=== PATIENT | female | born 1980 | race African-American/Black ===

== ENCOUNTER 2017-06-01 22:51 | Inpatient (IN) | payer SELFPAY ==
[~2017-06-01] VITALS: Ht 157.5 cm; Wt 47.5 kg
[2017-06-01] VITALS (10 sets, daily range): BP systolic 82–137; BP diastolic 40–63; PULSE 69–168; RESP 16; O2SAT 90–100
--- NOTE | 2017-06-01 23:55 | HHI.HP ---
[facility] Service Critical Care Medicine Primary Care Physician Admission Diagnosis Diagnosis: Chief Complaint: PEA arrest Travel History International Travel<30 Days: No Contact w/Intl Traveler <30 Da: No Traveled to Known Affected Are: No History of Present Illness This is a 37-year-old female with an unknown past medical history who presents after out of hospital cardiac arrest. Per EMS report, a friend found the patient altered with agonal respirations. Per report, the friend did not have any way of contacting 911, so the friend place the patient in a car and drove her to the nearest gas station to call 911. Upon EMS arrival, the patient was unresponsive, not breathing, and pulseless. Presenting rhythm was asystole. ACLS was initiated, 3 A of epinephrine, 1 amp of bicarbonate, 2 mg of Narcan and the patient had ROSC. Patient was transported to health emergency Department. In emergency department, she had a decreased level of consciousness but was moving all 4 extremities spontaneously. Her GCS was 6 (E1 ,V1,M4). Her urine drug screen is positive for cocaine. I discussion with Dr. Yañez the ER physician, and we agree that given her young age and that she was witnessed with a pulse, that the potential benefits of therapeutic hypothermia outweigh the risks in this scenario. No additional information is available from the patient and we do not know of any family at this time. Patient was transported the CVICU and therapeutic hypothermia was initiated. Review of Systems ROS Limitations: Clinical Condition, Intubated, Altered Mental Status, Unresponsive Past Family Social History Allergies: Coded Allergies: No Allergy Information Available (Unverified , 06/01/17) Past Medical History Unknown and unobtainable secondary to the clinical condition of the patient. Past Surgical History Unknown and unobtainable secondary to the clinical condition of the patient. Reported Medications Unknown and unobtainable secondary to the clinical condition of the patient. Active Ordered Medications See MAR Family History Unknown and unobtainable secondary to the clinical condition of the patient. Social History Unknown and unobtainable secondary to the clinical condition of the patient. The patient is positive for cocaine. Physical Exam Vital Signs Vital Signs Date Time Temp Pulse Resp B/P (MAP) Pulse Ox O2 Delivery O2 Flow Rate FiO2 06/01/17 23:49 69 16 113/56 (75) 100 Ventilator 100 06/01/17 23:41 86 16 111/53 (72) 100 100 06/01/17 23:30 101 16 90/47 (61) 100 Ventilator 06/01/17 23:26 92 84/45 (58) 100 15.00 06/01/17 23:24 97 82/40 (54) 100 15.00 06/01/17 23:19 121 110/56 (74) 100 15.00 06/01/17 23:17 126 137/62 (87) 100 15.00 06/01/17 23:11 117 103/63 (76) 90 15.00 06/01/17 23:03 168 116/55 (75) 98 15.00 Physical Exam GENERAL: Young female, lying in bed, intubated, unresponsive HEENT: Normocephalic. Atraumatic. Pupils 5 mm, equal, round, nonreactive, conjugate. Mucous membranes are moist NECK: Trachea is midline. There is no JVD. CHEST: Intubated, full vent support, FiO2 60% CARDIOVASCULAR: Tachycardic rate, regular rhythm. Frequent PVCs ABDOMEN: Soft, nontender, nondistended. No guarding. MUSCULOSKELETAL: Pulses 2+. No peripheral edema. NEUROLOGICAL: GCS of 6. RASS -4. Occasionally moves all extremities. Does not withdraw to pain. Does not follow commands. Pupils as above. Negative cough. Negative gag. Laboratory Laboratory Tests Test 06/01/17 22:55 06/01/17 22:59 06/01/17 23:30 06/02/17 00:00 Blood Gas Liter Flow 15 L/M White Blood Count 5.0 TH/MM3 Red Blood Count 3.85 MIL/MM3 Hemoglobin 9.3 GM/DL Hematocrit 31.3 % Mean Corpuscular Volume 81.4 FL Mean Corpuscular Hemoglobin 24.1 PG Mean Corpuscular Hemoglobin Concent 29.6 % Red Cell Distribution Width 18.2 % Platelet Count 174 TH/MM3 Mean Platelet Volume 8.4 FL Neutrophils (%) (Auto) 20.7 % Lymphocytes (%) (Auto) 65.0 % Monocytes (%) (Auto) 13.4 % Eosinophils (%) (Auto) 0.2 % Basophils (%) (Auto) 0.7 % Neutrophils # (Auto) 1.0 TH/MM3 Lymphocytes # (Auto) 3.3 TH/MM3 Monocytes # (Auto) 0.7 TH/MM3 Eosinophils # (Auto) 0.0 TH/MM3 Basophils # (Auto) 0.0 TH/MM3 CBC Comment AUTO DIFF Differential Comment AUTO DIFF CONFIRMED Platelet Estimate NORMAL Platelet Morphology Comment NORMAL Prothrombin Time 10.7 SEC Prothromb Time International Ratio 1.1 RATIO Activated Partial Thromboplast Time 25.5 SEC Blood Urea Nitrogen 12 MG/DL Creatinine 1.20 MG/DL Random Glucose 261 MG/DL Total Protein 7.1 GM/DL Albumin 3.2 GM/DL Calcium Level 8.0 MG/DL Alkaline Phosphatase 158 U/L Aspartate Amino Transf (AST/SGOT) 123 U/L Alanine Aminotransferase (ALT/SGPT) 65 U/L Total Bilirubin 0.2 MG/DL Sodium Level 142 MEQ/L Potassium Level 5.1 MEQ/L Chloride Level 107 MEQ/L Carbon Dioxide Level 17.4 MEQ/L Anion Gap 18 MEQ/L Estimat Glomerular Filtration Rate 47 ML/MIN Total Creatine Kinase 322 U/L Creatine Kinase MB 2.3 NG/ML Creatine Kinase MB % 0.7 % Troponin I LESS THAN 0.02 NG/ML Thyroid Stimulating Hormone 3rd Gen 1.740 uIU/ML Salicylates Level 4.3 MG/DL Acetaminophen Level LESS THAN 2.0 MCG/ML Ethyl Alcohol Level 232 MG/DL Urine Color COLORLESS Urine Turbidity CLEAR Urine pH 5.0 Urine Specific [place] 1.003 Urine Protein NEG mg/dL Urine Glucose (UA) NEG mg/dL Urine Ketones NEG mg/dL Urine Occult Blood NEG Urine Nitrite NEG Urine Bilirubin NEG Urine Urobilinogen LESS THAN 2.0 MG/DL Urine Leukocyte Esterase SMALL Urine WBC LESS THAN 1 /hpf Microscopic Urinalysis Comment CATH-CULT NOT IND Urine Opiates Screen NEG Urine Barbiturates Screen NEG Urine Amphetamines Screen NEG Urine Benzodiazepines Screen NEG Urine Cocaine Screen POS Urine Cannabinoids Screen NEG Blood Gas Puncture Site RT RADIAL Blood Gas Patient Temperature 98.6 Blood Gas HCO3 10 mmol/L Blood Gas Base Excess -17.2 mmol/L Blood Gas Oxygen Saturation 96 % Arterial Blood pH 7.17 Arterial Blood Partial Pressure CO2 28 mmHg Arterial Blood Partial Pressure O2 552 mmHG Arterial Blood Oxygen Content 13.5 Vol % Arterial Blood Carboxyhemoglobin 2.7 % Arterial Blood Methemoglobin 0.7 % Blood Gas Hemoglobin 8.9 G/DL Oxygen Delivery Device VENT Blood Gas Ventilator Setting AC16/500VT/+5 Blood Gas Inspired Oxygen 100 % Imaging Last Impressions CT Angiography 06/02/17 0000 Signed Impressions: Service Date/Time: Friday, June 02, 2017 00:38 - CONCLUSION: No evidence of pulmonary embolism. Left lung perihilar infiltrate. Darrius Blandon MD Abdomen/Pelvis CT 06/02/17 0000 Signed Impressions: Service Date/Time: Friday, June 02, 2017 00:43 - CONCLUSION: Nonspecific distention of bowel. Nonspecific abnormal appearance of the gallbladder. Darrius Blandon MD Head CT 06/01/17 2347 Signed Impressions: Service Date/Time: Friday, June 02, 2017 00:29 - CONCLUSION: No acute intracranial process Darrius Blandon MD Chest X-Ray 06/01/17 0000 Signed Impressions: Service Date/Time: Friday, June 02, 2017 00:04 - CONCLUSION: Satisfactory chest appearance Darrius Blandon MD Septic Shock Reassessment Septic shock perfusion: reassessment completed Caprini VTE Risk Assessment Caprini VTE Risk Assessment: Mod/High Risk (score >= 2) Caprini Risk Assessment Model Point Value = 1 Point Value = 2 Point Value = 3 Point Value = 5 Age 41-60 Minor surgery BMI > 25 kg/m2 Swollen legs Varicose veins or History of unexplained or recurrent spontaneous Oral contraceptives or hormone replacement Sepsis (< 1 month) Serious lung disease, including pneumonia (< 1 month) Abnormal pulmonary function Acute myocardial infarction Congestive heart failure (< 1 month) History of inflammatory bowel disease Medical patient at bed rest Age 61-74 Arthroscopic surgery Major open surgery (> 45 min) Laparoscopic surgery (> 45 min) Malignancy Confined to bed (> 72 hours) Immobilizing plaster cast Central venous access Age >= 75 History of VTE Family history of VTE Factor V Leiden Prothrombin [id number] Lupus anticoagulant Anticardiolipin antibodies Elevated serum homocysteine Heparin-induced thrombocytopenia Other congenital or acquired thrombophilia Stroke (< 1 month) Elective arthroplasty Hip, pelvis, or leg fracture Acute spinal cord injury (< 1 month) Prophylaxis Regimen Total Risk Factor Score Risk Level Prophylaxis Regimen 0-1 Low Early ambulation 2 Moderate Order ONE of the following: *Sequential Compression Device (SCD) *Heparin 5000 units SQ BID 3-4 Higher Order ONE of the following medications: *Heparin 5000 units SQ TID *Enoxaparin/Lovenox 40 mg SQ daily (WT < 150 kg, CrCl > 30 mL/min) *Enoxaparin/Lovenox 30 mg SQ daily (WT < 150 kg, CrCl > 10-29 mL/min) *Enoxaparin/Lovenox 30 mg SQ BID (WT < 150 kg, CrCl > 30 mL/min) AND/OR *Sequential Compression Device (SCD) 5 or more Highest Order ONE of the following medications: *Heparin 5000 units SQ TID (Preferred with Epidurals) *Enoxaparin/Lovenox 40 mg SQ daily (WT < 150 kg, CrCl > 30 mL/min) *Enoxaparin/Lovenox 30 mg SQ daily (WT < 150 kg, CrCl > 10-29 mL/min) *Enoxaparin/Lovenox 30 mg SQ BID (WT < 150 kg, CrCl > 30 mL/min) AND *Sequential Compression Device (SCD) Assessment and Plan Assessment and Plan Assessment: 37-year-old female status post out of hospital cardiac arrest with persistent encephalopathy. This is most likely secondary to drug overdose, likely cocaine. Given that she was very recently found altered but breathing, the potential benefits in this young person of therapeutic hypothermia outweigh the risks. We do not know the time period that it took to drive to the gas station or for EMS to arrive, but given that ROSC was obtained in a reasonable amount of time, asystolic arrest was likely relatively short duration. Patient remains critically ill this time, and certainly may have some severe element of anoxic brain injury. Plan by systems: Neurologic: Hypoxic ischemic encephalopathy Toxic encephalopathy Cocaine overdose Alcohol intoxication Frequent neuro checks Propofol for goal RASS -5 while paralyzed Nimbex drip Respiratory: Acute hypoxic and hypercarbic respiratory failure Vent bundle Head of bed 30 Nebs Wean FiO2 for goal SPO2 greater than 92% CT pulmonary angiogram 06/01: Negative for acute PE Cardiovascular: Status post out of hospital cardiac arrest Cardiogenic shock Likely secondary to cocaine overdose Wean dopamine and norepinephrine as tolerated for goal map greater than 65 Trend lactate Watch urine output closely Trend troponins: Unlikely to be primary acute coronary syndrome secondary to atherosclerosis. Much more likely to be secondary to cocaine Renal: Acute kidney injury Rhabdo myolysis -- Strict I/Os Place Cochran for accurate I's and O's Trend CKs FEN/GI: Maintenance IV fluids ICU electrolyte protocol Daily BMP Nothing by mouth while in shock Heme/ID: No infectious etiology suspected this time Does not be transfusion triggers at this time Daily CBC Endocrine: Hyperglycemia of critical illness -- SSI, medium scale, every 6 Prophylaxis: GI Prophylaxis Famotidine IV DVT Prophylaxis -- SCDs Subcutaneous heparin Lines: 06/01 right femoral triple-lumen catheter placed in the emergency department by the emergency room physician 06/02 right radial arterial line 06/02 left femoral code cool catheter Cochran Dispo: To ICU. Critically ill. This patient remains critically ill with one or more organ systems which are or may become a threat to life. I have spent in excess of 66 minutes discontinuously in the care and management of this patient. This time is exclusive of procedures, and includes, but is not limited to, evaluation of the patient, review of the medical record, discussions with family, consultants, nursing staff, or respiratory therapy, and documentation in the medical record. Americo Ruiz MD Jun 01, 2017 23:55
[2017-06-02] VITALS (43 sets, daily range): BP systolic 101–165; BP diastolic 54–104; PULSE 72–103; RESP 14–16; TEMP 91.2–97.3; O2SAT 98–100
[2017-06-02] MEDS ORDERED: THIAMINE INJ 100 MG in SODIUM CHLORIDE 0.9% INJ 100 ML IV ONE ×2
[2017-06-02] MEDS ORDERED: SODIUM CHLORIDE 0.9% FLUSH 10 ML FLUSH IV FLUSH PRN
--- NOTE | 2017-06-02 00:08 | PD ---
HPI Chief Complaint: Code Blue Time Seen by Provider: 23:46 Travel History International Travel<30 days: No Contact w/Intl Traveler<30days: No Traveled to known affect area: No History of Present Illness HPI Young adult female presents to the emergency department by EMS transport and cardiopulmonary arrest identified by paramedics just prior to their arrival to be in PEA. According to assistant professor of geography report patient was found with decreased level of consciousness and grunting respirations by a friend who drove her to a sitting to gas station to get access to a phone to call 911 upon their arrival the patient was unresponsive not breathing and pulseless. Patient was placed on monitor and found to be in asystole. CPR was initiated patient was intubated IV access obtained by EMS. Patient was then administered 3 amps of epinephrine, 50 mEq of sodium bicarbonate, 2 mg of Narcan, and IV fluids. In route patient's rhythm changed from asystole to PEA. No identification was available medical history unknown except bystander reported history of alcohol use. [facility] Past Medical History Narrative Medical Unknown/unobtainable Social History Alcohol Use: Yes Tobacco Use: Yes Substance Use: Yes Allergies-Medications (Allergen,Severity, Reaction): Coded Allergies: No Allergy Information Available (Unverified , 06/01/17) Narrative Medication Unknown/unobtainable Review of Systems ROS Limitations: Clinical Condition, Intubated, Unresponsive, Other: (unknown/ unobtainable) Physical Exam Exam Limitations: Clinical Condition Narrative GENERAL: Well-developed young adult appearing female unresponsive with no spontaneous respirations and no pulse except provided by CPR and Ambu assisted ventilations. GCS 3 SKIN: Warm and dry. HEAD: Normocephalic. No palpable soft tissue swelling or bony abnormality or obvious laceration. EYES: No scleral icterus. No injection or drainage. Pupils equal round and nonreactive. NECK: Supple, trachea midline. No JVD or lymphadenopathy. No bony step-off to palpation. CARDIOVASCULAR: No heart sounds to auscultation. Pulse only with compressions. RESPIRATORY: No spontaneous breath sounds or respirations; bilateral breath sounds to auscultation with Ambu assisted ventilations GASTROINTESTINAL: Abdomen soft, nondistended. MUSCULOSKELETAL: No cyanosis, or edema. BACK: Nontender without obvious deformity. No abrasion or ecchymosis no wounds. Data Data Last Documented VS Vital Signs Date Time Temp Pulse Resp B/P (MAP) Pulse Ox O2 Delivery O2 Flow Rate FiO2 06/01/17 23:49 69 16 113/56 (75) 100 Ventilator 100 06/01/17 23:26 15.00 Orders Orders Chest, Single Ap (06/01/17 ) Electrocardiogram (06/01/17 23:47) Complete Blood Count With Diff (06/01/17 23:47) Comprehensive Metabolic Panel (06/01/17 23:47) Creatine Kinase (Cpk) (06/01/17 23:47) Prothrombin Time / Inr (Pt) (06/01/17 23:47) Act Partial Throm Time (Ptt) (06/01/17 23:47) Troponin I (06/01/17:47) Thyroid Stimulating Hormone (06/01/17:47) Urinalysis - C+S If Indicated (06/01/17 23:47) Lactic Acid Sepsis Protocol (06/01/17 23:47) Arterial Blood Gas (Abg) (06/01/17 23:47) Blood Culture (06/01/17 23:47) Ct Brain W/O Iv Contrast(Rout) (06/01/17 23:47) Blood Glucose (06/01/17 23:47) Ecg Monitoring (06/01/17:47) Iv Access Insert/Monitor (06/01/17 23:47) Oximetry (06/01/17 23:47) Sodium Chloride 0.9% Flush (Ns Flush) (06/02/17 00:00) Thiamine Inj (Thiamine Inj) (06/02/17 00:00) Drug Screen, Random Urine (06/01/17 23:47) Alcohol (Ethanol) (06/01/17 23:47) Tylenol (Acetaminophen) (06/01/17 23:47) Salicylates (Aspirin) (06/01/17 23:47) Sodium Chlor 0.9% 1000 Ml Inj (Ns 1000 M (06/02/17 00:00) Sodium Chlor 0.9% 1000 Ml Inj (Ns 1000 M (06/02/17 00:00) Propofol 1000 Mg/100 Ml Inj (Diprivan 10 (06/02/17 00:00) Neurological Rass Scale Q30MX2,Q2HX4,Q4H (06/01/17 23:55) Admit Order (Ed Use Only) (06/01/17 ) Slps / Telemetry LEO.Q8H (06/01/17 23:56) Diet Npo (06/02/17 Breakfast) Activity Bed Rest (06/01/17 23:56) Notify Dr: Other (06/01/17 23:56) CKMB (06/01/17 22:59) CKMB% (06/01/17 22:59) Labs Laboratory Tests Test 06/01/17 22:55 06/01/17 22:59 06/01/17 23:30 06/02/17 00:00 Blood Gas Puncture Site LT FEMORAL RT RADIAL Blood Gas Patient Temperature 98.6 98.6 Blood Gas HCO3 12 mmol/L 10 mmol/L Blood Gas Base Excess -18.3 mmol/L -17.2 mmol/L Blood Gas Oxygen Saturation 84 % 96 % Arterial Blood pH 6.92 7.17 Arterial Blood Partial Pressure CO2 63 mmHg 28 mmHg Arterial Blood Partial Pressure O2 97 mmHG 552 mmHG Arterial Blood Oxygen Content 10.7 Vol % 13.5 Vol % Arterial Blood Carboxyhemoglobin 4.3 % 2.7 % Arterial Blood Methemoglobin 0.7 % 0.7 % Blood Gas Hemoglobin 8.9 G/DL 8.9 G/DL Oxygen Delivery Device AMBU BAG VENT Blood Gas Liter Flow 15 L/M Blood Gas Inspired Oxygen 100 % 100 % White Blood Count 5.0 TH/MM3 Red Blood Count 3.85 MIL/MM3 Hemoglobin 9.3 GM/DL Hematocrit 31.3 % Mean Corpuscular Volume 81.4 FL Mean Corpuscular Hemoglobin 24.1 PG Mean Corpuscular Hemoglobin Concent 29.6 % Red Cell Distribution Width 18.2 % Platelet Count 174 TH/MM3 Mean Platelet Volume 8.4 FL Neutrophils (%) (Auto) 20.7 % Lymphocytes (%) (Auto) 65.0 % Monocytes (%) (Auto) 13.4 % Eosinophils (%) (Auto) 0.2 % Basophils (%) (Auto) 0.7 % Neutrophils # (Auto) 1.0 TH/MM3 Lymphocytes # (Auto) 3.3 TH/MM3 Monocytes # (Auto) 0.7 TH/MM3 Eosinophils # (Auto) 0.0 TH/MM3 Basophils # (Auto) 0.0 TH/MM3 CBC Comment AUTO DIFF Differential Comment AUTO DIFF CONFIRMED Platelet Estimate NORMAL Platelet Morphology Comment NORMAL Prothrombin Time 10.7 SEC Prothromb Time International Ratio 1.1 RATIO Activated Partial Thromboplast Time 25.5 SEC Blood Urea Nitrogen 12 MG/DL Creatinine 1.20 MG/DL Random Glucose 261 MG/DL Total Protein 7.1 GM/DL Albumin 3.2 GM/DL Calcium Level 8.0 MG/DL Alkaline Phosphatase 158 U/L Aspartate Amino Transf (AST/SGOT) 123 U/L Alanine Aminotransferase (ALT/SGPT) 65 U/L Total Bilirubin 0.2 MG/DL Sodium Level 142 MEQ/L Potassium Level 5.1 MEQ/L Chloride Level 107 MEQ/L Carbon Dioxide Level 17.4 MEQ/L Anion Gap 18 MEQ/L Estimat Glomerular Filtration Rate 47 ML/MIN Total Creatine Kinase 322 U/L Creatine Kinase MB 2.3 NG/ML Creatine Kinase MB % 0.7 % Troponin I LESS THAN 0.02 NG/ML Thyroid Stimulating Hormone 3rd Gen 1.740 uIU/ML Salicylates Level 4.3 MG/DL Acetaminophen Level LESS THAN 2.0 MCG/ML Ethyl Alcohol Level 232 MG/DL Urine Color COLORLESS Urine Turbidity CLEAR Urine pH 5.0 Urine Specific [place] 1.003 Urine Protein NEG mg/dL Urine Glucose (UA) NEG mg/dL Urine Ketones NEG mg/dL Urine Occult Blood NEG Urine Nitrite NEG Urine Bilirubin NEG Urine Urobilinogen LESS THAN 2.0 MG/DL Urine Leukocyte Esterase SMALL Urine WBC LESS THAN 1 /hpf Microscopic Urinalysis Comment CATH-CULT NOT IND Urine Opiates Screen NEG Urine Barbiturates Screen NEG Urine Amphetamines Screen NEG Urine Benzodiazepines Screen NEG Urine Cocaine Screen POS Urine Cannabinoids Screen NEG Blood Gas Ventilator Setting AC16/500VT/+5 MDM Medical Decision Making Medical Screen Exam Complete: Yes Emergency Medical Condition: Yes Medical Record Reviewed: Yes Interpretation(s) Urine drug screen: positive for cocaine Serum alcohol: [address] 06/01/17 2347 Signed Impressions: Service Date/Time: Friday, June 02, 2017 00:29 - CONCLUSION: No acute intracranial process Darrius Blandon MD Chest X-Ray 06/01/17 0000 Signed Impressions: Service Date/Time: Friday, June 02, 2017 00:04 - CONCLUSION: Satisfactory chest appearance Darrius Blandon MD CBC & BMP Diagram 06/01/17 22:59 Total Protein 7.1, Albumin 3.2 L, Calcium Level 8.0 L, Alkaline Phosphatase 158 H, Aspartate Amino Transf (AST/SGOT) 123 H, Alanine Aminotransferase (ALT/SGPT) 65 H, Total Bilirubin 0.2 Vital Signs Date Time Temp Pulse Resp B/P (MAP) Pulse Ox O2 Delivery O2 Flow Rate FiO2 06/01/17 23:49 69 16 113/56 (75) 100 Ventilator 100 06/01/17 23:41 86 16 111/53 (72) 100 100 06/01/17 23:40 100 100 06/01/17 23:30 101 16 90/47 (61) 100 Ventilator 06/01/17 23:26 92 84/45 (58) 100 15.00 06/01/17 23:24 97 82/40 (54) 100 15.00 06/01/17 23:19 121 110/56 (74) 100 15.00 06/01/17 23:17 126 137/62 (87) 100 15.00 06/01/17 23:11 117 103/63 (76) 90 15.00 06/01/17 23:03 168 116/55 (75) 98 15.00 Differential Diagnosis Polysubstance ingestion/overdose, CVA, [place], metabolic derangement, septic shock Narrative Course Young adult female confirmed bilateral breath sounds on EMS stretcher transferred to ED stretcher breath sounds again auscultated with Ambu assisted ventilations equal and symmetric with no gastric sounds; patient found to be in PEA administered additional 1 mg epinephrine IV [id number] ongoing chest compressions patient remained in PEA additional 2 doses of epinephrine administered as well as 2 mg of Narcan blood sugar was 158 IV fluids administered wide open patient subsequently developed ventricular tach and was defibrillated 200 J compressions resumed no pulse again rhythm deterioration patient defibrillated 360 J with ongoing compressions and administered one time dose of magnesium; patient resumed spontaneous pulses amiodarone was administered is a 150 mg bolus with infusion patient was started on dopamine infusion ongoing IV fluid infusion one time dose of 1 g calcium. Patient blood pressure with moderate response to dopamine additional pressor Levophed administered. Central line inserted. Anchorman at bedside. Patient sent for CT brain. Police identifying patient. Critical Care Narrative Aggregate critical care time was 30 minutes. Time to perform other separately billable procedures was not included in the critical care time. My time did not include minutes spent treating any other patients simultaneously or on activities that did not directly contribute to the patient's treatment. The services I provided to this patient were to treat and/or prevent clinically significant deterioration that could result in: Metabolic derangement toxic encephalopathy sepsis I provided critical care services requiring my management, as noted below: Chart data review, documentation time, medication orders and management, vital sign assessments/reviewing monitor data, ordering and reviewing lab tests, ordering and interpreting/reviewing x-rays and diagnostic studies, care of the patient and discussion of the patient with the admitting physicians. Procedures Procedure Narrative CENTRAL VENOUS LINE: The site was prepped with Betadine and sterilely draped. It was infiltrated with 1% lidocaine plain. The deep vein was cannulated using normal Seldinger technique. A triple lumen central line was placed in the right femoral vein site and secured with simple interrupted suture. The site was sterilely dressed. The patient tolerated the procedure well. Physician Communication Physician Communication Case discussed with him accepted by miter sawyer Dr. Ruiz Diagnosis Primary Impression: Cocaine abuse Additional Impression: Cardiopulmonary arrest with successful resuscitation Admitting Information Admitting Physician Requests: Admit An Yañez MD Jun 02, 2017 00:08
[2017-06-02 00:14] LABS: BILIRUBIN, URINE NEG (NEG); BLOOD, URINE NEG (NEG); GLUCOSE,URINE NEG (NEG); KETONE, URINE NEG (NEG); NITRITE,URINE NEG (NEG); URINE COLOR COLORLESS (YELLW/STRAW); URINE LEUKOCYTE ESTERASE SMALL (NEG)
[2017-06-02 00:19] LABS: BASOPHIL % 0.7 % (0.0-2.0); EOSINOPHIL % 0.2 % (0.0-4.0); HEMATOCRIT 31.3 % (35.0-46.0); HEMOGLOBIN 9.3 GM/DL (11.6-15.3); LYMPHOCYTE # 3.3 TH/MM3 (1.0-4.8); MEAN CELL VOLUME 81.4 FL (80.0-100.0); MEAN CORPUSCULAR HEMOGLOBIN 24.1 PG (27.0-34.0); MEAN PLATELET VOLUME 8.4 FL (7.0-11.0); MONO % 13.4 % (0.0-8.0); MONOCYTE # 0.7 TH/MM3 (0-0.9); NEUT % 20.7 % (16.0-70.0); PLATELET COUNT 174 TH/MM3 (150-450); RED BLOOD COUNT 3.85 MIL/MM3 (4.00-5.30); RED CELL DISTRIBUTION WIDTH 18.2 % (11.6-17.2)
[2017-06-02 00:21] LABS: MEAN CORPUSCULAR HGB CONC 29.6 % (32.0-36.0)
[2017-06-02] MEDS: PROPOFOL 1000 MG/100 ML INJ 100 ML IV PRN ×2 (00:21→09:17)
[2017-06-02 00:30] LABS: INTERNATIONAL NORMALIZED RATIO 1.1 RATIO; PROTHROMBIN TIME - PATIENT 10.7 SEC (9.8-11.6)
--- NOTE | 2017-06-02 00:30 | RADRPT ---
EXAM DATE/TIME: 06/02/2017 00:04 [facility] COMPARISON: No previous studies available for comparison. INDICATIONS : Status post intubation. MEDICAL HISTORY : Unobtainable. SURGICAL HISTORY : Unobtainable. ENCOUNTER: Initial ACUITY: 1 day PAIN SCORE: Non-responsive. LOCATION: chest FINDINGS: Endotracheal tube and nasogastric tube are present in satisfactory position. Lungs are symmetrically aerated and grossly clear. Cardiac contours are satisfactory for technique and projection. CONCLUSION: Satisfactory chest appearance Darrius Blandon MD on June 02, 2017 at 0:26 Board Certified Radiologist. This report was verified electronically.
[2017-06-02 00:35] LABS: ALBUMIN 3.2 GM/DL (3.4-5.0); ALT (GPT) 65 U/L (10-53); AST (GOT) 123 U/L (15-37); BICARBONATE 17.4 MEQ/L (21.0-32.0); BLOOD UREA NITROGEN 12 MG/DL (7-18); CHLORIDE 107 MEQ/L (98-107); GLOMERULAR FILTRATION RATE 47 ML/MIN (>89); GLUCOSE,RANDOM 261 MG/DL (74-106); SODIUM (NA) 142 MEQ/L (136-145)
[2017-06-02 00:45] LABS: ALKALINE PHOSPHATASE 158 U/L (45-117); TOTAL BILIRUBIN ADULT 0.2 MG/DL (0.2-1.0); TOTAL PROTEIN 7.1 GM/DL (6.4-8.2); TROPONIN I LESS THAN 0.02 NG/ML (0.02-0.05)
[2017-06-02 00:48] LABS: ACETAMINOPHEN LESS THAN 2.0 MCG/ML (10.0-30.0)
--- NOTE | 2017-06-02 00:50 | RADRPT ---
EXAM DATE/TIME: 06/02/2017 00:29 [facility] COMPARISON: No previous studies available for comparison. INDICATIONS : Altered mental status. RADIATION DOSE: 56.35 CTDIvol (mGy) ; Patient motion MEDICAL HISTORY : Non-responsive. SURGICAL HISTORY : Non-responsive. ENCOUNTER: Initial ACUITY: 1 day PAIN SCALE: Non-responsive LOCATION: cranial TECHNIQUE: Multiple contiguous axial images were obtained of the head. Using automated exposure control and adj ustment of the mA and/or kV according to patient size, radiation dose was kept as low as reasonably a chievable to obtain optimal diagnostic quality images. DICOM format image data is available electro nically for review and comparison. FINDINGS: CEREBRUM: The ventricles are normal for age. No evidence of midline shift, mass lesion, hemorrhage or acute in farction. No extra-axial fluid collections are seen. POSTERIOR FOSSA: The cerebellum and brainstem are intact. The 4th ventricle is midline. The cerebellopontine angle i s unremarkable. EXTRACRANIAL: The visualized portion of the orbits is intact. Mild mucosal sinus disease. SKULL: The calvaria is intact. No evidence of skull fracture. CONCLUSION: No acute intracranial process Darrius Blandon MD on June 02, 2017 at 0:46 Board Certified Radiologist. This report was verified electronically.
[2017-06-02] MEDS ORDERED: IOHEXOL 350 MG/ML 10 ML VIAL (for RAD DIAG) IVCONTRAST ONE (00:54)
--- NOTE | 2017-06-02 01:03 | RADRPT ---
EXAM DATE/TIME: 06/02/2017 00:38 [facility] COMPARISON: CHEST SINGLE AP, June 02, 2017, 0:04. INDICATIONS : Shortness of breath, Evaluate for emboli. IV CONTRAST: 100 cc Omnipaque 350 (iohexol) IV ; Cumulative dose for multiple exams. RADIATION DOSE: 5.69 CTDIvol (mGy) MEDICAL HISTORY : Non-responsive. SURGICAL HISTORY : Non-responsive. ENCOUNTER: Initial ACUITY: 1 day PAIN SCALE: Non-responsive LOCATION: chest TECHNIQUE: Volumetric scanning of the chest was performed using a pulmonary embolism protocol MIP images were re constructed. Using automated exposure control and adjustment of the mA and/or kV according to patien t size, radiation dose was kept as low as reasonably achievable to obtain optimal diagnostic quality images. DICOM format image data is available electronically for review and comparison. Follow-up recommendations for detected pulmonary nodules are based at a minimum on nodule size and pa tient risk factors according to Fleischner Society Guidelines. FINDINGS: PULMONARY ARTERIES: No filling defects are seen in the pulmonary arteries through the segmental level. LUNGS: Perihilar infiltrate is present on the left. Right lung is clear. PLEURAE: There is no pleural thickening or pleural effusion. MEDIASTINUM: There is good visualization of the great vessels of the middle mediastinum. No evidence of mediastin al or hilar adenopathy/mass. MUSCULOSKELETAL: Within normal limits for patient age. CONCLUSION: No evidence of pulmonary embolism. Left lung perihilar infiltrate. Darrius Blandon MD on June 02, 2017 at 0:58 Board Certified Radiologist. This report was verified electronically.
--- NOTE | 2017-06-02 01:12 | RADRPT ---
EXAM DATE/TIME: 06/02/2017 00:43 [facility] COMPARISON: No previous studies available for comparison. INDICATIONS : Abdominal bloating. IV CONTRAST: 100 cc Omnipaque 350 (iohexol) IV ; Cumulative dose for multiple exams. ORAL CONTRAST: No oral contrast ingested. RADIATION DOSE: 7.65 CTDIvol (mGy) MEDICAL HISTORY : Non-responsive. SURGICAL HISTORY : Non-responsive. ENCOUNTER: Initial ACUITY: 1 day PAIN SCALE: Non-responsive LOCATION: Abdomen. TECHNIQUE: Volumetric scanning of the abdomen and pelvis was performed. Using automated exposure control and ad justment of the mA and/or kV according to patient size, radiation dose was kept as low as reasonably achievable to obtain optimal diagnostic quality images. DICOM format image data is available electro nically for review and comparison. FINDINGS: LOWER LUNGS: The visualized lower lungs are clear. LIVER: Homogeneous density without lesion. There is no dilation of the biliary tree. Gallbladder notable fo r mild distention with prominent wall thickening versus mild pericholecystic fluid.. SPLEEN: Normal size without lesion. PANCREAS: Within normal limits. KIDNEYS: Normal in size and shape. There is no mass, stone or hydronephrosis. ADRENAL GLANDS: Within normal limits. VASCULAR: There is no aortic aneurysm. BOWEL/MESENTERY: Moderate fairly diffuse fluid and gaseous distention of small bowel sparing what appears to be the pr oximal most loops. Proximal colon is mildly dilated. No definite mass or wall thickening. ABDOMINAL WALL: Within normal limits. RETROPERITONEUM: There is no lymphadenopathy. BLADDER: Decompressed with Cochran catheter REPRODUCTIVE: Within normal limits. INGUINAL: Right groin femoral venous catheter extending up to the common iliac vein MUSCULOSKELETAL: Within normal limits for patient age. CONCLUSION: Nonspecific distention of bowel. Nonspecific abnormal appearance of the gallbladder. Darrius Blandon MD on June 02, 2017 at 1:00 Board Certified Radiologist. This report was verified electronically.
[2017-06-02] MEDS ORDERED: NOREPINEPHRINE INJ 4 MG in SODIUM CHLOR 0.9% 250 ML INJ 246 ML IV PRN (02:00)
[2017-06-02] MEDS ORDERED: SODIUM CHLOR 0.9% 1000 ML INJ 1,000 ML IV ONE ×2 (02:00)
[2017-06-02] MEDS ORDERED: TERBUTALINE INJ 1 MG/ML AMP SQ PRN ×3 (02:00)
[2017-06-02] MEDS ORDERED: DOPamine INJ PREMIX 500 ML IV PRN (02:00)
[2017-06-02] MEDS ORDERED: MEPERIDINE HCL 25 MG/ML VIAL IV PUSH PRN (02:30)
[2017-06-02] MEDS ORDERED: ARTIFICIAL TEARS OPTH OINT 3.5 APPLIC/3.5 GM TUBO EACH EYE PRN (02:30)
[2017-06-02] MEDS ORDERED: Mix all IV Meds in NS IV SCH (02:30)
[2017-06-02] MEDS ORDERED: NOREPINEPHRINE 4 MG/250 ML NS IV PRN ×2 (02:30)
[2017-06-02] MEDS ORDERED: CISATRACURIUM BESYLATE 10 MG/5 ML VIAL IV PUSH ONE (02:30)
[2017-06-02] MEDS ORDERED: busPIRone HCL 5 MG TAB NG PRN (02:30)
[2017-06-02] MEDS ORDERED: AMIODARONE INJ 150 MG in DEXTROSE 5% IN WATER 100ML INJ 100 ML IV ONE ×2 (02:35)
[2017-06-02] MEDS ORDERED: ONDANSETRON HCL 4 MG/2 ML VIAL IV PUSH PRN (02:45)
[2017-06-02] MEDS ORDERED: MIDAZOLAM HCL 2 MG/2 ML VIAL IV PUSH PRN (02:45)
[2017-06-02] MEDS ORDERED: RESP: ALBUTEROL 2.5 MG/IPRATROPIUM 0.5 MG NEB (PRN) NEB (02:45)
[2017-06-02] MEDS ORDERED: AMIODARONE INJ 450 MG in DEXTROSE 5% IN WATE(EXCEL) INJ 241 ML IV PRN ×2 (02:45)
[2017-06-02] MEDS ORDERED: MAGNESIUM OXIDE 400 MG TAB PO PRN (03:00)
[2017-06-02] MEDS ORDERED: POTASSIUM CHLOR 40 MEQ PREMIX 100 ML IV PRN (03:00)
[2017-06-02] MEDS ORDERED: SODIUM PHOSPHATE INJ 30 MMOL in SODIUM CHLOR 0.9% 250 ML INJ 240 ML IV PRN (03:00)
[2017-06-02] MEDS ORDERED: SODIUM BICARBONATE 8.4% INJ 50 MEQ/50 ML SYR IV PUSH ONE (03:00)
[2017-06-02] MEDS ORDERED: MAGNESIUM SULFATE INJ 4 GM in SODIUM CHLORIDE 0.9% INJ 92 ML IV PRN (03:00)
[2017-06-02] MEDS ORDERED: POTASSIUM CHLOR 20 MEQ PREMIX 100 ML IV PRN (03:00)
[2017-06-02] MEDS ORDERED: POTASSIUM PHOSPHATE MONOBASIC 500 MG TAB PO/TUBE PRN (03:00)
[2017-06-02] MEDS ORDERED: POTASSIUM PHOSPHATE MONOBASIC 500 MG TAB PO PRN (03:00)
[2017-06-02] MEDS ORDERED: POTASSIUM CHLORIDE 25 MEQ EFFERVESCENT TAB PO PRN (03:00)
[2017-06-02] MEDS ORDERED: POTASSIUM PHOSPHATE INJ 30 MMOL in SODIUM CHLOR 0.9% 250 ML INJ 250 ML IV PRN (03:00)
[2017-06-02] MEDS ORDERED: FAMOTIDINE 20 MG/2 ML VIAL IV PUSH SCH (03:00)
[2017-06-02] MEDS ORDERED: MAGNESIUM SULFATE INJ 2 GM in SODIUM CHLORIDE 0.9% INJ 96 ML IV PRN (03:00)
[2017-06-02] MEDS ORDERED: DEXTROSE 50% IN WATER 50 ML VIAL(D50) IV PUSH PRN (03:00)
--- NOTE | 2017-06-02 03:10 | PD.PROCEDR ---
Procedure Note Procedure Procedure: Arterial Line Placement Right radial arterial line Diagnosis: Cardiogenic shock Indications: For beat to beat hemodynamic monitoring Consent: Emergent Description of the Procedure: The right wrist was prepped and draped sterilely. 1% lidocaine was used for local anesthesia. The pulse was located and a needle was advanced into the artery. A 20 gauge, 3.5 cm catheter was advanced into the artery using a modified Seldinger technique. The catheter was sutured to the skin and a sterile dressing was applied. The catheter was connected to a pressure transducer and an arterial waveform was noted. There were no immediate complications noted. There was minimal EBL. I personally performed the procedure. Americo Ruiz MD Jun 02, 2017 03:10
--- NOTE | 2017-06-02 03:12 | PD.PROCEDR ---
Procedure Note Procedure Central Line Procedure Note Left femoral cooling catheter Diagnosis: Status post out of hospital cardiac arrest Indications: Need for therapeutic hypothermia Consent: Emergent Anesthesia: none Description of the Procedure: The patient was placed in the supine, mild- Trendelenburg position. The area was prepped and draped sterilely. A 19g needle was inserted under negative pressure aspiration and dark venous blood was obtained. A guidewire was inserted easily without resistance. A small incision was made using a #11 blade. Using a modified Seldinger technique, the dilator and cooling catheter were advanced over the guidewire without resistance. All ports were aspirated and flushed, and had brisk blood return. The line was secured at the skin using 2-0 silk interrupted sutures. A Biopatch and Transparent sterile dressing were applied. There were no immediate complications noted. There was minimal EBL. The patient tolerated the procedure well. Ultrasound guidance was not used for this procedure I personally performed the procedure. Americo Ruiz MD Jun 02, 2017 03:12
[2017-06-02 03:50] LABS: HEMATOCRIT 34.1 % (35.0-46.0); HEMOGLOBIN 10.5 GM/DL (11.6-15.3); MEAN CELL VOLUME 77.6 FL (80.0-100.0); MEAN CORPUSCULAR HEMOGLOBIN 23.9 PG (27.0-34.0); MEAN CORPUSCULAR HGB CONC 30.8 % (32.0-36.0); MEAN PLATELET VOLUME 7.2 FL (7.0-11.0); PLATELET COUNT 234 TH/MM3 (150-450); RED CELL DISTRIBUTION WIDTH 18.1 % (11.6-17.2); WHITE BLOOD COUNT 28.4 TH/MM3 (4.0-11.0)
[2017-06-02 03:58] LABS: INTERNATIONAL NORMALIZED RATIO 1.1 RATIO; PROTHROMBIN TIME - PATIENT 11.3 SEC (9.8-11.6)
[2017-06-02] MEDS: RESP: ALBUTEROL 2.5 MG/IPRATROPIUM 0.5 MG NEB (SCH) NEB ×4 (04:00→20:52)
[2017-06-02 04:20] LABS: ALBUMIN 3.4 GM/DL (3.4-5.0); CREATININE 1.66 MG/DL (0.50-1.00); DIRECT BILIRUBIN ADULT 0.4 MG/DL (0.0-0.2); INDIRECT BILIRUBIN 0.2 MG/DL (0.0-0.8); MAGNESIUM 3.3 MG/DL (1.5-2.5); PHOSPHORUS 5.5 MG/DL (2.5-4.9); TOTAL BILIRUBIN ADULT 0.6 MG/DL (0.2-1.0); TOTAL PROTEIN 7.7 GM/DL (6.4-8.2)
[2017-06-02 04:23] LABS: TROPONIN I 5.5 NG/ML (0.02-0.05)
[2017-06-02] MEDS: POTASSIUM CHLOR 40 MEQ PREMIX 100 ML IV PRN (04:48)
[2017-06-02] MEDS ORDERED: CALCIUM GLUCONATE 10% 1 GM/10 ML VIAL IV ONE (05:00)
[2017-06-02] MEDS ORDERED: DOPamine INJ PREMIX 500 ML IV ONE (05:00)
[2017-06-02] MEDS ORDERED: MAGNESIUM SULFATE 40 MEQ/10 ML VIAL IV ONE (05:00)
[2017-06-02] MEDS ORDERED: AMIODARONE HCL 150 MG/3 ML VIAL IV ONE (05:00)
[2017-06-02] MEDS ORDERED: EPINEPHrine HCL (1:10,000) 1 MG/10 ML SYRINGE IV ONE (05:00)
[2017-06-02] MEDS ORDERED: NOREPINEPHRINE 4 MG/4 ML AMP IV ONE (05:00)
[2017-06-02] MEDS ORDERED: NALOXONE HCL 4 MG/10 ML MDV IV ONE (05:00)
[2017-06-02] MEDS: SODIUM CHLOR 0.9% 1000 ML INJ 1,000 ML IV SCH ×4 (05:02→20:30)
[2017-06-02] MEDS: HEPARIN SODIUM - SQ 10,000 UNITS/ML VIAL SQ SCH ×2 (05:55→18:06)
--- NOTE | 2017-06-02 05:59 | HHI.CCPN ---
Subjective Remarks/Hospital Course This is a 37-year-old female with an unknown past medical history who presents after out of hospital cardiac arrest. Per EMS report, a friend found the patient altered with agonal respirations. Per report, the friend did not have any way of contacting 911, so the friend place the patient in a car and drove her to the nearest gas station to call 911. Upon EMS arrival, the patient was unresponsive, not breathing, and pulseless. Presenting rhythm was asystole. ACLS was initiated, 3 A of epinephrine, 1 amp of bicarbonate, 2 mg of Narcan and the patient had ROSC. Patient was transported to [facility] emergency Department. In emergency department, she had a decreased level of consciousness but was moving all 4 extremities spontaneously. Her GCS was 6 (E1 ,V1,M4). Her urine drug screen is positive for cocaine. I discussion with Dr. Yañez the ER physician, and we agree that given her young age and that she was witnessed with a pulse, that the potential benefits of therapeutic hypothermia outweigh the risks in this scenario. No additional information is available from the patient and we do not know of any family at this time. Patient was transported the CVICU and therapeutic hypothermia was initiated. SUBJECTIVE: 06/02: Currently on hypothermia protocol. Temperature 33C. Dignishield will be placed. Remains on multiple vasopressors. Troponin climbing with repeat ordered. Echocardiogram and a.m. EKG pending. Objective Vital Signs Date Time Temp Pulse Resp B/P (MAP) Pulse Ox O2 Delivery O2 Flow Rate FiO2 06/02/17 05:30 77 112/58 06/02/17 04:11 100 50 06/02/17 01:06 16 Ventilator 06/01/17 23:26 15.00 Intake and Output 06/02/17 06/02/17 06/03/17 08:00 16:00 00:00 Intake Total 2000 ml Balance 2000 ml Result Diagram: 06/02/17 0330 06/02/17 0330 Other Results Microbiology Date/Time Source Procedure Growth Status 06/02/17 02:05 Blood Peripheral Aerobic Blood Culture Pending Received 06/02/17 02:05 Blood Peripheral Anaerobic Blood Culture Pending Received Imaging Last Impressions CT Angiography 06/02/17 0000 Signed Impressions: Service Date/Time: Friday, June 02, 2017 00:38 - CONCLUSION: No evidence of pulmonary embolism. Left lung perihilar infiltrate. Darrius Blandon MD Abdomen/Pelvis CT 06/02/17 0000 Signed Impressions: Service Date/Time: Friday, June 02, 2017 00:43 - CONCLUSION: Nonspecific distention of bowel. Nonspecific abnormal appearance of the gallbladder. Darrius Blandon MD Head CT 06/01/17 2347 Signed Impressions: Service Date/Time: Friday, June 02, 2017 00:29 - CONCLUSION: No acute intracranial process Darrius Blandon MD Chest X-Ray 06/01/17 0000 Signed Impressions: Service Date/Time: Friday, June 02, 2017 00:04 - CONCLUSION: Satisfactory chest appearance Darrius Blandon MD Objective Remarks GENERAL: Middle-aged female, resting in bed currently orotracheally intubated and paralyzed HEENT: Normocephalic. Atraumatic. Pupils early about 1-2 mm bilaterally and very sluggish. NECK: Trachea is midline. There is no JVD. CHEST: Symmetrical chest rise. Few crackles patient bases bilaterally. CARDIOVASCULAR: RRR. S1, S2 no S4. Without murmur ABDOMEN: Soft, nontender, nondistended. No guarding. MUSCULOSKELETAL: Pulses 2+ bilateral radial and posterior tibialis. No peripheral edema. NEUROLOGICAL: GCS of 3. [id number] 0 out of 4. Currently on cisatracurium drip. Urinary Catheter: Yes Assessment to: Continue Cochran insert reason: Measure Accurate Output Vascular Central Line Catheter: Yes Date of Insertion: Jun 01, 2017 Line: Central Venous Catheter Side: Right Location: Femoral A/P Assessment and Plan Neurologic: Hypoxic ischemic encephalopathy Toxic encephalopathy - multifactorial Cocaine overdose EtOH Patient is currently on propofol at 20 mics grams per kilo per minute for sedation while paralyzed and cisatracurium at at 3.5 mics grams per kilogram per minute to maintain [id number] 2 out of 4 Frequent neuro checks with [id number] No sedation vacation 24 hours post closed code cool CT brain admission 06/01 revealed no acute intracranial findings EEG ordered for a.m. post rewarming Continue thiamine, folate and multivitamin daily Monitor for DTs post code cool/removal of paralytics Respiratory: Acute hypoxic and hypercarbic respiratory failure ACV 16/500/5/50 Vent bundle Head of bed 30 Albuterol/ipratropium aerosols every 6 hours with albuterol aerosols every 2 hours as needed for dyspnea Wean FiO2 for goal SPO2 greater than 92% CT pulmonary angiogram 06/01: Negative for acute PE and possible left lower lobe infiltrate No spontaneous breathing trials today. Cardiovascular: Status post out of hospital cardiac arrest Cardiogenic shock Elevated troponin Lactic acidosis Likely secondary to cocaine overdosevasospasm Wean dopamine currently at 5 mcg/kg per minute and norepinephrine currently at 10 mics grams per minute as tolerated for goal mean arterial pressure greater than 65 Trend lactate Trend troponins: Unlikely to be primary acute coronary syndrome secondary to atherosclerosis. Much more likely to be secondary to vasospasm with use of cocaine Routine cardiology consult will be ordered but currently not a cardiac catheterization. Echocardiogram/a.m. EKG ordered Currently on amiodarone drip at 1 mg per minute. Within 6 hours will go to 0.5 mg per minute Renal: Acute kidney injury Rhabdo myolysis -- Strict I/Os Place Cochran for accurate I's and O's Trend CKs Currently normal saline in the 125 cc an hour FEN/GI: Hyperphosphatemia Hyper-magnesium Hypokalemia Transaminases likely secondary to shock Diarrhea Currently on normal saline in the 125 cc an hour ICU electrolyte protocol will be initiated Daily BMP Nothing by mouth while in shock. Consider tube feedings trickle in a.m. NGT LIWS FCD placed CT abdomen/pelvis revealed a specific dilated bowel loops and gallbladder appearance. Will check gallbladder ultrasound today Amylase/lipase/LFTs/ammonia level in a.m. Heme/ID: Leukocytosis Microcytic anemia No infectious etiology suspected this time Does not be transfusion triggers at this time Daily CBC Endocrine: Hyperglycemia of critical illness -- SSI Novulog , medium scale, every 6 Prophylaxis: GI Prophylaxis Famotidine IV DVT Prophylaxis -- SCDs Subcutaneous heparin Lines: 06/01 right femoral triple-lumen catheter placed in the emergency department by the emergency room physician 06/02 right radial arterial line 06/02 left femoral code cool catheter Cochran Critical Care: The total critical care time was 30 minutes. Time to perform other separately billable procedures was not included in the critical care time. Felipe Dorantes MD Jun 02, 2017 05:59
[2017-06-02] MEDS: INSULIN NovoLIN REGULAR SUPPLEMENTAL SCALE SQ SCH ×4 (06:00→23:57)
[2017-06-02] MEDS: CISATRACURIUM 100 MG/NS 250 ML IV PRN ×6 (07:25→21:35)
[2017-06-02] MEDS: CHLORHEXIDINE 0.12% (ORAL KIT) 15 ML CUP OROPHARYNG SCH ×2 (07:54→19:34)
--- NOTE | 2017-06-02 08:02 | RADRPT ---
EXAM DATE/TIME: 06/02/2017 07:17 [facility] COMPARISON: CT ABDOMEN & PELVIS W CONTRAST, June 02, 2017, 0:43. INDICATIONS : Elevated lab values. MEDICAL HISTORY : Substance use. Alcohol use. Unable to obtain further medical history. SURGICAL HISTORY : Unable to obtain surgical history. ENCOUNTER: Initial ACUITY: 1 day PAIN SCORE: Nonresponsive. LOCATION: Right upper quadrant MEASUREMENTS: LIVER: 16.8 cm length COMMON DUCT: 4 mm RIGHT KIDNEY: 10.4 x 5.7 x 5.0 cm FINDINGS: LIVER: Normal echotexture without focal lesion or ductal dilatation. Hepatopedal flow within the portal vein . COMMON DUCT: No intraluminal mass or stone visualized. GALLBLADDER: The gallbladder is well-distended. It is not dilated. No stones or sludge. The wall is at the upper r sridevi of normal in terms of thickness. A trace amount of pericholecystic fluid. PANCREAS: The visualized portions are within normal limits. RIGHT KIDNEY: No evidence of hydronephrosis, stone, or mass. A questionable small right effusion. No effusion seen on the recent CT. Trace amount of fluid adjacen t to the right kidney and adjacent to the liver. CONCLUSION: 1. Although the gallbladder is well-distended I see no stones or sludge. There is a trace amount of a scitic fluid including pericholecystic fluid. 2. Questionable small right effusion. No effusion is seen on the recent CT scan. Howard Ricardo Jr., MD on June 02, 2017 at 7:50 Board Certified Radiologist. This report was verified electronically.
[2017-06-02] MEDS: FOLIC ACID 1 MG TAB PO SCH (09:23)
[2017-06-02] MEDS: ARTIFICIAL TEARS OPTH SOLN 15 ML BTL EACH EYE SCH ×3 (09:23→18:05)
[2017-06-02] MEDS: FAMOTIDINE 20 MG/2 ML VIAL IV PUSH SCH (09:23)
[2017-06-02] MEDS: DOCUSATE SODIUM 100 MG CAP PO SCH ×2 (09:23→19:36)
[2017-06-02] MEDS: MULTIVITAMIN TAB PO SCH (09:27)
[2017-06-02] MEDS: THIAMINE INJ 100 MG in SODIUM CHLORIDE 0.9% INJ 100 ML IV SCH (09:27)
[2017-06-02 11:47] LABS: TROPONIN I 10.8 NG/ML (0.02-0.05)
[2017-06-02] MEDS ORDERED: NITROGLYCERIN 2% OINT 1 GM PACKET TOPICAL PRN (15:00)
[2017-06-02] MEDS ORDERED: LABETALOL HCL 100 MG/20 ML VIAL IV PUSH PRN (15:00)
[2017-06-02] MEDS: hydrALAZINE HCL 20 MG/ML VIAL IV PUSH PRN (15:07)
[2017-06-02] MEDS: fentaNYL DRIP 250 ML IV PRN (15:07)
--- NOTE | 2017-06-02 15:21 | ECHRPT ---
Indication: heart failure CONCLUSIONS The left ventricular systolic function is mildly reduced with an estimated ejection fraction of 45%. Normal left ventricular size. Wall thickness is normal. No regional wall motion abnormalities are present. Mild mitral valve regurgitation. Mild aortic sclerosis. Trace aortic valve regurgitation. BP: 112 / 58 HR: 77 Rhythm: Sinus MEASUREMENTS (Male / Female) Normal Values Technical Quality:Good 2D ECHO LV Diastolic Diameter PLAX 5.1 cm 4.2 - 5.9 / 3.9 - 5.3 cm LV Systolic Diameter PLAX 3.9 cm IVS Diastolic Thickness 1.0 cm 0.6 - 1.0 / 0.6 - 0.9 cm LVPW Diastolic Thickness 1.0 cm 0.6 - 1.0 / 0.6 - 0.9 cm LV Relative Wall Thickness 0.4 RV Internal Dim ED PLAX 1.8 cm LVOT Diameter 1.9 cm LA Systolic Diameter LX 2.5 cm 3.0 - 4.0 / 2.7 - 3.8 cm LV Ejection Fraction MOD 4C 56.8 % LV Cardiac Index MOD 4C 1986.0 cm/minm LV Ejection Fraction 4C AL 60.1 % LV Cardiac Index 4C AL 2206.5 cm/minm M-MODE LV Diastolic Diameter MM 5.2 cm 4.2 - 5.9 / 3.9 - 5.3 cm LV Systolic Diameter MM 3.8 cm LV Ejection Fraction MM Teich 52.0 % LV Cardiac Index MM Teich 3212.2 cm/minm IVS Diastolic Thickness MM 0.9 cm 0.6 - 1.0 / 0.6 - 0.9 cm LVPW Diastolic Thickness MM 1.0 cm 0.6 - 1.0 / 0.6 - 0.9 cm LV Relative Wall Thickness MM 0.4 0.24 - 0.42 / 0.22 - 0.42 LV Mass Index MM 114.8 g/m 49 - 115 / 43 - 95 g/m Aortic Root Diameter MM 2.5 cm AV Cusp Separation MM 1.7 cm DOPPLER AV Peak Velocity 127.0 cm/s AV Peak Gradient 6.5 mmHg AI Peak Velocity 262.0 cm/s AI Peak Gradient 27.5 mmHg AI Pressure Half Time 479.0 ms LVOT Peak Velocity 101.0 cm/s LVOT Peak Gradient 4.1 mmHg AV Area Cont Eq pk 2.3 cm MV Area PHT 4.0 cm Mitral E Point Velocity 81.9 cm/s Mitral A Point Velocity 121.0 cm/s Mitral E to A Ratio 0.7 PV Peak Velocity 99.1 cm/s PV Peak Gradient 3.9 mmHg FINDINGS LEFT VENTRICLE The left ventricular systolic function is mildly reduced with an estimated ejection fraction in the range of 45- 50%. Normal left ventricular size. Wall thickness is normal. No regional wall motion abnormalities are present. RIGHT VENTRICLE Normal right ventricular size and systolic function. LEFT ATRIUM The left atrial size is normal. RIGHT ATRIUM The right atrial size is normal. ATRIAL SEPTUM Normal atrial septal thickness without atrial level shunting by limited color doppler interrogation. AORTA The aortic root and proximal ascending aorta are normal in size on limited imaging. MITRAL VALVE Structurally normal mitral valve. Mild mitral valve regurgitation. AORTIC VALVE Trileaflet aortic valve. Aortic sclerosis. Trace aortic valve regurgitation. TRICUSPID VALVE Pulmonary arterial systolic pressure could not be estimated due to an insufficient tricuspid valve regurgitation doppler jet for measurement. PULMONARY VALVE Trivial pulmonary valve regurgitation. VESSELS The inferior vena cava is normal in size. PERICARDIUM No pericardial effusion. Ahmet Perez MD, FACC (Electronically Signed) Final Date:02 June 2017 15:20
--- NOTE | 2017-06-02 16:56 | MB ---
cc: AHMET PEREZ DATE OF CONSULTATION 06/02/2017 HISTORY OF PRESENT ILLNESS Ms. Perla Jeffries is a 37-year-old black female who was found by a friend in agonal respirations after she was using cocaine. Her friend put her in the car and brought her to the gas station where was called. The patient had 26 minutes of resuscitation. She was brought to the emergency room and therapeutic hyperthermia was initiated. PAST MEDICAL HISTORY Unknown. MEDICATIONS Unknown. ALLERGIES Unknown. SOCIAL HISTORY The patient is using cocaine. FAMILY HISTORY Unknown. PHYSICAL EXAMINATION VITAL SIGNS: Blood pressure 142/81, pulse 72 and regular. HEENT: The patient is intubated and unresponsive. NECK: 2+ carotid upstrokes. LUNGS: Clear. HEART: Regular with no murmur or gallop. ABDOMEN: Soft. No bruits. EXTREMITIES: Without edema. 1-2+ pulses. NEUROLOGIC: Exam is grossly nonfocal, although the patient is unresponsive. EKG was reviewed and showed atrial fibrillation with rapid ventricular response and nonspecific and diffuse ST-T changes. LABORATORY DATA Hemoglobin 10.5. Potassium 3.4, creatinine 1.66. CK 442, 418. CK-MB 8.8 and 20.1. Troponin 5.5 and 10.8. DIAGNOSIS 1. Respiratory failure. 2. Cardiogenic shock. 3. Elevated troponin. 4. Cocaine overdose. 5. Encephalopathy. 6. Acute kidney injury. DISPOSITION The patient will be monitored in the ICU. She will be continued on her current medical program including ventilatory support. Therapeutic hypothermia protocol was initiated. The extent of her brain injury is unknown at this time. I will follow her for cardiology during her hospitalization. Ahmet Perez MD OQ/SSB /12:37 PM /4:30 PM [id number]
[2017-06-02 18:17] LABS: TROPONIN I 8.15 NG/ML (0.02-0.05)
[2017-06-02 22:21] LABS: BICARBONATE 21.1 MEQ/L (21.0-32.0); CALCIUM 7.4 MG/DL (8.5-10.1); CREATININE 1.79 MG/DL (0.50-1.00)
[2017-06-02 22:32] LABS: CALCIUM-PROTEIN CORRECTED 7.9 MG/DL (8.5-10.1); TOTAL PROTEIN 6.2 GM/DL (6.4-8.2)
[2017-06-02] MEDS: PROPOFOL 1000 MG/100 ML IV PRN (22:36)
--- NOTE | 2017-06-02 22:53 | EKG ---
Date Performed: 06/01/2017 Time Performed: 23:08:28 PTAGE: 89 years EKG: ATRIAL FIBRILLATION WITH RAPID VENTRICULAR RESPONSE ST DEVIATION AND MODERATE T-WAVE ABNORM ALITY, CONSIDER LATERAL ISCHEMIA ABNORMAL ECG NO PREVIOUS TRACING DOCTOR: Glen Person Interpretating Date/Time 06/02/2017 22:53:01
[2017-06-02] MEDS ORDERED: CALCIUM CHLORIDE INJ 1 GM in SODIUM CHLORIDE 0.9% INJ 100 ML IV ONE (23:00)
[2017-06-03] VITALS (17 sets, daily range): BP systolic 117–147; BP diastolic 61–84; PULSE 72–115; RESP 16–22; TEMP 91.2–98.6; O2SAT 99–100
[2017-06-03] MEDS: hydrALAZINE HCL 20 MG/ML VIAL IV PUSH PRN (00:36)
[2017-06-03 01:35] LABS: TROPONIN I 5.21 NG/ML (0.02-0.05)
[2017-06-03] MEDS: RESP: ALBUTEROL 2.5 MG/IPRATROPIUM 0.5 MG NEB (SCH) NEB ×4 (03:38→20:40)
[2017-06-03 04:24] LABS: AUTOMATED NEUTROPHIL # 9.2 TH/MM3 (1.8-7.7); BASOPHIL % 0.2 % (0.0-2.0); HEMATOCRIT 31.2 % (35.0-46.0); HEMOGLOBIN 9.8 GM/DL (11.6-15.3); LYMPH % 1.1 % (9.0-44.0); LYMPHOCYTE # 0.1 TH/MM3 (1.0-4.8); MEAN CELL VOLUME 75.2 FL (80.0-100.0); MEAN CORPUSCULAR HEMOGLOBIN 23.6 PG (27.0-34.0); MEAN CORPUSCULAR HGB CONC 31.4 % (32.0-36.0); MEAN PLATELET VOLUME 7.4 FL (7.0-11.0); MONO % 13.6 % (0.0-8.0); MONOCYTE # 1.5 TH/MM3 (0-0.9); NEUT % 85.1 % (16.0-70.0); PLATELET COUNT 133 TH/MM3 (150-450); RED BLOOD COUNT 4.15 MIL/MM3 (4.00-5.30); RED CELL DISTRIBUTION WIDTH 18.3 % (11.6-17.2); WHITE BLOOD COUNT 10.8 TH/MM3 (4.0-11.0)
[2017-06-03 04:35] LABS: INTERNATIONAL NORMALIZED RATIO 1.1 RATIO; PROTHROMBIN TIME - PATIENT 11.4 SEC (9.8-11.6)
[2017-06-03 05:00] LABS: ALBUMIN 2.4 GM/DL (3.4-5.0); AST (GOT) 408 U/L (15-37); BICARBONATE 18.4 MEQ/L (21.0-32.0); BLOOD UREA NITROGEN 29 MG/DL (7-18); CALCIUM 7.9 MG/DL (8.5-10.1); CHLORIDE 116 MEQ/L (98-107); CHOLESTEROL 167 MG/DL (120-200); CREATININE 1.61 MG/DL (0.50-1.00); DIRECT BILIRUBIN ADULT 0.4 MG/DL (0.0-0.2); GLOMERULAR FILTRATION RATE 33 ML/MIN (>89); GLUCOSE,RANDOM 128 MG/DL (74-106); LIPASE 656 U/L (73-393); MAGNESIUM 2.1 MG/DL (1.5-2.5); SODIUM (NA) 146 MEQ/L (136-145); TRIGLYCERIDES 68 MG/DL (42-150)
[2017-06-03 05:12] LABS: ALKALINE PHOSPHATASE 211 U/L (45-117); ALT (GPT) 195 U/L (10-53); CHOLESTEROL/ HDL RATIO 1.51 RATIO; HDL CHOLESTEROL 110.1 MG/DL (40.0-60.0); LDL CHOLESTEROL 43 MG/DL (0-99); PHOSPHORUS 4.8 MG/DL (2.5-4.9); TOTAL BILIRUBIN ADULT 0.5 MG/DL (0.2-1.0); TOTAL PROTEIN 5.8 GM/DL (6.4-8.2)
[2017-06-03 05:14] LABS: TROPONIN I 2.72 NG/ML (0.02-0.05)
[2017-06-03] MEDS: INSULIN NovoLIN REGULAR SUPPLEMENTAL SCALE SQ SCH ×3 (05:51→18:00)
[2017-06-03] MEDS: HEPARIN SODIUM - SQ 10,000 UNITS/ML VIAL SQ SCH ×2 (05:57→17:24)
[2017-06-03] MEDS: PROPOFOL 1000 MG/100 ML IV PRN ×3 (06:13→18:52)
[2017-06-03] MEDS: fentaNYL DRIP 250 ML IV PRN ×2 (06:14→18:48)
--- NOTE | 2017-06-03 06:33 | RADRPT ---
EXAM DATE/TIME: 06/03/2017 04:10 [facility] COMPARISON: CHEST SINGLE AP, June 02, 2017, 0:04. INDICATIONS : Shortness of breath, possible pneumothorax. MEDICAL HISTORY : None. SURGICAL HISTORY : None. ENCOUNTER: Subsequent ACUITY: 2 days PAIN SCORE: Non-responsive. LOCATION: Bilateral chest FINDINGS: Endotracheal tube and nasogastric tube are in good stable position. There is mild developing parenchy mal opacity at the left lung base. No evidence of effusion or pneumothorax. Cardiac contour is grossl y unchanged. A catheter or a sense from the abdomen into the lower chest, presumably within the IVC. CONCLUSION: Mild developing left base infiltrate. Darrius Blandon MD on June 03, 2017 at 6:28 Board Certified Radiologist. This report was verified electronically.
[2017-06-03] MEDS: CHLORHEXIDINE 0.12% (ORAL KIT) 15 ML CUP OROPHARYNG SCH ×2 (07:44→20:00)
[2017-06-03] MEDS: CISATRACURIUM 100 MG/NS 250 ML IV PRN ×2 (07:49)
[2017-06-03] MEDS: SODIUM CHLOR 0.9% 1000 ML INJ 1,000 ML IV SCH ×3 (07:50→21:44)
[2017-06-03] MEDS: DOCUSATE SODIUM 100 MG CAP PO SCH ×2 (09:00→21:00)
[2017-06-03] MEDS ORDERED: Vancomycin Consult Pharmacy 1 EA OTHER SCH (09:15)
--- NOTE | 2017-06-03 09:24 | HHI.CCPN ---
Subjective Remarks/Hospital Course This is a 37-year-old female with an unknown past medical history who presents after out of hospital cardiac arrest. Per EMS report, a friend found the patient altered with agonal respirations. Per report, the friend did not have any way of contacting 911, so the friend place the patient in a car and drove her to the nearest gas station to call 911. Upon EMS arrival, the patient was unresponsive, not breathing, and pulseless. Presenting rhythm was asystole. ACLS was initiated, 3 A of epinephrine, 1 amp of bicarbonate, 2 mg of Narcan and the patient had ROSC. Patient was transported to [facility] emergency Department. In emergency department, she had a decreased level of consciousness but was moving all 4 extremities spontaneously. Her GCS was 6 (E1 ,V1,M4). Her urine drug screen is positive for cocaine. I discussion with Dr. Yañez the ER physician, and we agree that given her young age and that she was witnessed with a pulse, that the potential benefits of therapeutic hypothermia outweigh the risks in this scenario. No additional information is available from the patient and we do not know of any family at this time. Patient was transported the CVICU and therapeutic hypothermia was initiated. SUBJECTIVE: 06/02: Currently on hypothermia protocol. Temperature 33C. Dignishield will be placed. Remains on multiple vasopressors. Troponin climbing with repeat ordered. Echocardiogram and a.m. EKG pending. 06/03: Rewarming process initiated early this a.m.. Patient was weaned off of vasopressors greater than 24 hours. Hemodynamically stable. Early this a.m. the patient noted was noted to have decrease in dorsalis pedis and posterior tibial pulses, now nonpalpable but dopplerable biphasic signals. Arterial Doppler studies pending. Right femoral triple-lumen central line removed. Chest x-ray was noted to have an infiltrate, sputum cultures are pending empiric antibiotics initiated. Objective Vital Signs Date Time Temp Pulse Resp B/P (MAP) Pulse Ox O2 Delivery O2 Flow Rate FiO2 06/03/17 08:58 100 40 06/03/17 07:00 90 06/03/17 07:00 93.1 16 127/83 (98) 133/77 (95) 06/02/17 01:06 Ventilator 06/01/17 23:26 15.00 Intake and Output 06/03/17 06/03/17 06/04/17 08:00 16:00 00:00 Intake Total 100 ml Output Total 1150 ml Balance -1050 ml Result Diagram: 06/03/17 0400 06/03/17 0400 Other Results Laboratory Tests Test 06/03/17 04:16 Blood Gas Puncture Site ART LINE Blood Gas Patient Temperature 98.6 Blood Gas HCO3 18 mmol/L (22-26) Blood Gas Base Excess -5.3 mmol/L (-2-2) Blood Gas Oxygen Saturation 97 % (90-100) Arterial Blood pH 7.45 (7.380-7.420) Arterial Blood Partial Pressure CO2 27 mmHg (38-42) Arterial Blood Partial Pressure O2 187 mmHg (61-120) Arterial Blood Oxygen Content 12.8 Vol % (12.0-20.0) Arterial Blood Carboxyhemoglobin 0.6 % (0-4) Arterial Blood Methemoglobin 1.6 % (0-2) Blood Gas Hemoglobin 9.1 G/DL (12.0-16.0) Oxygen Delivery Device VENTILATOR Blood Gas Ventilator Setting VAC16/500/PEEP 5 Blood Gas Inspired Oxygen 40 % Imaging Last Impressions CT Angiography 06/02/17 0000 Signed Impressions: Service Date/Time: Friday, June 02, 2017 00:38 - CONCLUSION: No evidence of pulmonary embolism. Left lung perihilar infiltrate. Darrius Blandon MD Abdomen/Pelvis CT 06/02/17 0000 Signed Impressions: Service Date/Time: Friday, June 02, 2017 00:43 - CONCLUSION: Nonspecific distention of bowel. Nonspecific abnormal appearance of the gallbladder. Darrius Blandon MD Head CT 06/01/17 2347 Signed Impressions: Service Date/Time: Friday, June 02, 2017 00:29 - CONCLUSION: No acute intracranial process Darrius Blandon MD Chest X-Ray 06/01/17 0000 Signed Impressions: Service Date/Time: Friday, June 02, 2017 00:04 - CONCLUSION: Satisfactory chest appearance Darrius Blandon MD Objective Remarks GENERAL: Middle-aged female, resting in bed currently orotracheally intubated and paralyzed HEENT: Normocephalic. Atraumatic. Pupils early about 1-2 mm bilaterally and very sluggish. NECK: Trachea is midline. There is no JVD. CHEST: Symmetrical chest rise. Few crackles patient bases bilaterally. CARDIOVASCULAR: RRR. S1, S2 no S4. Without murmur ABDOMEN: Soft, nontender, nondistended. No guarding. MUSCULOSKELETAL: Pulses 2+ bilateral radial and posterior tibialis. No peripheral edema. NEUROLOGICAL: GCS of 3. [id number] 0 out of 4. Currently on cisatracurium infusion. Date of Insertion: Jun 01, 2017 Date of Removal: Jun 03, 2017 Line: Central Venous Catheter Side: Right Location: Femoral A/P Assessment and Plan Neurologic: Hypoxic ischemic encephalopathy Toxic encephalopathy - multifactorial Cocaine overdose EtOH Patient is currently on propofol at 20 mics grams per kilo per minute for sedation while paralyzed and cisatracurium at at 3.5 mics grams per kilogram per minute to maintain [id number] 2 out of 4 Frequent neuro checks with [id number] No sedation vacation 24 hours post closed code cool CT brain admission 06/01 revealed no acute intracranial findings EEG ordered for a.m. post rewarming Continue thiamine, folate and multivitamin daily Monitor for DTs post code cool/removal of paralytics Respiratory: Acute hypoxic and hypercarbic respiratory failure ACV 16/500/5/50 Vent bundle Head of bed 30 Albuterol/ipratropium aerosols every 6 hours with albuterol aerosols every 2 hours as needed for dyspnea Wean FiO2 for goal SPO2 greater than 92% CT pulmonary angiogram 06/01: Negative for acute PE and possible left lower lobe infiltrate No spontaneous breathing trials today, until clinically indicated 06/03 chest x-ray-Mild development of opacity left lung base Obtain sputum culture Cardiovascular: Status post out of hospital cardiac arrest Cardiogenic shock Elevated troponin Lactic acidosis Likely secondary to cocaine overdosevasospasm Wean dopamine currently at 5 mcg/kg per minute and norepinephrine currently at 10 mics grams per minute as tolerated for goal mean arterial pressure greater than 65 Trend lactate Trend troponins: Unlikely to be primary acute coronary syndrome secondary to atherosclerosis. Much more likely to be secondary to vasospasm with use of cocaine Routine cardiology consult will be ordered but currently not a cardiac catheterization. Echocardiogram/a.m. EKG ordered Amiodarone infusion discontinued 06/02 secondary to the patient having elevated LFTs. The patient remains in normal sinus rhythm, hemodynamically stable on no vasopressors 06/03-obtain arterial Doppler studies of right lower extremity rule out pseudoaneurysm Renal: Acute kidney injury Rhabdomyolysis -- Strict I/Os Place [facility] for accurate I's and O's Trend CKs Currently normal saline in the 125 cc an hour FEN/GI: Hyperphosphatemia Hyper-magnesium Hypokalemia Elevated Transaminases likely secondary to shock Diarrhea Currently on normal saline in the 125 cc an hour ICU electrolyte protocol will be initiated Daily BMP Nothing by mouth while in shock. Consider tube feedings trickle in a.m. NGT LIWS FCD placed CT abdomen/pelvis revealed a specific dilated bowel loops and gallbladder appearance. 06/02 gallbladder ultrasound today-no abnormality Amylase/lipase/ LFTs-remain elevated ammonia level 18 Heme/ID: Leukocytosis Microcytic anemia Blood culture pending Sputum culture pending Empiric antibiotics initiated secondary to left lung base developing opacity- possibly secondary to aspiration. Cefepime, azithromycin and vancomycin. We' ll de-escalate upon sensitivity results Does not be transfusion triggers at this time Daily CBC Endocrine: Hyperglycemia of critical illness -- SSI Novulog , medium scale, every 6 Prophylaxis: GI Prophylaxis Famotidine IV DVT Prophylaxis -- SCDs Subcutaneous heparin Lines: 06/01 right femoral triple-lumen catheter placed in the emergency department by the emergency room physician-discontinued 06/02 right radial arterial line 06/02 left femoral code cool catheter [facility] Critical Care: my billing statement This patient remains critically ill with one or more organ systems which are or may become a threat to life. I have spent in excess of 35 minutes discontinuously in the care and management of this patient. This time is exclusive of procedures, and includes, but is not limited to, evaluation of the patient, review of the medical record, discussions with family, consultants, nursing staff, or respiratory therapy, and documentation in the medical record. Physician Lindsey Mckinney MD Jun 03, 2017 09:24
[2017-06-03] MEDS: ARTIFICIAL TEARS OPTH SOLN 15 ML BTL EACH EYE SCH ×3 (09:59→17:24)
[2017-06-03] MEDS: FOLIC ACID 1 MG TAB PO SCH (09:59)
[2017-06-03] MEDS: MULTIVITAMIN TAB PO SCH (09:59)
[2017-06-03] MEDS: THIAMINE INJ 100 MG in SODIUM CHLORIDE 0.9% INJ 100 ML IV SCH (09:59)
[2017-06-03] MEDS: FAMOTIDINE 20 MG/2 ML VIAL IV PUSH SCH (10:00)
[2017-06-03] MEDS ORDERED: CEFEPIME INJ 2,000 MG in SODIUM CHLORIDE 0.9% INJ 100 ML IV SCH (11:00)
--- NOTE | 2017-06-03 11:41 | RADRPT ---
EXAM DATE/TIME: 06/03/2017 00:00 [facility] COMPARISON: No previous studies available for comparison. INDICATIONS : Cardiopulmonary arrest TECHNIQUE: Four-cuff ankle and brachial pressures were obtained. Pulse cuff waveform tracings of the ankles were recorded, and ankle-brachial indices were calculated. PRESSURES (mmHg): Brachial (arm): Right 140 Left N/A Ankle: Right 110 Left 114 MILES: Right 0.79 Left 0.81 TBI: Right 0.66 Left 0.84 PULSED CUFF WAVEFORMS: Minimal dampening of pulse wave tracings right foot with depressed TBI. MILES is 0.8 on the left and 0 .8 on the right. CONCLUSION: Mild depressed TBI on the right. Embolic disease below the ankle would be difficult to evaluate by C T angiography. Richy Anthony MD FACR on June 03, 2017 at 11:37 Board Certified Radiologist. This report was verified electronically.
[2017-06-03] MEDS: AZITHROMYCIN INJ 500 MG in SODIUM CHLOR 0.9% 250 ML INJ 250 ML IV SCH (12:00)
[2017-06-03] MEDS: VANCOMYCIN INJ 750 MG in SODIUM CHLOR 0.9% 250 ML INJ 250 ML IV SCH (13:04)
[2017-06-03 14:38] LABS: CREATININE, RANDOM URINE 83.1 MG/DL
--- NOTE | 2017-06-03 15:58 | PD.CARD.PN ---
Subjective Subjective Remarks Intubated, sedated Objective Medications Current Medications Medications (Trade) Dose Ordered Sig/Sidney Route Start Time Stop Time Status Last Admin Sodium Chloride 1,000 ml @ 125 mls/hr Q8H IV 06/02/17 00:00 06/03/17 07:50 Norepinephrine Bitartrate 4 mg/ Sodium Chloride 250 ml @ 7.5 mls/hr TITRATE PRN IV 06/02/17 02:00 06/02/17 02:22 (Brethine Inj) 1 mg UNSCH PRN SQ 06/02/17 02:00 (Ativan Inj) 1 mg Q1H PRN IV PUSH 06/02/17 02:30 Propofol 100 ml @ 1.8 mls/hr TITRATE PRN IV 06/02/17 02:30 06/03/17 13:16 Miscellaneous Information ml @ 0 mls/hr UNSCH IV 06/02/17 02:30 (NS Flush) 2 ml UNSCH PRN IV FLUSH 06/02/17 02:30 (NS Flush) 2 ml UNSCH PRN IV FLUSH 06/02/17 02:30 (Demerol Inj) 25 mg Q2H PRN IV PUSH 06/02/17 02:30 (Buspar) 15 mg BID PRN NG 06/02/17 02:30 Cisatracurium Besylate 100 mg/ Sodium Chloride 250 ml @ 29.7 mls/hr TITRATE PRN IV 06/02/17 02:30 06/03/17 07:49 Norepinephrine Bitartrate 4 mg/ Sodium Chloride 250 ml @ 7.5 mls/hr Q24H PRN IV 06/02/17 02:30 06/02/17 07:26 (Versed Inj) 2 mg Q1H PRN IV PUSH 06/02/17 02:45 06/02/17 14:53 (Colace) 100 mg BID PO 06/02/17 09:00 06/02/17 09:23 (Peridex 0.12% Liq) 15 ml BID@08,20 OROPHARYNG 06/02/17 08:00 06/03/17 07:44 (Tears Naturale Opth Soln) 1 drop TID EACH EYE 06/02/17 09:00 06/03/17 12:41 (Zofran Inj) 4 mg Q6H PRN IV PUSH 06/02/17 02:45 (Duoneb Neb) 1 ampule Q6HR NEB NEB 06/02/17 04:00 06/03/17 14:51 (Heparin Inj) 5,000 units Q12H SQ 06/02/17 06:00 06/03/17 05:57 Amiodarone HCl 450 mg/Dextrose 250 ml @ 33.33 mls/ hr Q7H31M PRN IV 06/02/17 02:45 06/02/17 05:30 Potassium Chloride 100 ml @ 50 mls/hr Q2H PRN IV 06/02/17 03:00 Potassium Chloride 100 ml @ 50 mls/hr Q2H PRN IV 06/02/17 03:00 (K-Lyte Cl Eff) 50 meq UNSCH PRN PO 06/02/17 03:00 Potassium Chloride 100 ml @ 25 mls/hr UNSCH PRN IV 06/02/17 03:00 06/02/17 04:48 Potassium Chloride 100 ml @ 50 mls/hr Q2H PRN IV 06/02/17 03:00 Magnesium Sulfate 4 gm/Sodium Chloride 100 ml @ 50 mls/hr UNSCH PRN IV 06/02/17 03:00 (Mag-Ox) 800 mg UNSCH PRN PO 06/02/17 03:00 Magnesium Sulfate 2 gm/Sodium Chloride 100 ml @ 50 mls/hr UNSCH PRN IV 06/02/17 03:00 (K-Phos) 2,000 mg Q4H PRN PO 06/02/17 03:00 Sodium Phosphate 30 mmol/Sodium Chloride 250 ml @ 42 mls/hr UNSCH PRN IV 06/02/17 03:00 (K-Phos) 2,000 mg UNSCH PRN PO/TUBE 06/02/17 03:00 Potassium Phosphate 30 mmol/ Sodium Chloride 260 ml @ 42 mls/hr UNSCH PRN IV 06/02/17 03:00 (D50w (Vial) Inj) 25 ml UNSCH PRN IV PUSH 06/02/17 03:00 (NovoLIN R SUPPLEMENTAL SCALE) 1 Q6HR SQ 06/02/17 06:00 06/02/17 12:10 (Albuterol Neb) 2.5 mg Q2HR NEB PRN NEB 06/02/17 06:15 (Pepcid Inj) 20 mg DAILY IV PUSH 06/02/17 09:00 06/03/17 10:00 Thiamine HCl 100 mg/Sodium Chloride 101 ml @ 101 mls/hr DAILY IV 06/02/17 09:00 06/03/17 09:59 (Folate) 1 mg DAILY PO 06/02/17 09:00 06/03/17 09:59 (Theragran) 1 tab DAILY PO 06/02/17 09:00 06/03/17 09:59 Fentanyl Citrate 250 ml @ 5 mls/hr TITRATE PRN IV 06/02/17 15:00 06/03/17 06:14 (Trandate Inj) 10 mg Q1HR PRN IV PUSH 06/02/17 15:00 (Apresoline Inj) 10 mg Q1HR PRN IV PUSH 06/02/17 15:00 06/03/17 00:36 (Nitroglycerin 2% Oint) 2 inch Q6HR PRN TOPICAL 06/02/17 15:00 Azithromycin 500 mg/Sodium Chloride 250 ml @ 250 mls/hr Q24H IV 06/03/17 12:00 06/03/17 12:00 Pharmacy Profile Note 0 ml @ 0 mls/hr UNSCH OTHER 06/03/17 09:15 Vancomycin HCl 750 mg/Sodium Chloride 257.5 ml @ 250 mls/hr Q24H IV 06/03/17 12:00 06/03/17 13:04 Cefepime HCl 2000 mg/Sodium Chloride 100 ml @ 200 mls/hr Q12H IV 06/03/17 23:00 Vital Signs / I&O Vital Signs Date Time Temp Pulse Resp B/P (MAP) Pulse Ox O2 Delivery O2 Flow Rate FiO2 06/03/17 14:51 100 40 06/03/17 12:00 40 06/03/17 11:37 100 40 06/03/17 11:25 94.9 92 16 127/80 (96) 100 139/76 (97) 06/03/17 11:25 106 06/03/17 08:58 100 40 06/03/17 08:00 40 06/03/17 07:00 90 06/03/17 07:00 93.1 92 16 127/83 (98) 100 133/77 (95) 06/03/17 06:00 89 06/03/17 05:00 86 06/03/17 04:00 83 06/03/17 04:00 100 40 06/03/17 04:00 40 06/03/17 03:00 83 06/03/17 03:00 91.2 83 16 120/72 (88) 100 123/67 (85) 06/03/17 02:00 85 06/03/17 01:00 89 06/03/17 00:00 40 06/03/17 00:00 72 06/02/17 23:45 100 40 06/02/17 23:00 91.2 72 16 138/97 (111) 100 152/92 (112) 06/02/17 23:00 72 06/02/17 22:00 74 06/02/17 21:00 75 06/02/17 20:33 99 40 06/02/17 20:00 80 06/02/17 20:00 40 06/02/17 19:00 91.2 82 16 144/104 (117) 99 156/96 (116) 06/02/17 19:00 82 06/02/17 18:03 95 06/02/17 17:09 40 06/02/17 17:07 95 06/02/17 16:20 99 40 I/O 06/02/17 06/02/17 06/02/17 06/03/17 06/03/17 06/03/17 07:00 15:00 23:00 07:00 15:00 23:00 Intake Total 2000 ml 1752 ml 100 ml 200 ml Output Total 1520 ml 4230 ml 1150 ml Balance 480 ml 1752 ml -4230 ml -1050 ml 200 ml Intake Oral 0 ml IV Total 2000 ml 1752 ml 100 ml 200 ml Output Urine Total 1500 ml 2330 ml 775 ml Stool Total 1500 ml 150 ml Gastric Drainage Total 20 ml 400 ml 225 ml Physical Exam GENERAL: Intubated SKIN: Warm and dry. HEAD: Normocephalic. EYES: No scleral icterus. No injection or drainage. NECK: Supple, trachea midline. No JVD or lymphadenopathy. CARDIOVASCULAR: Regular rate and rhythm without murmurs, gallops, or rubs. RESPIRATORY: Breath sounds equal bilaterally. No accessory muscle use. GASTROINTESTINAL: Abdomen soft, non-tender, nondistended. MUSCULOSKELETAL: No cyanosis, or edema. Laboratory Laboratory Tests Test 06/02/17 17:05 06/02/17 19:52 06/02/17 21:37 06/02/17 23:32 Lactic Acid Level 1.4 mmol/L 1.1 mmol/L 1.4 mmol/L Total Creatine Kinase 485 U/L 455 U/L Creatine Kinase MB 28.7 NG/ML 29.6 NG/ML Creatine Kinase MB % 5.9 % 6.5 % Troponin I 8.15 NG/ML 5.21 NG/ML Blood Urea Nitrogen 29 MG/DL Creatinine 1.79 MG/DL Random Glucose 126 MG/DL Total Protein 6.2 GM/DL Calcium Level 7.4 MG/DL Sodium Level 146 MEQ/L Potassium Level 3.6 MEQ/L Chloride Level 114 MEQ/L Carbon Dioxide Level 21.1 MEQ/L Anion Gap 11 MEQ/L Estimat Glomerular Filtration Rate 30 ML/MIN Protein Corrected Calcium 7.9 MG/DL Test 06/03/17 04:00 06/03/17 04:16 06/03/17 09:50 06/03/17 12:30 White Blood Count 10.8 TH/MM3 Red Blood Count 4.15 MIL/MM3 Hemoglobin 9.8 GM/DL Hematocrit 31.2 % Mean Corpuscular Volume 75.2 FL Mean Corpuscular Hemoglobin 23.6 PG Mean Corpuscular Hemoglobin Concent 31.4 % Red Cell Distribution Width 18.3 % Platelet Count 133 TH/MM3 Mean Platelet Volume 7.4 FL Neutrophils (%) (Auto) 85.1 % Lymphocytes (%) (Auto) 1.1 % Monocytes (%) (Auto) 13.6 % Eosinophils (%) (Auto) 0.0 % Basophils (%) (Auto) 0.2 % Neutrophils # (Auto) 9.2 TH/MM3 Lymphocytes # (Auto) 0.1 TH/MM3 Monocytes # (Auto) 1.5 TH/MM3 Eosinophils # (Auto) 0.0 TH/MM3 Basophils # (Auto) 0.0 TH/MM3 CBC Comment DIFF FINAL Differential Comment Prothrombin Time 11.4 SEC Prothromb Time International Ratio 1.1 RATIO Activated Partial Thromboplast Time 28.2 SEC Fibrinogen 317 mg/dL Blood Urea Nitrogen 29 MG/DL Creatinine 1.61 MG/DL Random Glucose 128 MG/DL Total Protein 5.8 GM/DL Albumin 2.4 GM/DL Calcium Level 7.9 MG/DL Phosphorus Level 4.8 MG/DL Magnesium Level 2.1 MG/DL Alkaline Phosphatase 211 U/L Aspartate Amino Transf (AST/SGOT) 408 U/L Alanine Aminotransferase (ALT/SGPT) 195 U/L Total Bilirubin 0.5 MG/DL Direct Bilirubin 0.4 MG/DL Sodium Level 146 MEQ/L Potassium Level 3.6 MEQ/L 3.9 MEQ/L Chloride Level 116 MEQ/L Carbon Dioxide Level 18.4 MEQ/L Anion Gap 12 MEQ/L Estimat Glomerular Filtration Rate 33 ML/MIN Lactic Acid Level 1.4 mmol/L Ammonia 19 MCMOL/L Total Creatine Kinase 401 U/L Creatine Kinase MB 28.0 NG/ML Creatine Kinase MB % 7.0 % Troponin I 2.72 NG/ML Triglycerides Level 68 MG/DL Cholesterol Level 167 MG/DL LDL Cholesterol 43 MG/DL HDL Cholesterol 110.1 MG/DL Cholesterol/HDL Ratio 1.51 RATIO Lipase 656 U/L Blood Gas Puncture Site ART LINE Blood Gas Patient Temperature 98.6 Blood Gas HCO3 18 mmol/L Blood Gas Base Excess -5.3 mmol/L Blood Gas Oxygen Saturation 97 % Arterial Blood pH 7.45 Arterial Blood Partial Pressure CO2 27 mmHg Arterial Blood Partial Pressure O2 187 mmHg Arterial Blood Oxygen Content 12.8 Vol % Arterial Blood Carboxyhemoglobin 0.6 % Arterial Blood Methemoglobin 1.6 % Blood Gas Hemoglobin 9.1 G/DL Oxygen Delivery Device VENTILATOR Blood Gas Ventilator Setting VAC16/500/PEEP 5 Blood Gas Inspired Oxygen 40 % Stool C. difficile Toxin (PCR) NEGATIVE Stl C. difficile Toxin Epiderm 027 PRESUMPTIVE NEGATIVE Test 06/03/17 14:10 Urine Random Creatinine 83.1 MG/DL Urine Random Sodium 30 MEQ/L Imaging Last 24 hours Impressions Chest X-Ray 06/03/17 0600 Signed Impressions: Service Date/Time: Saturday, June 03, 2017 04:10 - CONCLUSION: Mild developing left base infiltrate. Darrius Blandon MD Assessment and Plan Problem List: (1) Cardiopulmonary arrest with successful resuscitation ICD Codes: I46.9 - Cardiac arrest, cause unspecified Status: Acute (2) Cocaine abuse ICD Codes: F14.10 - Cocaine abuse, uncomplicated Status: Acute (3) Respiratory failure ICD Codes: J96.90 - Respiratory failure, unspecified, unspecified whether with hypoxia or hypercapnia Assessment and Plan Continue ICU care. Therapeutic hypothermia completed. The extent of REGISTERED SAFETY ENGINEER injury unknown. No arrhythmias. Wean vent as tolerated. Ahmet Perez MD Jun 03, 2017 15:58
[2017-06-03] MEDS: CEFEPIME INJ 2,000 MG in SODIUM CHLORIDE 0.9% INJ 100 ML IV SCH (23:23)
[2017-06-04] VITALS (16 sets, daily range): BP systolic 120–152; BP diastolic 64–94; PULSE 87–108; RESP 20–27; TEMP 98.1–98.8; O2SAT 98–100
[2017-06-04] MEDS: RESP: ALBUTEROL 2.5 MG/IPRATROPIUM 0.5 MG NEB (SCH) NEB ×4 (04:04→19:55)
[2017-06-04 04:52] LABS: HEMOGLOBIN 8.4 GM/DL (11.6-15.3); MEAN CORPUSCULAR HEMOGLOBIN 23.2 PG (27.0-34.0); MEAN CORPUSCULAR HGB CONC 30.9 % (32.0-36.0); MEAN PLATELET VOLUME 7.7 FL (7.0-11.0); PLATELET COUNT 106 TH/MM3 (150-450); RED CELL DISTRIBUTION WIDTH 18.6 % (11.6-17.2); WHITE BLOOD COUNT 14.5 TH/MM3 (4.0-11.0)
[2017-06-04 05:18] LABS: ALBUMIN 2.2 GM/DL (3.4-5.0); BICARBONATE 17.8 MEQ/L (21.0-32.0); CALCIUM 7.2 MG/DL (8.5-10.1); CALCIUM-PROTEIN CORRECTED 7.8 MG/DL (8.5-10.1); CREATININE 1.79 MG/DL (0.50-1.00); PHOSPHORUS 4.8 MG/DL (2.5-4.9); RANDOM VANCOMYCIN 8.5 COMMENT; TOTAL BILIRUBIN ADULT 0.4 MG/DL (0.2-1.0); TOTAL PROTEIN 5.9 GM/DL (6.4-8.2)
[2017-06-04] MEDS: HEPARIN SODIUM - SQ 10,000 UNITS/ML VIAL SQ SCH ×2 (05:44→18:02)
[2017-06-04] MEDS: INSULIN NovoLIN REGULAR SUPPLEMENTAL SCALE SQ SCH ×4 (06:00→18:00)
[2017-06-04 06:05] LABS: BANDS 33 % (0-6); LYMPHOCYTES 2 % (9-44); MONOCYTES 2 % (0-8); NEUTROPHIL # MANUAL DIFF 13.9 TH/MM3 (1.8-7.7); POLYS (SEG NEUTROPHILS) 63 % (16-70)
[2017-06-04 06:06] LABS: OVALOCYTES 1+ (NORMAL); TARGET CELLS 1+ (NORMAL)
[2017-06-04 06:07] LABS: DOHLE BODIES PRESENT (NONE SEEN)
[2017-06-04] MEDS: SODIUM CHLOR 0.9% 1000 ML INJ 1,000 ML IV SCH ×2 (06:14→18:58)
--- NOTE | 2017-06-04 06:35 | RADRPT ---
EXAM DATE/TIME: 06/04/2017 04:33 [facility] COMPARISON: CHEST SINGLE AP, June 03, 2017, 4:10. INDICATIONS : Shortness of breath, possible pulmonary disease. MEDICAL HISTORY : None. SURGICAL HISTORY : None. ENCOUNTER: Subsequent ACUITY: 3 days PAIN SCORE: Non-responsive. LOCATION: Bilateral chest FINDINGS: Endotracheal tube and nasogastric tube are stable in good position. There has been some clearance of left basilar infiltrate. Right lung remains clear. Cardiac contours are stable. CONCLUSION: Improved aeration Darrius Blandon MD on June 04, 2017 at 6:33 Board Certified Radiologist. This report was verified electronically.
[2017-06-04] MEDS: CHLORHEXIDINE 0.12% (ORAL KIT) 15 ML CUP OROPHARYNG SCH ×2 (08:34→20:00)
[2017-06-04] MEDS: ARTIFICIAL TEARS OPTH SOLN 15 ML BTL EACH EYE SCH ×3 (08:35→18:02)
[2017-06-04] MEDS: THIAMINE INJ 100 MG in SODIUM CHLORIDE 0.9% INJ 100 ML IV SCH (08:59)
[2017-06-04] MEDS: DOCUSATE SODIUM 100 MG CAP PO SCH ×2 (09:00→21:00)
[2017-06-04] MEDS: FAMOTIDINE 20 MG/2 ML VIAL IV PUSH SCH (09:01)
[2017-06-04] MEDS: FOLIC ACID 1 MG TAB PO SCH (09:01)
[2017-06-04] MEDS: MULTIVITAMIN TAB PO SCH (09:01)
--- NOTE | 2017-06-04 09:12 | HHI.CCPN ---
Subjective Remarks/Hospital Course This is a 37-year-old female with an unknown past medical history who presents after out of hospital cardiac arrest. Per EMS report, a friend found the patient altered with agonal respirations. Per report, the friend did not have any way of contacting 911, so the friend place the patient in a car and drove her to the nearest gas station to call 911. Upon EMS arrival, the patient was unresponsive, not breathing, and pulseless. Presenting rhythm was asystole. ACLS was initiated, 3 A of epinephrine, 1 amp of bicarbonate, 2 mg of Narcan and the patient had ROSC. Patient was transported to [facility] emergency Department. In emergency department, she had a decreased level of consciousness but was moving all 4 extremities spontaneously. Her GCS was 6 (E1 ,V1,M4). Her urine drug screen is positive for cocaine. I discussion with Dr. Yañez the ER physician, and we agree that given her young age and that she was witnessed with a pulse, that the potential benefits of therapeutic hypothermia outweigh the risks in this scenario. No additional information is available from the patient and we do not know of any family at this time. Patient was transported the CVICU and therapeutic hypothermia was initiated. SUBJECTIVE: 06/02: Currently on hypothermia protocol. Temperature 33C. Dignishield will be placed. Remains on multiple vasopressors. Troponin climbing with repeat ordered. Echocardiogram and a.m. EKG pending. 06/03: Rewarming process initiated early this a.m.. Patient was weaned off of vasopressors greater than 24 hours. Hemodynamically stable. Early this a.m. the patient noted was noted to have decrease in dorsalis pedis and posterior tibial pulses, now nonpalpable but dopplerable biphasic signals. Arterial Doppler studies pending. Right femoral triple-lumen central line removed. Chest x-ray was noted to have an infiltrate, sputum cultures are pending empiric antibiotics initiated. 06/04: Normothermic at 1930 .Sedation discontinued 1929 on 06/03. The patient remains encephalopathic at this time. She remains hemodynamically stable on no pressors. EEG pending at this time. The patient was noted to be slightly hypernatremic, IV fluids changed. ABIs were performed for slightly decreased pulse yesterday and right lower extremities bilateral ABIs slightly depressed pulses on the right remain dopplerable, biphasic. Objective Vital Signs Date Time Temp Pulse Resp B/P (MAP) Pulse Ox O2 Delivery O2 Flow Rate FiO2 06/04/17 07:48 99 40 06/04/17 03:00 98.6 95 23 151/92 (111) 152/85 (107) 06/02/17 01:06 Ventilator 06/01/17 23:26 15.00 Intake and Output 06/04/17 06/04/17 06/04/17 07:59 15:59 23:59 Intake Total 100 ml Output Total 1400 ml Balance -1300 ml Result Diagram: 06/04/17 0430 06/04/17 [address] Angiography 06/02/17 0000 Signed Impressions: Service Date/Time: Friday, June 02, 2017 00:38 - CONCLUSION: No evidence of pulmonary embolism. Left lung perihilar infiltrate. Darrius Blandon MD Abdomen/Pelvis CT 06/02/17 0000 Signed Impressions: Service Date/Time: Friday, June 02, 2017 00:43 - CONCLUSION: Nonspecific distention of bowel. Nonspecific abnormal appearance of the gallbladder. Darrius Blandon MD Head CT 06/01/17 2347 Signed Impressions: Service Date/Time: Friday, June 02, 2017 00:29 - CONCLUSION: No acute intracranial process Darrius Blandon MD Chest X-Ray 06/01/17 0000 Signed Impressions: Service Date/Time: Friday, June 02, 2017 00:04 - CONCLUSION: Satisfactory chest appearance Darrius Blandon MD Objective Remarks GENERAL: Middle-aged female, resting in bed currently orotracheally intubated, not sedated HEENT: Normocephalic. Atraumatic. Pupils early about 1-2 mm bilaterally and very sluggish. Scleral edema noted NECK: Trachea is midline. There is no JVD. CHEST: Symmetrical chest rise. Few crackles patient bases bilaterally. CARDIOVASCULAR: RRR. S1, S2 no S4. Without murmur ABDOMEN: Soft, nontender, nondistended. No guarding. MUSCULOSKELETAL: Pulses 2+ bilateral radial and posterior tibialis. No peripheral edema. NEUROLOGICAL: GCS 3T. unresponsive off sedation greater than 12 hours. Date of Insertion: Jun 01, 2017 Date of Removal: Jun 03, 2017 Line: Central Venous Catheter Side: Right Location: Femoral A/P Assessment and Plan Neurologic: Hypoxic ischemic encephalopathy Toxic encephalopathy - multifactorial Cocaine overdose EtOH Sedation discontinued 12/23 at 1930, O's monitoring for responsiveness Neurochecks per ICU protocol No sedation vacation 24 hours post closed code cool CT brain admission 06/01 revealed no acute intracranial findings 06/04 EEG ordered 05/31/09/19 ammonia level Continue thiamine, folate and multivitamin daily Monitor for DTs Plan for neurology consult Respiratory: Acute hypoxic and hypercarbic respiratory failure ACV 16/500/5/50 Vent bundle Head of bed 30 Albuterol/ipratropium aerosols every 6 hours with albuterol aerosols every 2 hours as needed for dyspnea Wean FiO2 for goal SPO2 greater than 92% CT pulmonary angiogram 06/01: Negative for acute PE and possible left lower lobe infiltrate No spontaneous breathing trials today, until clinically indicated 06/04 chest x-ray-right lung clear . Some clearance of left basilar infiltrate Obtain sputum [id number] results Cardiovascular: Status post out of hospital cardiac arrest Cardiogenic shock Elevated troponin Lactic acidosis Likely secondary to cocaine overdose vasospasm Goal mean arterial pressure greater than 65 Trend lactate Trend troponins: Unlikely to be primary acute coronary syndrome secondary to atherosclerosis. Much more likely to be secondary to vasospasm with use of cocaine Routine cardiology consult will be ordered but currently not a cardiac catheterization. 06/03 Echocardiogram-EF 45%. No RWMA Amiodarone infusion discontinued 06/02 secondary to the patient having elevated LFTs. The patient remains in normal sinus rhythm, hemodynamically stable on no vasopressors 06/03- arterial Doppler studies. Slight depression MILES 0.8 bilaterally. Biphasic Doppler signals right DP , PT Renal: Acute kidney injury Rhabdomyolysis -- Strict I/Os Place [facility] for accurate I's and O's NS @ 84cc.hr Trend creatinine kinase level Creatnine trending upward 1.6->1.79 continue to monitor FEN/GI: Hyperphosphatemia Hyper-magnesium Hypokalemia Elevated Transaminases likely secondary to shock Diarrhea Currently on normal saline in the 125 cc an hour ICU electrolyte protocol will be initiated Daily BMP 06/02 Fecal containment device placed CT abdomen/pelvis revealed a specific dilated bowel loops and gallbladder appearance. 06/02 gallbladder ultrasound today-no abnormality 06/04-liver enzymes downtrending AST 408->268, ALT 195->134, Alk Phos 211->156. Continue to monitor Dietary consult-begin tube feeds Heme/ID: Leukocytosis Microcytic anemia Blood culture- NGTD Sputum culture pending C. difficile negative Empiric antibiotics initiated secondary to left lung base developing opacity- possibly secondary to aspiration. Cefepime, azithromycin and vancomycin. We' ll de-escalate upon sensitivity results Does not be transfusion triggers at this time Daily CBC Endocrine: Hyperglycemia of critical illness -- SSI Novolog , medium scale, every 6 Prophylaxis: GI Prophylaxis Famotidine IV DVT Prophylaxis -- SCDs Subcutaneous heparin Lines: 06/01 right femoral triple-lumen catheter placed in the emergency department by the emergency room physician-discontinued 06/02 right radial arterial line 06/02 left femoral code cool catheter [facility] Critical Care: my billing statement This patient remains critically ill with one or more organ systems which are or may become a threat to life. I have spent in excess of 37 minutes discontinuously in the care and management of this patient. This time is exclusive of procedures, and includes, but is not limited to, evaluation of the patient, review of the medical record, discussions with family, consultants, nursing staff, or respiratory therapy, and documentation in the medical record. Physician Lindsey Mckinney MD Jun 04, 2017 09:12
[2017-06-04] MEDS: CEFEPIME INJ 2,000 MG in SODIUM CHLORIDE 0.9% INJ 100 ML IV SCH ×2 (10:45→23:00)
[2017-06-04 11:02] LABS: TROPONIN I 0.63 NG/ML (0.02-0.05)
[2017-06-04] MEDS ORDERED: ROCURONIUM INJ 50 MG/5 ML VIAL ONE (11:08)
[2017-06-04] MEDS ORDERED: ROCURONIUM INJ 50 MG/5 ML VIAL IV ONE (11:15)
[2017-06-04] MEDS: hydrALAZINE HCL 20 MG/ML VIAL IV PUSH PRN (11:25)
[2017-06-04] MEDS ORDERED: MIDAZOLAM HCL 5 MG/ML VIAL (1 ML) ONE (11:38)
[2017-06-04] MEDS: AZITHROMYCIN INJ 500 MG in SODIUM CHLOR 0.9% 250 ML INJ 250 ML IV SCH (12:15)
[2017-06-04] MEDS ORDERED: MIDAZOLAM HCL 2 MG/2 ML VIAL IV PUSH ONE (12:15)
[2017-06-04] MEDS ORDERED: POTASSIUM CHLORIDE 25 MEQ EFFERVESCENT TAB OG-TUBE ONE (12:15)
[2017-06-04] MEDS: VANCOMYCIN INJ 750 MG in SODIUM CHLOR 0.9% 250 ML INJ 250 ML IV SCH (12:15)
--- NOTE | 2017-06-04 16:36 | PD.CARD.PN ---
Subjective Subjective Remarks Intubated, unresponsive Objective Medications Current Medications Medications (Trade) Dose Ordered Sig/Sidney Route Start Time Stop Time Status Last Admin Sodium Chloride 1,000 ml @ 84 mls/hr [id number] IV 06/02/17 00:00 06/04/17 06:14 Norepinephrine Bitartrate 4 mg/ Sodium Chloride 250 ml @ 7.5 mls/hr TITRATE PRN IV 06/02/17 02:00 06/02/17 02:22 (Brethine Inj) 1 mg UNSCH PRN SQ 06/02/17 02:00 (Ativan Inj) 1 mg Q1H PRN IV PUSH 06/02/17 02:30 Propofol 100 ml @ 1.8 mls/hr TITRATE PRN IV 06/02/17 02:30 Future Hold 06/03/17 18:52 Miscellaneous Information ml @ 0 mls/hr UNSCH IV 06/02/17 02:30 (NS Flush) 2 ml UNSCH PRN IV FLUSH 06/02/17 02:30 (NS Flush) 2 ml UNSCH PRN IV FLUSH 06/02/17 02:30 (Demerol Inj) 25 mg Q2H PRN IV PUSH 06/02/17 02:30 (Buspar) 15 mg BID PRN NG 06/02/17 02:30 Norepinephrine Bitartrate 4 mg/ Sodium Chloride 250 ml @ 7.5 mls/hr Q24H PRN IV 06/02/17 02:30 06/02/17 07:26 (Colace) 100 mg BID PO 06/02/17 09:00 06/02/17 09:23 (Peridex 0.12% Liq) 15 ml BID@08,20 OROPHARYNG 06/02/17 08:00 06/04/17 08:34 (Tears Naturale Opth Soln) 1 drop TID EACH EYE 06/02/17 09:00 06/04/17 12:21 (Zofran Inj) 4 mg Q6H PRN IV PUSH 06/02/17 02:45 (Duoneb Neb) 1 ampule Q6HR NEB NEB 06/02/17 04:00 06/04/17 14:57 (Heparin Inj) 5,000 units Q12H SQ 06/02/17 06:00 06/04/17 05:44 Potassium Chloride 100 ml @ 50 mls/hr Q2H PRN IV 06/02/17 03:00 Potassium Chloride 100 ml @ 50 mls/hr Q2H PRN IV 06/02/17 03:00 (K-Lyte Cl Eff) 50 meq UNSCH PRN PO 06/02/17 03:00 Potassium Chloride 100 ml @ 25 mls/hr UNSCH PRN IV 06/02/17 03:00 06/02/17 04:48 Potassium Chloride 100 ml @ 50 mls/hr Q2H PRN IV 06/02/17 03:00 Magnesium Sulfate 4 gm/Sodium Chloride 100 ml @ 50 mls/hr UNSCH PRN IV 06/02/17 03:00 (Mag-Ox) 800 mg UNSCH PRN PO 06/02/17 03:00 Magnesium Sulfate 2 gm/Sodium Chloride 100 ml @ 50 mls/hr UNSCH PRN IV 06/02/17 03:00 (K-Phos) 2,000 mg Q4H PRN PO 06/02/17 03:00 Sodium Phosphate 30 mmol/Sodium Chloride 250 ml @ 42 mls/hr UNSCH PRN IV 06/02/17 03:00 (K-Phos) 2,000 mg UNSCH PRN PO/TUBE 06/02/17 03:00 Potassium Phosphate 30 mmol/ Sodium Chloride 260 ml @ 42 mls/hr UNSCH PRN IV 06/02/17 03:00 (D50w (Vial) Inj) 25 ml UNSCH PRN IV PUSH 06/02/17 03:00 (NovoLIN R SUPPLEMENTAL SCALE) 1 Q6HR SQ 06/02/17 06:00 06/02/17 12:10 (Albuterol Neb) 2.5 mg Q2HR NEB PRN NEB 06/02/17 06:15 (Pepcid Inj) 20 mg DAILY IV PUSH 06/02/17 09:00 06/04/17 09:01 Thiamine HCl 100 mg/Sodium Chloride 101 ml @ 101 mls/hr DAILY IV 06/02/17 09:00 06/04/17 08:59 (Folate) 1 mg DAILY PO 06/02/17 09:00 06/04/17 09:01 (Theragran) 1 tab DAILY PO 06/02/17 09:00 06/04/17 09:01 Fentanyl Citrate 250 ml @ 5 mls/hr TITRATE PRN IV 06/02/17 15:00 Future Hold 06/03/17 18:48 (Trandate Inj) 10 mg Q1HR PRN IV PUSH 06/02/17 15:00 Future Hold 06/04/17 04:18 (Apresoline Inj) 10 mg Q1HR PRN IV PUSH 06/02/17 15:00 06/04/17 11:25 (Nitroglycerin 2% Oint) 2 inch Q6HR PRN TOPICAL 06/02/17 15:00 Azithromycin 500 mg/Sodium Chloride 250 ml @ 250 mls/hr Q24H IV 06/03/17 12:00 06/04/17 12:15 Pharmacy Profile Note 0 ml @ 0 mls/hr UNSCH OTHER 06/03/17 09:15 Vancomycin HCl 750 mg/Sodium Chloride 257.5 ml @ 250 mls/hr Q24H IV 06/03/17 12:00 06/04/17 12:15 Cefepime HCl 2000 mg/Sodium Chloride 100 ml @ 200 mls/hr Q12H IV 06/03/17 23:00 06/04/17 10:45 (Trandate Inj) 10 mg Q1H PRN IV PUSH 06/04/17 12:15 Miscellaneous Information SPECIFIC LAB TO BE DRAWN:VANCO DATE TO... ONCE ONCE .XX 06/06/17 11:45 06/06/17 11:46 Vital Signs / I&O Vital Signs Date Time Temp Pulse Resp B/P (MAP) Pulse Ox O2 Delivery O2 Flow Rate FiO2 06/04/17 15:51 99 40 06/04/17 14:00 99 40 06/04/17 12:00 40 06/04/17 11:00 98.8 87 27 120/64 (82) 99 148/94 (112) 06/04/17 11:00 108 06/04/17 10:23 99 40 06/04/17 08:00 40 06/04/17 07:48 99 40 06/04/17 07:00 90 06/04/17 07:00 98.6 87 27 137/94 (108) 99 144/85 (104) 06/04/17 04:15 100 40 06/04/17 04:00 40 06/04/17 03:00 98.6 95 23 151/92 (111) 99 152/85 (107) 06/04/17 03:00 95 06/04/17 01:09 99 40 06/04/17 01:00 98.6 97 24 140/86 (104) 99 152/82 (105) 06/04/17 00:00 98.6 103 22 131/85 (100) 99 146/79 (101) 06/04/17 00:00 40 06/03/17 23:00 102 06/03/17 23:00 98.6 102 22 136/84 (101) 99 147/79 (101) 06/03/17 22:14 99 40 06/03/17 20:12 99 40 06/03/17 20:00 40 06/03/17 19:00 109 06/03/17 19:00 98.5 109 20 117/67 (84) 99 129/61 (83) I/O 06/03/17 06/03/17 06/03/17 06/04/17 06/04/17 06/04/17 07:00 15:00 23:00 07:00 15:00 23:00 Intake Total 100 ml 700 ml 2186 ml 100 ml Output Total 1150 ml 850 ml 1400 ml Balance -1050 ml 700 ml 1336 ml -1300 ml Intake Oral 0 ml 0 ml IV Total 100 ml 700 ml 2186 ml 100 ml Output Urine Total 775 ml 530 ml 1050 ml Stool Total 150 ml 0 ml 300 ml Gastric Drainage Total 225 ml 320 ml 50 ml Physical Exam GENERAL: Intubated SKIN: Warm and dry. HEAD: Normocephalic. EYES: No scleral icterus. No injection or drainage. NECK: Supple, trachea midline. No JVD or lymphadenopathy. CARDIOVASCULAR: Regular rate and rhythm without murmurs, gallops, or rubs. RESPIRATORY: Breath sounds equal bilaterally. No accessory muscle use. GASTROINTESTINAL: Abdomen soft, non-tender, nondistended. MUSCULOSKELETAL: No cyanosis, or edema. Laboratory Laboratory Tests Test 06/04/17 04:30 06/04/17 10:10 06/04/17 16:25 White Blood Count 14.5 TH/MM3 Red Blood Count 3.60 MIL/MM3 Hemoglobin 8.4 GM/DL Hematocrit 27.0 % Mean Corpuscular Volume 75.0 FL Mean Corpuscular Hemoglobin 23.2 PG Mean Corpuscular Hemoglobin Concent 30.9 % Red Cell Distribution Width 18.6 % Platelet Count 106 TH/MM3 Mean Platelet Volume 7.7 FL CBC Comment AUTO DIFF Differential Total Cells Counted 100 Neutrophils % (Manual) 63 % Band Neutrophils % 33 % Lymphocytes % 2 % Monocytes % 2 % Neutrophils # (Manual) 13.9 TH/MM3 Differential Comment FINAL DIFF MANUAL Dohle Bodies PRESENT Platelet Estimate LOW Platelet Morphology Comment NORMAL Target Cells 1+ Ovalocytes 1+ Blood Urea Nitrogen 32 MG/DL Creatinine 1.79 MG/DL Random Glucose 94 MG/DL Total Protein 5.9 GM/DL Albumin 2.2 GM/DL Calcium Level 7.2 MG/DL Phosphorus Level 4.8 MG/DL Magnesium Level 2.0 MG/DL Alkaline Phosphatase 156 U/L Aspartate Amino Transf (AST/SGOT) 268 U/L Alanine Aminotransferase (ALT/SGPT) 134 U/L Total Bilirubin 0.4 MG/DL Sodium Level 153 MEQ/L Potassium Level 3.8 MEQ/L Chloride Level 124 MEQ/L Carbon Dioxide Level 17.8 MEQ/L Anion Gap 11 MEQ/L Estimat Glomerular Filtration Rate 39 ML/MIN Protein Corrected Calcium 7.8 MG/DL Random Vancomycin Level 8.5 COMMENT Ammonia LESS THAN 10 MCMOL/L Total Creatine Kinase 360 U/L Creatine Kinase MB 8.6 NG/ML Creatine Kinase MB % 2.4 % Troponin I 0.63 NG/ML Blood Gas Puncture Site ART LINE Blood Gas Patient Temperature 98.6 Blood Gas HCO3 16 mmol/L Blood Gas Base Excess -8.0 mmol/L Blood Gas Oxygen Saturation 97 % Arterial Blood pH 7.42 Arterial Blood Partial Pressure CO2 25 mmHg Arterial Blood Partial Pressure O2 183 mmHg Arterial Blood Oxygen Content 10.4 Vol % Arterial Blood Carboxyhemoglobin 0.6 % Arterial Blood Methemoglobin 1.6 % Blood Gas Hemoglobin 7.3 G/DL Oxygen Delivery Device VENTILATOR Blood Gas Ventilator Setting Blood Gas Inspired Oxygen 40 % Imaging Last 24 hours Impressions Chest X-Ray 06/04/17 0600 Signed Impressions: Service Date/Time: Sunday, June 04, 2017 04:33 - CONCLUSION: Improved aeration Darrius Blandon MD Assessment and Plan Problem List: (1) Cardiopulmonary arrest with successful resuscitation ICD Codes: I46.9 - Cardiac arrest, cause unspecified Status: Acute (2) Cocaine abuse ICD Codes: F14.10 - Cocaine abuse, uncomplicated Status: Acute (3) Respiratory failure ICD Codes: J96.90 - Respiratory failure, unspecified, unspecified whether with hypoxia or hypercapnia Assessment and Plan Continue ICU care. Therapeutic hypothermia completed. The extent of [employer] injury appears to be extensive based on the EEG. No arrhythmias. Prognosis poor. Difficult to reach the family. Ahmet Perez MD Jun 04, 2017 16:36
[2017-06-04] MEDS ORDERED: SODIUM BICARBONATE 8.4% INJ 50 MEQ/50 ML SYR IV PUSH ONE (16:45)
[2017-06-04] MEDS ORDERED: SODIUM BICARBONATE 8.4% INJ 150 MEQ in DEXTROSE 5% IN WATE 1000ML INJ 850 ML IV SCH ×2 (18:00)
--- NOTE | 2017-06-04 22:18 | MG ---
cc: RAJINDER BULLOCK MD Lab No: Date: 06/04/2017 Age: Sex: F Race: ELECTROENCEPHALOGRAM NUMBER INDICATION A 37-year-old status post cardiac arrest. Intubated. No sedation. DESCRIPTION A flat line type of appearance with questionable suppressed delta activity at 2-3 Hz. Single lead EKG showing sinus rhythm. No EEG variability reactivity. No epileptic activity. INTERPRETATION Very severe encephalopathy characterized by extremely suppressed EEG with almost flat line type of appearance. No epileptic activity. Clinical correlation. Rajinder Bullock MD MG/KK /9:42 PM /9:59 PM
[2017-06-05] VITALS (17 sets, daily range): BP systolic 123–165; BP diastolic 83–109; PULSE 74–102; RESP 18–20; TEMP 97.5–98.9; O2SAT 98–99
[2017-06-05] MEDS: LABETALOL HCL 100 MG/20 ML VIAL IV PUSH PRN ×3 (00:30→05:35)
[2017-06-05] MEDS: RESP: ALBUTEROL 2.5 MG/IPRATROPIUM 0.5 MG NEB (SCH) NEB ×4 (03:09→20:19)
[2017-06-05 04:26] LABS: HEMATOCRIT 25.9 % (35.0-46.0); HEMOGLOBIN 7.8 GM/DL (11.6-15.3); MEAN CORPUSCULAR HGB CONC 30.3 % (32.0-36.0); MEAN PLATELET VOLUME 8.2 FL (7.0-11.0); PLATELET COUNT 104 TH/MM3 (150-450); RED BLOOD COUNT 3.41 MIL/MM3 (4.00-5.30); RED CELL DISTRIBUTION WIDTH 18.3 % (11.6-17.2)
--- NOTE | 2017-06-05 04:56 | RADRPT ---
EXAM DATE/TIME: 06/05/2017 03:30 [facility] COMPARISON: CHEST SINGLE AP, June 04, 2017, 4:33. INDICATIONS : Shortness of breath, possible pulmonary disease. MEDICAL HISTORY : None. SURGICAL HISTORY : None. ENCOUNTER: Subsequent ACUITY: 4 - 6 days PAIN SCORE: Non-responsive. LOCATION: Bilateral chest FINDINGS: The lungs are clear without infiltrate, nodule, or mass. There is no appreciable pleural effusion fo r technique. Heart and mediastinum are unremarkable. ET tube, and NG tube have not changed. CONCLUSION: No acute cardiopulmonary disease. Amber Pugh MD on June 05, 2017 at 4:54 Board Certified Radiologist. This report was verified electronically.
[2017-06-05 05:03] LABS: BICARBONATE 23.3 MEQ/L (21.0-32.0); CREATININE 1.66 MG/DL (0.50-1.00); MAGNESIUM 2.3 MG/DL (1.5-2.5); PHOSPHORUS 3.6 MG/DL (2.5-4.9); TROPONIN I 0.38 NG/ML (0.02-0.05)
[2017-06-05] MEDS: HEPARIN SODIUM - SQ 10,000 UNITS/ML VIAL SQ SCH ×2 (05:22→18:01)
[2017-06-05] MEDS: INSULIN NovoLIN REGULAR SUPPLEMENTAL SCALE SQ SCH ×5 (05:22→23:57)
[2017-06-05] MEDS: POTASSIUM CHLOR 40 MEQ PREMIX 100 ML IV PRN (05:23)
[2017-06-05] MEDS: LACTATED RINGER'S 1000 ML INJ 1,000 ML IV SCH ×2 (07:00→17:00)
--- NOTE | 2017-06-05 07:12 | HHI.CCPN ---
Subjective Remarks/Hospital Course This is a 37-year-old female with an unknown past medical history who presents after out of hospital cardiac arrest. Per EMS report, a friend found the patient altered with agonal respirations. Per report, the friend did not have any way of contacting 911, so the friend place the patient in a car and drove her to the nearest gas station to call 911. Upon EMS arrival, the patient was unresponsive, not breathing, and pulseless. Presenting rhythm was asystole. ACLS was initiated, 3 A of epinephrine, 1 amp of bicarbonate, 2 mg of Narcan and the patient had ROSC. [facility] In emergency department, she had a decreased level of consciousness but was moving all 4 extremities spontaneously. Her GCS was 6 (E1 ,V1,M4). Her urine drug screen is positive for cocaine. I discussion with Dr. Yañez the ER physician, and we agree that given her young age and that she was witnessed with a pulse, that the potential benefits of therapeutic hypothermia outweigh the risks in this scenario. No additional information is available from the patient and we do not know of any family at this time. Patient was transported the CVICU and therapeutic hypothermia was initiated. SUBJECTIVE: 06/02: Currently on hypothermia protocol. Temperature 33C. Dignishield will be placed. Remains on multiple vasopressors. Troponin climbing with repeat ordered. Echocardiogram and a.m. EKG pending. 06/03: Rewarming process initiated early this a.m.. Patient was weaned off of vasopressors greater than 24 hours. Hemodynamically stable. Early this a.m. the patient noted was noted to have decrease in dorsalis pedis and posterior tibial pulses, now nonpalpable but dopplerable biphasic signals. Arterial Doppler studies pending. Right femoral triple-lumen central line removed. Chest x-ray was noted to have an infiltrate, sputum cultures are pending empiric antibiotics initiated. 06/04: Normothermic at 1930 .Sedation discontinued 1929 on 06/03. The patient remains encephalopathic at this time. She remains hemodynamically stable on no pressors. EEG pending at this time. The patient was noted to be slightly hypernatremic, IV fluids changed. ABIs were performed for slightly decreased pulse yesterday and right lower extremities bilateral ABIs slightly depressed pulses on the right remain dopplerable, biphasic. 06/05: Afebrile. No acute events overnight. Patient continues to be hypertensive scheduled PO labetalol 100 mg BID. Neurologically, the patient remains encephalopathic, EEG performed yesterday showed flat line. CT pending this a.m.. Neurology has been consulted, patient has been off sedation for approximately 36 hours. Objective Vital Signs Date Time Temp Pulse Resp B/P (MAP) Pulse Ox O2 Delivery O2 Flow Rate FiO2 06/05/17 04:00 102 06/05/17 04:00 98.5 20 165/109 (127) 99 163/96 (118) 06/05/17 04:00 35 06/02/17 01:06 Ventilator 06/01/17 23:26 15.00 Intake and Output 06/05/17 06/05/17 06/06/17 08:00 16:00 00:00 Intake Total 1431 ml Output Total 1490 ml Balance -59 ml Result Diagram: 06/05/17 0400 06/05/17 0400 Other Results Laboratory Tests Test 06/04/17 16:25 Blood Gas Puncture Site ART LINE Blood Gas Patient Temperature 98.6 Blood Gas HCO3 16 mmol/L (22-26) Blood Gas Base Excess -8.0 mmol/L (-2-2) Blood Gas Oxygen Saturation 97 % (90-100) Arterial Blood pH 7.42 (7.380-7.420) Arterial Blood Partial Pressure CO2 25 mmHg (38-42) Arterial Blood Partial Pressure O2 183 mmHg (61-120) Arterial Blood Oxygen Content 10.4 Vol % (12.0-20.0) Arterial Blood Carboxyhemoglobin 0.6 % (0-4) Arterial Blood Methemoglobin 1.6 % (0-2) Blood Gas Hemoglobin 7.3 G/DL (12.0-16.0) Oxygen Delivery Device VENTILATOR Blood Gas Ventilator Setting Blood Gas Inspired Oxygen 40 % Imaging Last Impressions CT Angiography 06/02/17 0000 Signed Impressions: Service Date/Time: Friday, June 02, 2017 00:38 - CONCLUSION: No evidence of pulmonary embolism. Left lung perihilar infiltrate. Darrius Blandon MD Abdomen/Pelvis CT 06/02/17 0000 Signed Impressions: Service Date/Time: Friday, June 02, 2017 00:43 - CONCLUSION: Nonspecific distention of bowel. Nonspecific abnormal appearance of the gallbladder. Darrius Blandon MD Head CT 06/01/17 2347 Signed Impressions: Service Date/Time: Friday, June 02, 2017 00:29 - CONCLUSION: No acute intracranial process Darrius Blandon MD Chest X-Ray 06/01/17 0000 Signed Impressions: Service Date/Time: Friday, June 02, 2017 00:04 - CONCLUSION: Satisfactory chest appearance Darrius Blandon MD Objective Remarks GENERAL: Middle-aged female, resting in bed currently orotracheally intubated, not sedated, unresponsive HEENT: Normocephalic. Atraumatic. Pupils 1-2 mm bilaterally and nonreactive. Scleral edema noted NECK: Trachea is midline. There is no JVD. CHEST: Symmetrical chest rise. Clear to auscultation bilaterally. CARDIOVASCULAR: RRR. S1, S2 no S4. Without murmur ABDOMEN: Soft, nontender, nondistended. No guarding. MUSCULOSKELETAL: Pulses 2+ bilateral radial and posterior tibialis. No peripheral edema. NEUROLOGICAL: GCS 3T. unresponsive off sedation greater than 36 hours. No lid, or corneal reflex. No reflex to painful stimuli. Date of Insertion: Jun 01, 2017 Date of Removal: Jun 03, 2017 Line: Central Venous Catheter Side: Right Location: Femoral A/P Assessment and Plan Neurologic: Hypoxic ischemic encephalopathy Toxic encephalopathy - multifactorial Cocaine overdose EtOH Sedation discontinued 06/03 at 1930, close monitoring for responsiveness Neurochecks per ICU protocol No sedation vacation 24 hours post closed code cool CT brain admission 06/01 revealed no acute intracranial findings 06/04 EEG -flat line. Severe encephalopathy 06/04 ammonia level- 10 Continue thiamine, folate and multivitamin daily Monitor for DTs Neurology consulted Respiratory: Acute hypoxic and hypercarbic respiratory failure Mixed acidosis-resolved ACV 16/500/5/. 35 Vent bundle Head of bed 30 Albuterol/ipratropium aerosols every 6 hours with albuterol aerosols every 2 hours as needed for dyspnea Wean FiO2 for goal SPO2 greater than 92% CT pulmonary angiogram 06/01: Negative for acute PE and possible left lower lobe infiltrate No spontaneous breathing trials today, until clinically indicated 06/04 chest x-ray-right lung clear . Some clearance of left basilar infiltrate 06/05 sputum culture- Staph Aureus 06/05 patient initiated on sodium bicarbonate infusion last p.m. the ventilator settings adjusted Obtain ABG- Cardiovascular: Status post out of hospital cardiac arrest Cardiogenic shock Elevated troponin Lactic acidosis-resolved Likely secondary to cocaine overdose vasospasm Goal mean arterial pressure greater than 65 Trend lactate Trend troponins: Unlikely to be primary acute coronary syndrome secondary to atherosclerosis. Much more likely to be secondary to vasospasm with use of cocaine Routine cardiology consult will be ordered but currently not a cardiac catheterization. 06/03 Echocardiogram-EF 45%. No RWMA Amiodarone infusion discontinued 06/02 secondary to the patient having elevated LFTs. The patient remains in normal sinus rhythm, hemodynamically stable on no vasopressors 06/03- arterial Doppler studies. Slight depression MILES 0.8 bilaterally. Biphasic Doppler signals right DP , PT 06/04 lactate cleared 1.4 06/04 Troponins downtrended 0.63-> 0.35 Renal: Acute kidney injury Rhabdomyolysis -- Strict I/Os Place [facility] for accurate I's and O's NS @ 84cc.hr dc'd-> change to LR 100 cc/hour Trend creatinine kinase level- 280 today Creatinine 1.6 continue to monitor FEN/GI: Electrolyte derangement Elevated Transaminases likely secondary to shock Diarrhea Currently on normal saline in the 125 cc an hour ICU electrolyte protocol will be initiated Daily BMP 06/02 Fecal containment device placed CT abdomen/pelvis revealed a specific dilated bowel loops and gallbladder appearance. 06/02 gallbladder ultrasound today-no abnormality 06/04-liver enzymes downtrending AST 408->268, ALT 195->134, Alk Phos 211->156. Continue to monitor Dietary consult-begin tube feeds Jevity 1.5 Heme/ID: Leukocytosis Microcytic anemia Community-acquired pneumonia Blood culture- NGTD 06/04Sputum culture Staph Aureus C. difficile negative Empiric antibiotics initiated secondary to left lung base developing opacity- possibly secondary to aspiration. Cefepime, azithromycin and vancomycin. We' ll de-escalate upon sensitivity results Does not be transfusion triggers at this time Daily CBC Endocrine: Hyperglycemia of critical illness -- SSI Novolog , medium scale, every 6hr Prophylaxis: GI Prophylaxis Famotidine IV BID DVT Prophylaxis -- SCDs Subcutaneous heparin Lines: 06/01 right femoral triple-lumen catheter placed in the emergency department by the emergency room physician-[id number] 06/02 right radial arterial line 06/02 left femoral code cool catheter [facility] Critical Care: my billing statement This patient remains critically ill with one or more organ systems which are or may become a threat to life. I have spent in excess of 30 minutes discontinuously in the care and management of this patient. This time is exclusive of procedures, and includes, but is not limited to, evaluation of the patient, review of the medical record, discussions with family, consultants, nursing staff, or respiratory therapy, and documentation in the medical record. Consult case management to locate family, all that patient has been identified by name. Physician Lindsey Mckinney MD Jun 05, 2017 07:12
[2017-06-05] MEDS: CHLORHEXIDINE 0.12% (ORAL KIT) 15 ML CUP OROPHARYNG SCH ×2 (07:44→20:07)
[2017-06-05] MEDS: ARTIFICIAL TEARS OPTH SOLN 15 ML BTL EACH EYE SCH ×3 (07:51→17:54)
[2017-06-05] MEDS: FOLIC ACID 1 MG TAB PO SCH (07:51)
[2017-06-05] MEDS: THIAMINE INJ 100 MG in SODIUM CHLORIDE 0.9% INJ 100 ML IV SCH (07:51)
[2017-06-05] MEDS: LABETALOL HCL 100 MG TAB PO SCH ×3 (07:51→20:07)
[2017-06-05] MEDS: FAMOTIDINE 20 MG/2 ML VIAL IV PUSH SCH (07:51)
[2017-06-05] MEDS: DOCUSATE SODIUM 100 MG CAP PO SCH ×2 (07:52→20:07)
[2017-06-05] MEDS: FREE WATER G-TUBE SCH ×3 (07:59→20:07)
[2017-06-05] MEDS: MULTIVITAMIN TAB PO SCH (08:53)
[2017-06-05] MEDS: CEFEPIME INJ 2,000 MG in SODIUM CHLORIDE 0.9% INJ 100 ML IV SCH ×2 (10:15→23:42)
--- NOTE | 2017-06-05 11:17 | PD.CONS ---
History of Present Illness Service Neurology Consult Requested By [facility] Reason for Consult anoxia Primary Care Physician Unknown History of Present Illness 37-year-old female admitted for out of hospital cardiac arrest 06/01/2017. found to with mental status changes by friend? taken to gas station and evac called. Upon EMS arrival, the patient was unresponsive, not breathing, and pulseless. uds + cocaine Presenting rhythm was asystole. time- unknown. patient had ROSC after acls protocol. therapeutic hypothermia was initiated by er/clinical fellow. rewarming 06/03. off sedation x >30 hrs per rn. not waking up. pt in coma unable to give any information. Review of Systems ROS Limitations: Unresponsive Past Family Social History Allergies: Coded Allergies: No Allergy Information Available (Unverified , 06/01/17) Past Medical History Unknown and unobtainable secondary to the clinical condition of the patient. Past Surgical History Unknown and unobtainable secondary to the clinical condition of the patient. Reported Medications Unknown and unobtainable secondary to the clinical condition of the patient. Active Ordered Medications See MAR Family History Unknown and unobtainable secondary to the clinical condition of the patient. Social History Unknown and unobtainable secondary to the clinical condition of the patient. The patient is positive for cocaine. Review of Systems All other ROS: Unable to obtain Past Family Social History Allergies: Coded Allergies: No Allergy Information Available (Unverified , 06/01/17) Active Ordered Medications Current Medications Medications (Trade) Dose Ordered Sig/Sidney Route Start Time Stop Time Status Last Admin (Brethine Inj) 1 mg UNSCH PRN SQ 06/02/17 02:00 (Ativan Inj) 1 mg Q1H PRN IV PUSH 06/02/17 02:30 Propofol 100 ml @ 1.8 mls/hr TITRATE PRN IV 06/02/17 02:30 Future Hold 06/03/17 18:52 Miscellaneous Information ml @ 0 mls/hr UNSCH IV 06/02/17 02:30 (NS Flush) 2 ml UNSCH PRN IV FLUSH 06/02/17 02:30 (NS Flush) 2 ml UNSCH PRN IV FLUSH 06/02/17 02:30 (Demerol Inj) 25 mg Q2H PRN IV PUSH 06/02/17 02:30 (Buspar) 15 mg BID PRN NG 06/02/17 02:30 (Colace) 100 mg BID PO 06/02/17 09:00 06/02/17 09:23 (Peridex 0.12% Liq) 15 ml BID@08,20 OROPHARYNG 06/02/17 08:00 06/05/17 07:44 (Tears Naturale Opth Soln) 1 drop TID EACH EYE 06/02/17 09:00 06/05/17 07:51 (Zofran Inj) 4 mg Q6H PRN IV PUSH 06/02/17 02:45 (Duoneb Neb) 1 ampule Q6HR NEB NEB 06/02/17 04:00 06/05/17 09:40 (Heparin Inj) 5,000 units Q12H SQ 06/02/17 06:00 06/05/17 05:22 Potassium Chloride 100 ml @ 50 mls/hr Q2H PRN IV 06/02/17 03:00 Potassium Chloride 100 ml @ 50 mls/hr Q2H PRN IV 06/02/17 03:00 (K-Lyte Cl Eff) 50 meq UNSCH PRN PO 06/02/17 03:00 Potassium Chloride 100 ml @ 25 mls/hr UNSCH PRN IV 06/02/17 03:00 06/05/17 05:23 Potassium Chloride 100 ml @ 50 mls/hr Q2H PRN IV 06/02/17 03:00 Magnesium Sulfate 4 gm/Sodium Chloride 100 ml @ 50 mls/hr UNSCH PRN IV 06/02/17 03:00 (Mag-Ox) 800 mg UNSCH PRN PO 06/02/17 03:00 Magnesium Sulfate 2 gm/Sodium Chloride 100 ml @ 50 mls/hr UNSCH PRN IV 06/02/17 03:00 (K-Phos) 2,000 mg Q4H PRN PO 06/02/17 03:00 Sodium Phosphate 30 mmol/Sodium Chloride 250 ml @ 42 mls/hr UNSCH PRN IV 06/02/17 03:00 (K-Phos) 2,000 mg UNSCH PRN PO/TUBE 06/02/17 03:00 Potassium Phosphate 30 mmol/ Sodium Chloride 260 ml @ 42 mls/hr UNSCH PRN IV 06/02/17 03:00 (D50w (Vial) Inj) 25 ml UNSCH PRN IV PUSH 06/02/17 03:00 (NovoLIN R SUPPLEMENTAL SCALE) 1 Q6HR SQ 06/02/17 06:00 06/02/17 12:10 (Albuterol Neb) 2.5 mg Q2HR NEB PRN NEB 06/02/17 06:15 (Pepcid Inj) 20 mg DAILY IV PUSH 06/02/17 09:00 06/05/17 07:51 Thiamine HCl 100 mg/Sodium Chloride 101 ml @ 101 mls/hr DAILY IV 06/02/17 09:00 06/05/17 07:51 (Folate) 1 mg DAILY PO 06/02/17 09:00 06/05/17 07:51 (Theragran) 1 tab DAILY PO 06/02/17 09:00 06/05/17 08:53 Fentanyl Citrate 250 ml @ 5 mls/hr TITRATE PRN IV 06/02/17 15:00 Future Hold 06/03/17 18:48 (Trandate Inj) 10 mg Q1HR PRN IV PUSH 06/02/17 15:00 Future Hold 06/04/17 04:18 (Apresoline Inj) 10 mg Q1HR PRN IV PUSH 06/02/17 15:00 06/04/17 11:25 (Nitroglycerin 2% Oint) 2 inch Q6HR PRN TOPICAL 06/02/17 15:00 Azithromycin 500 mg/Sodium Chloride 250 ml @ 250 mls/hr Q24H IV 06/03/17 12:00 06/04/17 12:15 Pharmacy Profile Note 0 ml @ 0 mls/hr UNSCH OTHER 06/03/17 09:15 Vancomycin HCl 750 mg/Sodium Chloride 257.5 ml @ 250 mls/hr Q24H IV 06/03/17 12:00 06/04/17 12:15 Cefepime HCl 2000 mg/Sodium Chloride 100 ml @ 200 mls/hr Q12H IV 06/03/17 23:00 06/05/17 10:15 (Trandate Inj) 10 mg Q1H PRN IV PUSH 06/04/17 12:15 06/05/17 05:35 Miscellaneous Information SPECIFIC LAB TO BE DRAWN:VANCO DATE TO... ONCE ONCE .XX 06/06/17 11:45 06/06/17 11:46 Lactated Ringer's 1,000 ml @ 100 mls/hr Q10H IV 06/05/17 07:00 06/05/17 07:00 (Trandate) 100 mg Q12HR PO 06/05/17 08:00 06/05/17 08:53 (Free Water) VOLUME: 200 ML Q8HR G-TUBE 06/05/17 08:00 06/05/17 07:59 Exam I&O / VS 06/05/17 06/05/17 06/06/17 15:00 23:00 07:00 Intake Total 134 ml Balance 134 ml IV Total 134 ml Vital Signs Date Time Temp Pulse Resp B/P (MAP) Pulse Ox O2 Delivery O2 Flow Rate FiO2 06/05/17 09:40 98 35 06/05/17 07:25 99 35 06/05/17 07:18 98.6 90 18 137/89 (105) 98 155/90 (111) 06/05/17 07:00 91 06/05/17 04:00 102 06/05/17 04:00 98.5 102 20 165/109 (127) 99 163/96 (118) 06/05/17 04:00 35 06/05/17 03:53 99 35 06/05/17 01:24 98 40 06/05/17 00:00 98 06/05/17 00:00 40 06/05/17 00:00 98.1 99 18 161/99 (119) 99 161/92 (115) 06/04/17 22:11 98 40 06/04/17 20:00 98.1 96 20 147/88 (107) 99 145/85 (105) 06/04/17 20:00 96 06/04/17 20:00 40 06/04/17 19:30 98 40 06/04/17 16:40 99 40 06/04/17 16:00 40 06/04/17 15:51 99 40 06/04/17 15:00 102 06/04/17 15:00 108 126/73 (90) 99 131/72 (91) 06/04/17 14:00 99 40 06/04/17 12:00 40 Exam Comments intubated. non-verbal, not following, ou 2mm nr, no corneal, no blink to threat , weak doll's, no gag but can generate own breath, no limb movement with tactile Review/Management Diagnosis/Plan: (1) Anoxic encephalopathy ICD Codes: G93.1 - Anoxic brain damage, not elsewhere classified Status: Acute Plan: 06/01 arrest 06/03 rewarming started and sedation weaned off appears to have severe cortical injury with impaired brainstem reflexes eeg- almost flat line type appearance asystole of undetermined length of time recs day 4 post-arrest mri brain re-examine in a few days. on initial assessment, prognosis does not look good will likely need palliative care d/w rn (2) Cocaine abuse ICD Codes: F14.10 - Cocaine abuse, uncomplicated Status: Acute (3) Asystole ICD Codes: I46.9 - Cardiac arrest, cause unspecified Status: Acute Plan: 06/01/2017 out of hospital arrest Jg White MD Jun 05, 2017 11:17
[2017-06-05] MEDS: VANCOMYCIN INJ 750 MG in SODIUM CHLOR 0.9% 250 ML INJ 250 ML IV SCH (11:47)
[2017-06-05] MEDS: AZITHROMYCIN INJ 500 MG in SODIUM CHLOR 0.9% 250 ML INJ 250 ML IV SCH (11:48)
[2017-06-05] MEDS: hydrALAZINE HCL 20 MG/ML VIAL IV PUSH PRN (14:30)
--- NOTE | 2017-06-05 18:53 | PD.CARD.PN ---
Subjective Subjective Remarks Intubated, on the vent, unresponsive Objective Medications Current Medications Medications (Trade) Dose Ordered Sig/Sidney Route Start Time Stop Time Status Last Admin (Brethine Inj) 1 mg UNSCH PRN SQ 06/02/17 02:00 (Ativan Inj) 1 mg Q1H PRN IV PUSH 06/02/17 02:30 Propofol 100 ml @ 1.8 mls/hr TITRATE PRN IV 06/02/17 02:30 Future Hold 06/03/17 18:52 Miscellaneous Information ml @ 0 mls/hr UNSCH IV 06/02/17 02:30 (NS Flush) 2 ml UNSCH PRN IV FLUSH 06/02/17 02:30 (NS Flush) 2 ml UNSCH PRN IV FLUSH 06/02/17 02:30 (Demerol Inj) 25 mg Q2H PRN IV PUSH 06/02/17 02:30 (Buspar) 15 mg BID PRN NG 06/02/17 02:30 (Colace) 100 mg BID PO 06/02/17 09:00 06/02/17 09:23 (Peridex 0.12% Liq) 15 ml BID@08,20 OROPHARYNG 06/02/17 08:00 06/05/17 07:44 (Tears Naturale Opth Soln) 1 drop TID EACH EYE 06/02/17 09:00 06/05/17 17:54 (Zofran Inj) 4 mg Q6H PRN IV PUSH 06/02/17 02:45 (Duoneb Neb) 1 ampule Q6HR NEB NEB 06/02/17 04:00 06/05/17 17:00 (Heparin Inj) 5,000 units Q12H SQ 06/02/17 06:00 06/05/17 18:01 Potassium Chloride 100 ml @ 50 mls/hr Q2H PRN IV 06/02/17 03:00 Potassium Chloride 100 ml @ 50 mls/hr Q2H PRN IV 06/02/17 03:00 (K-Lyte Cl Eff) 50 meq UNSCH PRN PO 06/02/17 03:00 Potassium Chloride 100 ml @ 25 mls/hr UNSCH PRN IV 06/02/17 03:00 06/05/17 05:23 Potassium Chloride 100 ml @ 50 mls/hr Q2H PRN IV 06/02/17 03:00 Magnesium Sulfate 4 gm/Sodium Chloride 100 ml @ 50 mls/hr UNSCH PRN IV 06/02/17 03:00 (Mag-Ox) 800 mg UNSCH PRN PO 06/02/17 03:00 Magnesium Sulfate 2 gm/Sodium Chloride 100 ml @ 50 mls/hr UNSCH PRN IV 06/02/17 03:00 (K-Phos) 2,000 mg Q4H PRN PO 06/02/17 03:00 Sodium Phosphate 30 mmol/Sodium Chloride 250 ml @ 42 mls/hr UNSCH PRN IV 06/02/17 03:00 (K-Phos) 2,000 mg UNSCH PRN PO/TUBE 06/02/17 03:00 Potassium Phosphate 30 mmol/ Sodium Chloride 260 ml @ 42 mls/hr UNSCH PRN IV 06/02/17 03:00 (D50w (Vial) Inj) 25 ml UNSCH PRN IV PUSH 06/02/17 03:00 (NovoLIN R SUPPLEMENTAL SCALE) 1 Q6HR SQ 06/02/17 06:00 06/02/17 12:10 (Albuterol Neb) 2.5 mg Q2HR NEB PRN NEB 06/02/17 06:15 (Pepcid Inj) 20 mg DAILY IV PUSH 06/02/17 09:00 06/05/17 07:51 Thiamine HCl 100 mg/Sodium Chloride 101 ml @ 101 mls/hr DAILY IV 06/02/17 09:00 06/05/17 07:51 (Folate) 1 mg DAILY PO 06/02/17 09:00 06/05/17 07:51 (Theragran) 1 tab DAILY PO 06/02/17 09:00 06/05/17 08:53 Fentanyl Citrate 250 ml @ 5 mls/hr TITRATE PRN IV 06/02/17 15:00 Future Hold 06/03/17 18:48 (Trandate Inj) 10 mg Q1HR PRN IV PUSH 06/02/17 15:00 Future Hold 06/04/17 04:18 (Apresoline Inj) 10 mg Q1HR PRN IV PUSH 06/02/17 15:00 06/05/17 14:30 (Nitroglycerin 2% Oint) 2 inch Q6HR PRN TOPICAL 06/02/17 15:00 Azithromycin 500 mg/Sodium Chloride 250 ml @ 250 mls/hr Q24H IV 06/03/17 12:00 06/05/17 11:48 Pharmacy Profile Note 0 ml @ 0 mls/hr UNSCH OTHER 06/03/17 09:15 Vancomycin HCl 750 mg/Sodium Chloride 257.5 ml @ 250 mls/hr Q24H IV 06/03/17 12:00 06/05/17 11:47 Cefepime HCl 2000 mg/Sodium Chloride 100 ml @ 200 mls/hr Q12H IV 06/03/17 23:00 06/05/17 10:15 (Trandate Inj) 10 mg Q1H PRN IV PUSH 06/04/17 12:15 06/05/17 05:35 Miscellaneous Information SPECIFIC LAB TO BE DRAWN:VANCO DATE TO... ONCE ONCE .XX 06/06/17 11:45 06/06/17 11:46 Lactated Ringer's 1,000 ml @ 100 mls/hr Q10H IV 06/05/17 07:00 06/05/17 17:00 (Trandate) 100 mg Q12HR PO 06/05/17 08:00 06/05/17 08:53 (Free Water) VOLUME: 200 ML Q8HR G-TUBE 06/05/17 08:00 06/05/17 14:00 Vital Signs / I&O Vital Signs Date Time Temp Pulse Resp B/P (MAP) Pulse Ox O2 Delivery O2 Flow Rate FiO2 06/05/17 15:40 35 06/05/17 15:33 98.9 102 20 152/102 (119) 99 133/83 (100) 06/05/17 15:00 89 06/05/17 13:10 98 35 06/05/17 11:34 35 06/05/17 11:30 98.6 90 18 98 142/83 (102) 06/05/17 11:00 84 06/05/17 09:40 98 35 06/05/17 08:00 35 06/05/17 07:25 99 35 06/05/17 07:18 98.6 90 18 137/89 (105) 98 155/90 (111) 06/05/17 07:00 91 06/05/17 04:00 102 06/05/17 04:00 98.5 102 20 165/109 (127) 99 163/96 (118) 06/05/17 04:00 35 06/05/17 03:53 99 35 06/05/17 01:24 98 40 06/05/17 00:00 98 06/05/17 00:00 40 06/05/17 00:00 98.1 99 18 161/99 (119) 99 161/92 (115) 06/04/17 22:11 98 40 06/04/17 20:00 98.1 96 20 147/88 (107) 99 145/85 (105) 06/04/17 20:00 96 06/04/17 20:00 40 06/04/17 19:30 98 40 I/O 06/04/17 06/04/17 06/04/17 06/05/17 06/05/17 06/05/17 07:00 15:00 23:00 07:00 15:00 23:00 Intake Total 100 ml 701 ml 796 ml 1531 ml 934 ml 2184 ml Output Total 1400 ml 1765 ml 1490 ml 1180 ml Balance -1300 ml 701 ml -969 ml 41 ml 934 ml 1004 ml Intake Oral 0 ml 0 ml 0 ml 0 ml IV Total 100 ml 701 ml 733 ml 1409 ml 934 ml 1684 ml Tube Feeding 63 ml 122 ml 100 ml Tube Irrigant 400 ml Output Urine Total 1050 ml 1625 ml 1290 ml 1130 ml Stool Total 300 ml 140 ml 200 ml 50 ml Gastric Drainage Total 50 ml 0 ml # Bowel Movements 1 Physical Exam GENERAL: Intubated SKIN: Warm and dry. HEAD: Normocephalic. EYES: No scleral icterus. No injection or drainage. NECK: Supple, trachea midline. No JVD or lymphadenopathy. CARDIOVASCULAR: Regular rate and rhythm without murmurs, gallops, or rubs. RESPIRATORY: Breath sounds equal bilaterally. No accessory muscle use. GASTROINTESTINAL: Abdomen soft, non-tender, nondistended. MUSCULOSKELETAL: No cyanosis, or edema. Laboratory Laboratory Tests Test 06/05/17 04:00 06/05/17 07:26 06/05/17 12:00 06/05/17 17:50 White Blood Count 14.0 TH/MM3 Red Blood Count 3.41 MIL/MM3 Hemoglobin 7.8 GM/DL Hematocrit 25.9 % Mean Corpuscular Volume 76.0 FL Mean Corpuscular Hemoglobin 23.0 PG Mean Corpuscular Hemoglobin Concent 30.3 % Red Cell Distribution Width 18.3 % Platelet Count 104 TH/MM3 Mean Platelet Volume 8.2 FL Blood Urea Nitrogen 30 MG/DL Creatinine 1.66 MG/DL Random Glucose 104 MG/DL Calcium Level 8.0 MG/DL Phosphorus Level 3.6 MG/DL Magnesium Level 2.3 MG/DL Sodium Level 157 MEQ/L 155 MEQ/L 155 MEQ/L Potassium Level 3.5 MEQ/L Chloride Level 127 MEQ/L Carbon Dioxide Level 23.3 MEQ/L Anion Gap 7 MEQ/L Estimat Glomerular Filtration Rate 43 ML/MIN Total Creatine Kinase 280 U/L Creatine Kinase MB 4.0 NG/ML Creatine Kinase MB % 1.4 % Troponin I 0.38 NG/ML Random Cortisol 22.9 MCG/DL Blood Gas Puncture Site ART LINE Blood Gas Patient Temperature 98.6 Blood Gas HCO3 22 mmol/L Blood Gas Base Excess -2.0 mmol/L Blood Gas Oxygen Saturation 97 % Arterial Blood pH 7.42 Arterial Blood Partial Pressure CO2 34 mmHg Arterial Blood Partial Pressure O2 176 mmHg Arterial Blood Oxygen Content 11.9 Vol % Arterial Blood Carboxyhemoglobin 0.6 % Arterial Blood Methemoglobin 1.5 % Blood Gas Hemoglobin 8.4 G/DL Oxygen Delivery Device VENTILATOR Blood Gas Ventilator Setting [id number] Blood Gas Inspired Oxygen 35 % Imaging Last 24 hours Impressions Chest X-Ray 06/05/17 0600 Signed Impressions: Service Date/Time: Monday, June 05, 2017 03:30 - CONCLUSION: No acute cardiopulmonary disease. Amber Pugh MD Assessment and Plan Problem List: (1) Cardiopulmonary arrest with successful resuscitation ICD Codes: I46.9 - Cardiac arrest, cause unspecified Status: Acute (2) Cocaine abuse ICD Codes: F14.10 - Cocaine abuse, uncomplicated Status: Acute (3) Respiratory failure ICD Codes: J96.90 - Respiratory failure, unspecified, unspecified whether with hypoxia or hypercapnia Assessment and Plan Continue ICU care. Likely has severe anoxic encephalopathy. No cardiac issues. No arrhythmias. Prognosis very poor. Difficult to reach the family so far. Ahmet Perez MD Jun 05, 2017 18:53
[2017-06-06] VITALS (15 sets, daily range): BP systolic 106–155; BP diastolic 60–96; PULSE 69–122; RESP 13; TEMP 92–98.3; O2SAT 96–99
[2017-06-06] MEDS: LABETALOL HCL 100 MG/20 ML VIAL IV PUSH PRN ×2 (02:28→06:42)
[2017-06-06] MEDS: RESP: ALBUTEROL 2.5 MG/IPRATROPIUM 0.5 MG NEB (SCH) NEB (03:08)
[2017-06-06] MEDS: LORazepam 2 MG/ML VIAL IV PUSH PRN ×4 (03:18→09:30)
[2017-06-06] MEDS: LACTATED RINGER'S 1000 ML INJ 1,000 ML IV SCH (03:23)
[2017-06-06 04:28] LABS: AUTOMATED NEUTROPHIL # 5.4 TH/MM3 (1.8-7.7); BASOPHIL % 0.1 % (0.0-2.0); EOSINOPHIL % 0.5 % (0.0-4.0); HEMATOCRIT 24.8 % (35.0-46.0); HEMOGLOBIN 7.6 GM/DL (11.6-15.3); LYMPH % 10.5 % (9.0-44.0); LYMPHOCYTE # 0.7 TH/MM3 (1.0-4.8); MEAN CELL VOLUME 77.2 FL (80.0-100.0); MEAN CORPUSCULAR HEMOGLOBIN 23.6 PG (27.0-34.0); MEAN CORPUSCULAR HGB CONC 30.5 % (32.0-36.0); MONO % 7.4 % (0.0-8.0); MONOCYTE # 0.5 TH/MM3 (0-0.9); NEUT % 81.5 % (16.0-70.0); PLATELET COUNT 86 TH/MM3 (150-450); RED BLOOD COUNT 3.21 MIL/MM3 (4.00-5.30); RED CELL DISTRIBUTION WIDTH 18.2 % (11.6-17.2); WHITE BLOOD COUNT 6.7 TH/MM3 (4.0-11.0)
[2017-06-06 04:50] LABS: ALBUMIN 1.9 GM/DL (3.4-5.0); ALKALINE PHOSPHATASE 118 U/L (45-117); ALT (GPT) 68 U/L (10-53); AST (GOT) 124 U/L (15-37); BICARBONATE 23.2 MEQ/L (21.0-32.0); BLOOD UREA NITROGEN 25 MG/DL (7-18); CALCIUM 8.6 MG/DL (8.5-10.1); CHLORIDE 127 MEQ/L (98-107); CREATININE 1.23 MG/DL (0.50-1.00); GLOMERULAR FILTRATION RATE 60 ML/MIN (>89); GLUCOSE,RANDOM 114 MG/DL (74-106); MAGNESIUM 2.4 MG/DL (1.5-2.5); PHOSPHORUS 2.9 MG/DL (2.5-4.9); TOTAL BILIRUBIN ADULT 0.3 MG/DL (0.2-1.0); TOTAL PROTEIN 5.8 GM/DL (6.4-8.2)
--- NOTE | 2017-06-06 05:00 | RADRPT ---
EXAM DATE/TIME: 06/06/2017 03:47 [place] COMPARISON: CHEST SINGLE AP, June 05, 2017, 3:30. INDICATIONS : Short of breath. MEDICAL HISTORY : None. SURGICAL HISTORY : None. ENCOUNTER: Subsequent ACUITY: 4 - 6 days PAIN SCORE: 0/10 LOCATION: Bilateral chest FINDINGS: The lungs are clear without infiltrate, nodule, or mass. There is no appreciable pleural effusion fo r technique. Heart and mediastinum are unremarkable. ET tube, and NG tube have not changed. CONCLUSION: No acute cardiopulmonary disease. Amber Pugh MD on June 06, 2017 at 4:58 Board Certified Radiologist. This report was verified electronically.
[2017-06-06 05:02] LABS: SODIUM (NA) 156 MEQ/L (136-145)
[2017-06-06] MEDS: FREE WATER G-TUBE SCH ×3 (05:50→21:15)
[2017-06-06] MEDS: HEPARIN SODIUM - SQ 10,000 UNITS/ML VIAL SQ SCH ×2 (05:50→17:21)
[2017-06-06] MEDS: INSULIN NovoLIN REGULAR SUPPLEMENTAL SCALE SQ SCH ×3 (05:51→18:00)
--- NOTE | 2017-06-06 07:38 | HHI.CCPN ---
Subjective Remarks/Hospital Course This is a 37-year-old female with an unknown past medical history who presents after out of hospital cardiac arrest. Per EMS report, a friend found the patient altered with agonal respirations. Per report, the friend did not have any way of contacting 911, so the friend place the patient in a car and drove her to the nearest gas station to call 911. Upon EMS arrival, the patient was unresponsive, not breathing, and pulseless. Presenting rhythm was asystole. ACLS was initiated, 3 A of epinephrine, 1 amp of bicarbonate, 2 mg of Narcan and the patient had ROSC. Patient was transported to [facility] emergency Department. In emergency department, she had a decreased level of consciousness but was moving all 4 extremities spontaneously. Her GCS was 6 (E1 ,V1,M4). Her urine drug screen is positive for cocaine. I discussion with Dr. Yañez the ER physician, and we agree that given her young age and that she was witnessed with a pulse, that the potential benefits of therapeutic hypothermia outweigh the risks in this scenario. No additional information is available from the patient and we do not know of any family at this time. Patient was transported the CVICU and therapeutic hypothermia was initiated. 06/02: Currently on hypothermia protocol. Temperature 33C. Dignishield will be placed. Remains on multiple vasopressors. Troponin climbing with repeat ordered. Echocardiogram and a.m. EKG pending. 06/03: Rewarming process initiated early this a.m.. Patient was weaned off of vasopressors greater than 24 hours. Hemodynamically stable. Early this a.m. the patient noted was noted to have decrease in dorsalis pedis and posterior tibial pulses, now nonpalpable but dopplerable biphasic signals. Arterial Doppler studies pending. Right femoral triple-lumen central line removed. Chest x-ray was noted to have an infiltrate, sputum cultures are pending empiric antibiotics initiated. 06/04: Normothermic at 1930 .Sedation discontinued 1929 on 06/03. The patient remains encephalopathic at this time. She remains hemodynamically stable on no pressors. EEG pending at this time. The patient was noted to be slightly hypernatremic, IV fluids changed. ABIs were performed for slightly decreased pulse yesterday and right lower extremities bilateral ABIs slightly depressed pulses on the right remain dopplerable, biphasic. 06/05: Afebrile. No acute events overnight. Patient continues to be hypertensive scheduled PO labetalol 100 mg BID. Neurologically, the patient remains encephalopathic, EEG performed yesterday showed nearly flat line. CT pending this a.m.. Neurology has been consulted, patient has been off sedation for approximately 36 hours. SUBJECTIVE: 06/06 MRI pending. Off sedation. Not brain --> has spontaneous respirations when disconnected vent. Absent pupillary, corneal, oculocephalic and gag reflexes. No motor response to deep noxious stimuli. Had tonic clonic movements of BUE this morning that ceased with Ativan 2 mg IV. Objective Vital Signs Date Time Temp Pulse Resp B/P (MAP) Pulse Ox O2 Delivery O2 Flow Rate FiO2 06/06/17 06:58 98 30 06/06/17 04:00 98.0 73 128/92 (104) 140/88 (105) 06/05/17 15:33 20 Intake and Output 06/06/17 06/06/17 06/07/17 08:00 16:00 00:00 Intake Total 1760 ml Output Total 800 ml Balance 960 ml Result Diagram: 06/06/17 0355 06/06/17 0355 Other Results Microbiology Date/Time Source Procedure Growth Status 06/03/17 09:50 Sputum Endotracheal Gram Stain - Final Complete 06/03/17 09:50 Sputum Culture - Final Staphylococcus Aureus Beta Strep Not Group A Complete Laboratory Tests Test 06/06/17 04:56 Blood Gas Puncture Site MARYANNE Blood Gas Patient Temperature 98.6 Blood Gas HCO3 21 mmol/L (22-26) Blood Gas Base Excess -2.5 mmol/L (-2-2) Blood Gas Oxygen Saturation 96 % (90-100) Arterial Blood pH 7.41 (7.380-7.420) Arterial Blood Partial Pressure CO2 34 mmHg (38-42) Arterial Blood Partial Pressure O2 122 mmHg (61-120) Arterial Blood Oxygen Content 10.7 Vol % (12.0-20.0) Arterial Blood Carboxyhemoglobin 0.9 % (0-4) Arterial Blood Methemoglobin 1.4 % (0-2) Blood Gas Hemoglobin 7.7 G/DL (12.0-16.0) Oxygen Delivery Device VENTILATOR Blood Gas Ventilator Setting AC/12/475/PEEP5 Blood Gas Inspired Oxygen 30 % Imaging Last Impressions CT Angiography 06/02/17 0000 Signed Impressions: Service Date/Time: Friday, June 02, 2017 00:38 - CONCLUSION: No evidence of pulmonary embolism. Left lung perihilar infiltrate. Darrius Blandon MD Abdomen/Pelvis CT 06/02/17 0000 Signed Impressions: Service Date/Time: Friday, June 02, 2017 00:43 - CONCLUSION: Nonspecific distention of bowel. Nonspecific abnormal appearance of the gallbladder. Darrius Blandon MD Head CT 06/01/17 2347 Signed Impressions: Service Date/Time: Friday, June 02, 2017 00:29 - CONCLUSION: No acute intracranial process Darrius Blandon MD Chest X-Ray 06/01/17 0000 Signed Impressions: Service Date/Time: Friday, June 02, 2017 00:04 - CONCLUSION: Satisfactory chest appearance Darrius Blandon MD Objective Remarks Drips: LR 100 mL per hour GENERAL: Middle-aged female, intubated, off continuous sedation. HEENT: Normocephalic. Atraumatic. Pupils 1-2 mm bilaterally and nonreactive. Bilateral Scleral edema noted NECK: Trachea is midline. There is no JVD. CHEST: Symmetrical chest rise. Clear to auscultation bilaterally. No wheezes Rales or rhonchi. CARDIOVASCULAR: RRR. S1, S2 no S4. Without murmur ABDOMEN: Soft, nontender, nondistended. Bowel sounds present. Initial in place with dark brown liquid bowel movement. MUSCULOSKELETAL: Pulses 2+ bilateral radial and posterior tibialis. No peripheral edema. NEUROLOGICAL: No eye opening. Pupils 1-2 mm but nonreactive. No corneal reflex. No oculocephalic reflex. No gag. Does have a cough reflex at times but difficult to elicit. +Spontaneous respirations when vent disconnected. No motor response to deep noxious stimuli. No response to Babinski bilateral. No clonus. Date of Insertion: Jun 01, 2017 Date of Removal: Jun 03, 2017 Line: Central Venous Catheter Side: Right Location: Femoral A/P Assessment and Plan Neurologic: Hypoxic ischemic encephalopathy Toxic encephalopathy - multifactorial Cocaine overdose EtOH abuse Seizure Status post induced therapeutic hypothermia. Sedation discontinued 06/03 at 1930, close monitoring for responsiveness Neurochecks per ICU protocol CT brain admission 06/01 revealed no acute intracranial findings 06/04 EEG -. Severe encephalopathy with nearly flat line appearance. 06/04 ammonia level- 10 Continue thiamine, folate and multivitamin daily MRI pending. Tonic clonic seizure morning 06/06. Resolved after Ativan 2 mg IV. Loaded fosphenytoin. Recheck EEG. Dilantin and albumin level in am. Neurology consulted Respiratory: Acute hypoxic and hypercarbic respiratory failure Mixed acidosis-resolved ACV 16/500/5/. 35 Vent bundle Head of bed 30 Albuterol/ipratropium aerosols every 6 hours with albuterol aerosols every 2 hours as needed Wean FiO2 for goal SPO2 greater than 92% CT pulmonary angiogram 06/01: Negative for acute PE and possible left lower lobe infiltrate Mental status precludes extubation potential. 06/04 chest x-ray-right lung clear . Some clearance of left basilar infiltrate 06/05 sputum culture- Staph Aureus 06/05 patient initiated on sodium bicarbonate infusion last p.m. the ventilator settings adjusted 06/06 CXR clear Cardiovascular: Status post out of hospital cardiac arrest Cardiogenic shock (resolved) NSTEMI Lactic acidosis-resolved Goal mean arterial pressure greater than 65 Cardiology has evaluated and no plans for further workup at this time due to extremely poor neurologic prognosis 06/03 Echocardiogram-EF 45%. No RWMA Amiodarone infusion discontinued 06/02 secondary to the patient having elevated LFTs. The patient remains in normal sinus rhythm, hemodynamically stable on no vasopressors 06/03- arterial Doppler studies. Slight depression MILES 0.8 bilaterally. Biphasic Doppler signals right DP , PT 06/04 lactate cleared 1.4 06/04 Troponins downtrended 0.63-> 0.35 Off vasopressors. Distal pulses palpable. Renal: Acute kidney injury Hypernatremia -- Strict I/Os Maintain Cochran for accurate I's and O's Creatinine back to admission level. 3 L FWD. Change IVF to D5W @65/hr. FEN/GI: Elevated Transaminases likely secondary to shock Diarrhea 06/02 Fecal containment device placed CT abdomen/pelvis revealed a specific dilated bowel loops and gallbladder appearance. 06/02 gallbladder ultrasound today-no abnormality LFTs downtrending. Tolerating Jevity 1.5 @10 mL per hour. Advance as tolerated to goal rate of 40 mL per hour per nutrition recommendations CMV DRIVER: Unable to locate admission test. Will check Quant Hcg. Heme/ID: Leukocytosis Microcytic anemia Community-acquired pneumonia Blood culture- NGTD 06/04Sputum culture MSSA, betastrep. C. difficile negative Empiric antibiotics initiated secondary to left lung base developing opacity- possibly secondary to aspiration. Has been on cefepime, azithromycin and vancomycin 06/03 #4. Deescalate based on culture data and evidence of clinical response. D/c vancomycin, cefepime, azithro. Cefazolin tentative stop 06/10. Endocrine: Hyperglycemia of critical illness -- SSI Novolog , medium scale, every 6hr. Not requiring coverage. Prophylaxis: GI Prophylaxis Famotidine 20 mill grams IV daily DVT Prophylaxis -- SCDs Subcutaneous heparin Lines: 06/01 right femoral triple-lumen catheter placed in the emergency department by the emergency room [email or web address] 06/02 right radial arterial line - d/c today 06/06. 06/02 left femoral code cool catheter - d/c today 06/06. Sammie Patient is status post out of hospital cardiac arrest. Prognosis appears poor with poor neurologic exam off sedation., attempting to find family. MRI today. Palliative care has previously been consulted. Level III follow-up Olya Byrd MD Jun 06, 2017 07:38
[2017-06-06] MEDS ORDERED: LORazepam 2 MG/ML VIAL IV PUSH ONE (08:00)
[2017-06-06] MEDS ORDERED: MIDAZOLAM HCL 2 MG/2 ML VIAL IV PUSH PRN (08:00)
[2017-06-06] MEDS: CHLORHEXIDINE 0.12% (ORAL KIT) 15 ML CUP OROPHARYNG SCH ×2 (08:00→20:00)
[2017-06-06] MEDS: ARTIFICIAL TEARS OPTH SOLN 15 ML BTL EACH EYE SCH ×3 (08:49→17:21)
[2017-06-06] MEDS: DOCUSATE SODIUM 100 MG CAP PO SCH ×2 (08:50→21:00)
[2017-06-06] MEDS: FAMOTIDINE 20 MG/2 ML VIAL IV PUSH SCH (08:50)
[2017-06-06] MEDS: THIAMINE INJ 100 MG in SODIUM CHLORIDE 0.9% INJ 100 ML IV SCH (08:50)
[2017-06-06] MEDS: LABETALOL HCL 100 MG TAB PO SCH ×2 (08:51→21:00)
[2017-06-06] MEDS: FOLIC ACID 1 MG TAB PO SCH (08:51)
[2017-06-06] MEDS: MULTIVITAMIN TAB PO SCH (08:56)
[2017-06-06] MEDS ORDERED: FOSPHENYTOIN INJ 1,000 MGPE in SODIUM CHLORIDE 0.9% INJ 50 ML IV ONE (09:00)
[2017-06-06] MEDS ORDERED: PROPOFOL 500 MG/50 ML INJ 50 ML ONE (09:46)
[2017-06-06] MEDS: DEXTROSE 5% IN WATE 1000ML INJ 1,000 ML IV SCH ×2 (10:22→22:22)
--- NOTE | 2017-06-06 11:09 | PD.CONS ---
Consult Service Palliative Care Consult Requested By Dr White Primary Care Physician Unknown Reason for Consultation a. To assist with evaluation and management of symptoms including: Dyspnea, encephalopathy b. To assist medical decision maker(s) with: better understanding of current medical conditions; weighing benefits/burdens of medical treatment options; making medical treatment decisions. HPI History of Present Illness This 37-year-old female presented to the ED 06/01/17 via EMS secondary to cardiopulmonary arrest. Per EMS reports patient was found by a friend with decreased level of consciousness and grunting respirations, friend did not have access to phone so then drove with the patient to a gas station to phone 911. Upon EMS arrival patient noted to be pulseless, not breathing. Per EMS monitor asystole. Patient underwent CPR, and enroute patient rhythm went from asystole to PEA. No other history was known except report of alcohol use per a bystander. * CPR continued in the ED -patient with PEA then V. tach, CPR ongoing ,patient also receiving dopamine, IV fluid , ROSC obtained. Police noted to be identifying patient. As the patient have been reported to be seen minimally responsive and agonal her friend, hypothermia protocol was initiated. No additional history or family was known at the time of presentation. Not known length of time for drive to gas station or for EMS to arrive. Urine positive cocaine cardiac arrest likely secondary to cocaine overdose. Concern for anoxic brain injury. * Cardiology consulted: notes total of 26 minutes resuscitation. Continue current treatment. Extent of brain injury not known. * 06/04 normothermia completed 1929. Sedation discontinued 06/03. Patient remaining encephalopathic. Hypertensive. * Neurology consulted: Patient off of sedation > 30 hours still with no improvement in neurological status. Patient with no corneal reflex, no movement to extremity stimuli. Neurology notes severe cortical injury with impaired brainstem reflexes EEG was almost flat line appearance. Patient status post asystole of undetermined length of time. Day 4 post arrest: recommendation to reexamine in a few days, though on initial assessment prognosis does not look good, will likely need palliative care. Palliative care consulted to assist with clarification of goals of treatment. * 06/06 MRI ordered/pending. Off of sedation. Not brain as patient does have some spontaneous respirations when disconnected from the vent. Absent corneal, pupillary, oculocephalic and gag reflexes. Tonic-clonic movements noted, ceased with Ativan 2 mg IV. Sputum culture from 06/04-positive MSSA, beta strep, C. difficile negative. Vancomycin, cefepime, azithromycin discontinued. Cefazolin continued with stop date 06/10 Patient examined in cardiac ICU. EEG completing exam. Discussed with nurse. Patient local significant other expected to return shortly. Nurse reports patient may have or ex-. To my exam patient nonresponsive: no corneal reflex no withdrawal to pain stimuli. She does appear to be overbreathing 1-2 respirations over mechanical vent rate. Following exam call to reported /ex- Fredrick Hawkins-briefly introduce self and purpose of call in attempts to locate appropriate legal proxy he informs he is no longer legally to the patient's, that he has in the past attempted to reach patient parents Chata Jackman last known to be in [place] though the numbers he have further do not work he suspects they were changed some time ago. Patient does not have any siblings. He is not aware of other family. Nursing later notified me patient significant other Max Mercer back into visit obtained contact number for him--I attempted to call this number; someone answered who stated he was Max Mercer brother and he would relay a message for him to call me in a few hours when he expected to see him. I also conducted a Google search in attempt to identify contact information for patient parents-- did not yield any results. Patient does appear to have resided in [facility] at some point per arrest record returned from Google search. Function/Cognitive Trajectory appears pt lived in private home, independent. . Review of Systems ROS Limitations: Clinical Condition (unresponsive, severe encephalopathy on mechanical), Intubated, Unresponsive Past Family Social History Coded Allergies: No Allergy Information Available (Unverified , 06/01/17) Past Medical History Not known no family available at time of consultation Past Surgical History Not known no family available at time of consultation . Reported Medications Not known . Current Medications Medications (Trade) Dose Ordered Sig/Sidney Route Start Time Stop Time Status Last Admin (Brethine Inj) 1 mg UNSCH PRN SQ 06/02/17 02:00 (Ativan Inj) 1 mg Q1H PRN IV PUSH 06/02/17 02:30 06/06/17 08:00 Propofol 100 ml @ 1.8 mls/hr TITRATE PRN IV 06/02/17 02:30 Future Hold 06/03/17 18:52 Miscellaneous Information ml @ 0 mls/hr UNSCH IV 06/02/17 02:30 (NS Flush) 2 ml UNSCH PRN IV FLUSH 06/02/17 02:30 (NS Flush) 2 ml UNSCH PRN IV FLUSH 06/02/17 02:30 (Colace) 100 mg BID PO 06/02/17 09:00 06/02/17 09:23 (Peridex 0.12% Liq) 15 ml BID@08,20 OROPHARYNG 06/02/17 08:00 06/06/17 08:00 (Tears Naturale Opth Soln) 1 drop TID EACH EYE 06/02/17 09:00 06/06/17 08:49 (Zofran Inj) 4 mg Q6H PRN IV PUSH 06/02/17 02:45 (Heparin Inj) 5,000 units Q12H SQ 06/02/17 06:00 06/06/17 05:50 Potassium Chloride 100 ml @ 50 mls/hr Q2H PRN IV 06/02/17 03:00 Potassium Chloride 100 ml @ 50 mls/hr Q2H PRN IV 06/02/17 03:00 (K-Lyte Cl Eff) 50 meq UNSCH PRN PO 06/02/17 03:00 Potassium Chloride 100 ml @ 25 mls/hr UNSCH PRN IV 06/02/17 03:00 06/05/17 05:23 Potassium Chloride 100 ml @ 50 mls/hr Q2H PRN IV 06/02/17 03:00 Magnesium Sulfate 4 gm/Sodium Chloride 100 ml @ 50 mls/hr UNSCH PRN IV 06/02/17 03:00 (Mag-Ox) 800 mg UNSCH PRN PO 06/02/17 03:00 Magnesium Sulfate 2 gm/Sodium Chloride 100 ml @ 50 mls/hr UNSCH PRN IV 06/02/17 03:00 (K-Phos) 2,000 mg Q4H PRN PO 06/02/17 03:00 Sodium Phosphate 30 mmol/Sodium Chloride 250 ml @ 42 mls/hr UNSCH PRN IV 06/02/17 03:00 (K-Phos) 2,000 mg UNSCH PRN PO/TUBE 06/02/17 03:00 Potassium Phosphate 30 mmol/ Sodium Chloride 260 ml @ 42 mls/hr UNSCH PRN IV 06/02/17 03:00 (D50w (Vial) Inj) 25 ml UNSCH PRN IV PUSH 06/02/17 03:00 (NovoLIN R SUPPLEMENTAL SCALE) 1 Q6HR SQ 06/02/17 06:00 06/02/17 12:10 (Albuterol Neb) 2.5 mg Q2HR NEB PRN NEB 06/02/17 06:15 (Pepcid Inj) 20 mg DAILY IV PUSH 06/02/17 09:00 06/06/17 08:50 Thiamine HCl 100 mg/Sodium Chloride 101 ml @ 101 mls/hr DAILY IV 06/02/17 09:00 06/06/17 08:50 (Folate) 1 mg DAILY PO 06/02/17 09:00 06/06/17 08:51 (Theragran) 1 tab DAILY PO 06/02/17 09:00 06/06/17 08:56 (Trandate Inj) 10 mg Q1HR PRN IV PUSH 06/02/17 15:00 Future Hold 06/04/17 04:18 (Apresoline Inj) 10 mg Q1HR PRN IV PUSH 06/02/17 15:00 06/05/17 14:30 (Nitroglycerin 2% Oint) 2 inch Q6HR PRN TOPICAL 06/02/17 15:00 Pharmacy Profile Note 0 ml @ 0 mls/hr UNSCH OTHER 06/03/17 09:15 (Trandate Inj) 10 mg Q1H PRN IV PUSH 06/04/17 12:15 06/06/17 06:42 Miscellaneous Information SPECIFIC LAB TO BE DRAWN:VANCO DATE TO... ONCE ONCE .XX 06/06/17 11:45 06/06/17 11:46 (Trandate) 100 mg Q12HR PO 06/05/17 08:00 06/06/17 08:51 (Free Water) VOLUME: 200 ML Q8HR G-TUBE 06/05/17 08:00 06/06/17 05:50 (Cerebyx Inj) 100 mgpe Q8H IV 06/06/17 16:00 (Versed Inj) 2 mg ONCE PRN IV PUSH 06/06/17 08:00 06/08/17 07:59 Dextrose 1,000 ml @ 65 mls/hr [id number] IV 06/06/17 09:00 06/06/17 10:22 Cefazolin Sodium 1000 mg/Sodium Chloride 100 ml @ 200 mls/hr Q8H IV 06/06/17 09:00 06/06/17 08:55 Family History Not known no family available at time of consultation Substance Use Tobacco: Not known Alcohol: Not known, urine screen positive alcohol Prescription med abuse: Not known Illicits: urine screen positive cocaine . Psychosocial History no longer - from [facility]. Father Gasper Archuleta, mother Kinga Botello-- last known in [place] though pt ex has not been able to reach them at last known numbers. No siblings. Reported to have 1 child who was adopted. Reported to have local significant other Max Mercer. . Spiritual/Cultural Factors Not known Living Will: Never completed Health Care Surrogate: Never completed Durable Power of Second Baller: Never completed Ethical and Legal Issues Due to clinical condition patient not able to participate in decision-making. She appears to have severe anoxic encephalopathy does not appear she will regain ability to participate. No longer per her ex-. No siblings per her ex- father and mother last known to be in [place] though do not have current contact information for them. If able to locate maybe appropriate legal decision makers for this patient. Patient also reported to have local significant other Max Mercer. If family unable to be identified he may be appropriate decision-making proxy. Physical Exam Vital Signs Date Time Temp Pulse Resp B/P (MAP) Pulse Ox O2 Delivery O2 Flow Rate FiO2 06/06/17 10:12 98 30 06/06/17 06:58 98 30 06/06/17 04:00 98.0 73 128/92 (104) 99 140/88 (105) 06/06/17 04:00 35 06/06/17 04:00 73 06/06/17 03:11 99 30 06/06/17 00:00 35 06/06/17 00:00 75 06/06/17 00:00 75 141/96 (111) 99 155/94 (114) 06/05/17 23:54 98 30 06/05/17 20:20 99 30 06/05/17 20:00 97.5 84 123/87 (99) 99 141/88 (105) 12/25/17 20:00 35 06/05/17 20:00 84 06/05/17 15:40 35 06/05/17 15:33 98.9 102 20 152/102 (119) 99 133/83 (100) 06/05/17 15:00 89 06/05/17 13:10 98 35 06/05/17 11:34 35 06/05/17 11:30 98.6 90 18 98 142/83 (102) 06/05/17 11:00 84 06/06/17 06/07/17 19:00 07:00 Intake Total 624 ml Balance 624 ml IV Total 624 ml Exam CONSTITUTIONAL/GENERAL: This is an adequately nourished patient, nonresponsive on mechanical vent TUBES/LINES/DRAINS: Femoral central line, ET tube, NG tube, Cochran catheter, rectal drain, warming blanket in place SKIN: No jaundice, rashes, or lesions. No wounds seen anteriorly. Skin temperature cool, dry. Nails long, broken and uneven HEAD: Atraumatic. Normocephalic. EYES: Pupils 2 mm no reaction to light. No corneal reflex. Slight periorbital edema. No scleral icterus. No injection or drainage. Fundi not examined. ENT:Nose without bleeding or purulent drainage. Unable to visualize oropharynx secondary to ET tube. NECK: Trachea midline. Supple, nontender. CARDIOVASCULAR: Regular rate and rhythm without murmur. No JVD. Peripheral pulses faint.+ Edema to extremities. RESPIRATORY/CHEST: Symmetric, unlabored respirations via mechanical vent. Over breathes 1-2 over ventilator rate. Clear, diminished. Equal bilaterally. GASTROINTESTINAL: Abdomen soft, nondistended. Unable to determine tenderness secondary to nonresponsiveness. No hepato-splenomegaly, or palpable masses. Bowel sounds present. Tube feed infusing via NG tube GENITOURINARY: Without palpable bladder distension. Cochran catheter in place. MUSCULOSKELETAL: Extremities without clubbing, cyanosis. Edema to extremities. No mottling or clubbing. NEUROLOGICAL: Not currently on sedation, nonresponsive to exam--no withdrawal to pain stimuli to extremities, no corneal or pupil reflex. PSYCHIATRIC: Limited assessment due to clinical condition Diagnostic Tests Laboratory Laboratory Tests Test 06/03/17 12:30 06/03/17 14:10 06/04/17 04:30 06/04/17 10:10 Potassium Level 3.9 MEQ/L (3.5-5.1) 3.8 MEQ/L (3.5-5.1) Urine Eosinophils NONE SEEN /HPF (NONE SEEN) Urine Random Creatinine 83.1 MG/DL Urine Random Sodium 30 MEQ/L White Blood Count 14.5 TH/MM3 (4.0-11.0) Red Blood Count 3.60 MIL/MM3 (4.00-5.30) Hemoglobin 8.4 GM/DL (11.6-15.3) Hematocrit 27.0 % (35.0-46.0) Mean Corpuscular Volume 75.0 FL (80.0-100.0) Mean Corpuscular Hemoglobin 23.2 PG (27.0-34.0) Mean Corpuscular Hemoglobin Concent 30.9 % (32.0-36.0) Red Cell Distribution Width 18.6 % (11.6-17.2) Platelet Count 106 TH/MM3 (150-450) Mean Platelet Volume 7.7 FL (7.0-11.0) CBC Comment AUTO DIFF Differential Total Cells Counted 100 Neutrophils % (Manual) 63 % (16-70) Band Neutrophils % 33 % (0-6) Lymphocytes % 2 % (9-44) Monocytes % 2 % (0-8) Neutrophils # (Manual) 13.9 TH/MM3 (1.8-7.7) Differential Comment FINAL DIFF MANUAL Dohle Bodies PRESENT (NONE SEEN) Platelet Estimate LOW (NORMAL) Platelet Morphology Comment NORMAL (NORMAL) Target Cells 1+ (NORMAL) Ovalocytes 1+ (NORMAL) Blood Urea Nitrogen 32 MG/DL (7-18) Creatinine 1.79 MG/DL (0.50-1.00) Random Glucose 94 MG/DL (74-106) Total Protein 5.9 GM/DL (6.4-8.2) Albumin 2.2 GM/DL (3.4-5.0) Calcium Level 7.2 MG/DL (8.5-10.1) Phosphorus Level 4.8 MG/DL (2.5-4.9) Magnesium Level 2.0 MG/DL (1.5-2.5) Alkaline Phosphatase 156 U/L (45-117) Aspartate Amino Transf (AST/SGOT) 268 U/L (15-37) Alanine Aminotransferase (ALT/SGPT) 134 U/L (10-53) Total Bilirubin 0.4 MG/DL (0.2-1.0) Sodium Level 153 MEQ/L (136-145) Chloride Level 124 MEQ/L (98-107) Carbon Dioxide Level 17.8 MEQ/L (21.0-32.0) Anion Gap 11 MEQ/L (5-15) Estimat Glomerular Filtration Rate 39 ML/MIN (>89) Protein Corrected Calcium 7.8 MG/DL (8.5-10.1) Random Vancomycin Level 8.5 COMMENT Ammonia LESS THAN 10 MCMOL/L Total Creatine Kinase 360 U/L (26-192) Creatine Kinase MB 8.6 NG/ML (0.5-3.6) Creatine Kinase MB % 2.4 % (0.0-4.0) Troponin I 0.63 NG/ML (0.02-0.05) Test 06/04/17 16:25 06/05/17 04:00 06/05/17 07:26 06/05/17 12:00 Blood Gas Puncture Site ART LINE ART LINE Blood Gas Patient Temperature 98.6 98.6 Blood Gas HCO3 16 mmol/L (22-26) 22 mmol/L (22-26) Blood Gas Base Excess -8.0 mmol/L (-2-2) -2.0 mmol/L (-2-2) Blood Gas Oxygen Saturation 97 % (90-100) 97 % (90-100) Arterial Blood pH 7.42 (7.380-7.420) 7.42 (7.380-7.420) Arterial Blood Partial Pressure CO2 25 mmHg (38-42) 34 mmHg (38-42) Arterial Blood Partial Pressure O2 183 mmHg (61-120) 176 mmHg (61-120) Arterial Blood Oxygen Content 10.4 Vol % (12.0-20.0) 11.9 Vol % (12.0-20.0) Arterial Blood Carboxyhemoglobin 0.6 % (0-4) 0.6 % (0-4) Arterial Blood Methemoglobin 1.6 % (0-2) 1.5 % (0-2) Blood Gas Hemoglobin 7.3 G/DL (12.0-16.0) 8.4 G/DL (12.0-16.0) Oxygen Delivery Device VENTILATOR VENTILATOR Blood Gas Ventilator Setting AC12/475/PEEP5 Blood Gas Inspired Oxygen 40 % 35 % White Blood Count 14.0 TH/MM3 (4.0-11.0) Red Blood Count 3.41 MIL/MM3 (4.00-5.30) Hemoglobin 7.8 GM/DL (11.6-15.3) Hematocrit 25.9 % (35.0-46.0) Mean Corpuscular Volume 76.0 FL (80.0-100.0) Mean Corpuscular Hemoglobin 23.0 PG (27.0-34.0) Mean Corpuscular Hemoglobin Concent 30.3 % (32.0-36.0) Red Cell Distribution Width 18.3 % (11.6-17.2) Platelet Count 104 TH/MM3 (150-450) Mean Platelet Volume 8.2 FL (7.0-11.0) Blood Urea Nitrogen 30 MG/DL (7-18) Creatinine 1.66 MG/DL (0.50-1.00) Random Glucose 104 MG/DL (74-106) Calcium Level 8.0 MG/DL (8.5-10.1) Phosphorus Level 3.6 MG/DL (2.5-4.9) Magnesium Level 2.3 MG/DL (1.5-2.5) Sodium Level 157 MEQ/L (136-145) 155 MEQ/L (136-145) Potassium Level 3.5 MEQ/L (3.5-5.1) Chloride Level 127 MEQ/L (98-107) Carbon Dioxide Level 23.3 MEQ/L (21.0-32.0) Anion Gap 7 MEQ/L (5-15) Estimat Glomerular Filtration Rate 43 ML/MIN (>89) Total Creatine Kinase 280 U/L (26-192) Creatine Kinase MB 4.0 NG/ML (0.5-3.6) Creatine Kinase MB % 1.4 % (0.0-4.0) Troponin I 0.38 NG/ML (0.02-0.05) Random Cortisol 22.9 MCG/DL Test 06/05/17 17:50 06/06/17 03:55 06/06/17 04:56 Sodium Level 155 MEQ/L (136-145) 156 MEQ/L (136-145) White Blood Count 6.7 TH/MM3 (4.0-11.0) Red Blood Count 3.21 MIL/MM3 (4.00-5.30) Hemoglobin 7.6 GM/DL (11.6-15.3) Hematocrit 24.8 % (35.0-46.0) Mean Corpuscular Volume 77.2 FL (80.0-100.0) Mean Corpuscular Hemoglobin 23.6 PG (27.0-34.0) Mean Corpuscular Hemoglobin Concent 30.5 % (32.0-36.0) Red Cell Distribution Width 18.2 % (11.6-17.2) Platelet Count 86 TH/MM3 (150-450) Mean Platelet Volume 8.0 FL (7.0-11.0) Neutrophils (%) (Auto) 81.5 % (16.0-70.0) Lymphocytes (%) (Auto) 10.5 % (9.0-44.0) Monocytes (%) (Auto) 7.4 % (0.0-8.0) Eosinophils (%) (Auto) 0.5 % (0.0-4.0) Basophils (%) (Auto) 0.1 % (0.0-2.0) Neutrophils # (Auto) 5.4 TH/MM3 (1.8-7.7) Lymphocytes # (Auto) 0.7 TH/MM3 (1.0-4.8) Monocytes # (Auto) 0.5 TH/MM3 (0-0.9) Eosinophils # (Auto) 0.0 TH/MM3 (0-0.4) Basophils # (Auto) 0.0 TH/MM3 (0-0.2) CBC Comment AUTO DIFF Differential Comment AUTO DIFF CONFIRMED Platelet Estimate LOW (NORMAL) Platelet Morphology Comment NORMAL (NORMAL) Blood Urea Nitrogen 25 MG/DL (7-18) Creatinine 1.23 MG/DL (0.50-1.00) Random Glucose 114 MG/DL (74-106) Total Protein 5.8 GM/DL (6.4-8.2) Albumin 1.9 GM/DL (3.4-5.0) Calcium Level 8.6 MG/DL (8.5-10.1) Phosphorus Level 2.9 MG/DL (2.5-4.9) Magnesium Level 2.4 MG/DL (1.5-2.5) Alkaline Phosphatase 118 U/L (45-117) Aspartate Amino Transf (AST/SGOT) 124 U/L (15-37) Alanine Aminotransferase (ALT/SGPT) 68 U/L (10-53) Total Bilirubin 0.3 MG/DL (0.2-1.0) Potassium Level 3.4 MEQ/L (3.5-5.1) Chloride Level 127 MEQ/L (98-107) Carbon Dioxide Level 23.2 MEQ/L (21.0-32.0) Anion Gap 6 MEQ/L (5-15) Estimat Glomerular Filtration Rate 60 ML/MIN (>89) Blood Gas Puncture Site MARYANNE Blood Gas Patient Temperature 98.6 Blood Gas HCO3 21 mmol/L (22-26) Blood Gas Base Excess -2.5 mmol/L (-2-2) Blood Gas Oxygen Saturation 96 % (90-100) Arterial Blood pH 7.41 (7.380-7.420) Arterial Blood Partial Pressure CO2 34 mmHg (38-42) Arterial Blood Partial Pressure O2 122 mmHg (61-120) Arterial Blood Oxygen Content 10.7 Vol % (12.0-20.0) Arterial Blood Carboxyhemoglobin 0.9 % (0-4) Arterial Blood Methemoglobin 1.4 % (0-2) Blood Gas Hemoglobin 7.7 G/DL (12.0-16.0) Oxygen Delivery Device VENTILATOR Blood Gas Ventilator Setting AC/12/475/PEEP5 Blood Gas Inspired Oxygen 30 % Result Diagram: 06/06/17 0355 06/06/17 0355 Microbiology Microbiology Date/Time Source Procedure Growth Status 06/02/17 17:10 Blood Peripheral Aerobic Blood Culture - Preliminary NO GROWTH IN 4 DAYS Resulted 06/02/17 17:10 Blood Peripheral Anaerobic Blood Culture - Preliminary NO GROWTH IN 4 DAYS Resulted 06/03/17 09:50 Sputum Endotracheal Gram Stain - Final Complete 06/03/17 09:50 Sputum Culture - Final Staphylococcus Aureus Beta Strep Not Group A Complete Imaging Last Impressions Chest X-Ray 06/06/17 0600 Signed Impressions: Service Date/Time: Tuesday, June 06, 2017 03:47 - CONCLUSION: No acute cardiopulmonary disease. Amber Pugh MD Gall Bladder Ultrasound 06/02/17 0000 Signed Impressions: Service Date/Time: Friday, June 02, 2017 07:17 - CONCLUSION: 1. Although the gallbladder is well-distended I see no stones or sludge. There is a trace amount of ascitic fluid including pericholecystic fluid. 2. Questionable small right effusion. No effusion is seen on the recent CT scan. Howard Ricardo Jr., MD CT Angiography 06/02/17 0000 Signed Impressions: Service Date/Time: Friday, June 02, 2017 00:38 - CONCLUSION: No evidence of pulmonary embolism. Left lung perihilar infiltrate. Darrius Blandon MD Abdomen/Pelvis CT 06/02/17 0000 Signed Impressions: Service Date/Time: Friday, June 02, 2017 00:43 - CONCLUSION: Nonspecific distention of bowel. Nonspecific abnormal appearance of the gallbladder. Darrius Blandon MD Head CT 06/01/17 2347 Signed Impressions: Service Date/Time: Friday, June 02, 2017 00:29 - CONCLUSION: No acute intracranial process Darrius Blandon MD Procedures 06/01-femoral central line, arterial line to patient Patient/Family Conference Issues Discussed: Family meeting/goals Pending identification of appropriate legal decision maker. . Assessment and Plan Disease Oriented Problem List: (1) Cocaine abuse (2) Cardiopulmonary arrest with successful resuscitation (3) Respiratory failure (4) Asystole (5) Anoxic encephalopathy Symptom Scale: (1) Dyspnea 0-10 Scale: Unable to quantify (2) Anoxic encephalopathy 0-10 Scale: Unable to quantify Pertinent Non-Medical Issues Psychosocial:no longer - from [facility]. Father Gasper Archuleta, mother Kinga Botello-- last known in [place] though pt ex has not been able to reach them at last known numbers. No siblings. Reported to have 1 child who was adopted. Reported to have local significant other Max Mercer. Spiritual: not known Legal:Due to clinical condition patient not able to participate in decision- making. She appears to have severe anoxic encephalopathy does not appear she will regain ability to participate. No longer per her ex-. No siblings per her ex- father and mother last known to be in [place] though do not have current contact information for them. If able to locate maybe appropriate legal decision makers for this patient. Patient also reported to have local significant other Max Mercer. If family unable to be identified he may be appropriate decision-making proxy. Palliative requested case management assist with ACCURINT report to locate possible NOK. Ethical issues impacting care:no ethical issues identified Important Contacts Ex Fredrick Hawkins. [address] [place] [address] Boyfriend - local- Max Jones Gasper Almendarez- Father, [facility] . Prognosis This patient was admitted 06/01/17 secondary to out of hospital cardiopulmonary arrest. It is not known total amount of time that she was minimally responsive and then pulseless before EMS arrival. She underwent at least 26 minutes of resuscitation by medical clerical assistant. She appears to have significant severe anoxic brain injury at this time, she is minimally responsive demonstrating severe cortical injury with EEG near flat line in appearance per neurology. Overall prognosis for meaningful recovery of neurologic function appears poor. High risk for ongoing complications and sequelae secondary to hospitalization, nonresponsive state. . Code Status: Full Code Plan * Legal decision maker: Due to clinical condition patient not able to participate in decision- making. She appears to have severe anoxic encephalopathy does not appear she will regain ability to participate. No longer per her ex-. No siblings per her ex- father and mother last known to be in [place] though do not have current contact information for them. If able to locate maybe appropriate legal decision makers for this patient. Patient also reported to have local significant other Max Mercer. If family unable to be identified he may be appropriate decision-making proxy. Palliative requested case management assist with ACCURINT report to locate possible NOK. * Goals: TBD pending identification of appropriate legal decision maker * CODE STATUS:full code by default * SYMPTOMS: --Encephalopathy-status post out of hospital cardiopulmonary arrest-unknown total amount of time down; EEG "near flat line ", minimal neurological function at this time --Dyspnea-emergently intubated secondary to out of hospital arrest; early breathing comfortable on mechanical vent. No gag reflex. * Palliative care will continue to follow during hospital course as condition evolves, to assist patient/decision-maker with understanding of medical conditions, weighing benefits/burdens of treatment options, for clarification of goals of treatment. Additionally will assist with any symptoms of palliative concern Time Spent Total Floor Time (mins): 40 (Chart review, PE, discussion with nurse, phone calls and attempts to contact decision makers) Thank you for the opportunity to participate in the care of Ms. Almendarez. Attestation To help prompt me to consider important information that might be impacting today's encounter and assessment, information from prior notes written by myself or my colleagues may have been "brought forward" into today's note. My signature on this note, however, is an attestation that I personally performed the exam, history, and/or decision-making noted today, and, unless otherwise indicated, the interactions with patient, family, and staff as well as the review of records all occurred today. I also attest that the listed assessment and stated plan reflect my best clinical judgment today based on the combination of historical information, prior notes, and today's exam/ interactions. When time spent is documented, it refers only to time spent today by the signer, or if indicated, combined time spent today by collaborating physician/nurse practitioner. Thalia Morton Jun 06, 2017 11:09
[2017-06-06] MEDS ORDERED: PHARMACY ORDERED LAB ONE (11:45)
[2017-06-06] MEDS ORDERED: PROPOFOL 1000 MG/100 ML INJ 100 ML IV PRN (13:00)
[2017-06-06] MEDS ORDERED: MIDAZOLAM HCL 2 MG/2 ML VIAL IV PUSH ONE (13:30)
[2017-06-06] MEDS ORDERED: LACTATED RINGER'S 1000 ML INJ 500 ML IV ONE ×2 (14:45→18:00)
[2017-06-06] MEDS ORDERED: FOSPHENYTOIN SODIUM 100 MG PE/2 ML VIAL IV SCH (16:00)
[2017-06-06] MEDS: SODIUM CHLORIDE IV SCH (16:00)
[2017-06-06] MEDS: FOSPHENYTOIN IV SCH (16:00)
--- NOTE | 2017-06-06 17:33 | PD.CARD.PN ---
Subjective Subjective Remarks Intubated, on the vent Objective Medications Current Medications Medications (Trade) Dose Ordered Sig/Sidney Route Start Time Stop Time Status Last Admin (Brethine Inj) 1 mg UNSCH PRN SQ 06/02/17 02:00 (Ativan Inj) 1 mg Q1H PRN IV PUSH 06/02/17 02:30 06/06/17 08:00 Miscellaneous Information ml @ 0 mls/hr UNSCH IV 06/02/17 02:30 (NS Flush) 2 ml UNSCH PRN IV FLUSH 06/02/17 02:30 (NS Flush) 2 ml UNSCH PRN IV FLUSH 06/02/17 02:30 (Colace) 100 mg BID PO 06/02/17 09:00 06/02/17 09:23 (Peridex 0.12% Liq) 15 ml BID@08,20 OROPHARYNG 06/02/17 08:00 06/06/17 08:00 (Tears Naturale Opth Soln) 1 drop TID EACH EYE 06/02/17 09:00 06/06/17 17:21 (Zofran Inj) 4 mg Q6H PRN IV PUSH 06/02/17 02:45 (Heparin Inj) 5,000 units Q12H SQ 06/02/17 06:00 06/06/17 17:21 Potassium Chloride 100 ml @ 50 mls/hr Q2H PRN IV 06/02/17 03:00 Potassium Chloride 100 ml @ 50 mls/hr Q2H PRN IV 06/02/17 03:00 (K-Lyte Cl Eff) 50 meq UNSCH PRN PO 06/02/17 03:00 Potassium Chloride 100 ml @ 25 mls/hr UNSCH PRN IV 06/02/17 03:00 06/05/17 05:23 Potassium Chloride 100 ml @ 50 mls/hr Q2H PRN IV 06/02/17 03:00 Magnesium Sulfate 4 gm/Sodium Chloride 100 ml @ 50 mls/hr UNSCH PRN IV 06/02/17 03:00 (Mag-Ox) 800 mg UNSCH PRN PO 06/02/17 03:00 Magnesium Sulfate 2 gm/Sodium Chloride 100 ml @ 50 mls/hr UNSCH PRN IV 06/02/17 03:00 (K-Phos) 2,000 mg Q4H PRN PO 06/02/17 03:00 Sodium Phosphate 30 mmol/Sodium Chloride 250 ml @ 42 mls/hr UNSCH PRN IV 06/02/17 03:00 (K-Phos) 2,000 mg UNSCH PRN PO/TUBE 06/02/17 03:00 Potassium Phosphate 30 mmol/ Sodium Chloride 260 ml @ 42 mls/hr UNSCH PRN IV 06/02/17 03:00 (D50w (Vial) Inj) 25 ml UNSCH PRN IV PUSH 06/02/17 03:00 (NovoLIN R SUPPLEMENTAL SCALE) 1 Q6HR SQ 06/02/17 06:00 06/02/17 12:10 (Albuterol Neb) 2.5 mg Q2HR NEB PRN NEB 06/02/17 06:15 Thiamine HCl 100 mg/Sodium Chloride 101 ml @ 101 mls/hr DAILY IV 06/02/17 09:00 06/06/17 08:50 (Folate) 1 mg DAILY PO 06/02/17 09:00 06/06/17 08:51 (Theragran) 1 tab DAILY PO 06/02/17 09:00 06/06/17 08:56 (Trandate Inj) 10 mg Q1HR PRN IV PUSH 06/02/17 15:00 Future Hold 06/04/17 04:18 (Apresoline Inj) 10 mg Q1HR PRN IV PUSH 06/02/17 15:00 06/05/17 14:30 (Nitroglycerin 2% Oint) 2 inch Q6HR PRN TOPICAL 06/02/17 15:00 (Trandate Inj) 10 mg Q1H PRN IV PUSH 06/04/17 12:15 06/06/17 06:42 (Trandate) 100 mg Q12HR PO 06/05/17 08:00 06/06/17 08:51 (Free Water) VOLUME: 200 ML Q8HR G-TUBE 06/05/17 08:00 06/06/17 13:45 (Versed Inj) 2 mg ONCE PRN IV PUSH 06/06/17 08:00 06/08/17 07:59 Dextrose 1,000 ml @ 65 mls/hr [id number] IV 06/06/17 09:00 06/06/17 10:22 Cefazolin Sodium 1000 mg/Sodium Chloride 100 ml @ 200 mls/hr Q8H IV 06/06/17 09:00 06/06/17 17:00 (Pepcid Inj) 20 mg Q12HR IV PUSH 06/06/17 21:00 Propofol 100 ml @ 1.74 mls/hr TITRATE PRN IV 06/06/17 13:00 (fentaNYL INJ) 50 mcg Q1H PRN IV PUSH 06/06/17 14:45 06/06/17 16:22 Fosphenytoin Sodium 100 mgpe/ Sodium Chloride 102 ml @ 204 mls/hr Q8H IV 06/06/17 16:00 06/06/17 16:00 Vital Signs / I&O Vital Signs Date Time Temp Pulse Resp B/P (MAP) Pulse Ox O2 Delivery O2 Flow Rate FiO2 06/06/17 16:00 98.3 121 97 126/70 (88) 06/06/17 16:00 122 06/06/17 16:00 30 06/06/17 15:46 97 30 06/06/17 13:33 98 30 06/06/17 12:00 94.9 86 98 106/60 (75) 06/06/17 12:00 102 06/06/17 12:00 30 06/06/17 11:46 97 30 06/06/17 10:12 98 30 06/06/17 08:00 30 06/06/17 08:00 92.0 69 99 153/94 (113) 06/06/17 08:00 69 06/06/17 06:58 98 30 06/06/17 04:00 98.0 73 128/92 (104) 99 140/88 (105) 06/06/17 04:00 35 06/06/17 04:00 73 06/06/17 03:11 99 30 06/06/17 00:00 35 06/06/17 00:00 75 06/06/17 00:00 75 141/96 (111) 99 155/94 (114) 06/05/17 23:54 98 30 06/05/17 20:20 99 30 06/05/17 20:00 97.5 84 123/87 (99) 99 141/88 (105) 06/05/17 20:00 35 06/05/17 20:00 84 I/O 06/05/17 06/05/17 06/05/17 06/06/17 06/06/1706/06/17 07:00 15:00 23:00 07:00 15:00 23:00 Intake Total 1531 ml 934 ml 2184 ml 1760 ml 624 ml Output Total 1490 ml 1180 ml 800 ml Balance 41 ml 934 ml 1004 ml 960 ml 624 ml Intake Oral 0 ml 0 ml IV Total 1409 ml 934 ml 1684 ml 1250 ml 624 ml Tube Feeding 122 ml 100 ml 110 ml Tube Irrigant 400 ml Other 400 ml Output Urine Total 1290 ml 1130 ml 700 ml Stool Total 200 ml 50 ml 100 ml Physical Exam GENERAL: Intubated SKIN: Warm and dry. HEAD: Normocephalic. EYES: No scleral icterus. No injection or drainage. NECK: Supple, trachea midline. No JVD or lymphadenopathy. CARDIOVASCULAR: Regular rate and rhythm without murmurs, gallops, or rubs. RESPIRATORY: Breath sounds equal bilaterally. No accessory muscle use. GASTROINTESTINAL: Abdomen soft, non-tender, nondistended. MUSCULOSKELETAL: No cyanosis, or edema. Laboratory Laboratory Tests Test 06/05/17 17:50 06/06/17 03:55 06/06/17 04:56 Sodium Level 155 MEQ/L 156 MEQ/L White Blood Count 6.7 TH/MM3 Red Blood Count 3.21 MIL/MM3 Hemoglobin 7.6 GM/DL Hematocrit 24.8 % Mean Corpuscular Volume 77.2 FL Mean Corpuscular Hemoglobin 23.6 PG Mean Corpuscular Hemoglobin Concent 30.5 % Red Cell Distribution Width 18.2 % Platelet Count 86 TH/MM3 Mean Platelet Volume 8.0 FL Neutrophils (%) (Auto) 81.5 % Lymphocytes (%) (Auto) 10.5 % Monocytes (%) (Auto) 7.4 % Eosinophils (%) (Auto) 0.5 % Basophils (%) (Auto) 0.1 % Neutrophils # (Auto) 5.4 TH/MM3 Lymphocytes # (Auto) 0.7 TH/MM3 Monocytes # (Auto) 0.5 TH/MM3 Eosinophils # (Auto) 0.0 TH/MM3 Basophils # (Auto) 0.0 TH/MM3 CBC Comment AUTO DIFF Differential Comment AUTO DIFF CONFIRMED Platelet Estimate LOW Platelet Morphology Comment NORMAL Blood Urea Nitrogen 25 MG/DL Creatinine 1.23 MG/DL Random Glucose 114 MG/DL Total Protein 5.8 GM/DL Albumin 1.9 GM/DL Calcium Level 8.6 MG/DL Phosphorus Level 2.9 MG/DL Magnesium Level 2.4 MG/DL Alkaline Phosphatase 118 U/L Aspartate Amino Transf (AST/SGOT) 124 U/L Alanine Aminotransferase (ALT/SGPT) 68 U/L Total Bilirubin 0.3 MG/DL Potassium Level 3.4 MEQ/L Chloride Level 127 MEQ/L Carbon Dioxide Level 23.2 MEQ/L Anion Gap 6 MEQ/L Estimat Glomerular Filtration Rate 60 ML/MIN Blood Gas Puncture Site MARYANNE Blood Gas Patient Temperature 98.6 Blood Gas HCO3 21 mmol/L Blood Gas Base Excess -2.5 mmol/L Blood Gas Oxygen Saturation 96 % Arterial Blood pH 7.41 Arterial Blood Partial Pressure CO2 34 mmHg Arterial Blood Partial Pressure O2 122 mmHg Arterial Blood Oxygen Content 10.7 Vol % Arterial Blood Carboxyhemoglobin 0.9 % Arterial Blood Methemoglobin 1.4 % Blood Gas Hemoglobin 7.7 G/DL Oxygen Delivery Device VENTILATOR Blood Gas Ventilator Setting [id number] Blood Gas Inspired Oxygen 30 % Imaging Last 24 hours Impressions Chest X-Ray 06/06/17 0600 Signed Impressions: Service Date/Time: Tuesday, June 06, 2017 03:47 - CONCLUSION: No acute cardiopulmonary disease. Amber Pugh MD Assessment and Plan Problem List: (1) Cardiopulmonary arrest with successful resuscitation ICD Codes: I46.9 - Cardiac arrest, cause unspecified Status: Acute (2) Cocaine abuse ICD Codes: F14.10 - Cocaine abuse, uncomplicated Status: Acute (3) Respiratory failure ICD Codes: J96.90 - Respiratory failure, unspecified, unspecified whether with hypoxia or hypercapnia Assessment and Plan Continue ICU care. EEG c/w severe anoxic encephalopathy. No new cardiac issues, no arrhythmias. Neurology eval. Prognosis very poor. Ahmet Perez MD Jun 06, 2017 17:33
[2017-06-06] MEDS ORDERED: ACETAMINOPHEN 325MG/HYDROcodone 7.5MG/15ML UDC PO PRN (18:00)
--- NOTE | 2017-06-06 20:35 | MG ---
cc: PAULA YEPEZ MD Lab No: 17-6 Date: 06/06/17 Age: 37 Sex: F Race: DATE OF [address] Freeman With photic stimulation, 4 mg of Versed at 11:16 a.m. today. Intubated, deep tactile stimulation all four extremities. CT negative. 06/06/2017 per nursing notes possibly had three seizures this morning, admitted with cardiac arrest PEA, pulseless electrical activity found with decreased consciousness, grunting, positive for cocaine and ethanol level was 232. She has a history of alcohol and substance abuse. Trandate Cefepime Vancomycin Azithromycin Heparin Albuterol Ativan DESCRIPTION OF RECORD The overall background is severely attenuated, very, very low amplitude more in the realm of delta rhythm but below 20 microvolts. There is some artifact. Photic stimulation did not change the background. Stimulation did not change the background either. IMPRESSION Severely attenuated background consistent with a severe cerebral dysfunction, may be due to anoxia but versus other causes but no epileptic activity. Clinical correlation. Paula Yepez MD DF/ /7:03 PM /8:08 PM
[2017-06-06] MEDS ORDERED: FAMOTIDINE 20 MG/2 ML VIAL IV PUSH SCH (21:00)
[2017-06-06 22:05] LABS: HEMOGLOBIN 7.8 GM/DL (11.6-15.3)
[2017-06-07] VITALS (16 sets, daily range): BP systolic 118–154; BP diastolic 87–112; PULSE 86–100; RESP 12–18; TEMP 97.5–97.9; O2SAT 97–100
[2017-06-07] MEDS: SODIUM CHLORIDE IV SCH ×2
[2017-06-07] MEDS: FOSPHENYTOIN IV SCH ×2
[2017-06-07] MEDS: RESP: ALBUTEROL 2.5 MG/3 ML NEB (PRN) NEB (04:02)
[2017-06-07] MEDS: LORazepam 2 MG/ML VIAL IV PUSH PRN ×4 (04:13→20:45)
[2017-06-07 04:46] LABS: AUTOMATED NEUTROPHIL # 2.8 TH/MM3 (1.8-7.7); BASOPHIL % 0.2 % (0.0-2.0); EOSINOPHIL # 0.1 TH/MM3 (0-0.4); EOSINOPHIL % 1.6 % (0.0-4.0); HEMATOCRIT 25.7 % (35.0-46.0); HEMOGLOBIN 7.9 GM/DL (11.6-15.3); LYMPH % 25.6 % (9.0-44.0); LYMPHOCYTE # 1.3 TH/MM3 (1.0-4.8); MEAN CORPUSCULAR HEMOGLOBIN 23.4 PG (27.0-34.0); MEAN CORPUSCULAR HGB CONC 30.8 % (32.0-36.0); MONO % 18.2 % (0.0-8.0); MONOCYTE # 0.9 TH/MM3 (0-0.9); NEUT % 54.4 % (16.0-70.0); PLATELET COUNT 99 TH/MM3 (150-450); RED BLOOD COUNT 3.38 MIL/MM3 (4.00-5.30); RED CELL DISTRIBUTION WIDTH 18.5 % (11.6-17.2); WHITE BLOOD COUNT 5.1 TH/MM3 (4.0-11.0)
[2017-06-07 05:13] LABS: BICARBONATE 21.7 MEQ/L (21.0-32.0); CALCIUM 8.3 MG/DL (8.5-10.1); CREATININE 1.18 MG/DL (0.50-1.00); MAGNESIUM 1.9 MG/DL (1.5-2.5)
[2017-06-07 05:14] LABS: PHENYTOIN (DILANTIN) 10.1 MCG/ML (10.0-20.0); PHOSPHORUS 2.9 MG/DL (2.5-4.9)
[2017-06-07] MEDS: INSULIN NovoLIN REGULAR SUPPLEMENTAL SCALE SQ SCH ×4 (05:22→18:00)
[2017-06-07] MEDS: FREE WATER G-TUBE SCH ×3 (05:35→18:00)
[2017-06-07] MEDS: HEPARIN SODIUM - SQ 10,000 UNITS/ML VIAL SQ SCH ×2 (05:35→18:16)
[2017-06-07] MEDS: POTASSIUM CHLOR 20 MEQ PREMIX 100 ML IV PRN ×3 (05:57→08:41)
--- NOTE | 2017-06-07 07:40 | HHI.PR ---
Review/Management Diagnosis/Plan: (1) Anoxic encephalopathy ICD Codes: G93.1 - Anoxic brain damage, not elsewhere classified Status: Acute Plan: 06/01 arrest 06/03 rewarming started and sedation weaned off appears to have severe cortical injury with impaired brainstem reflexes eeg- almost flat line type appearance asystole of undetermined length of time stimulus sensitive involuntary movements repeat eeg 06/06- no sz activity recs day 6 post-arrest d/c cerebryx, switch to keppra (can sometimes help post-hypoxic myoclonus) mri brain-pending palliative care following- appreciate their assistance d/w rn (2) Cocaine abuse ICD Codes: F14.10 - Cocaine abuse, uncomplicated Status: Acute (3) Asystole ICD Codes: I46.9 - Cardiac arrest, cause unspecified Status: Acute Plan: 06/01/2017 out of hospital arrest Subjective Subjective Comments No acute events reported given ativan overnight for shaking that occurred with manipulation Active Medications Current Medications Medications (Trade) Dose Ordered Sig/Sidney Route Start Time Stop Time Status Last Admin (Brethine Inj) 1 mg UNSCH PRN SQ 06/02/17 02:00 (Ativan Inj) 1 mg Q1H PRN IV PUSH 06/02/17 02:30 06/07/17 04:13 Miscellaneous Information ml @ 0 mls/hr UNSCH IV 06/02/17 02:30 (NS Flush) 2 ml UNSCH PRN IV FLUSH 06/02/17 02:30 (NS Flush) 2 ml UNSCH PRN IV FLUSH 06/02/17 02:30 (Colace) 100 mg BID PO 06/02/17 09:00 06/02/17 09:23 (Peridex 0.12% Liq) 15 ml BID@08,20 OROPHARYNG 06/02/17 08:00 06/06/17 20:00 (Tears Naturale Opth Soln) 1 drop TID EACH EYE 06/02/17 09:00 06/06/17 17:21 (Zofran Inj) 4 mg Q6H PRN IV PUSH 06/02/17 02:45 (Heparin Inj) 5,000 units Q12H SQ 06/02/17 06:00 06/07/17 05:35 Potassium Chloride 100 ml @ 50 mls/hr Q2H PRN IV 06/02/17 03:00 Potassium Chloride 100 ml @ 50 mls/hr Q2H PRN IV 06/02/17 03:00 06/07/17 05:57 (K-Lyte Cl Eff) 50 meq UNSCH PRN PO 06/02/17 03:00 Potassium Chloride 100 ml @ 25 mls/hr UNSCH PRN IV 06/02/17 03:00 06/05/17 05:23 Potassium Chloride 100 ml @ 50 mls/hr Q2H PRN IV 06/02/17 03:00 Magnesium Sulfate 4 gm/Sodium Chloride 100 ml @ 50 mls/hr UNSCH PRN IV 06/02/17 03:00 (Mag-Ox) 800 mg UNSCH PRN PO 06/02/17 03:00 Magnesium Sulfate 2 gm/Sodium Chloride 100 ml @ 50 mls/hr UNSCH PRN IV 06/02/17 03:00 (K-Phos) 2,000 mg Q4H PRN PO 06/02/17 03:00 Sodium Phosphate 30 mmol/Sodium Chloride 250 ml @ 42 mls/hr UNSCH PRN IV 06/02/17 03:00 (K-Phos) 2,000 mg UNSCH PRN PO/TUBE 06/02/17 03:00 Potassium Phosphate 30 mmol/ Sodium Chloride 260 ml @ 42 mls/hr UNSCH PRN IV 06/02/17 03:00 (D50w (Vial) Inj) 25 ml UNSCH PRN IV PUSH 06/02/17 03:00 (NovoLIN R SUPPLEMENTAL SCALE) 1 Q6HR SQ 06/02/17 06:00 06/02/17 12:10 (Albuterol Neb) 2.5 mg Q2HR NEB PRN NEB 06/02/17 06:15 06/07/17 04:02 Thiamine HCl 100 mg/Sodium Chloride 101 ml @ 101 mls/hr DAILY IV 06/02/17 09:00 06/06/17 08:50 (Folate) 1 mg DAILY PO 06/02/17 09:00 06/06/17 08:51 (Theragran) 1 tab DAILY PO 06/02/17 09:00 06/06/17 08:56 (Trandate Inj) 10 mg Q1HR PRN IV PUSH 06/02/17 15:00 Future Hold 06/04/17 04:18 (Apresoline Inj) 10 mg Q1HR PRN IV PUSH 06/02/17 15:00 06/05/17 14:30 (Nitroglycerin 2% Oint) 2 inch Q6HR PRN TOPICAL 06/02/17 15:00 (Trandate Inj) 10 mg Q1H PRN IV PUSH 06/04/17 12:15 06/06/17 06:42 (Trandate) 100 mg Q12HR PO 06/05/17 08:00 06/06/17 21:00 (Free Water) VOLUME: 200 ML Q8HR G-TUBE 06/05/17 08:00 06/07/17 05:35 (Versed Inj) 2 mg ONCE PRN IV PUSH 06/06/17 08:00 06/08/17 07:59 Dextrose 1,000 ml @ 65 mls/hr [id number] IV 06/06/17 09:00 06/06/17 22:22 Cefazolin Sodium 1000 mg/Sodium Chloride 100 ml @ 200 mls/hr Q8H IV 06/06/17 09:00 06/07/17 01:00 (Pepcid Inj) 20 mg Q12HR IV PUSH 06/06/17 21:00 06/06/17 21:00 Propofol 100 ml @ 1.74 mls/hr TITRATE PRN IV 06/06/17 13:00 (fentaNYL INJ) 50 mcg Q1H PRN IV PUSH 06/06/17 14:45 06/06/17 16:22 Fosphenytoin Sodium 100 mgpe/ Sodium Chloride 102 ml @ 204 mls/hr Q8H IV 06/06/17 16:00 06/07/17 00:00 (Hycet 325-7.5 Mg Liq) 15 ml Q6H PRN PO 06/06/17 18:00 Allergies Allergies Coded Allergies No Allergy Information Available ([id number]) Review of Systems All other ROS: Unable to obtain Exam I&O / VS Vital Signs Date Time Temp Pulse Resp B/P (MAP) Pulse Ox O2 Delivery O2 Flow Rate FiO2 06/07/17 07:13 99 30 06/07/17 04:06 99 30 06/07/17 04:00 97.6 87 12 126/91 (103) 98 139/87 (104) 06/07/17 04:00 88 06/07/17 04:00 30 06/07/17 01:21 99 30 12/26/17 23:00 97.6 83 13 112/77 (89) 98 123/72 (89) 06/06/17 23:00 30 06/06/17 23:00 83 06/06/17 22:53 98 30 06/06/17 20:40 96 30 06/06/17 20:00 06/06/17 19:00 97.3 108 13 130/81 (97) 98 138/85 (102) 06/06/17 19:00 30 06/06/17 19:00 112 06/06/17 16:00 98.3 121 97 126/70 (88) 06/06/17 16:00 122 06/06/17 16:00 30 06/06/17 15:46 97 30 06/06/17 13:33 98 30 06/06/17 12:00 94.9 86 98 106/60 (75) 06/06/17 12:00 102 06/06/17 12:00 30 06/06/17 11:46 97 30 06/06/17 10:12 98 30 06/06/17 08:00 30 06/06/17 08:00 92.0 69 99 153/94 (113) 06/06/17 08:00 69 Exam Comments intubated. non-verbal, not following, ou 2mm nr, no corneal, no blink to threat , weak doll's, mild gag but can generate own breath, left ue shaking for 30 secs. then after checking rt ue it began to shake and then subsided Objective Micro and Labs Laboratory Tests Test 06/06/17 21:30 06/07/17 04:15 Hemoglobin 7.8 7.9 Hematocrit 25.0 25.7 Sodium Level 152 152 Vancomycin Level Trough 5.3 White Blood Count 5.1 Red Blood Count 3.38 Mean Corpuscular Volume 76.0 Mean Corpuscular Hemoglobin 23.4 Mean Corpuscular Hemoglobin Concent 30.8 Red Cell Distribution Width 18.5 Platelet Count 99 Mean Platelet Volume 8.0 Neutrophils (%) (Auto) 54.4 Lymphocytes (%) (Auto) 25.6 Monocytes (%) (Auto) 18.2 Eosinophils (%) (Auto) 1.6 Basophils (%) (Auto) 0.2 Neutrophils # (Auto) 2.8 Lymphocytes # (Auto) 1.3 Monocytes # (Auto) 0.9 Eosinophils # (Auto) 0.1 Basophils # (Auto) 0.0 CBC Comment AUTO DIFF Blood Urea Nitrogen 19 Creatinine 1.18 Random Glucose 112 Calcium Level 8.3 Phosphorus Level 2.9 Magnesium Level 1.9 Potassium Level 3.1 Chloride Level 121 Carbon Dioxide Level 21.7 Anion Gap 9 Estimat Glomerular Filtration Rate 63 Phenytoin (Dilantin) Level 10.1 Date/Time Source Procedure Growth Status 06/02/17 17:10 Blood Peripheral Aerobic Blood Culture - Preliminary NO GROWTH IN 4 DAYS Resulted 06/02/17 17:10 Blood Peripheral Anaerobic Blood Culture - Preliminary NO GROWTH IN 4 DAYS Resulted 06/03/17 09:50 Sputum Endotracheal Gram Stain - Final Complete 06/03/17 09:50 Sputum Culture - Final Staphylococcus Aureus Beta Strep Not Group A Complete Jg White MD Jun 07, 2017 07:40
--- NOTE | 2017-06-07 07:46 | HHI.CCPN ---
Subjective Remarks/Hospital Course This is a 37-year-old female with an unknown past medical history who presents after out of hospital cardiac arrest. Per EMS report, a friend found the patient altered with agonal respirations. Per report, the friend did not have any way of contacting 911, so the friend place the patient in a car and drove her to the nearest gas station to call 911. Upon EMS arrival, the patient was unresponsive, not breathing, and pulseless. Presenting rhythm was asystole. ACLS was initiated, 3 A of epinephrine, 1 amp of bicarbonate, 2 mg of Narcan and the patient had ROSC. Patient was transported to [facility] emergency Department. In emergency department, she had a decreased level of consciousness but was moving all 4 extremities spontaneously. Her GCS was 6 (E1 ,V1,M4). Her urine drug screen is positive for cocaine. I discussion with Dr. aYñez the ER physician, and we agree that given her young age and that she was witnessed with a pulse, that the potential benefits of therapeutic hypothermia outweigh the risks in this scenario. No additional information is available from the patient and we do not know of any family at this time. Patient was transported the CVICU and therapeutic hypothermia was initiated. 06/02: Currently on hypothermia protocol. Temperature 33C. Dignishield will be placed. Remains on multiple vasopressors. Troponin climbing with repeat ordered. Echocardiogram and a.m. EKG pending. 06/03: Rewarming process initiated early this a.m.. Patient was weaned off of vasopressors greater than 24 hours. Hemodynamically stable. Early this a.m. the patient noted was noted to have decrease in dorsalis pedis and posterior tibial pulses, now nonpalpable but dopplerable biphasic signals. Arterial Doppler studies pending. Right femoral triple-lumen central line removed. Chest x-ray was noted to have an infiltrate, sputum cultures are pending empiric antibiotics initiated. 06/04: Normothermic at 1930 .Sedation discontinued 1929 on 06/03. The patient remains encephalopathic at this time. She remains hemodynamically stable on no pressors. EEG pending at this time. The patient was noted to be slightly hypernatremic, IV fluids changed. ABIs were performed for slightly decreased pulse yesterday and right lower extremities bilateral ABIs slightly depressed pulses on the right remain dopplerable, biphasic. 06/05: Afebrile. No acute events overnight. Patient continues to be hypertensive scheduled PO labetalol 100 mg BID. Neurologically, the patient remains encephalopathic, EEG performed yesterday showed nearly flat line. CT pending this a.m.. Neurology has been consulted, patient has been off sedation for approximately 36 hours. 06/06 MRI pending. Off sedation. Not brain --> has spontaneous respirations when disconnected vent. Absent pupillary, corneal, oculocephalic and gag reflexes. No motor response to deep noxious stimuli. Had tonic clonic movements of BUE this morning that ceased with Ativan 2 mg IV. SUBJECTIVE: 06/07: Afebrile. Tube feeds currently at 30 cc an hour with Jevity 1.5. 200 cc stools per fecal chemotherapy device. Received lorazepam 2 mg IV for "tremors" overnight. He reveals diffuse encephalopathy with no epileptiform activity on 06/04 and 06/06. Objective Vital Signs Date Time Temp Pulse Resp B/P (MAP) Pulse Ox O2 Delivery O2 Flow Rate FiO2 06/07/17 07:13 99 30 06/07/17 04:00 97.6 87 12 126/91 (103) 139/87 (104) Intake and Output 06/07/17 06/07/17 06/08/17 08:00 16:00 00:00 Intake Total 1391 ml Output Total 1095 ml Balance 296 ml Result Diagram: 06/07/17 0415 06/07/17 0415 Other Results Microbiology Date/Time Source Procedure Growth Status 06/02/17 17:10 Blood Peripheral Aerobic Blood Culture - Preliminary NO GROWTH IN 4 DAYS Resulted 06/02/17 17:10 Blood Peripheral Anaerobic Blood Culture - Preliminary NO GROWTH IN 4 DAYS Resulted 06/03/17 09:50 Sputum Endotracheal Gram Stain - Final Complete 06/03/17 09:50 Sputum Culture - Final Staphylococcus Aureus Beta Strep Not Group A Complete Imaging Last Impressions Chest X-Ray 06/06/17 0600 Signed Impressions: Service Date/Time: Tuesday, June 06, 2017 03:47 - CONCLUSION: No acute cardiopulmonary disease. Amber Pugh MD Gall Bladder Ultrasound 06/02/17 0000 Signed Impressions: Service Date/Time: Friday, June 02, 2017 07:17 - CONCLUSION: 1. Although the gallbladder is well-distended I see no stones or sludge. There is a trace amount of ascitic fluid including pericholecystic fluid. 2. Questionable small right effusion. No effusion is seen on the recent CT scan. Howard Ricardo Jr., MD CT Angiography 06/02/17 0000 Signed Impressions: Service Date/Time: Friday, June 02, 2017 00:38 - CONCLUSION: No evidence of pulmonary embolism. Left lung perihilar infiltrate. Darrius Blandon MD Abdomen/Pelvis CT 06/02/17 0000 Signed Impressions: Service Date/Time: Friday, June 02, 2017 00:43 - CONCLUSION: Nonspecific distention of bowel. Nonspecific abnormal appearance of the gallbladder. Darrius Blandon MD Head CT 06/01/17 2347 Signed Impressions: Service Date/Time: Friday, June 02, 2017 00:29 - CONCLUSION: No acute intracranial process Darrius Blandon MD Objective Remarks GENERAL: 37-year-old AA female currently orotracheally intubated HEENT: Normocephalic. Atraumatic. Pupils 1-2 mm bilaterally and nonreactive. Scleral edema noted with some erythema NECK: Trachea is midline. There is no JVD. CHEST: Symmetrical chest rise. Clear to auscultation bilaterally. No wheezes Rales or rhonchi. CARDIOVASCULAR: RRR. S1, S2 no S4. Without murmur ABDOMEN: Soft, nontender, nondistended. Bowel sounds present. Fecal containment device with brown liquid stool MUSCULOSKELETAL: Pulses 2+ bilateral radial and posterior tibialis. No peripheral edema. NEUROLOGICAL: No eye opening. Pupils 1-2 mm but nonreactive. No corneal reflex. No oculocephalic reflex. No gag. +Spontaneous respirations when ventilator disconnected/having spontaneous respirations over the current ventilator settings. No motor response to deep noxious stimuli. Negative Babinski. No clonus. Urinary Catheter: Yes Assessment to: Continue Cochran insert reason: ICU Pt Getting Diuretics Vascular Central Line Catheter: No Assessment to: Continue Date of Insertion: Jun 01, 2017 Date of Removal: Jun 03, 2017 Line: Central Venous Catheter Side: Right Location: Femoral A/P Assessment and Plan Neuro/Psych: Acute hypoxic ischemic encephalopathy Toxic encephalopathy - multifactorial Cocaine overdose EtOH abuse Seizure Status post induced therapeutic hypothermia. Active rewarming 06/06. Sedation discontinued 06/03 at 1930, close monitoring for responsiveness Neurochecks per ICU protocol CT brain admission 06/01 revealed no acute intracranial findings 06/04 EEG -. Severe encephalopathy with nearly flat line appearance. 06/06 EEG - severe encephalopathy with no epileptic activity 06/04 ammonia level- 10 Continue thiamine 100 mg daily, folate 1 mg daily and multivitamin 1 tablet daily MRI brain T- increased T2 flair signal in the distribution of the striatum bilaterally. Punctate areas of diffusion restriction in the globus pallidus. Findings may be indicative of some degree of anoxic brain injury. Extensive chronic sinusitis bilaterally. Currently on levetiracetam 1000 mg IV twice a day per neurology's recommendations. Fosphenytoin discontinued Neurology consult/Dr. White Currently on lorazepam 2 mg every 2 hours when necessary breakthrough seizures Fentanyl 50 mics grams every one hour as needed pain Oxycodone 5 mg liquid every 4 hours when necessary pain 1-10/agitation Respiratory: Acute hypoxic and hypercarbic respiratory failure ACV 15/500/5/30 Vent bundle Head of bed 30 Albuterol/ipratropium aerosols every 6 hours with albuterol aerosols every 2 hours as needed Wean FiO2 for goal SPO2 greater than 92% CT pulmonary angiogram 06/01: Negative for acute PE and possible left lower lobe infiltrate Mental status precludes extubation potential. Chest x-ray 06/07 revealed no acute cardio pulmonary findings recheck ABG now and chest x-ray and in a.m. 06/08 Cardiovascular: Status post out of hospital cardiac arrest Cardiogenic shock (resolved) NSTEMI Lactic acidosis-resolved Elevated HDL Goal mean arterial pressure greater than 65 Cardiology/Dr. Perez has evaluated and no plans for further workup at this time due to extremely poor neurologic prognosis 06/03 2D echo - The left ventricular systolic function is mildly reduced with an estimated ejection fraction of 45%. Normal left ventricular size. Wall thickness is normal. No regional wall motion abnormalities are present. Mild mitral valve regurgitation. Mild aortic sclerosis. Trace aortic valve regurgitation. Amiodarone infusion discontinued 06/02 secondary to the patient having elevated LFTs. The patient remains in normal sinus rhythm, hemodynamically stable on no vasopressors 06/03- arterial Doppler studies. Slight depression MILES 0.8 bilaterally. Biphasic Doppler signals right DP, PT Currently off all vasopressors. Schedule labetalol 100 mg twice a day As needed labetalol/hydralazine Nitropaste for blood pressure greater than 160 Renal/FEN/: Acute kidney injury - resolved Hypernatremia Hypokalemia Creatinine currently within normal limits Maintain Cochran for accurate I's and O's Free water 200 cc every 6 hours Currently on one quarter normal saline with 20 mEq KCl at 50 cc an hour Maintain Cochran catheter Check BMP/mag and phosphorus this afternoon and in a.m. 80 mEq KCl and 2 g mag sulfate 1 now GI: Elevated Transaminases likely secondary to shock Diarrhea NOS Hypoalbuminemia 06/02 Fecal containment device placed CT abdomen/pelvis revealed a specific dilated bowel loops and gallbladder appearance. 06/02 gallbladder ultrasound- distended gallbladder LFTs downtrending. Tolerating Jevity 1.5 @30 mL per hour. Advance as tolerated to goal rate of 40 mL per hour per nutrition recommendations No bowel regimen secondary to ongoing diarrhea. C. difficile - -06/03 [employer]: Patient is actively menstruating. Change sanitary pads as needed Beta hCG 1 Heme/ID: Leukocytosis Microcytic anemia Community-acquired pneumonia Blood culture- NGTD 06/04Sputum culture MSSA, betastrep. C. difficile negative Empiric antibiotics initiated secondary to left lung base developing opacity- possibly secondary to aspiration. Has been on cefepime, azithromycin and vancomycin 06/03- Early and cefazolin 1 g IV every 8 hours Endocrine: Hyperglycemia of critical illness -- SSI Novolog , medium scale, every 6hr. 0 units provided past 24 hours TSH normal on 1. Prophylaxis: GI Prophylaxis Famotidine 20 mill grams ng daily DVT Prophylaxis -- SCDs Subcutaneous heparin 5000 units twice a day Lines: 06/01 right femoral triple-lumen catheter placed in the emergency department by the emergency room [id number] 06/02 right radial arterial line - d/c today 06/07 06/02 left femoral code cool catheter - d/c today 06/06. Level II follow-up Felipe Dorantes MD Jun 07, 2017 07:46
[2017-06-07 07:53] LABS: BANDS 13 % (0-6); LYMPHOCYTES 17 % (9-44); METAMYELOCYTES 1 % (0-1); MONOCYTES 13 % (0-8); NEUTROPHIL # MANUAL DIFF 3.5 TH/MM3 (1.8-7.7); POLYS (SEG NEUTROPHILS) 54 % (16-70)
[2017-06-07] MEDS: CHLORHEXIDINE 0.12% (ORAL KIT) 15 ML CUP OROPHARYNG SCH ×2 (08:17→20:00)
[2017-06-07] MEDS ORDERED: POTASSIUM CHLORIDE 20 MEQ PWD PACKET DOBHOFF ONE (08:30)
[2017-06-07] MEDS: DOCUSATE SODIUM 100 MG/10 ML UDC PO SCH ×2 (08:40→21:00)
[2017-06-07] MEDS: MAGNESIUM SULFATE 1 GM PREMIX 100 ML IV SCH ×2 (08:40→09:54)
[2017-06-07] MEDS: FAMOTIDINE 20 MG TAB NG SCH ×2 (08:40→20:45)
[2017-06-07] MEDS: MULTIVITAMIN TAB PO SCH (08:40)
[2017-06-07] MEDS: THIAMINE HCL 100 MG TAB PO SCH (08:40)
[2017-06-07] MEDS: LABETALOL HCL 100 MG TAB PO SCH ×2 (08:40→20:46)
[2017-06-07] MEDS: FOLIC ACID 1 MG TAB PO SCH (08:40)
[2017-06-07] MEDS: levETIRAcetam INJ 1,000 MG in SODIUM CHLORIDE 0.9% INJ 100 ML IV SCH ×2 (08:46→20:45)
[2017-06-07] MEDS: ARTIFICIAL TEARS OPTH SOLN 15 ML BTL EACH EYE SCH ×3 (09:00→18:16)
[2017-06-07] MEDS: POTASSIUM CHLORIDE INJ 20 MEQ, SODIUM CHLORIDE 23.4% INJ 38.5 MEQ in WATER STERILE FOR ... IV SCH (10:43)
--- NOTE | 2017-06-07 11:06 | HHI.HCPN ---
Reason for visit a. To assist with evaluation and management of symptoms including: Dyspnea, encephalopathy b. To assist medical decision maker(s) with: better understanding of current medical conditions; weighing benefits/burdens of medical treatment options; making medical treatment decisions. Subjective/Interval History Pt seen today to follow up on comfort, possible decision maker. Stable overnight in ICU- not requiring pressors. No improvement in neurological status. "tremor/shaking" episodes reported by nursing. MRI brain pending, pt to go for today. H&H slowly downtrending, pt reported to be menstruating. +mod amts of loose stool-- consider sending stool for Hemoccult. Yesterday ACCURINT report /order requested w CM to assist with identifying possible NOK. Does not appear this search has been run as of yet. If unable to identify NOK, or appropriate person to serve as HC proxy, may need to utilize [employer] for decision making for pt. D/w critical care, nursing. Pt significant other has not been in yet today- requested if he comes nursing notify me, and also explain why palliative attempting to speak w him. Pt examined in room, nurse present. Nonresponsive to my exam. + tremor LEFT upper extremity. + edema . No distress. . Advance Directives Living Will: Never completed Health Care Surrogate: Never completed Durable Power of Packing And Final Assembly Supervisor: Never completed Objective Vital Signs Date Time Temp Pulse Resp B/P (MAP) Pulse Ox O2 Delivery O2 Flow Rate FiO2 06/07/17 10:11 99 30 06/07/17 07:54 99 30 06/07/17 07:13 99 30 06/07/17 07:00 97.6 95 18 139/98 (112) 99 154/99 (117) 06/07/17 07:00 30 06/07/17 07:00 91 06/07/17 04:06 99 30 06/07/17 04:00 97.6 87 12 126/91 (103) 98 139/87 (104) 06/07/17 04:00 88 06/07/17 04:00 30 06/07/17 01:21 99 30 06/06/17 23:00 97.6 83 13 112/77 (89) 98 123/72 (89) 06/06/17 23:00 30 06/06/17 23:00 83 06/06/17 22:53 98 30 06/06/17 20:40 96 30 06/06/17 20:00 06/06/17 19:00 97.3 108 13 130/81 (97) 98 138/85 (102) 06/06/17 19:00 30 06/06/17 19:00 112 06/06/17 16:00 98.3 121 97 126/70 (88) 06/06/17 16:00 122 06/06/17 16:00 30 06/06/17 15:46 97 30 06/06/17 13:33 98 30 06/06/17 12:00 94.9 86 98 106/60 (75) 06/06/17 12:00 102 06/06/17 12:00 30 06/06/17 11:46 97 30 Intake & Output 06/07/17 06/07/17 07:00 19:00 Intake Total 3593 ml 610 ml Output Total 1095 ml Balance 2498 ml 610 ml Intake Oral 0 ml IV Total 3028 ml 610 ml Tube Feeding 165 ml Other 400 ml Output Urine Total 995 ml Stool Total 100 ml Physical Exam CONSTITUTIONAL/GENERAL: This is an adequately nourished patient, nonresponsive on mechanical vent TUBES/LINES/DRAINS: Femoral central line, ET tube, NG tube, Cochran catheter, rectal drain SKIN: No jaundice, rashes, or lesions. No wounds seen anteriorly. Skin temperature warm, dry. Nails long, broken and uneven, ring present left middle finger, rt 4th finger, tight, skin under is callused/intact. EYES: Pupils 2 mm no reaction to light. No corneal reflex. Slight periorbital edema. +scleral edema. No injection or drainage. Fundi not examined. ENT:Nose without bleeding or purulent drainage. Unable to visualize oropharynx secondary to ET tube. CARDIOVASCULAR: Regular rate and rhythm without murmur. No JVD. Peripheral pulses faint. 2-3+ Edema to extremities. RESPIRATORY/CHEST: Symmetric, unlabored respirations via mechanical vent. Over breathes 1-2 over ventilator rate. Clear, diminished. Equal bilaterally. GASTROINTESTINAL: Abdomen soft, nondistended. Unable to determine tenderness secondary to nonresponsiveness. No hepato-splenomegaly, or palpable masses. Bowel sounds present. Tube feed infusing via NG tube, loose stool via rectal drown-foul odor GENITOURINARY: Without palpable bladder distension. Cochran catheter in place. MUSCULOSKELETAL: Extremities without clubbing, cyanosis. 2-3+Edema to extremities. No mottling or clubbing. NEUROLOGICAL: Not currently on sedation, nonresponsive to exam--no withdrawal to pain stimuli to extremities, no corneal or pupil reflex.+ tremor LUE with passive movement PSYCHIATRIC: Limited assessment due to clinical condition Diagnostic Tests Laboratory Laboratory Tests Test 06/04/17 16:25 06/05/17 04:00 06/05/17 07:26 06/05/17 12:00 Blood Gas Puncture Site ART LINE ART LINE Blood Gas Patient Temperature 98.6 98.6 Blood Gas HCO3 16 mmol/L (22-26) 22 mmol/L (22-26) Blood Gas Base Excess -8.0 mmol/L (-2-2) -2.0 mmol/L (-2-2) Blood Gas Oxygen Saturation 97 % (90-100) 97 % (90-100) Arterial Blood pH 7.42 (7.380-7.420) 7.42 (7.380-7.420) Arterial Blood Partial Pressure CO2 25 mmHg (38-42) 34 mmHg (38-42) Arterial Blood Partial Pressure O2 183 mmHg (61-120) 176 mmHg (61-120) Arterial Blood Oxygen Content 10.4 Vol % (12.0-20.0) 11.9 Vol % (12.0-20.0) Arterial Blood Carboxyhemoglobin 0.6 % (0-4) 0.6 % (0-4) Arterial Blood Methemoglobin 1.6 % (0-2) 1.5 % (0-2) Blood Gas Hemoglobin 7.3 G/DL (12.0-16.0) 8.4 G/DL (12.0-16.0) Oxygen Delivery Device VENTILATOR VENTILATOR Blood Gas Ventilator Setting AC12/475/PEEP5 Blood Gas Inspired Oxygen 40 % 35 % White Blood Count 14.0 TH/MM3 (4.0-11.0) Red Blood Count 3.41 MIL/MM3 (4.00-5.30) Hemoglobin 7.8 GM/DL (11.6-15.3) Hematocrit 25.9 % (35.0-46.0) Mean Corpuscular Volume 76.0 FL (80.0-100.0) Mean Corpuscular Hemoglobin 23.0 PG (27.0-34.0) Mean Corpuscular Hemoglobin Concent 30.3 % (32.0-36.0) Red Cell Distribution Width 18.3 % (11.6-17.2) Platelet Count 104 TH/MM3 (150-450) Mean Platelet Volume 8.2 FL (7.0-11.0) Blood Urea Nitrogen 30 MG/DL (7-18) Creatinine 1.66 MG/DL (0.50-1.00) Random Glucose 104 MG/DL (74-106) Calcium Level 8.0 MG/DL (8.5-10.1) Phosphorus Level 3.6 MG/DL (2.5-4.9) Magnesium Level 2.3 MG/DL (1.5-2.5) Sodium Level 157 MEQ/L (136-145) 155 MEQ/L (136-145) Potassium Level 3.5 MEQ/L (3.5-5.1) Chloride Level 127 MEQ/L (98-107) Carbon Dioxide Level 23.3 MEQ/L (21.0-32.0) Anion Gap 7 MEQ/L (5-15) Estimat Glomerular Filtration Rate 43 ML/MIN (>89) Total Creatine Kinase 280 U/L (26-192) Creatine Kinase MB 4.0 NG/ML (0.5-3.6) Creatine Kinase MB % 1.4 % (0.0-4.0) Troponin I 0.38 NG/ML (0.02-0.05) Random Cortisol 22.9 MCG/DL Test 06/05/17 17:50 06/06/17 03:55 06/06/17 04:56 06/06/17 21:30 Sodium Level 155 MEQ/L (136-145) 156 MEQ/L (136-145) 152 MEQ/L (136-145) White Blood Count 6.7 TH/MM3 (4.0-11.0) Red Blood Count 3.21 MIL/MM3 (4.00-5.30) Hemoglobin 7.6 GM/DL (11.6-15.3) 7.8 GM/DL (11.6-15.3) Hematocrit 24.8 % (35.0-46.0) 25.0 % (35.0-46.0) Mean Corpuscular Volume 77.2 FL (80.0-100.0) Mean Corpuscular Hemoglobin 23.6 PG (27.0-34.0) Mean Corpuscular Hemoglobin Concent 30.5 % (32.0-36.0) Red Cell Distribution Width 18.2 % (11.6-17.2) Platelet Count 86 TH/MM3 (150-450) Mean Platelet Volume 8.0 FL (7.0-11.0) Neutrophils (%) (Auto) 81.5 % (16.0-70.0) Lymphocytes (%) (Auto) 10.5 % (9.0-44.0) Monocytes (%) (Auto) 7.4 % (0.0-8.0) Eosinophils (%) (Auto) 0.5 % (0.0-4.0) Basophils (%) (Auto) 0.1 % (0.0-2.0) Neutrophils # (Auto) 5.4 TH/MM3 (1.8-7.7) Lymphocytes # (Auto) 0.7 TH/MM3 (1.0-4.8) Monocytes # (Auto) 0.5 TH/MM3 (0-0.9) Eosinophils # (Auto) 0.0 TH/MM3 (0-0.4) Basophils # (Auto) 0.0 TH/MM3 (0-0.2) CBC Comment AUTO DIFF Differential Comment AUTO DIFF CONFIRMED Platelet Estimate LOW (NORMAL) Platelet Morphology Comment NORMAL (NORMAL) Blood Urea Nitrogen 25 MG/DL (7-18) Creatinine 1.23 MG/DL (0.50-1.00) Random Glucose 114 MG/DL (74-106) Total Protein 5.8 GM/DL (6.4-8.2) Albumin 1.9 GM/DL (3.4-5.0) Calcium Level 8.6 MG/DL (8.5-10.1) Phosphorus Level 2.9 MG/DL (2.5-4.9) Magnesium Level 2.4 MG/DL (1.5-2.5) Alkaline Phosphatase 118 U/L (45-117) Aspartate Amino Transf (AST/SGOT) 124 U/L (15-37) Alanine Aminotransferase (ALT/SGPT) 68 U/L (10-53) Total Bilirubin 0.3 MG/DL (0.2-1.0) Potassium Level 3.4 MEQ/L (3.5-5.1) Chloride Level 127 MEQ/L (98-107) Carbon Dioxide Level 23.2 MEQ/L (21.0-32.0) Anion Gap 6 MEQ/L (5-15) Estimat Glomerular Filtration Rate 60 ML/MIN (>89) Human Chorionic Gonadotropin, Quant LESS THAN 1 MIU/ML (0-5) Blood Gas Puncture Site MARYANNE Blood Gas Patient Temperature 98.6 Blood Gas HCO3 21 mmol/L (22-26) Blood Gas Base Excess -2.5 mmol/L (-2-2) Blood Gas Oxygen Saturation 96 % (90-100) Arterial Blood pH 7.41 (7.380-7.420) Arterial Blood Partial Pressure CO2 34 mmHg (38-42) Arterial Blood Partial Pressure O2 122 mmHg (61-120) Arterial Blood Oxygen Content 10.7 Vol % (12.0-20.0) Arterial Blood Carboxyhemoglobin 0.9 % (0-4) Arterial Blood Methemoglobin 1.4 % (0-2) Blood Gas Hemoglobin 7.7 G/DL (12.0-16.0) Oxygen Delivery Device VENTILATOR Blood Gas Ventilator Setting AC/12/475/PEEP5 Blood Gas Inspired Oxygen 30 % Vancomycin Level Trough 5.3 MCG/ML (5.0-10.0) Test 06/07/17 04:15 06/07/17 09:48 White Blood Count 5.1 TH/MM3 (4.0-11.0) Red Blood Count 3.38 MIL/MM3 (4.00-5.30) Hemoglobin 7.9 GM/DL (11.6-15.3) Hematocrit 25.7 % (35.0-46.0) Mean Corpuscular Volume 76.0 FL (80.0-100.0) Mean Corpuscular Hemoglobin 23.4 PG (27.0-34.0) Mean Corpuscular Hemoglobin Concent 30.8 % (32.0-36.0) Red Cell Distribution Width 18.5 % (11.6-17.2) Platelet Count 99 TH/MM3 (150-450) Mean Platelet Volume 8.0 FL (7.0-11.0) Neutrophils (%) (Auto) 54.4 % (16.0-70.0) Lymphocytes (%) (Auto) 25.6 % (9.0-44.0) Monocytes (%) (Auto) 18.2 % (0.0-8.0) Eosinophils (%) (Auto) 1.6 % (0.0-4.0) Basophils (%) (Auto) 0.2 % (0.0-2.0) Neutrophils # (Auto) 2.8 TH/MM3 (1.8-7.7) Lymphocytes # (Auto) 1.3 TH/MM3 (1.0-4.8) Monocytes # (Auto) 0.9 TH/MM3 (0-0.9) Eosinophils # (Auto) 0.1 TH/MM3 (0-0.4) Basophils # (Auto) 0.0 TH/MM3 (0-0.2) CBC Comment AUTO DIFF Differential Total Cells Counted 100 Neutrophils % (Manual) 54 % (16-70) Band Neutrophils % 13 % (0-6) Lymphocytes % 17 % (9-44) Monocytes % 13 % (0-8) Eosinophils % 2 % (0-4) Neutrophils # (Manual) 3.5 TH/MM3 (1.8-7.7) Metamyelocytes 1 % (0-1) Differential Comment FINAL DIFF MANUAL Atypical Lymphocytes % (0-0) Platelet Estimate LOW (NORMAL) Platelet Morphology Comment ENLARGED (NORMAL) Blood Urea Nitrogen 19 MG/DL (7-18) Creatinine 1.18 MG/DL (0.50-1.00) Random Glucose 112 MG/DL (74-106) Calcium Level 8.3 MG/DL (8.5-10.1) Phosphorus Level 2.9 MG/DL (2.5-4.9) Magnesium Level 1.9 MG/DL (1.5-2.5) Sodium Level 152 MEQ/L (136-145) Potassium Level 3.1 MEQ/L (3.5-5.1) Chloride Level 121 MEQ/L (98-107) Carbon Dioxide Level 21.7 MEQ/L (21.0-32.0) Anion Gap 9 MEQ/L (5-15) Estimat Glomerular Filtration Rate 63 ML/MIN (>89) Phenytoin (Dilantin) Level 10.1 MCG/ML (10.0-20.0) Blood Gas Puncture Site ART LINE Blood Gas Patient Temperature 98.6 Blood Gas HCO3 20 mmol/L (22-26) Blood Gas Base Excess -3.4 mmol/L (-2-2) Blood Gas Oxygen Saturation 96 % (90-100) Arterial Blood pH 7.45 (7.380-7.420) Arterial Blood Partial Pressure CO2 30 mmHg (38-42) Arterial Blood Partial Pressure O2 118 mmHg (61-120) Arterial Blood Oxygen Content 11.7 Vol % (12.0-20.0) Arterial Blood Carboxyhemoglobin 0.9 % (0-4) Arterial Blood Methemoglobin 1.2 % (0-2) Blood Gas Hemoglobin 8.5 G/DL (12.0-16.0) Oxygen Delivery Device VENTILATOR Blood Gas Ventilator Setting 15/500/+5/30 Blood Gas Inspired Oxygen 30 % Result Diagram: 06/07/17 0415 06/07/17 0415 Imaging Last Impressions Chest X-Ray 06/06/17 0600 Signed Impressions: Service Date/Time: Tuesday, June 06, 2017 03:47 - CONCLUSION: No acute cardiopulmonary disease. Amber Pugh MD Gall Bladder Ultrasound 06/02/17 0000 Signed Impressions: Service Date/Time: Friday, June 02, 2017 07:17 - CONCLUSION: 1. Although the gallbladder is well-distended I see no stones or sludge. There is a trace amount of ascitic fluid including pericholecystic fluid. 2. Questionable small right effusion. No effusion is seen on the recent CT scan. Howard Ricardo Jr., MD CT Angiography 06/02/17 0000 Signed Impressions: Service Date/Time: Friday, June 02, 2017 00:38 - CONCLUSION: No evidence of pulmonary embolism. Left lung perihilar infiltrate. Darrius Blandon MD Abdomen/Pelvis CT 06/02/17 0000 Signed Impressions: Service Date/Time: Friday, June 02, 2017 00:43 - CONCLUSION: Nonspecific distention of bowel. Nonspecific abnormal appearance of the gallbladder. Darrius Blandon MD Head CT 06/01/17 2347 Signed Impressions: Service Date/Time: Friday, June 02, 2017 00:29 - CONCLUSION: No acute intracranial process Darrius Blandon MD Procedures 06/01-femoral central line, arterial line to patient Assessment and Plan Disease Oriented Problem List: (1) Cocaine abuse (2) Cardiopulmonary arrest with successful resuscitation (3) Respiratory failure (4) Asystole (5) Anoxic encephalopathy Symptom Scale: (1) Dyspnea 0-10 Scale: Unable to quantify (2) Anoxic encephalopathy 0-10 Scale: Unable to quantify Pertinent Non-Medical Issues Psychosocial:no longer - from [facility]. Father Gasper Archuleta, mother Kinga Botello-- last known in [place] though pt ex has not been able to reach them at last known numbers. No siblings. Reported to have 1 child who was adopted. Reported to have local significant other Max Jones. Spiritual: not known Legal:Due to clinical condition patient not able to participate in decision- making. She appears to have severe anoxic encephalopathy does not appear she will regain ability to participate. No longer per her ex-. No siblings per her ex- father and mother last known to be in [place] though do not have current contact information for them. If able to locate maybe appropriate legal decision makers for this patient. Patient also reported to have local significant other Max Mercer. If family unable to be identified he may be appropriate decision-making proxy. Palliative requested case management assist with ACCURINT report to locate possible NOK. Ethical issues impacting care:no ethical issues identified Important Contacts Ex Fredrick Hawkins. [address] [place] [address] Boyfriend - local- Max Almendarez- Father, [facility] . Prognosis This patient was admitted 06/01/17 secondary to out of hospital cardiopulmonary arrest. It is not known total amount of time that she was minimally responsive and then pulseless before EMS arrival. She underwent at least 26 minutes of resuscitation by medical management trainer. She appears to have significant severe anoxic brain injury at this time, she is minimally responsive demonstrating severe cortical injury with EEG near flat line in appearance per neurology. Overall prognosis for meaningful recovery of neurologic function appears poor. High risk for ongoing complications and sequelae secondary to hospitalization, nonresponsive state. . Code Status: Full Code Plan * Legal decision maker: Due to clinical condition patient not able to participate in decision- making. She appears to have severe anoxic encephalopathy does not appear she will regain ability to participate. No longer per her ex-. No siblings per her ex- father and mother last known to be in [place] though do not have current contact information for them. If able to locate maybe appropriate legal decision makers for this patient. Patient also reported to have local significant other Max Mercer. If family unable to be identified he may be appropriate decision-making proxy. Palliative requested case management assist with ACCURINT report 06/06/17 to locate possible NOK. If unable to identify NOK, or appropriate person to serve as HC proxy, may need to utilize [employer] for decision making for pt. * Goals: TBD pending identification of appropriate legal decision maker * CODE STATUS:full code by default * SYMPTOMS: --Encephalopathy-status post out of hospital cardiopulmonary arrest-unknown total amount of time down; EEG "near flat line ", minimal neurological function at this time; MRI brain pending --Dyspnea-emergently intubated secondary to out of hospital arrest; breathing comfortable on mechanical vent. No gag reflex. +overbreathes vent. * Palliative care will continue to follow during hospital course as condition evolves, to assist patient/decision-maker with understanding of medical conditions, weighing benefits/burdens of treatment options, for clarification of goals of treatment. Additionally will assist with any symptoms of palliative concern Time Spent Total Floor Time (mins): 15 (chart review, PE, d/w nursing, d/w critical care) Attestation To help prompt me to consider important information that might be impacting today's encounter and assessment, information from prior notes written by myself or my colleagues may have been "brought forward" into today's note. My signature on this note, however, is an attestation that I personally performed the exam, history, and/or decision-making noted today, and, unless otherwise indicated, the interactions with patient, family, and staff as well as the review of records all occurred today. I also attest that the listed assessment and stated plan reflect my best clinical judgment today based on the combination of historical information, prior notes, and today's exam/ interactions. When time spent is documented, it refers only to time spent today by the signer, or if indicated, combined time spent today by collaborating physician/nurse practitioner. Thalia Morton Jun 07, 2017 11:06
[2017-06-07] MEDS: RESP: ALBUTEROL 2.5 MG/IPRATROPIUM 0.5 MG NEB (SCH) NEB ×3 (11:21→19:56)
--- NOTE | 2017-06-07 12:10 | PD.CARD.PN ---
Subjective Subjective Remarks Intubated, on the vent, no improvement of neuro status Objective Medications Current Medications Medications (Trade) Dose Ordered Sig/Sidney Route Start Time Stop Time Status Last Admin (Brethine Inj) 1 mg UNSCH PRN SQ 06/02/17 02:00 Miscellaneous Information ml @ 0 mls/hr UNSCH IV 06/02/17 02:30 (NS Flush) 2 ml UNSCH PRN IV FLUSH 06/02/17 02:30 (NS Flush) 2 ml UNSCH PRN IV FLUSH 06/02/17 02:30 (Peridex 0.12% Liq) 15 ml BID@08,20 OROPHARYNG 06/02/17 08:00 06/07/17 08:17 (Tears Naturale Opth Soln) 1 drop TID EACH EYE 06/02/17 09:00 06/07/17 09:00 (Zofran Inj) 4 mg Q6H PRN IV PUSH 06/02/17 02:45 (Heparin Inj) 5,000 units Q12H SQ 06/02/17 06:00 06/07/17 05:35 Potassium Chloride 100 ml @ 50 mls/hr Q2H PRN IV 06/02/17 03:00 Potassium Chloride 100 ml @ 50 mls/hr Q2H PRN IV 06/02/17 03:00 06/07/17 08:41 (K-Lyte Cl Eff) 50 meq UNSCH PRN PO 06/02/17 03:00 Potassium Chloride 100 ml @ 25 mls/hr UNSCH PRN IV 06/02/17 03:00 06/05/17 05:23 Potassium Chloride 100 ml @ 50 mls/hr Q2H PRN IV 06/02/17 03:00 Magnesium Sulfate 4 gm/Sodium Chloride 100 ml @ 50 mls/hr UNSCH PRN IV 06/02/17 03:00 (Mag-Ox) 800 mg UNSCH PRN PO 06/02/17 03:00 Magnesium Sulfate 2 gm/Sodium Chloride 100 ml @ 50 mls/hr UNSCH PRN IV 06/02/17 03:00 (K-Phos) 2,000 mg Q4H PRN PO 06/02/17 03:00 Sodium Phosphate 30 mmol/Sodium Chloride 250 ml @ 42 mls/hr UNSCH PRN IV 06/02/17 03:00 (K-Phos) 2,000 mg UNSCH PRN PO/TUBE 06/02/17 03:00 Potassium Phosphate 30 mmol/ Sodium Chloride 260 ml @ 42 mls/hr UNSCH PRN IV 06/02/17 03:00 (D50w (Vial) Inj) 25 ml UNSCH PRN IV PUSH 06/02/17 03:00 (NovoLIN R SUPPLEMENTAL SCALE) 1 Q6HR SQ 06/02/17 06:00 06/02/17 12:10 (Albuterol Neb) 2.5 mg Q2HR NEB PRN NEB 06/02/17 06:15 06/07/17 04:02 (Folate) 1 mg DAILY PO 06/02/17 09:00 06/07/17 08:40 (Theragran) 1 tab DAILY PO 06/02/17 09:00 06/06/17 08:56 (Trandate Inj) 10 mg Q1HR PRN IV PUSH 06/02/17 15:00 Future Hold 06/04/17 04:18 (Apresoline Inj) 10 mg Q1HR PRN IV PUSH 06/02/17 15:00 06/05/17 14:30 (Nitroglycerin 2% Oint) 2 inch Q6HR PRN TOPICAL 06/02/17 15:00 (Trandate Inj) 10 mg Q1H PRN IV PUSH 06/04/17 12:15 06/06/17 06:42 (Trandate) 100 mg Q12HR PO 06/05/17 08:00 06/07/17 08:40 Cefazolin Sodium 1000 mg/Sodium Chloride 100 ml @ 200 mls/hr Q8H IV 06/06/17 09:00 06/07/17 08:40 Propofol 100 ml @ 1.74 mls/hr TITRATE PRN IV 06/06/17 13:00 (fentaNYL INJ) 50 mcg Q1H PRN IV PUSH 06/06/17 14:45 06/06/17 16:22 Levetriacetam 1000 mg/Sodium Chloride 110 ml @ 420 mls/hr Q12HR IV 06/07/17 09:00 06/07/17 08:46 (Free Water) VOLUME: 200 ML Q6HR G-TUBE 06/07/17 12:00 (Reglan Inj) 5 mg Q8HR IV PUSH 06/07/17 14:00 (Pepcid) 20 mg BID NG 06/07/17 09:00 06/07/17 08:40 (Roxicodone Intensol Liq) 5 mg Q4H PRN PO 06/07/17 08:45 (Duoneb Neb) 1 ampule Q6HR NEB NEB 06/07/17 10:00 06/07/17 11:21 Potassium Chloride 20 meq/ Sodium Chloride 38.5 meq/Sterile Water 1,019.625 ml @ 50 mls/hr [id number] IV 06/07/17 09:00 06/07/17 10:43 (Ativan Inj) 2 mg Q1H PRN IV PUSH 06/07/17 08:45 06/07/17 12:04 (Vitamin B1) 100 mg DAILY PO 06/07/17 09:00 06/07/17 08:40 (Colace Liq) 100 mg Q12HR PO 06/07/17 09:00 06/07/17 08:40 Vital Signs / I&O Vital Signs Date Time Temp Pulse Resp B/P (MAP) Pulse Ox O2 Delivery O2 Flow Rate FiO2 06/07/17 11:00 97.5 86 16 131/93 (106) 99 127/105 (112) 06/07/17 11:00 86 06/07/17 11:00 30 06/07/17 10:11 99 30 06/07/17 08:00 06/07/17 07:54 99 30 06/07/17 07:13 99 30 06/07/17 07:00 97.6 95 18 139/98 (112) 99 154/99 (117) 06/07/17 07:00 30 06/07/17 07:00 91 06/07/17 04:06 99 30 06/07/17 04:00 97.6 87 12 126/91 (103) 98 139/87 (104) 06/07/17 04:00 88 06/07/17 04:00 30 06/07/17 01:21 99 30 06/06/17 23:00 97.6 83 13 112/77 (89) 98 123/72 (89) 06/06/17 23:00 30 06/06/17 23:00 83 06/06/17 22:53 98 30 06/06/17 20:40 96 30 06/06/17 20:00 06/06/17 19:00 97.3 108 13 130/81 (97) 98 138/85 (102) 06/06/17 19:00 30 06/06/17 19:00 112 06/06/17 16:00 98.3 121 97 126/70 (88) 06/06/17 16:00 122 06/06/17 16:00 30 06/06/17 15:46 97 30 06/06/17 13:33 98 30 I/O 06/06/17 06/06/17 06/06/17 06/07/17 06/07/17 06/07/17 07:00 15:00 23:00 07:00 15:00 23:00 Intake Total 1760 ml 624 ml 2786 ml 1391 ml 610 ml Output Total 800 ml 610 ml 1095 ml Balance 960 ml 624 ml 2176 ml 296 ml 610 ml Intake Oral 0 ml IV Total 1250 ml 624 ml 2202 ml 826 ml 610 ml Tube Feeding 110 ml 384 ml 165 ml Tube Irrigant 200 ml Other 400 ml 400 ml Output Urine Total 700 ml 510 ml 995 ml Stool Total 100 ml 100 ml 100 ml Physical Exam GENERAL: Intubated SKIN: Warm and dry. HEAD: Normocephalic. EYES: No scleral icterus. No injection or drainage. NECK: Supple, trachea midline. No JVD or lymphadenopathy. CARDIOVASCULAR: Regular rate and rhythm without murmurs, gallops, or rubs. RESPIRATORY: Breath sounds equal bilaterally. No accessory muscle use. GASTROINTESTINAL: Abdomen soft, non-tender, nondistended. MUSCULOSKELETAL: No cyanosis, or edema. Laboratory Laboratory Tests Test 06/06/17 21:30 06/07/17 04:15 06/07/17 09:48 Hemoglobin 7.8 GM/DL 7.9 GM/DL Hematocrit 25.0 % 25.7 % Sodium Level 152 MEQ/L 152 MEQ/L Vancomycin Level Trough 5.3 MCG/ML White Blood Count 5.1 TH/MM3 Red Blood Count 3.38 MIL/MM3 Mean Corpuscular Volume 76.0 FL Mean Corpuscular Hemoglobin 23.4 PG Mean Corpuscular Hemoglobin Concent 30.8 % Red Cell Distribution Width 18.5 % Platelet Count 99 TH/MM3 Mean Platelet Volume 8.0 FL Neutrophils (%) (Auto) 54.4 % Lymphocytes (%) (Auto) 25.6 % Monocytes (%) (Auto) 18.2 % Eosinophils (%) (Auto) 1.6 % Basophils (%) (Auto) 0.2 % Neutrophils # (Auto) 2.8 TH/MM3 Lymphocytes # (Auto) 1.3 TH/MM3 Monocytes # (Auto) 0.9 TH/MM3 Eosinophils # (Auto) 0.1 TH/MM3 Basophils # (Auto) 0.0 TH/MM3 CBC Comment AUTO DIFF Differential Total Cells Counted 100 Neutrophils % (Manual) 54 % Band Neutrophils % 13 % Lymphocytes % 17 % Monocytes % 13 % Eosinophils % 2 % Neutrophils # (Manual) 3.5 TH/MM3 Metamyelocytes 1 % Differential Comment FINAL DIFF MANUAL Atypical Lymphocytes % Platelet Estimate LOW Platelet Morphology Comment ENLARGED Blood Urea Nitrogen 19 MG/DL Creatinine 1.18 MG/DL Random Glucose 112 MG/DL Calcium Level 8.3 MG/DL Phosphorus Level 2.9 MG/DL Magnesium Level 1.9 MG/DL Potassium Level 3.1 MEQ/L Chloride Level 121 MEQ/L Carbon Dioxide Level 21.7 MEQ/L Anion Gap 9 MEQ/L Estimat Glomerular Filtration Rate 63 ML/MIN Phenytoin (Dilantin) Level 10.1 MCG/ML Blood Gas Puncture Site ART LINE Blood Gas Patient Temperature 98.6 Blood Gas HCO3 20 mmol/L Blood Gas Base Excess -3.4 mmol/L Blood Gas Oxygen Saturation 96 % Arterial Blood pH 7.45 Arterial Blood Partial Pressure CO2 30 mmHg Arterial Blood Partial Pressure O2 118 mmHg Arterial Blood Oxygen Content 11.7 Vol % Arterial Blood Carboxyhemoglobin 0.9 % Arterial Blood Methemoglobin 1.2 % Blood Gas Hemoglobin 8.5 G/DL Oxygen Delivery Device VENTILATOR Blood Gas Ventilator Setting 15/500/+5/30 Blood Gas Inspired Oxygen 30 % Assessment and Plan Problem List: (1) Cardiopulmonary arrest with successful resuscitation ICD Codes: I46.9 - Cardiac arrest, cause unspecified Status: Acute (2) Cocaine abuse ICD Codes: F14.10 - Cocaine abuse, uncomplicated Status: Acute (3) Respiratory failure ICD Codes: J96.90 - Respiratory failure, unspecified, unspecified whether with hypoxia or hypercapnia Assessment and Plan Continue ICU care. Second EEG again c/w severe anoxic encephalopathy. No new cardiac issues, no arrhythmias. Improvement of neuro status is unlikely. Prognosis very poor. Ahmet Perez MD Jun 07, 2017 12:10
[2017-06-07] MEDS: METOCLOPRAMIDE HCL 10 MG/2 ML VIAL IV PUSH SCH ×2 (13:20→22:00)
[2017-06-07] MEDS ORDERED: EPINEPHrine HCL (1:10,000) 1 MG/10 ML SYRINGE ONE (15:11)
[2017-06-07] MEDS ORDERED: ATROPINE SULFATE 1 MG/10 ML SYRINGE ONE (15:11)
--- NOTE | 2017-06-07 16:17 | RADRPT ---
EXAM DATE/TIME: 06/07/2017 15:41 [facility] COMPARISON: CT BRAIN W/O CONTRAST, June 02, 2017, 0:29. INDICATIONS : Anoxic brain. Pt found down at home. MEDICAL HISTORY : None. SURGICAL HISTORY : None. ENCOUNTER: Initial ACUITY: 3 day PAIN SCORE: Nonresponsive. LOCATION: head TECHNIQUE: Multiplanar, multisequence MRI of the brain was performed without contrast. FINDINGS: CEREBRUM: The ventricles are normal for age. Slight increased T2 flair signal in the striatum. No evidence of midline shift, mass lesion, hemorrhage or acute infarction. No extraaxial fluid collections are seen . The pituitary gland and suprasellar cistern are normal in configuration. WHITE MATTER: No significant signal abnormalities are seen in the white matter. POSTERIOR FOSSA: The cerebellum and brainstem are intact. The 4th ventricle is midline. The cerebellopontine angle is unremarkable. The cerebellar tonsils are normal in position. DIFFUSION IMAGING: Punctate areas of diffusion restriction in the globus pallidus bilaterally may be indicative of some degree of global anoxia. EXTRACRANIAL: The visualized portions of the orbits are unremarkable. Extensive chronic paranasal sinus disease.. CONCLUSION: 1. There is some increased T2 flair signal in the distribution of the striatum bilaterally. Punctate areas of diffusion restriction in the globus pallidus. Findings may be indicative of some degree of anoxic brain injury. 2. Extensive chronic sinusitis bilaterally. Pelon Mazariegos MD on June 07, 2017 at 15:58 Board Certified Radiologist. This report was verified electronically.
[2017-06-07 18:47] LABS: BICARBONATE 21.3 MEQ/L (21.0-32.0); CALCIUM 8.4 MG/DL (8.5-10.1); CREATININE 1.15 MG/DL (0.50-1.00); MAGNESIUM 2.3 MG/DL (1.5-2.5); PHOSPHORUS 2.2 MG/DL (2.5-4.9)
[2017-06-07] MEDS: SODIUM CHLORIDE 0.9% FLUSH 10 ML FLUSH IV FLUSH PRN ×2 (20:46)
[2017-06-08] VITALS (13 sets, daily range): BP systolic 124–153; BP diastolic 100–112; PULSE 91–111; RESP 12–14; TEMP 97.4–98.5; O2SAT 96–98
[2017-06-08] MEDS: RESP: ALBUTEROL 2.5 MG/IPRATROPIUM 0.5 MG NEB (SCH) NEB ×4 (03:18→20:18)
[2017-06-08] MEDS: LABETALOL HCL 100 MG/20 ML VIAL IV PUSH PRN ×2 (03:27→15:34)
[2017-06-08] MEDS: LORazepam 2 MG/ML VIAL IV PUSH PRN (03:27)
[2017-06-08] MEDS: FREE WATER G-TUBE SCH ×4 (06:00→17:32)
[2017-06-08] MEDS: INSULIN NovoLIN REGULAR SUPPLEMENTAL SCALE SQ SCH ×4 (06:00→17:31)
[2017-06-08 06:02] LABS: AUTOMATED NEUTROPHIL # 4.3 TH/MM3 (1.8-7.7); BASOPHIL % 0.5 % (0.0-2.0); EOSINOPHIL # 0.1 TH/MM3 (0-0.4); EOSINOPHIL % 1.7 % (0.0-4.0); HEMATOCRIT 26.5 % (35.0-46.0); HEMOGLOBIN 8.2 GM/DL (11.6-15.3); LYMPHOCYTE # 1.2 TH/MM3 (1.0-4.8); MEAN CELL VOLUME 76.6 FL (80.0-100.0); MEAN CORPUSCULAR HEMOGLOBIN 23.6 PG (27.0-34.0); MEAN CORPUSCULAR HGB CONC 30.9 % (32.0-36.0); MONO % 13.3 % (0.0-8.0); MONOCYTE # 0.9 TH/MM3 (0-0.9); NEUT % 66.5 % (16.0-70.0); PLATELET COUNT 118 TH/MM3 (150-450); RED BLOOD COUNT 3.46 MIL/MM3 (4.00-5.30); WHITE BLOOD COUNT 6.4 TH/MM3 (4.0-11.0)
--- NOTE | 2017-06-08 06:06 | RADRPT ---
EXAM DATE/TIME: 06/08/2017 05:02 [facility] COMPARISON: CHEST SINGLE AP, June 06, 2017, 3:47. INDICATIONS : Shortness of breath, possible pneumothorax. MEDICAL HISTORY : None. SURGICAL HISTORY : None. ENCOUNTER: Subsequent ACUITY: 1 week PAIN SCORE: Non-responsive. LOCATION: Bilateral chest FINDINGS: The lungs are clear without infiltrate, nodule, or mass. There is no appreciable pleural effusion fo r technique. Heart and mediastinum are unremarkable. ET tube, and NG tube have not changed. CONCLUSION: No acute cardiopulmonary disease. Amber Pugh MD on June 08, 2017 at 6:04 Board Certified Radiologist. This report was verified electronically.
[2017-06-08 06:12] LABS: ALBUMIN 1.8 GM/DL (3.4-5.0); BICARBONATE 20.1 MEQ/L (21.0-32.0); BLOOD UREA NITROGEN 14 MG/DL (7-18); CALCIUM 8.5 MG/DL (8.5-10.1); CHLORIDE 119 MEQ/L (98-107); CREATININE 1.06 MG/DL (0.50-1.00); GLOMERULAR FILTRATION RATE 71 ML/MIN (>89); GLUCOSE,RANDOM 115 MG/DL (74-106); LIPASE 1072 U/L (73-393); MAGNESIUM 2.1 MG/DL (1.5-2.5); SODIUM (NA) 149 MEQ/L (136-145)
[2017-06-08 06:13] LABS: ALT (GPT) 37 U/L (10-53); AST (GOT) 80 U/L (15-37); PHOSPHORUS 2.8 MG/DL (2.5-4.9)
[2017-06-08 06:16] LABS: ALKALINE PHOSPHATASE 125 U/L (45-117); TOTAL BILIRUBIN ADULT 0.2 MG/DL (0.2-1.0); TOTAL PROTEIN 6.3 GM/DL (6.4-8.2)
[2017-06-08 06:21] LABS: AMYLASE 126 U/L (25-115)
[2017-06-08] MEDS: METOCLOPRAMIDE HCL 10 MG/2 ML VIAL IV PUSH SCH ×3 (06:23→21:23)
[2017-06-08] MEDS: HEPARIN SODIUM - SQ 10,000 UNITS/ML VIAL SQ SCH ×2 (06:23→17:32)
[2017-06-08 06:54] LABS: BANDS 1 % (0-6); LYMPHOCYTES 21 % (9-44); METAMYELOCYTES 1 % (0-1); MONOCYTES 13 % (0-8); MYELOCYTES 1 % (0-0); NEUTROPHIL # MANUAL DIFF 4.1 TH/MM3 (1.8-7.7); POLYS (SEG NEUTROPHILS) 60 % (16-70); PROMYELOCYTES 1 % (0-0)
[2017-06-08] MEDS: ARTIFICIAL TEARS OPTH SOLN 15 ML BTL EACH EYE SCH ×3 (07:52→17:32)
[2017-06-08] MEDS: POTASSIUM CHLORIDE INJ 20 MEQ, SODIUM CHLORIDE 23.4% INJ 38.5 MEQ in WATER STERILE FOR ... IV SCH (07:52)
[2017-06-08] MEDS: CHLORHEXIDINE 0.12% (ORAL KIT) 15 ML CUP OROPHARYNG SCH ×2 (07:52→20:00)
[2017-06-08] MEDS: FOLIC ACID 1 MG TAB PO SCH (08:29)
[2017-06-08] MEDS: DOCUSATE SODIUM 100 MG/10 ML UDC PO SCH ×2 (08:29→20:00)
[2017-06-08] MEDS: LABETALOL HCL 100 MG TAB PO SCH ×2 (08:29→20:01)
[2017-06-08] MEDS: FAMOTIDINE 20 MG TAB NG SCH ×2 (08:29→20:01)
[2017-06-08] MEDS: THIAMINE HCL 100 MG TAB PO SCH (08:29)
[2017-06-08] MEDS: MULTIVITAMIN TAB PO SCH (08:30)
[2017-06-08] MEDS: levETIRAcetam INJ 1,000 MG in SODIUM CHLORIDE 0.9% INJ 100 ML IV SCH (08:30)
--- NOTE | 2017-06-08 08:34 | HHI.CCPN ---
Subjective Remarks/Hospital Course This is a 37-year-old female with an unknown past medical history who presents after out of hospital cardiac arrest. Per EMS report, a friend found the patient altered with agonal respirations. Per report, the friend did not have any way of contacting 911, so the friend place the patient in a car and drove her to the nearest gas station to call 911. Upon EMS arrival, the patient was unresponsive, not breathing, and pulseless. Presenting rhythm was asystole. ACLS was initiated, 3 A of epinephrine, 1 amp of bicarbonate, 2 mg of Narcan and the patient had ROSC. Patient was transported to [facility] [place] emergency Department. In emergency department, she had a decreased level of consciousness but was moving all 4 extremities spontaneously. Her GCS was 6 (E1 ,V1,M4). Her urine drug screen is positive for cocaine. I discussion with Dr. Yañez the ER physician, and we agree that given her young age and that she was witnessed with a pulse, that the potential benefits of therapeutic hypothermia outweigh the risks in this scenario. No additional information is available from the patient and we do not know of any family at this time. Patient was transported the CVICU and therapeutic hypothermia was initiated. 06/02: Currently on hypothermia protocol. Temperature 33C. Dignishield will be placed. Remains on multiple vasopressors. Troponin climbing with repeat ordered. Echocardiogram and a.m. EKG pending. 06/03: Rewarming process initiated early this a.m.. Patient was weaned off of vasopressors greater than 24 hours. Hemodynamically stable. Early this a.m. the patient noted was noted to have decrease in dorsalis pedis and posterior tibial pulses, now nonpalpable but dopplerable biphasic signals. Arterial Doppler studies pending. Right femoral triple-lumen central line removed. Chest x-ray was noted to have an infiltrate, sputum cultures are pending empiric antibiotics initiated. 06/04: Normothermic at 1930 .Sedation discontinued 1929 on 06/03. The patient remains encephalopathic at this time. She remains hemodynamically stable on no pressors. EEG pending at this time. The patient was noted to be slightly hypernatremic, IV fluids changed. ABIs were performed for slightly decreased pulse yesterday and right lower extremities bilateral ABIs slightly depressed pulses on the right remain dopplerable, biphasic. 06/05: Afebrile. No acute events overnight. Patient continues to be hypertensive scheduled PO labetalol 100 mg BID. Neurologically, the patient remains encephalopathic, EEG performed yesterday showed nearly flat line. CT pending this a.m.. Neurology has been consulted, patient has been off sedation for approximately 36 hours. 06/06 MRI pending. Off sedation. Not brain --> has spontaneous respirations when disconnected vent. Absent pupillary, corneal, oculocephalic and gag reflexes. No motor response to deep noxious stimuli. Had tonic clonic movements of BUE this morning that ceased with Ativan 2 mg IV. 06/07: Afebrile. Tube feeds currently at 30 cc an hour with Jevity 1.5. 200 cc stools per fecal containment device. Received lorazepam 2 mg IV for "tremors " overnight. He reveals diffuse encephalopathy with no epileptiform activity on 06/04 and 06/06. SUBJECTIVE: 06/08: Currently afebrile. Tube feeding currently goal at 40 cc now with Jevity 1.5. 6 cc stools per fecal containment device. MRI brain 06/07 showed diffuse signs of anoxic brain injury. Objective Vital Signs Date Time Temp Pulse Resp B/P (MAP) Pulse Ox O2 Delivery O2 Flow Rate FiO2 06/08/17 08:03 98 30 06/08/17 07:00 97.4 96 13 124/104 (111) 139/104 (116) Intake and Output 06/08/17 06/08/17 06/09/17 08:00 16:00 00:00 Intake Total 880 ml Output Total 1600 ml Balance -720 ml Result Diagram: 06/08/17 0535 06/08/17 0535 Other Results Microbiology Date/Time Source Procedure Growth Status 06/02/17 17:10 Blood Peripheral Aerobic Blood Culture - Final NO GROWTH IN 5 DAYS Complete 06/02/17 17:10 Blood Peripheral Anaerobic Blood Culture - Final NO GROWTH IN 5 DAYS Complete 06/03/17 09:50 Sputum Endotracheal Gram Stain - Final Complete 06/03/17 09:50 Sputum Culture - Final Staphylococcus Aureus Beta Strep Not Group A Complete Imaging Last Impressions Chest X-Ray 06/08/17 0600 Signed Impressions: Service Date/Time: , June 08, 2017 05:02 - CONCLUSION: No acute cardiopulmonary disease. Amber Pugh MD Brain MRI 06/07/17 0000 Signed Impressions: Service Date/Time: Wednesday, June 07, 2017 15:41 - CONCLUSION: 1. There is some increased T2 flair signal in the distribution of the striatum bilaterally. Punctate areas of diffusion restriction in the globus pallidus. Findings may be indicative of some degree of anoxic brain injury. 2. Extensive chronic sinusitis bilaterally. Pelon Mazariegos MD Gall Bladder Ultrasound 06/02/17 0000 Signed Impressions: Service Date/Time: Friday, June 02, 2017 07:17 - CONCLUSION: 1. Although the gallbladder is well-distended I see no stones or sludge. There is a trace amount of ascitic fluid including pericholecystic fluid. 2. Questionable small right effusion. No effusion is seen on the recent CT scan. Howard Ricardo Jr., MD CT Angiography 06/02/17 0000 Signed Impressions: Service Date/Time: Friday, June 02, 2017 00:38 - CONCLUSION: No evidence of pulmonary embolism. Left lung perihilar infiltrate. Darrius Blandon MD Abdomen/Pelvis CT 06/02/17 0000 Signed Impressions: Service Date/Time: Friday, June 02, 2017 00:43 - CONCLUSION: Nonspecific distention of bowel. Nonspecific abnormal appearance of the gallbladder. Darrius Blandon MD Head CT 06/01/17 2347 Signed Impressions: Service Date/Time: Friday, June 02, 2017 00:29 - CONCLUSION: No acute intracranial process Darrius Blandon MD Objective Remarks GENERAL: 37-year-old AA female currently orotracheally intubated HEENT: Normocephalic. Atraumatic. Pupils 1-2 mm bilaterally and nonreactive. Scleral edema noted with some erythema NECK: Trachea is midline. There is no JVD. CHEST: Symmetrical chest rise. Clear to auscultation bilaterally. No wheezes Rales or rhonchi. CARDIOVASCULAR: RRR. S1, S2 no S4. Without murmur ABDOMEN: Soft, nontender, nondistended. Bowel sounds present. Fecal containment device with brown liquid stool MUSCULOSKELETAL: Pulses 2+ bilateral radial and posterior tibialis. No peripheral edema. NEUROLOGICAL: No eye opening. Pupils 1-2 mm but nonreactive. No corneal reflex. No oculocephalic reflex. No gag. +Spontaneous respirations when ventilator disconnected/having spontaneous respirations over the current ventilator settings. No motor response to deep noxious stimuli. Negative Babinski. No clonus. Date of Insertion: Jun 01, 2017 Date of Removal: Jun 03, 2017 Line: Central Venous Catheter Side: Right Location: Femoral A/P Assessment and Plan Neuro/Psych: Acute hypoxic ischemic encephalopathy Toxic encephalopathy - multifactorial Cocaine overdose EtOH abuse Seizure Status post induced therapeutic hypothermia. Active rewarming 06/06. Sedation discontinued 06/03 at 1930, close monitoring for responsiveness Neurochecks per ICU protocol CT brain admission 06/01 revealed no acute intracranial findings 06/04 EEG -. Severe encephalopathy with nearly flat line appearance. 06/06 EEG - severe encephalopathy with no epileptic activity 06/04 ammonia level- 10 Continue thiamine 100 mg daily, folate 1 mg daily and multivitamin 1 tablet daily MRI brain 06/07 - T- increased T2 flair signal in the distribution of the striatum bilaterally. Punctate areas of diffusion restriction in the globus pallidus. Findings may be indicative of some degree of anoxic brain injury. Extensive chronic sinusitis bilaterally. Currently on levetiracetam 1000 mg IV twice a day per neurology's recommendations. Fosphenytoin discontinued Neurology consult/Dr. White Currently on lorazepam 2 mg every 2 hours when necessary breakthrough seizures Fentanyl 50 mics grams every one hour as needed pain Oxycodone 5 mg liquid every 4 hours when necessary pain 1-10/agitation Respiratory: Acute hypoxic and hypercarbic respiratory failure ACV 15/500/5/30 Vent bundle Head of bed 30 Albuterol/ipratropium aerosols every 6 hours with albuterol aerosols every 2 hours as needed Wean FiO2 for goal SPO2 greater than 92% CT pulmonary angiogram 06/01: Negative for acute PE and possible left lower lobe infiltrate Current Mental status barrier to extubation Chest x-ray 06/08 revealed no acute cardio pulmonary findings Cardiovascular: Status post out of hospital cardiac arrest Cardiogenic shock (resolved) NSTEMI Lactic acidosis-resolved Elevated HDL Goal mean arterial pressure greater than 65 Cardiology/Dr. Perez has evaluated and no plans for further workup at this time due to extremely poor neurologic prognosis 06/03 2D echo - The left ventricular systolic function is mildly reduced with an estimated ejection fraction of 45%. Normal left ventricular size. Wall thickness is normal. No regional wall motion abnormalities are present. Mild mitral valve regurgitation. Mild aortic sclerosis. Trace aortic valve regurgitation. Amiodarone infusion discontinued 06/02 secondary to the patient having elevated LFTs. The patient remains in normal sinus rhythm, hemodynamically stable on no vasopressors 06/03- arterial Doppler studies. Slight depression MILES 0.8 bilaterally. Biphasic Doppler signals right DP, PT Currently off all vasopressors. Schedule labetalol 100 mg twice a day As needed labetalol/hydralazine Nitropaste for blood pressure greater than 160 Renal/FEN/: Acute kidney injury - resolved Hypernatremia Hypokalemia Creatinine currently within normal limits Maintain Cochran for accurate I's and O's Currently on Jevity 1.5 goal 40 cc an hours per nutrition's recommendations Free water 200 cc every 6 hours Currently on one quarter normal saline with 20 mEq KCl at 50 cc an hour Maintain Cochran catheter Check BMP/mag and phosphorus in a.m. 06/09 60 mEq KCl 1 now GI: Elevated Transaminases likely secondary to shock Diarrhea NOS Hypoalbuminemia Elevated amylase/lipase 06/02 Fecal containment device placed CT abdomen/pelvis revealed a specific dilated bowel loops and gallbladder appearance. 06/02 gallbladder ultrasound- distended gallbladder Ordered pancreatic ultrasound today. LFTs downtrending. Tolerating Jevity 1.5 @30 mL per hour. Advance as tolerated to goal rate of 40 mL per hour per nutrition recommendations No bowel regimen secondary to ongoing diarrhea. C. difficile - -06/03 TUBE COREMAKER: Patient is actively menstruating. Change sanitary pads as needed Beta hCG 1 Heme/ID: Thrombocytopenia Microcytic anemia Community-acquired pneumonia Blood culture- NGTD 06/04Sputum culture MSSA, betastrep. C. difficile negative Empiric antibiotics initiated secondary to left lung base developing opacity- possibly secondary to aspiration. Has been on cefepime, azithromycin and vancomycin 06/03- Early and cefazolin 1 g IV every 8 hours Endocrine: Hyperglycemia of critical illness -- SSI Novolog , medium scale, every 6hr. 0 units provided past 24 hours TSH normal on 1.74 Prophylaxis: GI Prophylaxis Famotidine 20 mill grams ng twice daily DVT Prophylaxis -- SCDs Subcutaneous heparin 5000 units twice a day Lines: 06/01 right femoral triple-lumen catheter placed in the emergency department by the emergency room [id number] 06/02 right radial arterial line - d/c today 06/07 06/02 left femoral code cool catheter - d/c today 06/06. Level II follow-up Felipe Dorantes MD Jun 08, 2017 08:34
[2017-06-08] MEDS: POTASSIUM CHLOR 10 MEQ PREMIX 100 ML IV SCH ×3 (09:28→11:45)
[2017-06-08] MEDS ORDERED: POTASSIUM CHLORIDE 20 MEQ PWD PACKET PO ONE (10:00)
--- NOTE | 2017-06-08 11:18 | HHI.HCPN ---
Reason for visit a. To assist with evaluation and management of symptoms including: Dyspnea, encephalopathy b. To assist medical decision maker(s) with: better understanding of current medical conditions; weighing benefits/burdens of medical treatment options; making medical treatment decisions. Subjective/Interval History Pt seen today to follow up on comfort, possible decision maker. Stable overnight in ICU- not requiring pressors. No improvement in neurological status. "tremor/shaking" episodes reported by nursing. MRI brain yesterday =" Punctate areas of diffusion restriction in the globus pallidus. Findings may be indicative of some degree of anoxic brain injury" D/w case management-they d/w financial, accurint being run. If unable to identify NOK, or appropriate person to serve as HC proxy, may need to utilize Social Work [employer]vant[employer] for decision making for pt. D/w critical care, nursing. Pt counselor from [facility] Deisi Anthony left contact information == I spoke w her- she was able to provide some additional social hx on pt. She has known her for 3-4 yrs from [facility]- pt main support system is "the street" and other homeless people. She is not aware of other family other than pt parents. Pt examined in room, nurse present. Nonresponsive to my exam. + edema . No distress. 1250 later received call from nursing RE accurint findings, they found possible name /number Lillie Almendarez Tawanda Almendarez [phone]. I called this # VM left requesting call back to determine if related to pt. . Advance Directives Living Will: Never completed Health Care Surrogate: Never completed Durable Power of Dragline Oiler: Never completed Objective Vital Signs Date Time Temp Pulse Resp B/P (MAP) Pulse Ox O2 Delivery O2 Flow Rate FiO2 06/08/17 10:49 97 30 06/08/17 08:03 98 30 06/08/17 08:00 06/08/17 07:00 30 06/08/17 07:00 97.4 96 13 124/104 (111) 98 139/104 (116) 06/08/17 07:00 93 06/08/17 04:32 98 30 06/08/17 03:00 30 06/08/17 03:00 94 06/08/17 03:00 97.4 92 14 150/100 (117) 96 136/107 (117) 06/08/17 00:15 98 30 06/07/17 23:00 97.6 92 16 127/97 (107) 98 119/97 (104) 06/07/17 23:00 30 06/07/17 23:00 92 06/07/17 22:02 100 30 06/07/17 20:00 100 149/102 (118) 118/111 (113) 06/07/17 19:56 99 30 06/07/17 19:00 30 06/07/17 19:00 97.9 100 17 149/112 (124) 98 118/111 (113) 06/07/17 19:00 100 06/07/17 16:29 100 100 06/07/17 16:22 97 30 06/07/17 15:00 97.6 97 14 145/107 (120) 99 142/98 (113) 06/07/17 15:00 97 06/07/17 15:00 30 Intake & Output 06/08/17 06/08/17 07:00 19:00 Intake Total 880 ml Output Total 1600 ml Balance -720 ml Tube Feeding 480 ml Tube Irrigant 400 ml Output Urine Total 1200 ml Stool Total 400 ml Physical Exam CONSTITUTIONAL/GENERAL: This is an adequately nourished patient, nonresponsive on mechanical vent TUBES/LINES/DRAINS: Femoral central line, ET tube, NG tube, Cochran catheter, rectal drain SKIN: No jaundice, rashes, or lesions. No wounds seen anteriorly. Skin temperature warm, dry. Nails long, broken and uneven. EYES: Pupils 2 mm no reaction to light. No corneal reflex. Slight periorbital edema. +scleral edema. No injection or drainage. Fundi not examined. CARDIOVASCULAR: Regular rate and rhythm without murmur. No JVD. Peripheral pulses faint. 2-3+ Edema to extremities. RESPIRATORY/CHEST: Symmetric, unlabored respirations via mechanical vent. Over breathes 1-2 over ventilator rate. Clear, diminished. Equal bilaterally. GASTROINTESTINAL: Abdomen soft, nondistended. Unable to determine tenderness secondary to nonresponsiveness. No palpable masses. Bowel sounds present. Tube feed infusing via NG tube, loose stool via rectal drain GENITOURINARY: Without palpable bladder distension. Cochran catheter in place. MUSCULOSKELETAL: Extremities without clubbing, cyanosis. 2-3+Edema to extremities. No mottling or clubbing. NEUROLOGICAL: Not currently on sedation, nonresponsive to exam--no withdrawal to pain stimuli to extremities, no corneal or pupil reflex. PSYCHIATRIC: Limited assessment due to clinical condition Diagnostic Tests Laboratory Laboratory Tests Test 06/05/17 12:00 06/05/17 17:50 06/06/17 03:55 06/06/17 04:56 Sodium Level 155 MEQ/L (136-145) 155 MEQ/L (136-145) 156 MEQ/L (136-145) White Blood Count 6.7 TH/MM3 (4.0-11.0) Red Blood Count 3.21 MIL/MM3 (4.00-5.30) Hemoglobin 7.6 GM/DL (11.6-15.3) Hematocrit 24.8 % (35.0-46.0) Mean Corpuscular Volume 77.2 FL (80.0-100.0) Mean Corpuscular Hemoglobin 23.6 PG (27.0-34.0) Mean Corpuscular Hemoglobin Concent 30.5 % (32.0-36.0) Red Cell Distribution Width 18.2 % (11.6-17.2) Platelet Count 86 TH/MM3 (150-450) Mean Platelet Volume 8.0 FL (7.0-11.0) Neutrophils (%) (Auto) 81.5 % (16.0-70.0) Lymphocytes (%) (Auto) 10.5 % (9.0-44.0) Monocytes (%) (Auto) 7.4 % (0.0-8.0) Eosinophils (%) (Auto) 0.5 % (0.0-4.0) Basophils (%) (Auto) 0.1 % (0.0-2.0) Neutrophils # (Auto) 5.4 TH/MM3 (1.8-7.7) Lymphocytes # (Auto) 0.7 TH/MM3 (1.0-4.8) Monocytes # (Auto) 0.5 TH/MM3 (0-0.9) Eosinophils # (Auto) 0.0 TH/MM3 (0-0.4) Basophils # (Auto) 0.0 TH/MM3 (0-0.2) CBC Comment AUTO DIFF Differential Comment AUTO DIFF CONFIRMED Platelet Estimate LOW (NORMAL) Platelet Morphology Comment NORMAL (NORMAL) Blood Urea Nitrogen 25 MG/DL (7-18) Creatinine 1.23 MG/DL (0.50-1.00) Random Glucose 114 MG/DL (74-106) Total Protein 5.8 GM/DL (6.4-8.2) Albumin 1.9 GM/DL (3.4-5.0) Calcium Level 8.6 MG/DL (8.5-10.1) Phosphorus Level 2.9 MG/DL (2.5-4.9) Magnesium Level 2.4 MG/DL (1.5-2.5) Alkaline Phosphatase 118 U/L (45-117) Aspartate Amino Transf (AST/SGOT) 124 U/L (15-37) Alanine Aminotransferase (ALT/SGPT) 68 U/L (10-53) Total Bilirubin 0.3 MG/DL (0.2-1.0) Potassium Level 3.4 MEQ/L (3.5-5.1) Chloride Level 127 MEQ/L (98-107) Carbon Dioxide Level 23.2 MEQ/L (21.0-32.0) Anion Gap 6 MEQ/L (5-15) Estimat Glomerular Filtration Rate 60 ML/MIN (>89) Human Chorionic Gonadotropin, Quant LESS THAN 1 MIU/ML (0-5) Blood Gas Puncture Site MARYANNE Blood Gas Patient Temperature 98.6 Blood Gas HCO3 21 mmol/L (22-26) Blood Gas Base Excess -2.5 mmol/L (-2-2) Blood Gas Oxygen Saturation 96 % (90-100) Arterial Blood pH 7.41 (7.380-7.420) Arterial Blood Partial Pressure CO2 34 mmHg (38-42) Arterial Blood Partial Pressure O2 122 mmHg (61-120) Arterial Blood Oxygen Content 10.7 Vol % (12.0-20.0) Arterial Blood Carboxyhemoglobin 0.9 % (0-4) Arterial Blood Methemoglobin 1.4 % (0-2) Blood Gas Hemoglobin 7.7 G/DL (12.0-16.0) Oxygen Delivery Device VENTILATOR Blood Gas Ventilator Setting /12/475/PEEP5 Blood Gas Inspired Oxygen 30 % Test 06/06/17 21:30 06/07/17 04:15 06/07/17 09:48 06/07/17 17:45 Hemoglobin 7.8 GM/DL (11.6-15.3) 7.9 GM/DL (11.6-15.3) Hematocrit 25.0 % (35.0-46.0) 25.7 % (35.0-46.0) Sodium Level 152 MEQ/L (136-145) 152 MEQ/L (136-145) 151 MEQ/L (136-145) Vancomycin Level Trough 5.3 MCG/ML (5.0-10.0) White Blood Count 5.1 TH/MM3 (4.0-11.0) Red Blood Count 3.38 MIL/MM3 (4.00-5.30) Mean Corpuscular Volume 76.0 FL (80.0-100.0) Mean Corpuscular Hemoglobin 23.4 PG (27.0-34.0) Mean Corpuscular Hemoglobin Concent 30.8 % (32.0-36.0) Red Cell Distribution Width 18.5 % (11.6-17.2) Platelet Count 99 TH/MM3 (150-450) Mean Platelet Volume 8.0 FL (7.0-11.0) Neutrophils (%) (Auto) 54.4 % (16.0-70.0) Lymphocytes (%) (Auto) 25.6 % (9.0-44.0) Monocytes (%) (Auto) 18.2 % (0.0-8.0) Eosinophils (%) (Auto) 1.6 % (0.0-4.0) Basophils (%) (Auto) 0.2 % (0.0-2.0) Neutrophils # (Auto) 2.8 TH/MM3 (1.8-7.7) Lymphocytes # (Auto) 1.3 TH/MM3 (1.0-4.8) Monocytes # (Auto) 0.9 TH/MM3 (0-0.9) Eosinophils # (Auto) 0.1 TH/MM3 (0-0.4) Basophils # (Auto) 0.0 TH/MM3 (0-0.2) CBC Comment AUTO DIFF Differential Total Cells Counted 100 Neutrophils % (Manual) 54 % (16-70) Band Neutrophils % 13 % (0-6) Lymphocytes % 17 % (9-44) Monocytes % 13 % (0-8) Eosinophils % 2 % (0-4) Neutrophils # (Manual) 3.5 TH/MM3 (1.8-7.7) Metamyelocytes 1 % (0-1) Differential Comment FINAL DIFF MANUAL Atypical Lymphocytes % (0-0) Platelet Estimate LOW (NORMAL) Platelet Morphology Comment ENLARGED (NORMAL) Blood Urea Nitrogen 19 MG/DL (7-18) 14 MG/DL (7-18) Creatinine 1.18 MG/DL (0.50-1.00) 1.15 MG/DL (0.50-1.00) Random Glucose 112 MG/DL (74-106) 118 MG/DL (74-106) Calcium Level 8.3 MG/DL (8.5-10.1) 8.4 MG/DL (8.5-10.1) Phosphorus Level 2.9 MG/DL (2.5-4.9) 2.2 MG/DL (2.5-4.9) Magnesium Level 1.9 MG/DL (1.5-2.5) 2.3 MG/DL (1.5-2.5) Potassium Level 3.1 MEQ/L (3.5-5.1) 3.7 MEQ/L (3.5-5.1) Chloride Level 121 MEQ/L (98-107) 121 MEQ/L (98-107) Carbon Dioxide Level 21.7 MEQ/L (21.0-32.0) 21.3 MEQ/L (21.0-32.0) Anion Gap 9 MEQ/L (5-15) 9 MEQ/L (5-15) Estimat Glomerular Filtration Rate 63 ML/MIN (>89) 65 ML/MIN (>89) Phenytoin (Dilantin) Level 10.1 MCG/ML (10.0-20.0) Blood Gas Puncture Site ART LINE Blood Gas Patient Temperature 98.6 Blood Gas HCO3 20 mmol/L (22-26) Blood Gas Base Excess -3.4 mmol/L (-2-2) Blood Gas Oxygen Saturation 96 % (90-100) Arterial Blood pH 7.45 (7.380-7.420) Arterial Blood Partial Pressure CO2 30 mmHg (38-42) Arterial Blood Partial Pressure O2 118 mmHg (61-120) Arterial Blood Oxygen Content 11.7 Vol % (12.0-20.0) Arterial Blood Carboxyhemoglobin 0.9 % (0-4) Arterial Blood Methemoglobin 1.2 % (0-2) Blood Gas Hemoglobin 8.5 G/DL (12.0-16.0) Oxygen Delivery Device VENTILATOR Blood Gas Ventilator Setting 15/500/+11/08 Blood Gas Inspired Oxygen 30 % Test 06/08/17 05:35 White Blood Count 6.4 TH/MM3 (4.0-11.0) Red Blood Count 3.46 MIL/MM3 (4.00-5.30) Hemoglobin 8.2 GM/DL (11.6-15.3) Hematocrit 26.5 % (35.0-46.0) Mean Corpuscular Volume 76.6 FL (80.0-100.0) Mean Corpuscular Hemoglobin 23.6 PG (27.0-34.0) Mean Corpuscular Hemoglobin Concent 30.9 % (32.0-36.0) Red Cell Distribution Width 18.0 % (11.6-17.2) Platelet Count 118 TH/MM3 (150-450) Mean Platelet Volume 9.0 FL (7.0-11.0) Neutrophils (%) (Auto) 66.5 % (16.0-70.0) Lymphocytes (%) (Auto) 18.0 % (9.0-44.0) Monocytes (%) (Auto) 13.3 % (0.0-8.0) Eosinophils (%) (Auto) 1.7 % (0.0-4.0) Basophils (%) (Auto) 0.5 % (0.0-2.0) Neutrophils # (Auto) 4.3 TH/MM3 (1.8-7.7) Lymphocytes # (Auto) 1.2 TH/MM3 (1.0-4.8) Monocytes # (Auto) 0.9 TH/MM3 (0-0.9) Eosinophils # (Auto) 0.1 TH/MM3 (0-0.4) Basophils # (Auto) 0.0 TH/MM3 (0-0.2) CBC Comment AUTO DIFF Differential Total Cells Counted 100 Neutrophils % (Manual) 60 % (16-70) Band Neutrophils % 1 % (0-6) Lymphocytes % 21 % (9-44) Monocytes % 13 % (0-8) Eosinophils % 2 % (0-4) Neutrophils # (Manual) 4.1 TH/MM3 (1.8-7.7) Metamyelocytes 1 % (0-1) Myelocytes 1 % (0-0) Promyelocytes 1 % (0-0) Differential Comment FINAL DIFF MANUAL Platelet Estimate LOW (NORMAL) Platelet Morphology Comment NORMAL (NORMAL) Activated Partial Thromboplast Time 22.9 SEC (24.3-30.1) Blood Urea Nitrogen 14 MG/DL (7-18) Creatinine 1.06 MG/DL (0.50-1.00) Random Glucose 115 MG/DL (74-106) Total Protein 6.3 GM/DL (6.4-8.2) Albumin 1.8 GM/DL (3.4-5.0) Calcium Level 8.5 MG/DL (8.5-10.1) Phosphorus Level 2.8 MG/DL (2.5-4.9) Magnesium Level 2.1 MG/DL (1.5-2.5) Alkaline Phosphatase 125 U/L (45-117) Aspartate Amino Transf (AST/SGOT) 80 U/L (15-37) Alanine Aminotransferase (ALT/SGPT) 37 U/L (10-53) Total Bilirubin 0.2 MG/DL (0.2-1.0) Sodium Level 149 MEQ/L (136-145) Potassium Level 3.5 MEQ/L (3.5-5.1) Chloride Level 119 MEQ/L (98-107) Carbon Dioxide Level 20.1 MEQ/L (21.0-32.0) Anion Gap 10 MEQ/L (5-15) Estimat Glomerular Filtration Rate 71 ML/MIN (>89) Lactic Acid Level 1.5 mmol/L (0.4-2.0) Ammonia 21 MCMOL/L (11-32) Amylase Level 126 U/L (25-115) Lipase 1072 U/L (73-393) Result Diagram: 06/08/17 0535 06/08/17 0535 Imaging Last Impressions Chest X-Ray 06/08/17 0600 Signed Impressions: Service Date/Time: May 05:02 - CONCLUSION: No acute cardiopulmonary disease. Amber Pugh MD Brain MRI 06/07/17 0000 Signed Impressions: Service Date/Time: Wednesday, June 07, 2017 15:41 - CONCLUSION: 1. There is some increased T2 flair signal in the distribution of the striatum bilaterally. Punctate areas of diffusion restriction in the globus pallidus. Findings may be indicative of some degree of anoxic brain injury. 2. Extensive chronic sinusitis bilaterally. Pelon Mazariegos MD Gall Bladder Ultrasound 06/02/17 0000 Signed Impressions: Service Date/Time: Friday, June 02, 2017 07:17 - CONCLUSION: 1. Although the gallbladder is well-distended I see no stones or sludge. There is a trace amount of ascitic fluid including pericholecystic fluid. 2. Questionable small right effusion. No effusion is seen on the recent CT scan. Howard Ricardo Jr., MD CT Angiography 06/02/17 0000 Signed Impressions: Service Date/Time: Friday, June 02, 2017 00:38 - CONCLUSION: No evidence of pulmonary embolism. Left lung perihilar infiltrate. Darrius Blandon MD Abdomen/Pelvis CT 06/02/17 0000 Signed Impressions: Service Date/Time: Friday, June 02, 2017 00:43 - CONCLUSION: Nonspecific distention of bowel. Nonspecific abnormal appearance of the gallbladder. Darrius Blandon MD Head CT 06/01/17 2347 Signed Impressions: Service Date/Time: Friday, June 02, 2017 00:29 - CONCLUSION: No acute intracranial process Darrius Blandon MD Procedures 06/01-femoral central line, arterial line to patient Assessment and Plan Disease Oriented Problem List: (1) Cocaine abuse (2) Cardiopulmonary arrest with successful resuscitation (3) Respiratory failure (4) Asystole (5) Anoxic encephalopathy Symptom Scale: (1) Dyspnea 0-10 Scale: Unable to quantify (2) Anoxic encephalopathy 0-10 Scale: Unable to quantify Pertinent Non-Medical Issues Psychosocial:no longer - from [facility]. Father Gasper Archuleta, mother Kinga Botello-- last known in [place] though pt ex has not been able to reach them at last known numbers. No siblings. Reported to have 1 child who was adopted. Reported to have local significant other Max Mercer. later d/w homeless coalition counselor (Deisi Anthony) who has known Parris for 3-4 yrs. Pt did have a biological son who a few mos ago. Pt does not have any other children. No siblings that she is aware of. She moved to [place] around age 17 w her father, whom she then lost contact with,father moved back to [place]. She has not had contact w her mother for many years. She is very jew and has reported God is her father, Ms Raj feels she would want decision analyst support. Substance hx: per prior EMR visits under different med record #- reports alcohol, "K2", marijuana, cocaine Spiritual: not known Legal:Due to clinical condition patient not able to participate in decision- making. She appears to have severe anoxic encephalopathy does not appear she will regain ability to participate. No longer per her ex-. No siblings per her ex- father and mother last known to be in [place] though do not have current contact information for them. If able to locate maybe appropriate legal decision makers for this patient. Patient also reported to have local significant other Max Mercer. If family unable to be identified he may be appropriate decision-making proxy. Palliative requested case management assist with ACCURINT report to locate possible NOK. Ethical issues impacting care:no ethical issues identified Important Contacts Ex Fredrick Hawkins. [address] [place] [address] Boyfriend - local- Maxj carlos Mercer Gasper Almendarez- Father, [facility] . Prognosis This patient was admitted 06/01/17 secondary to out of hospital cardiopulmonary arrest. It is not known total amount of time that she was minimally responsive and then pulseless before EMS arrival. She underwent at least 26 minutes of resuscitation by medical policy specialist. She appears to have significant severe anoxic brain injury at this time, she is minimally responsive demonstrating severe cortical injury with EEG near flat line in appearance per neurology. Overall prognosis for meaningful recovery of neurologic function appears poor. High risk for ongoing complications and sequelae secondary to hospitalization, nonresponsive state. . Code Status: Full Code Plan * Legal decision maker: Due to clinical condition patient not able to participate in decision- making. She appears to have severe anoxic encephalopathy does not appear she will regain ability to participate. No longer per her ex-. No siblings per her ex- father and mother last known to be in [place] though do not have current contact information for them. If able to locate maybe appropriate legal decision makers for this patient. Patient also reported to have local significant other Max Mercer. If family unable to be identified he may be appropriate decision-making proxy. Palliative requested case management assist with ACCURINT report 06/06/17 to locate possible NOK. If unable to identify NOK, or appropriate person to serve as HC proxy, may need to utilize Social Work Advantage for decision making for pt. As if 06/08/17- Accurint still pending. ---1250 later recieved call from nursing RE accurint findings, they found possible name /number Tawanda Adrian . I called this # VM left requesting call back to determine if related to pt. * Goals: TBD pending identification of appropriate legal decision maker * CODE STATUS:full code by default * SYMPTOMS: --Encephalopathy-status post out of hospital cardiopulmonary arrest-unknown total amount of time down; EEG "near flat line ", minimal neurological function at this time; MRI brain pending --Dyspnea-emergently intubated secondary to out of hospital arrest; breathing comfortable on mechanical vent. No gag reflex. +overbreathes vent. * Palliative care will continue to follow during hospital course as condition evolves, to assist patient/decision-maker with understanding of medical conditions, weighing benefits/burdens of treatment options, for clarification of goals of treatment. Additionally will assist with any symptoms of palliative concern Time Spent Total Floor Time (mins): 25 (chart review, PE, d/w nursing, CM, critical care, attempts to reach family ) Attestation To help prompt me to consider important information that might be impacting today's encounter and assessment, information from prior notes written by myself or my colleagues may have been "brought forward" into today's note. My signature on this note, however, is an attestation that I personally performed the exam, history, and/or decision-making noted today, and, unless otherwise indicated, the interactions with patient, family, and staff as well as the review of records all occurred today. I also attest that the listed assessment and stated plan reflect my best clinical judgment today based on the combination of historical information, prior notes, and today's exam/ interactions. When time spent is documented, it refers only to time spent today by the signer, or if indicated, combined time spent today by collaborating physician/nurse practitioner. Thalia Morton Jun 08, 2017 11:18
--- NOTE | 2017-06-08 15:43 | PD.CARD.PN ---
Subjective Subjective Remarks Intubated, on the vent, unresponsive Objective Medications Current Medications Medications (Trade) Dose Ordered Sig/Sidney Route Start Time Stop Time Status Last Admin (Brethine Inj) 1 mg UNSCH PRN SQ 06/02/17 02:00 Miscellaneous Information ml @ 0 mls/hr UNSCH IV 06/02/17 02:30 (NS Flush) 2 ml UNSCH PRN IV FLUSH 06/02/17 02:30 06/07/17 20:46 (NS Flush) 2 ml UNSCH PRN IV FLUSH 06/02/17 02:30 06/07/17 20:46 (Peridex 0.12% Liq) 15 ml BID@08,20 OROPHARYNG 06/02/17 08:00 06/08/17 07:52 (Tears Naturale Opth Soln) 1 drop TID EACH EYE 06/02/17 09:00 06/08/17 13:46 (Zofran Inj) 4 mg Q6H PRN IV PUSH 06/02/17 02:45 (Heparin Inj) 5,000 units Q12H SQ 06/02/17 06:00 06/08/17 06:23 Potassium Chloride 100 ml @ 50 mls/hr Q2H PRN IV 06/02/17 03:00 Potassium Chloride 100 ml @ 50 mls/hr Q2H PRN IV 06/02/17 03:00 06/07/17 08:41 (K-Lyte Cl Eff) 50 meq UNSCH PRN PO 06/02/17 03:00 Potassium Chloride 100 ml @ 25 mls/hr UNSCH PRN IV 06/02/17 03:00 06/05/17 05:23 Potassium Chloride 100 ml @ 50 mls/hr Q2H PRN IV 06/02/17 03:00 Magnesium Sulfate 4 gm/Sodium Chloride 100 ml @ 50 mls/hr UNSCH PRN IV 06/02/17 03:00 (Mag-Ox) 800 mg UNSCH PRN PO 06/02/17 03:00 Magnesium Sulfate 2 gm/Sodium Chloride 100 ml @ 50 mls/hr UNSCH PRN IV 06/02/17 03:00 (K-Phos) 2,000 mg Q4H PRN PO 06/02/17 03:00 Sodium Phosphate 30 mmol/Sodium Chloride 250 ml @ 42 mls/hr UNSCH PRN IV 06/02/17 03:00 (K-Phos) 2,000 mg UNSCH PRN PO/TUBE 06/02/17 03:00 Potassium Phosphate 30 mmol/ Sodium Chloride 260 ml @ 42 mls/hr UNSCH PRN IV 06/02/17 03:00 (D50w (Vial) Inj) 25 ml UNSCH PRN IV PUSH 06/02/17 03:00 (NovoLIN R SUPPLEMENTAL SCALE) 1 Q6HR SQ 06/02/17 06:00 06/02/17 12:10 (Albuterol Neb) 2.5 mg Q2HR NEB PRN NEB 06/02/17 06:15 06/07/17 04:02 (Folate) 1 mg DAILY PO 06/02/17 09:00 06/08/17 08:29 (Theragran) 1 tab DAILY PO 06/02/17 09:00 06/06/17 08:56 (Trandate Inj) 10 mg Q1HR PRN IV PUSH 06/02/17 15:00 Future Hold 06/04/17 04:18 (Apresoline Inj) 10 mg Q1HR PRN IV PUSH 06/02/17 15:00 06/05/17 14:30 (Nitroglycerin 2% Oint) 2 inch Q6HR PRN TOPICAL 06/02/17 15:00 (Trandate Inj) 10 mg Q1H PRN IV PUSH 06/04/17 12:15 06/08/17 15:34 (Trandate) 100 mg Q12HR PO 06/05/17 08:00 06/08/17 08:29 Cefazolin Sodium 1000 mg/Sodium Chloride 100 ml @ 200 mls/hr Q8H IV 06/06/17 09:00 06/08/17 08:30 Propofol 100 ml @ 1.74 mls/hr TITRATE PRN IV 06/06/17 13:00 (fentaNYL INJ) 50 mcg Q1H PRN IV PUSH 06/06/17 14:45 06/06/17 16:22 Levetriacetam 1000 mg/Sodium Chloride 110 ml @ 420 mls/hr Q12HR IV 06/07/17 09:00 06/08/17 08:30 (Free Water) VOLUME: 200 ML Q6HR G-TUBE 06/07/17 12:00 06/08/17 11:44 (Reglan Inj) 5 mg Q8HR IV PUSH 06/07/17 14:00 06/08/17 13:46 (Pepcid) 20 mg BID NG 06/07/17 09:00 06/08/17 08:29 (Roxicodone Intensol Liq) 5 mg Q4H PRN PO 06/07/17 08:45 (Duoneb Neb) 1 ampule Q6HR NEB NEB 06/07/17 10:00 06/08/17 08:03 Potassium Chloride 20 meq/ Sodium Chloride 38.5 meq/Sterile Water 1,019.625 ml @ 50 mls/hr [id number] IV 06/07/17 09:00 06/08/17 07:52 (Ativan Inj) 2 mg Q1H PRN IV PUSH 06/07/17 08:45 06/08/17 03:27 (Vitamin B1) 100 mg DAILY PO 06/07/17 09:00 06/08/17 08:29 (Colace Liq) 100 mg Q12HR PO 06/07/17 09:00 06/08/17 08:29 Vital Signs / I&O Vital Signs Date Time Temp Pulse Resp B/P (MAP) Pulse Ox O2 Delivery O2 Flow Rate FiO2 06/08/17 15:00 30 06/08/17 15:00 97.8 99 12 152/112 (125) 97 06/08/17 15:00 100 06/08/17 11:00 97.5 91 12 131/100 (110) 98 Arterial Line 06/08/17 11:00 30 06/08/17 11:00 96 06/08/17 10:49 97 30 06/08/17 08:03 98 30 06/08/17 08:00 06/08/17 07:00 30 06/08/17 07:00 97.4 96 13 124/104 (111) 98 139/104 (116) 06/08/17 07:00 93 06/08/17 04:32 98 30 06/08/17 03:00 30 06/08/17 03:00 94 06/08/17 03:00 97.4 92 14 150/100 (117) 96 136/107 (117) 06/08/17 00:15 98 30 06/07/17 23:00 97.6 92 16 127/97 (107) 98 119/97 (104) 06/07/17 23:00 30 06/07/17 23:00 92 06/07/17 22:02 100 30 06/07/17 20:00 100 149/102 (118) 118/111 (113) 06/07/17 19:56 99 30 06/07/17 19:00 30 06/07/17 19:00 97.9 100 17 149/112 (124) 98 118/111 (113) 06/07/17 19:00 100 06/07/17 16:29 100 100 06/07/17 16:22 97 30 I/O 06/07/17 06/07/17 06/07/17 06/08/17 06/08/17 06/08/17 07:00 15:00 23:00 07:00 15:00 23:00 Intake Total 1391 ml 610 ml 1310 ml 880 ml 510 ml Output Total 1095 ml 1400 ml 1600 ml Balance 296 ml 610 ml -90 ml -720 ml 510 ml Intake Oral 0 ml IV Total 826 ml 610 ml 550 ml 510 ml Tube Feeding 165 ml 360 ml 480 ml Tube Irrigant 400 ml 400 ml Other 400 ml Output Urine Total 995 ml 1200 ml 1200 ml Stool Total 100 ml 200 ml 400 ml Gastric Drainage Total 0 ml Physical Exam GENERAL: Intubated SKIN: Warm and dry. HEAD: Normocephalic. EYES: No scleral icterus. No injection or drainage. NECK: Supple, trachea midline. No JVD or lymphadenopathy. CARDIOVASCULAR: Regular rate and rhythm without murmurs, gallops, or rubs. RESPIRATORY: Breath sounds equal bilaterally. No accessory muscle use. GASTROINTESTINAL: Abdomen soft, non-tender, nondistended. MUSCULOSKELETAL: No cyanosis, or edema. Laboratory Laboratory Tests Test 06/07/17 17:45 06/08/17 05:35 Blood Urea Nitrogen 14 MG/DL 14 MG/DL Creatinine 1.15 MG/DL 1.06 MG/DL Random Glucose 118 MG/DL 115 MG/DL Calcium Level 8.4 MG/DL 8.5 MG/DL Phosphorus Level 2.2 MG/DL 2.8 MG/DL Magnesium Level 2.3 MG/DL 2.1 MG/DL Sodium Level 151 MEQ/L 149 MEQ/L Potassium Level 3.7 MEQ/L 3.5 MEQ/L Chloride Level 121 MEQ/L 119 MEQ/L Carbon Dioxide Level 21.3 MEQ/L 20.1 MEQ/L Anion Gap 9 MEQ/L 10 MEQ/L Estimat Glomerular Filtration Rate 65 ML/MIN 71 ML/MIN White Blood Count 6.4 TH/MM3 Red Blood Count 3.46 MIL/MM3 Hemoglobin 8.2 GM/DL Hematocrit 26.5 % Mean Corpuscular Volume 76.6 FL Mean Corpuscular Hemoglobin 23.6 PG Mean Corpuscular Hemoglobin Concent 30.9 % Red Cell Distribution Width 18.0 % Platelet Count 118 TH/MM3 Mean Platelet Volume 9.0 FL Neutrophils (%) (Auto) 66.5 % Lymphocytes (%) (Auto) 18.0 % Monocytes (%) (Auto) 13.3 % Eosinophils (%) (Auto) 1.7 % Basophils (%) (Auto) 0.5 % Neutrophils # (Auto) 4.3 TH/MM3 Lymphocytes # (Auto) 1.2 TH/MM3 Monocytes # (Auto) 0.9 TH/MM3 Eosinophils # (Auto) 0.1 TH/MM3 Basophils # (Auto) 0.0 TH/MM3 CBC Comment AUTO DIFF Differential Total Cells Counted 100 Neutrophils % (Manual) 60 % Band Neutrophils % 1 % Lymphocytes % 21 % Monocytes % 13 % Eosinophils % 2 % Neutrophils # (Manual) 4.1 TH/MM3 Metamyelocytes 1 % Myelocytes 1 % Promyelocytes 1 % Differential Comment FINAL DIFF MANUAL Platelet Estimate LOW Platelet Morphology Comment NORMAL Activated Partial Thromboplast Time 22.9 SEC Total Protein 6.3 GM/DL Albumin 1.8 GM/DL Alkaline Phosphatase 125 U/L Aspartate Amino Transf (AST/SGOT) 80 U/L Alanine Aminotransferase (ALT/SGPT) 37 U/L Total Bilirubin 0.2 MG/DL Lactic Acid Level 1.5 mmol/L Ammonia 21 MCMOL/L Amylase Level 126 U/L Lipase 1072 U/L Imaging Last 24 hours Impressions Chest X-Ray 06/08/17 0600 Signed Impressions: Service Date/Time: May 05:02 - CONCLUSION: No acute cardiopulmonary disease. Amber Pugh MD Assessment and Plan Problem List: (1) Cardiopulmonary arrest with successful resuscitation ICD Codes: I46.9 - Cardiac arrest, cause unspecified Status: Acute (2) Cocaine abuse ICD Codes: F14.10 - Cocaine abuse, uncomplicated Status: Acute (3) Respiratory failure ICD Codes: J96.90 - Respiratory failure, unspecified, unspecified whether with hypoxia or hypercapnia Assessment and Plan Second EEG again c/w severe anoxic encephalopathy. No new cardiac issues, no arrhythmias. Improvement of neuro status is unlikely. Prognosis very poor. Withdrawal of care should be considered. Ahmet Perez MD Jun 08, 2017 15:43
--- NOTE | 2017-06-08 17:34 | RADRPT ---
EXAM DATE/TIME: 06/08/2017 16:18 [facility] COMPARISON: No previous studies available for comparison. INDICATIONS : Increased Amylase/Lipase. MEDICAL HISTORY : Cardiopulmonary arrest. Substance use. Tobacco use. SURGICAL HISTORY : Unable to obtain. ENCOUNTER: Subsequent ACUITY: 4-6 days PAIN SCORE: Nonresponsive. LOCATION: Right upper quadrant MEASUREMENTS: LIVER: 18.9 cm length COMMON DUCT: 2 mm RIGHT KIDNEY: 11.2 x 5.2 x 5.2 cm FINDINGS: LIVER: Liver is mildly enlarged but demonstrates uniform echogenicity without evidence for intrahepatic duct al dilatation or significant focal mass. COMMON DUCT: No intraluminal mass or stone visualized. GALLBLADDER: There is borderline gallbladder wall thickening and questionable very subtle trace peripheral cystic fluid. No gallstones or definite sonographic Lee sign. PANCREAS: The visualized portions are within normal limits. CONCLUSION: 1. No cholelithiasis. However, there is borderline gallbladder wall thickening and subtle potential p ericholecystic fluid. This finding may be seen in the setting of chronic illness and chronic liver di sease. The differential considerations include cholecystitis, likely chronic. If there is significant concern regarding acute cholecystitis, HIDA scan may be performed to evaluate for cystic duct patenc y. 2. Mild hepatomegaly. 1. Ziggy Abdi MD on June 08, 2017 at 17:29 Board Certified Radiologist. This report was verified electronically.
[2017-06-08] MEDS: levETIRAcetam INJ 100 ML IV SCH (21:22)
[2017-06-09] VITALS (15 sets, daily range): BP systolic 112–142; BP diastolic 0–99; PULSE 91–132; RESP 14–16; TEMP 98–98.8; O2SAT 9–100
[2017-06-09] MEDS: POTASSIUM CHLORIDE INJ 20 MEQ, SODIUM CHLORIDE 23.4% INJ 38.5 MEQ in WATER STERILE FOR ... IV SCH (01:48)
[2017-06-09] MEDS: RESP: ALBUTEROL 2.5 MG/IPRATROPIUM 0.5 MG NEB (SCH) NEB ×4 (03:38→21:26)
[2017-06-09] MEDS: LORazepam 2 MG/ML VIAL IV PUSH PRN (03:43)
[2017-06-09 04:20] LABS: AUTOMATED NEUTROPHIL # 6.7 TH/MM3 (1.8-7.7); BASOPHIL % 0.6 % (0.0-2.0); EOSINOPHIL # 0.1 TH/MM3 (0-0.4); EOSINOPHIL % 1.7 % (0.0-4.0); HEMATOCRIT 27.3 % (35.0-46.0); HEMOGLOBIN 8.6 GM/DL (11.6-15.3); LYMPH % 14.2 % (9.0-44.0); LYMPHOCYTE # 1.3 TH/MM3 (1.0-4.8); MEAN CELL VOLUME 75.8 FL (80.0-100.0); MEAN CORPUSCULAR HEMOGLOBIN 23.9 PG (27.0-34.0); MEAN CORPUSCULAR HGB CONC 31.6 % (32.0-36.0); MONO % 7.6 % (0.0-8.0); MONOCYTE # 0.7 TH/MM3 (0-0.9); NEUT % 75.9 % (16.0-70.0); PLATELET COUNT 151 TH/MM3 (150-450); RED CELL DISTRIBUTION WIDTH 18.4 % (11.6-17.2); WHITE BLOOD COUNT 8.8 TH/MM3 (4.0-11.0)
[2017-06-09 04:42] LABS: ALBUMIN 1.9 GM/DL (3.4-5.0); ALT (GPT) 28 U/L (10-53); AST (GOT) 70 U/L (15-37); BICARBONATE 20.4 MEQ/L (21.0-32.0); BLOOD UREA NITROGEN 15 MG/DL (7-18); CALCIUM 8.9 MG/DL (8.5-10.1); CHLORIDE 118 MEQ/L (98-107); CREATININE 1.02 MG/DL (0.50-1.00); GLOMERULAR FILTRATION RATE 75 ML/MIN (>89); GLUCOSE,RANDOM 120 MG/DL (74-106); LIPASE 1074 U/L (73-393); SODIUM (NA) 150 MEQ/L (136-145)
[2017-06-09 04:46] LABS: ALKALINE PHOSPHATASE 151 U/L (45-117); PHOSPHORUS 2.7 MG/DL (2.5-4.9); TOTAL BILIRUBIN ADULT 0.1 MG/DL (0.2-1.0); TOTAL PROTEIN 6.3 GM/DL (6.4-8.2)
[2017-06-09] MEDS: oxyCODONE HCL ORAL CONC 5 MG/0.25 ML SYRINGE PO PRN (04:52)
[2017-06-09] MEDS: FREE WATER G-TUBE SCH ×6 (05:06→20:00)
[2017-06-09] MEDS: INSULIN NovoLIN REGULAR SUPPLEMENTAL SCALE SQ SCH ×4 (05:09→18:00)
[2017-06-09] MEDS: METOCLOPRAMIDE HCL 10 MG/2 ML VIAL IV PUSH SCH (05:42)
[2017-06-09] MEDS: HEPARIN SODIUM - SQ 10,000 UNITS/ML VIAL SQ SCH ×2 (05:45→18:00)
--- NOTE | 2017-06-09 05:57 | RADRPT ---
EXAM DATE/TIME: 06/09/2017 05:02 [facility] COMPARISON: CHEST SINGLE AP, June 08, 2017, 5:02. INDICATIONS : Respiratory failure post Cardiopulmonary Arrest MEDICAL HISTORY : None. SURGICAL HISTORY : None. ENCOUNTER: Subsequent ACUITY: 1 week PAIN SCORE: Non-responsive. LOCATION: Bilateral chest FINDINGS: Single AP view of the chest. Endotracheal tube and nasogastric tube in place. The lungs are clear. Ca rdiomediastinal silhouette within normal limits. No evidence of pleural effusion or pneumothorax. CONCLUSION: No acute cardiopulmonary disease identified. Noman Mercer MD on June 09, 2017 at 5:53 Board Certified Radiologist. This report was verified electronically.
[2017-06-09] MEDS ORDERED: MIDAZOLAM 100 MG/100 ML INJ 100 ML IV PRN (06:30)
[2017-06-09] MEDS ORDERED: fentaNYL DRIP 250 ML IV PRN (06:30)
--- NOTE | 2017-06-09 06:34 | HHI.CCPN ---
Subjective Remarks/Hospital Course This is a 37-year-old female with an unknown past medical history who presents after out of hospital cardiac arrest. Per EMS report, a friend found the patient altered with agonal respirations. Per report, the friend did not have any way of contacting 911, so the friend place the patient in a car and drove her to the nearest gas station to call 911. Upon EMS arrival, the patient was unresponsive, not breathing, and pulseless. Presenting rhythm was asystole. ACLS was initiated, 3 A of epinephrine, 1 amp of bicarbonate, 2 mg of Narcan and the patient had ROSC. Patient was transported to [facility] emergency Department. In emergency department, she had a decreased level of consciousness but was moving all 4 extremities spontaneously. Her GCS was 6 (E1 ,V1,M4). Her urine drug screen is positive for cocaine. I discussion with Dr. Yañez the ER physician, and we agree that given her young age and that she was witnessed with a pulse, that the potential benefits of therapeutic hypothermia outweigh the risks in this scenario. No additional information is available from the patient and we do not know of any family at this time. Patient was transported the CVICU and therapeutic hypothermia was initiated. 06/02: Currently on hypothermia protocol. Temperature 33C. Dignishield will be placed. Remains on multiple vasopressors. Troponin climbing with repeat ordered. Echocardiogram and a.m. EKG pending. 06/03: Rewarming process initiated early this a.m.. Patient was weaned off of vasopressors greater than 24 hours. Hemodynamically stable. Early this a.m. the patient noted was noted to have decrease in dorsalis pedis and posterior tibial pulses, now nonpalpable but dopplerable biphasic signals. Arterial Doppler studies pending. Right femoral triple-lumen central line removed. Chest x-ray was noted to have an infiltrate, sputum cultures are pending empiric antibiotics initiated. 06/04: Normothermic at 1930 .Sedation discontinued 1929 on 06/03. The patient remains encephalopathic at this time. She remains hemodynamically stable on no pressors. EEG pending at this time. The patient was noted to be slightly hypernatremic, IV fluids changed. ABIs were performed for slightly decreased pulse yesterday and right lower extremities bilateral ABIs slightly depressed pulses on the right remain dopplerable, biphasic. 06/05: Afebrile. No acute events overnight. Patient continues to be hypertensive scheduled PO labetalol 100 mg BID. Neurologically, the patient remains encephalopathic, EEG performed yesterday showed nearly flat line. CT pending this a.m.. Neurology has been consulted, patient has been off sedation for approximately 36 hours. 06/06 MRI pending. Off sedation. Not brain --> has spontaneous respirations when disconnected vent. Absent pupillary, corneal, oculocephalic and gag reflexes. No motor response to deep noxious stimuli. Had tonic clonic movements of BUE this morning that ceased with Ativan 2 mg IV. 06/07: Afebrile. Tube feeds currently at 30 cc an hour with Jevity 1.5. 200 cc stools per fecal containment device. Received lorazepam 2 mg IV for "tremors " overnight. He reveals diffuse encephalopathy with no epileptiform activity on 06/04 and 06/06. 06/08: Currently afebrile. Tube feeding currently goal at 40 cc now with Jevity 1.5. 600 cc stools per fecal containment device. MRI brain 06/07 showed diffuse signs of anoxic brain injury. SUBJECTIVE: 06/09: CURRENT TEMPERATURE 98.7. RN is complaining of "transmitted upper airway sounds". Chest x-ray revealed no acute cardio pulmonary findings. Do not appreciate on my examination. . The patient is tachycardia and tachypnea, with copious thick whitish secretions from ET tube. Tolerate tube feedings with positive bowel movement from fecal team device.. Objective Vital Signs Date Time Temp Pulse Resp B/P (MAP) Pulse Ox O2 Delivery O2 Flow Rate FiO2 06/09/17 04:02 99 30 06/09/17 03:00 98.7 115 15 142/99 (113) Intake and Output 06/09/17 06/09/17 06/10/17 08:00 16:00 00:00 Intake Total 553 ml Balance 553 ml Result Diagram: 06/09/17 0355 06/09/17 0355 Other Results Microbiology Date/Time Source Procedure Growth Status 06/02/17 17:10 Blood Peripheral Aerobic Blood Culture - Final NO GROWTH IN 5 DAYS Complete 06/02/17 17:10 Blood Peripheral Anaerobic Blood Culture - Final NO GROWTH IN 5 DAYS Complete 06/03/17 09:50 Sputum Endotracheal Gram Stain - Final Complete 06/03/17 09:50 Sputum Culture - Final Staphylococcus Aureus Beta Strep Not Group A Complete Imaging Last Impressions Chest X-Ray 06/09/17 0600 Signed Impressions: Service Date/Time: Friday, June 09, 2017 05:02 - CONCLUSION: No acute cardiopulmonary disease identified. Noman eMrcer MD Pancreas Ultrasound 06/08/17 0000 Signed Impressions: Service Date/Time: May 16:18 - CONCLUSION: 1. No cholelithiasis. However, there is borderline gallbladder wall thickening and subtle potential pericholecystic fluid. This finding may be seen in the setting of chronic illness and chronic liver disease. The differential considerations include cholecystitis, likely chronic. If there is significant concern regarding acute cholecystitis, HIDA scan may be performed to evaluate for cystic duct patency. 2. Mild hepatomegaly. 1. Ziggy Abdi MD Brain MRI 06/07/17 0000 Signed Impressions: Service Date/Time: Wednesday, June 07, 2017 15:41 - CONCLUSION: 1. There is some increased T2 flair signal in the distribution of the striatum bilaterally. Punctate areas of diffusion restriction in the globus pallidus. Findings may be indicative of some degree of anoxic brain injury. 2. Extensive chronic sinusitis bilaterally. Pelon Mazariegos MD Gall Bladder Ultrasound 06/02/17 0000 Signed Impressions: Service Date/Time: Friday, June 02, 2017 07:17 - CONCLUSION: 1. Although the gallbladder is well-distended I see no stones or sludge. There is a trace amount of ascitic fluid including pericholecystic fluid. 2. Questionable small right effusion. No effusion is seen on the recent CT scan. Howard Ricardo Jr., MD CT Angiography 06/02/17 0000 Signed Impressions: Service Date/Time: Friday, June 02, 2017 00:38 - CONCLUSION: No evidence of pulmonary embolism. Left lung perihilar infiltrate. Darrius Blandon MD Abdomen/Pelvis CT 06/02/17 0000 Signed Impressions: Service Date/Time: Friday, June 02, 2017 00:43 - CONCLUSION: Nonspecific distention of bowel. Nonspecific abnormal appearance of the gallbladder. Darrius Blandon MD Head CT 06/01/17 2014 Signed Impressions: Service Date/Time: Friday, June 02, 2017 00:29 - CONCLUSION: No acute intracranial process Darrius Blandon MD Objective Remarks GENERAL: 37-year-old AA female currently orotracheally intubated HEENT: Normocephalic. Atraumatic. Pupils 1-2 mm bilaterally and nonreactive. Scleral edema noted with some erythema NECK: Trachea is midline. There is no JVD. CHEST: Symmetrical chest rise. Clear to auscultation bilaterally. No wheezes Rales or rhonchi. CARDIOVASCULAR: Tachycardic, RR. S1, S2 no S4. Without murmur ABDOMEN: Soft, nontender, nondistended. Bowel sounds present. Fecal containment device with brown liquid stool MUSCULOSKELETAL: Pulses 2+ bilateral radial and posterior tibialis. No peripheral edema. NEUROLOGICAL: No eye opening. Pupils 1-2 mm but nonreactive. No corneal reflex. No gag. Positive cough. +Spontaneous respirations/having spontaneous respirations over the current ventilator settings. No motor response to deep noxious stimuli. Negative Babinski. No clonus. Urinary Catheter: Yes Assessment to: Continue Cochran insert reason: Prolonged Immobilization Date of Insertion: Jun 01, 2017 Date of Removal: Jun 03, 2017 Line: Central Venous Catheter Side: Right Location: Femoral A/P Assessment and Plan Neuro/Psych: Acute hypoxic ischemic encephalopathy Toxic encephalopathy - multifactorial Cocaine overdose EtOH abuse Seizure Status post induced therapeutic hypothermia. Active rewarming 06/06. Sedation discontinued 06/03 at 1930, close monitoring for responsiveness Neurochecks per ICU protocol CT brain admission 06/01 revealed no acute intracranial findings 06/04 EEG -. Severe encephalopathy with nearly flat line appearance. 06/06 EEG - severe encephalopathy with no epileptic activity 06/04 ammonia level- 10 Continue thiamine 100 mg daily, folate 1 mg daily and multivitamin 1 tablet daily with EtOH use by history MRI brain 06/07 - increased T2 flair signal in the distribution of the striatum bilaterally. Punctate areas of diffusion restriction in the globus pallidus. Findings may be indicative of some degree of anoxic brain injury. Extensive chronic sinusitis bilaterally. Currently on levetiracetam 1000 mg IV twice a day per neurology's recommendations. Fosphenytoin discontinued Neurology consult/Dr. White Midazolam drip/fentanyl drip as indicated to maintain RA SS of 0 Currently on midazolam 2 mg every 1 hour when necessary severe agitation Fentanyl 50 mics grams every one hour as needed pain Oxycodone 5 mg liquid every 4 hours when necessary pain 1-10/agitation Neurology 06/08 initiated levetiracetam 1000 mg IV twice a day - thought process can sometimes help post-hypoxic myoclonus Fosphenytoin discontinued Respiratory: Acute hypoxic and hypercarbic respiratory failure ACV 15/500//30 Vent bundle Head of bed 30 Albuterol/ipratropium aerosols every 6 hours with albuterol aerosols every 2 hours as needed Hypertonic saline 3% aerosols 2 mL every 6 hours for mucus thinning Guaifenesin 400 mg by tube every 8 hours Wean FiO2 for goal SPO2 greater than 92% CT pulmonary angiogram 06/01: Negative for acute PE and possible left lower lobe infiltrate Current Mental status barrier to extubation Chest x-ray 06/09 revealed no acute cardio pulmonary findings Status post bronchoscopy 06/09. Please defer to procedure note Cardiovascular: Status post out of hospital cardiac arrest Cardiogenic shock (resolved) NSTEMI Lactic acidosis-resolved Elevated HDL Goal mean arterial pressure greater than 65 Cardiology/Dr. Perez has evaluated and no plans for further workup at this time due to extremely poor neurologic prognosis 06/03 2D echo - The left ventricular systolic function is mildly reduced with an estimated ejection fraction of 45%. Normal left ventricular size. Wall thickness is normal. No regional wall motion abnormalities are present. Mild mitral valve regurgitation. Mild aortic sclerosis. Trace aortic valve regurgitation. Amiodarone infusion discontinued 06/02 secondary to the patient having elevated LFTs. The patient remains in normal sinus rhythm, hemodynamically stable on no vasopressors 06/03- arterial Doppler studies. Slight depression MILES 0.8 bilaterally. Biphasic Doppler signals right DP, PT Currently off all vasopressors. Schedule labetalol 200 mg twice a day As needed labetalol/hydralazine Nitropaste for blood pressure greater than 160 Renal/FEN/: Acute kidney injury - resolved Hypernatremia Creatinine currently within normal limits Maintain Cochran for accurate I's and O's Currently on Jevity 1.5 goal 40 cc an hours per nutrition's recommendations Free water 200 cc every 4 hours Currently on one quarter normal saline with 20 mEq KCl at 50 cc an hour. Will discontinue 06/09 Maintain Cochran catheter Check BMP/mag and phosphorus in a.m. 06/10 GI: Elevated AST/alkaline phosphatase Diarrhea NOS Hypoalbuminemia Elevated amylase/lipase - 1074 06/02 Fecal containment device placed CT abdomen/pelvis revealed a nonspecific bowel gas pattern with dilated bowel loops and abnormal gallbladder appearance. 06/02 gallbladder ultrasound- distended gallbladder pancreatic ultrasound - borderline gallbladder wall thickening. Pericholecystic fluid. HIDA scan ordered for today 06/09 LFTs downtrending. Tolerating Jevity 1.5 @40 mL per hour. Advance as tolerated to goal rate of 40 mL per hour per nutrition recommendations Lansoprazole 30 mm by tube daily for GI prophylaxis No bowel regimen secondary to ongoing diarrhea. C. difficile - -06/03 ASSEMBLER SEAT: Patient is actively menstruating. Change sanitary pads as needed Beta hCG 1 Heme/ID: Microcytic anemia Community-acquired pneumonia Blood culture- NGTD 06/04Sputum culture MSSA, betastrep. C. difficile negative Empiric antibiotics initiated secondary to left lung base developing opacity- possibly secondary to aspiration. Has been on cefepime, azithromycin and vancomycin 06/03- Currently on cefazolin 1 g IV every 8 hours Recheck sputum today with bronchoscopy 06/09. Culture sent Endocrine: Hyperglycemia of critical illness -- SSI Novolog , medium scale, every 6hr. 0 units provided past 24 hours TSH normal 1.74 Prophylaxis: GI Prophylaxis Lansoprazole 30 mg daily DVT Prophylaxis -- SCDs Subcutaneous heparin 5000 units twice a day Lines: 06/01 right femoral triple-lumen catheter placed in the emergency department by the emergency room [id number] 06/02 right radial arterial line - d/c 06/07 06/02 left femoral code cool catheter - d/c 06/06. Level II follow-up Felipe Dorantes MD Jun 09, 2017 06:34
[2017-06-09] MEDS ORDERED: MIDAZOLAM HCL 5 MG/ML VIAL (1 ML) ONE (06:43)
[2017-06-09] MEDS ORDERED: ROCURONIUM INJ 50 MG/5 ML VIAL IV ONE (06:45)
[2017-06-09] MEDS ORDERED: MIDAZOLAM HCL 2 MG/2 ML VIAL IV PUSH ONE (06:45)
--- NOTE | 2017-06-09 07:23 | PD.PROCEDR ---
Procedure Note Procedure DATE: 06/09/2017 BRONCHOSCOPY WITH BRONCHOALVEOLAR LAVAGE: INDICATION: Respiratory failure, possible mucus plugging CONSENT Informed consent for procedure was not obtained due to no healthcare proxy and current medical condition and considered emergent DESCRIPTION OF THE PROCEDURE The patient was placed in supine position. Patient is currently on ACV 12/500/ 5/100%. Patient received 25 g fentanyl, 2 mg midazolam and 50 mg rocuronium. I placed the flexible bronchoscopy via 7.5 ET tube. This was advanced to the ferdinand. We surveyed the left side first. The bronchoscope was advanced to left lower lobe and wedged in the left lower lobe segment. A alveolar lavage specimen was taken. Thick white mucus plugging was aspirated and was suctioned and collected in a Lukens trap and was set aside. The mucosa was normal without erythema or edema. No masses and no bleeding were appreciated. We then advanced the bronchoscope into the right upper lobe. The bronchus was wedged additional alveolar lavage was taken. Thick white mucus plus or suctioned and collected in a Lukens trap and set aside. We surveyed the right middle and right lower lobe. In alveolar lavage was taken in the right middle lobe and right lower lobe/multiple with thick white mucous plugs removed. The mucosa was normal without erythema or edema. No masses or bleeding were appreciated. Reevaluated left and right bronchus the bronchoscope was withdrawn. Saturations remained above 99% all times. ESTIMATED BLOOD LOSS: Minimal COMPLICATIONS: No apparent complications. STAT chest x-ray pending at time of dictation Felipe Dorantes MD Jun 09, 2017 07:23
[2017-06-09] MEDS ORDERED: MIDAZOLAM HCL 2 MG/2 ML VIAL IV PUSH PRN (07:30)
[2017-06-09 07:41] LABS: BANDS 4 % (0-6); LYMPHOCYTES 11 % (9-44); METAMYELOCYTES 1 % (0-1); MONOCYTES 8 % (0-8); MYELOCYTES 3 % (0-0); POLYS (SEG NEUTROPHILS) 71 % (16-70)
--- NOTE | 2017-06-09 07:49 | RADRPT ---
EXAM DATE/TIME: 06/09/2017 07:23 [facility] COMPARISON: CHEST SINGLE AP, June 09, 2017, 5:02. INDICATIONS : S/P bronchoscopy. Respiratory failure status post cardiac arrest. MEDICAL HISTORY : None. SURGICAL HISTORY : None. ENCOUNTER: Initial ACUITY: 1 day PAIN SCORE: Non-responsive. LOCATION: Bilateral chest FINDINGS: A single AP portable supine view the chest was obtained and again demonstrates an endotracheal tube i n place with the tip 3 cm above the ferdinand. The nasogastric tube remains in place with the tip in the stomach. No confluent infiltrates or effusions are present. The heart and mediastinal structures rem ain within normal limits. There is no perihilar edema. The bony thorax remains intact. There are mult iple overlying electrocardiogram leads and oxygen tubing. CONCLUSION: 1. The patient remains intubated and a nasogastric tube remains in place. 2. No acute cardiopulmonary disease. Gasper Mcgrath MD on June 09, 2017 at 7:43 Board Certified Radiologist. This report was verified electronically.
[2017-06-09] MEDS: DOCUSATE SODIUM 100 MG/10 ML UDC PO SCH ×2 (08:27→20:14)
[2017-06-09] MEDS: CHLORHEXIDINE 0.12% (ORAL KIT) 15 ML CUP OROPHARYNG SCH ×2 (08:27→20:13)
[2017-06-09] MEDS: LABETALOL HCL 200 MG TAB PO SCH ×2 (08:28→20:13)
[2017-06-09] MEDS: levETIRAcetam INJ 100 ML IV SCH ×2 (08:28→20:14)
[2017-06-09] MEDS: THIAMINE HCL 100 MG TAB PO SCH (08:29)
[2017-06-09] MEDS: FOLIC ACID 1 MG TAB PO SCH (08:29)
[2017-06-09] MEDS: ARTIFICIAL TEARS OPTH SOLN 15 ML BTL EACH EYE SCH ×3 (08:29→17:27)
[2017-06-09] MEDS: SODIUM CHLORIDE 0.9% FLUSH 10 ML FLUSH IV FLUSH PRN (08:29)
--- NOTE | 2017-06-09 08:35 | HHI.PR ---
Review/Management Diagnosis/Plan: (1) Anoxic encephalopathy ICD Codes: G93.1 - Anoxic brain damage, not elsewhere classified Status: Acute Plan: 06/01 arrest 06/03 rewarming started and sedation weaned off appears to have severe cortical injury with impaired brainstem reflexes eeg- almost flat line type appearance asystole of undetermined length of time stimulus sensitive involuntary movements repeat eeg 06/06- no sz activity mri brain reviewed- diffuse cortical and subcortical areas of increased dwi and flair signal indicative of global hypoxic injury recs day 8 post-arrest prognosis appears poor for meaningful neurological recovery based on exam, eeg and mri findings palliative care following- appreciate their assistance will follow peripherally d/w rn (2) Cocaine abuse ICD Codes: F14.10 - Cocaine abuse, uncomplicated Status: Acute (3) Asystole ICD Codes: I46.9 - Cardiac arrest, cause unspecified Status: Acute Plan: 06/01/2017 out of hospital arrest Subjective Subjective Comments No acute events reported Active Medications Current Medications Medications (Trade) Dose Ordered Sig/Sidney Route Start Time Stop Time Status Last Admin Miscellaneous Information ml @ 0 mls/hr UNSCH IV 06/02/17 02:30 (NS Flush) 2 ml UNSCH PRN IV FLUSH 06/02/17 02:30 06/09/17 08:29 (NS Flush) 2 ml UNSCH PRN IV FLUSH 06/02/17 02:30 06/07/17 20:46 (Peridex 0.12% Liq) 15 ml BID@08,20 OROPHARYNG 06/02/17 08:00 06/09/17 08:27 (Tears Naturale Opth Soln) 1 drop TID EACH EYE 06/02/17 09:00 06/09/17 08:29 (Zofran Inj) 4 mg Q6H PRN IV PUSH 06/02/17 02:45 (Heparin Inj) 5,000 units Q12H SQ 06/02/17 06:00 06/09/17 05:45 Potassium Chloride 100 ml @ 50 mls/hr Q2H PRN IV 06/02/17 03:00 Potassium Chloride 100 ml @ 50 mls/hr Q2H PRN IV 06/02/17 03:00 06/07/17 08:41 (K-Lyte Cl Eff) 50 meq UNSCH PRN PO 06/02/17 03:00 Potassium Chloride 100 ml @ 25 mls/hr UNSCH PRN IV 06/02/17 03:00 06/05/17 05:23 Potassium Chloride 100 ml @ 50 mls/hr Q2H PRN IV 06/02/17 03:00 Magnesium Sulfate 4 gm/Sodium Chloride 100 ml @ 50 mls/hr UNSCH PRN IV 06/02/17 03:00 (Mag-Ox) 800 mg UNSCH PRN PO 06/02/17 03:00 Magnesium Sulfate 2 gm/Sodium Chloride 100 ml @ 50 mls/hr UNSCH PRN IV 06/02/17 03:00 (K-Phos) 2,000 mg Q4H PRN PO 06/02/17 03:00 Sodium Phosphate 30 mmol/Sodium Chloride 250 ml @ 42 mls/hr UNSCH PRN IV 06/02/17 03:00 (K-Phos) 2,000 mg UNSCH PRN PO/TUBE 06/02/17 03:00 Potassium Phosphate 30 mmol/ Sodium Chloride 260 ml @ 42 mls/hr UNSCH PRN IV 06/02/17 03:00 (D50w (Vial) Inj) 25 ml UNSCH PRN IV PUSH 06/02/17 03:00 (NovoLIN R SUPPLEMENTAL SCALE) 1 Q6HR SQ 06/02/17 06:00 06/02/17 12:10 (Albuterol Neb) 2.5 mg Q2HR NEB PRN NEB 06/02/17 06:15 06/07/17 04:02 (Folate) 1 mg DAILY PO 06/02/17 09:00 06/09/17 08:29 (Theragran) 1 tab DAILY PO 06/02/17 09:00 06/06/17 08:56 (Trandate Inj) 10 mg Q1HR PRN IV PUSH 06/02/17 15:00 Future Hold 06/04/17 04:18 (Apresoline Inj) 10 mg Q1HR PRN IV PUSH 06/02/17 15:00 06/05/17 14:30 (Nitroglycerin 2% Oint) 2 inch Q6HR PRN TOPICAL 06/02/17 15:00 (Trandate Inj) 10 mg Q1H PRN IV PUSH 06/04/17 12:15 06/08/17 15:34 Cefazolin Sodium 1000 mg/Sodium Chloride 100 ml @ 200 mls/hr Q8H IV 06/06/17 09:00 06/09/17 08:28 (fentaNYL INJ) 50 mcg Q1H PRN IV PUSH 06/06/17 14:45 06/09/17 07:29 (Roxicodone Intensol Liq) 5 mg Q4H PRN PO 06/07/17 08:45 06/09/17 04:52 (Duoneb Neb) 1 ampule Q6HR NEB NEB 06/07/17 10:00 06/09/17 03:38 (Vitamin B1) 100 mg DAILY PO 06/07/17 09:00 06/09/17 08:29 (Colace Liq) 100 mg Q12HR PO 06/07/17 09:00 06/09/17 08:27 Levetriacetam 100 ml @ 400 mls/hr Q12H IV 06/08/17 21:00 06/09/17 08:28 (Trandate) 200 mg Q12HR PO 06/09/17 09:00 06/09/17 08:28 Midazolam HCl 100 ml @ 2 mls/hr TITRATE PRN IV 06/09/17 06:30 Fentanyl Citrate 250 ml @ 5 mls/hr TITRATE PRN IV 06/09/17 06:30 (Sodium Chloride 3% Neb) 2 ml Q6HR NEB NEB 06/09/17 10:00 06/14/17 09:59 (Robitussin Liq) 400 mg Q8HR OG-TUBE 06/09/17 14:00 (Free Water) VOLUME: 200 ML Q4HR G-TUBE 06/09/17 08:00 06/09/17 08:00 Sodium Chloride 38.5 meq/Sterile Water 1,009.625 ml @ 200 mls/hr Q5H3M IV 06/09/17 09:00 06/09/17 14:02 06/09/17 08:27 (Versed Inj) 2 mg Q1H PRN IV PUSH 06/09/17 07:30 (Prevacid Odt) 30 mg DAILY NG 06/09/17 09:00 (Reglan Inj) 5 mg Q8HR PRN IV PUSH 06/09/17 08:00 UNV Allergies Allergies Coded Allergies No Allergy Information Available ([id number]/21/17) Review of Systems All other ROS: Unable to obtain Exam I&O / VS Vital Signs Date Time Temp Pulse Resp B/P (MAP) Pulse Ox O2 Delivery O2 Flow Rate FiO2 06/09/17 08:30 14 06/09/17 07:26 99 35 06/09/17 07:24 99 100 06/09/17 07:00 100 100 06/09/17 06:23 18 06/09/17 04:02 99 30 06/09/17 03:00 98.7 115 15 142/99 (113) 99 06/09/17 03:00 30 06/09/17 03:00 110 06/09/17 00:45 99 30 06/08/17 23:00 110 06/08/17 23:00 30 06/08/17 23:00 98.5 111 14 143/100 (114) 97 06/08/17 22:00 98 30 06/08/17 20:15 98 30 06/08/17 20:00 06/08/17 19:00 98.3 105 14 153/106 (122) 98 06/08/17 19:00 105 06/08/17 19:00 30 06/08/17 16:36 98 30 06/08/17 15:00 30 06/08/17 15:00 97.8 99 12 152/112 (125) 97 06/08/17 15:00 100 06/08/17 11:00 97.5 91 12 131/100 (110) 98 Arterial Line 06/08/17 11:00 30 06/08/17 11:00 96 06/08/17 10:49 97 30 Exam Comments intubated. non-verbal, not following, ou 2mm nr, no corneal, no blink to threat , weak doll's, mild gag but can generate own breath, no ext movement with tactile, no involuntary movements, planterflexor Objective Micro and Labs Laboratory Tests Test 06/09/17 03:55 06/09/17 07:07 White Blood Count 8.8 Red Blood Count 3.60 Hemoglobin 8.6 Hematocrit 27.3 Mean Corpuscular Volume 75.8 Mean Corpuscular Hemoglobin 23.9 Mean Corpuscular Hemoglobin Concent 31.6 Red Cell Distribution Width 18.4 Platelet Count 151 Mean Platelet Volume 9.0 Neutrophils (%) (Auto) 75.9 Lymphocytes (%) (Auto) 14.2 Monocytes (%) (Auto) 7.6 Eosinophils (%) (Auto) 1.7 Basophils (%) (Auto) 0.6 Neutrophils # (Auto) 6.7 Lymphocytes # (Auto) 1.3 Monocytes # (Auto) 0.7 Eosinophils # (Auto) 0.1 Basophils # (Auto) 0.0 CBC Comment AUTO DIFF Differential Total Cells Counted 100 Neutrophils % (Manual) 71 Band Neutrophils % 4 Lymphocytes % 11 Monocytes % 8 Eosinophils % 2 Neutrophils # (Manual) 7.0 Metamyelocytes 1 Myelocytes 3 Differential Comment FINAL DIFF MANUAL Platelet Estimate NORMAL Platelet Morphology Comment NORMAL Blood Urea Nitrogen 15 Creatinine 1.02 Random Glucose 120 Total Protein 6.3 Albumin 1.9 Calcium Level 8.9 Phosphorus Level 2.7 Magnesium Level 2.0 Alkaline Phosphatase 151 Aspartate Amino Transf (AST/SGOT) 70 Alanine Aminotransferase (ALT/SGPT) 28 Total Bilirubin 0.1 Sodium Level 150 Potassium Level 4.0 Chloride Level 118 Carbon Dioxide Level 20.4 Anion Gap 12 Estimat Glomerular Filtration Rate 75 Lactic Acid Level 1.5 Ammonia 22 Total Creatine Kinase 137 Lipase 1074 Date/Time Source Procedure Growth Status 06/02/17 17:10 Blood Peripheral Aerobic Blood Culture - Final NO GROWTH IN 5 DAYS Complete 06/02/17 17:10 Blood Peripheral Anaerobic Blood Culture - Final NO GROWTH IN 5 DAYS Complete 06/09/17 07:07 Bronchial Washings Right Upper Lobe Fungal Smear Pending Received 06/09/17 07:07 Bronchial Washings Right Upper Lobe Fungal Culture Pending Received Jg White MD Jun 09, 2017 08:35
[2017-06-09] MEDS ORDERED: METOCLOPRAMIDE HCL 10 MG/2 ML VIAL IV PUSH PRN (08:45)
[2017-06-09] MEDS: LANSOPRAZOLE SOLUTAB 30 MG TAB NG SCH (09:00)
[2017-06-09] MEDS ORDERED: SODIUM CHLORIDE 23.4% INJ 38.5 MEQ in WATER STERILE FOR INJ 1,000 ML IV SCH (09:00)
[2017-06-09] MEDS: MULTIVITAMIN TAB PO SCH (09:00)
[2017-06-09] MEDS: RESP: SODIUM CHLORIDE 3% 4 ML NEB NEB SCH ×3 (10:00→21:26)
--- NOTE | 2017-06-09 11:49 | HHI.HCPN ---
Reason for visit a. To assist with evaluation and management of symptoms including: Dyspnea, encephalopathy b. To assist medical decision maker(s) with: better understanding of current medical conditions; weighing benefits/burdens of medical treatment options; making medical treatment decisions. Subjective/Interval History Pt seen today to follow up on comfort, possible decision maker. Stable overnight in ICU- not requiring pressors. No improvement in neurological status. Repeat EEG in process at time of my initial visit (unable to examine pt during EEG as to not cause interference) .Poor prognosis per neurology. Lipase elevated, HIDA scan ordered today. S/p bronchoscopy earlier today for mucous plugging. 1330 Returned to unit later to examine pt- she is now off unit for imaging. Significant other Max arrives while I am there. Spoke w him briefly. He indicates he has known pt 20-25 years. He tells me they were engaged to get . He tells me her son last year from "[place]" he was found on the street , he thinks he was 20 or 19. He tells me he can be called if she needs anything. Advise that she is still in serious condition and that we are in the process of trying to identify possible decision maker for pt. 1530 return later to examine pt. She is nonresponsive to exam. hemodynamically stable. D/w nursing. HIDA scan neg for obstruction DECISION MAKER: accurint findings=possible name /number Tawanda Adrian . I called this # VM left requesting call back to determine if related to pt 06/08/17. I called this number again, reached Ms Lillie Almendarez, she is NOT related to this pt, should not be contacted further. As of 06/09 morning, I have not heard back from pt significant other Max. Hospital Searches have not located parents. Would determine if ex-spouse wishes to serve as proxy. If close friend does not wish to serve as proxy then would recommend proceed w [employer] consultation to assist w decision making. 11am I left message for Fredrick (ex spouse) to call me back RE serving as HCP. Awaiting call back. If he does NOT wish to serve, then should explore if Max wishes to serve before pursuing [employer]. . Advance Directives Living Will: Never completed Health Care Surrogate: Never completed Durable Power of Parachute Packer: Never completed Objective Vital Signs Date Time Temp Pulse Resp B/P (MAP) Pulse Ox O2 Delivery O2 Flow Rate FiO2 06/09/17 08:30 14 06/09/17 08:00 35 06/09/17 08:00 98.8 132 14 125/93 (104) 98 06/09/17 08:00 132 06/09/17 07:26 99 35 06/09/17 07:24 99 100 06/09/17 07:00 100 100 06/09/17 06:23 18 06/09/17 04:02 99 30 06/09/17 03:00 98.7 115 15 142/99 (113) 99 06/09/17 03:00 30 06/09/17 03:00 110 06/09/17 00:45 99 30 06/08/17 23:00 110 06/08/17 23:00 30 06/08/17 23:00 98.5 111 14 143/100 (114) 97 06/08/17 22:00 98 30 06/08/17 20:15 98 30 06/08/17 20:00 06/08/17 19:00 98.3 105 14 153/106 (122) 98 06/08/17 19:00 105 06/08/17 19:00 30 06/08/17 16:36 98 30 06/08/17 15:00 30 06/08/17 15:00 97.8 99 12 152/112 (125) 97 06/08/17 15:00 100 Intake & Output 06/09/17 06/09/17 07:00 19:00 Intake Total 1466 ml Output Total 2190 ml Balance -724 ml Intake Oral 0 ml IV Total 653 ml Tube Feeding 413 ml Other 400 ml Output Urine Total 2165 ml Stool Total 25 ml # Bowel Movements 0 Physical Exam CONSTITUTIONAL/GENERAL: This is an adequately nourished patient, nonresponsive on mechanical vent TUBES/LINES/DRAINS: PIV BUE, ET tube, NG tube, Cochran catheter, rectal drain SKIN: No jaundice, rashes, or lesions. No wounds seen anteriorly. Skin temperature warm, dry. Nails long, broken and uneven. EYES: Pupils 2 mm no reaction to light. No corneal reflex. Slight periorbital edema. No injection or drainage. Fundi not examined. CARDIOVASCULAR: Regular rate and rhythm without murmur. Peripheral pulses faint. 2-3+ Edema to upper extremities. RESPIRATORY/CHEST: Symmetric, unlabored respirations via mechanical vent. Over breathes over ventilator rate. Clear, diminished. Equal bilaterally. GASTROINTESTINAL: Abdomen soft, nondistended. Unable to determine tenderness secondary to nonresponsiveness. No palpable masses. Bowel sounds hypoactive. Tube feed on hold. loose stool via rectal drain GENITOURINARY: Without palpable bladder distension. Cochran catheter in place. MUSCULOSKELETAL: Extremities without clubbing, cyanosis. 2-3+Edema to upper extremities. No mottling or clubbing. NEUROLOGICAL: Not currently on sedation, nonresponsive to exam--no withdrawal to pain stimuli to extremities, no corneal or pupil reflex, no eye opening. PSYCHIATRIC: Limited assessment due to clinical condition Diagnostic Tests Laboratory Laboratory Tests Test 06/06/17 21:30 06/07/17 04:15 06/07/17 09:48 06/07/17 17:45 Hemoglobin 7.8 GM/DL (11.6-15.3) 7.9 GM/DL (11.6-15.3) Hematocrit 25.0 % (35.0-46.0) 25.7 % (35.0-46.0) Sodium Level 152 MEQ/L (136-145) 152 MEQ/L (136-145) 151 MEQ/L (136-145) Vancomycin Level Trough 5.3 MCG/ML (5.0-10.0) White Blood Count 5.1 TH/MM3 (4.0-11.0) Red Blood Count 3.38 MIL/MM3 (4.00-5.30) Mean Corpuscular Volume 76.0 FL (80.0-100.0) Mean Corpuscular Hemoglobin 23.4 PG (27.0-34.0) Mean Corpuscular Hemoglobin Concent 30.8 % (32.0-36.0) Red Cell Distribution Width 18.5 % (11.6-17.2) Platelet Count 99 TH/MM3 (150-450) Mean Platelet Volume 8.0 FL (7.0-11.0) Neutrophils (%) (Auto) 54.4 % (16.0-70.0) Lymphocytes (%) (Auto) 25.6 % (9.0-44.0) Monocytes (%) (Auto) 18.2 % (0.0-8.0) Eosinophils (%) (Auto) 1.6 % (0.0-4.0) Basophils (%) (Auto) 0.2 % (0.0-2.0) Neutrophils # (Auto) 2.8 TH/MM3 (1.8-7.7) Lymphocytes # (Auto) 1.3 TH/MM3 (1.0-4.8) Monocytes # (Auto) 0.9 TH/MM3 (0-0.9) Eosinophils # (Auto) 0.1 TH/MM3 (0-0.4) Basophils # (Auto) 0.0 TH/MM3 (0-0.2) CBC Comment AUTO DIFF Differential Total Cells Counted 100 Neutrophils % (Manual) 54 % (16-70) Band Neutrophils % 13 % (0-6) Lymphocytes % 17 % (9-44) Monocytes % 13 % (0-8) Eosinophils % 2 % (0-4) Neutrophils # (Manual) 3.5 TH/MM3 (1.8-7.7) Metamyelocytes 1 % (0-1) Differential Comment FINAL DIFF MANUAL Atypical Lymphocytes % (0-0) Platelet Estimate LOW (NORMAL) Platelet Morphology Comment ENLARGED (NORMAL) Blood Urea Nitrogen 19 MG/DL (7-18) 14 MG/DL (7-18) Creatinine 1.18 MG/DL (0.50-1.00) 1.15 MG/DL (0.50-1.00) Random Glucose 112 MG/DL (74-106) 118 MG/DL (74-106) Calcium Level 8.3 MG/DL (8.5-10.1) 8.4 MG/DL (8.5-10.1) Phosphorus Level 2.9 MG/DL (2.5-4.9) 2.2 MG/DL (2.5-4.9) Magnesium Level 1.9 MG/DL (1.5-2.5) 2.3 MG/DL (1.5-2.5) Potassium Level 3.1 MEQ/L (3.5-5.1) 3.7 MEQ/L (3.5-5.1) Chloride Level 121 MEQ/L (98-107) 121 MEQ/L (98-107) Carbon Dioxide Level 21.7 MEQ/L (21.0-32.0) 21.3 MEQ/L (21.0-32.0) Anion Gap 9 MEQ/L (5-15) 9 MEQ/L (5-15) Estimat Glomerular Filtration Rate 63 ML/MIN (>89) 65 ML/MIN (>89) Phenytoin (Dilantin) Level 10.1 MCG/ML (10.0-20.0) Blood Gas Puncture Site ART LINE Blood Gas Patient Temperature 98.6 Blood Gas HCO3 20 mmol/L (22-26) Blood Gas Base Excess -3.4 mmol/L (-2-2) Blood Gas Oxygen Saturation 96 % (90-100) Arterial Blood pH 7.45 (7.380-7.420) Arterial Blood Partial Pressure CO2 30 mmHg (38-42) Arterial Blood Partial Pressure O2 118 mmHg (61-120) Arterial Blood Oxygen Content 11.7 Vol % (12.0-20.0) Arterial Blood Carboxyhemoglobin 0.9 % (0-4) Arterial Blood Methemoglobin 1.2 % (0-2) Blood Gas Hemoglobin 8.5 G/DL (12.0-16.0) Oxygen Delivery Device VENTILATOR Blood Gas Ventilator Setting 15/500/+30 Blood Gas Inspired Oxygen 30 % Test 06/08/17 05:35 06/09/17 03:55 06/09/17 07:07 White Blood Count 6.4 TH/MM3 (4.0-11.0) 8.8 TH/MM3 (4.0-11.0) Red Blood Count 3.46 MIL/MM3 (4.00-5.30) 3.60 MIL/MM3 (4.00-5.30) Hemoglobin 8.2 GM/DL (11.6-15.3) 8.6 GM/DL (11.6-15.3) Hematocrit 26.5 % (35.0-46.0) 27.3 % (35.0-46.0) Mean Corpuscular Volume 76.6 FL (80.0-100.0) 75.8 FL (80.0-100.0) Mean Corpuscular Hemoglobin 23.6 PG (27.0-34.0) 23.9 PG (27.0-34.0) Mean Corpuscular Hemoglobin Concent 30.9 % (32.0-36.0) 31.6 % (32.0-36.0) Red Cell Distribution Width 18.0 % (11.6-17.2) 18.4 % (11.6-17.2) Platelet Count 118 TH/MM3 (150-450) 151 TH/MM3 (150-450) Mean Platelet Volume 9.0 FL (7.0-11.0) 9.0 FL (7.0-11.0) Neutrophils (%) (Auto) 66.5 % (16.0-70.0) 75.9 % (16.0-70.0) Lymphocytes (%) (Auto) 18.0 % (9.0-44.0) 14.2 % (9.0-44.0) Monocytes (%) (Auto) 13.3 % (0.0-8.0) 7.6 % (0.0-8.0) Eosinophils (%) (Auto) 1.7 % (0.0-4.0) 1.7 % (0.0-4.0) Basophils (%) (Auto) 0.5 % (0.0-2.0) 0.6 % (0.0-2.0) Neutrophils # (Auto) 4.3 TH/MM3 (1.8-7.7) 6.7 TH/MM3 (1.8-7.7) Lymphocytes # (Auto) 1.2 TH/MM3 (1.0-4.8) 1.3 TH/MM3 (1.0-4.8) Monocytes # (Auto) 0.9 TH/MM3 (0-0.9) 0.7 TH/MM3 (0-0.9) Eosinophils # (Auto) 0.1 TH/MM3 (0-0.4) 0.1 TH/MM3 (0-0.4) Basophils # (Auto) 0.0 TH/MM3 (0-0.2) 0.0 TH/MM3 (0-0.2) CBC Comment AUTO DIFF AUTO DIFF Differential Total Cells Counted 100 100 Neutrophils % (Manual) 60 % (16-70) 71 % (16-70) Band Neutrophils % 1 % (0-6) 4 % (0-6) Lymphocytes % 21 % (9-44) 11 % (9-44) Monocytes % 13 % (0-8) 8 % (0-8) Eosinophils % 2 % (0-4) 2 % (0-4) Neutrophils # (Manual) 4.1 TH/MM3 (1.8-7.7) 7.0 TH/MM3 (1.8-7.7) Metamyelocytes 1 % (0-1) 1 % (0-1) Myelocytes 1 % (0-0) 3 % (0-0) Promyelocytes 1 % (0-0) Differential Comment FINAL DIFF MANUAL FINAL DIFF MANUAL Platelet Estimate LOW (NORMAL) NORMAL (NORMAL) Platelet Morphology Comment NORMAL (NORMAL) NORMAL (NORMAL) Activated Partial Thromboplast Time 22.9 SEC (24.3-30.1) Blood Urea Nitrogen 14 MG/DL (7-18) 15 MG/DL (7-18) Creatinine 1.06 MG/DL (0.50-1.00) 1.02 MG/DL (0.50-1.00) Random Glucose 115 MG/DL (74-106) 120 MG/DL (74-106) Total Protein 6.3 GM/DL (6.4-8.2) 6.3 GM/DL (6.4-8.2) Albumin 1.8 GM/DL (3.4-5.0) 1.9 GM/DL (3.4-5.0) Calcium Level 8.5 MG/DL (8.5-10.1) 8.9 MG/DL (8.5-10.1) Phosphorus Level 2.8 MG/DL (2.5-4.9) 2.7 MG/DL (2.5-4.9) Magnesium Level 2.1 MG/DL (1.5-2.5) 2.0 MG/DL (1.5-2.5) Alkaline Phosphatase 125 U/L (45-117) 151 U/L (45-117) Aspartate Amino Transf (AST/SGOT) 80 U/L (15-37) 70 U/L (15-37) Alanine Aminotransferase (ALT/SGPT) 37 U/L (10-53) 28 U/L (10-53) Total Bilirubin 0.2 MG/DL (0.2-1.0) 0.1 MG/DL (0.2-1.0) Sodium Level 149 MEQ/L (136-145) 150 MEQ/L (136-145) Potassium Level 3.5 MEQ/L (3.5-5.1) 4.0 MEQ/L (3.5-5.1) Chloride Level 119 MEQ/L (98-107) 118 MEQ/L (98-107) Carbon Dioxide Level 20.1 MEQ/L (21.0-32.0) 20.4 MEQ/L (21.0-32.0) Anion Gap 10 MEQ/L (5-15) 12 MEQ/L (5-15) Estimat Glomerular Filtration Rate 71 ML/MIN (>89) 75 ML/MIN (>89) Lactic Acid Level 1.5 mmol/L (0.4-2.0) 1.5 mmol/L (0.4-2.0) Ammonia 21 MCMOL/L (11-32) 22 MCMOL/L (11-32) Amylase Level 126 U/L (25-115) Lipase 1072 U/L (73-393) 1074 U/L (73-393) Total Creatine Kinase 137 U/L (26-192) Bronchoalveolar Lavage WBC 220 /MM3 Bronchoalveolar Lavage RBC 0 /MM3 Bronchoalveolar Lavage Neutrophils 83 % Bronchoalveolar Lavage Lymphocytes 17 % Bronchoalveolar Lavage Eosinophils 1 % Bronchoalveolar Lavage Histiocytes 8 % Lavage Fluid Total Volume 10.0 ML Lavage Fluid Total WBC Count 2.200 MILLION (4.700-7.100) Result Diagram: 06/09/17 0355 06/09/17 0355 Microbiology Microbiology Date/Time Source Procedure Growth Status 06/09/17 07:07 Bronchial Washings Right Upper Lobe Fungal Smear Pending Received 06/09/17 07:07 Bronchial Washings Right Upper Lobe Fungal Culture Pending Received 06/09/17 07:07 Bronchial Washings Left Lower Lobe Fungal Smear Pending Received 06/09/17 07:07 Bronchial Washings Left Lower Lobe Fungal Culture Pending Received 06/09/17 07:07 Bronchial Washings Right Upper Lobe Acid Fast Stain Pending Received 06/09/17 07:07 Bronchial Washings Right Upper Lobe Mycobacterial Culture Pending Received 06/09/17 07:07 Bronchial Washings Left Lower Lobe Acid Fast Stain Pending Received 06/09/17 07:07 Bronchial Washings Left Lower Lobe Mycobacterial Culture Pending Received 06/09/17 07:07 Bronchial Washings Right Upper Lobe Gram Stain Pending Received 06/09/17 07:07 Bronchial Washings Right Upper Lobe Bronchial Culture Pending Received 06/09/17 07:07 Bronchial Washings Left Lower Lobe Gram Stain Pending Received 06/09/17 07:07 Bronchial Washings Left Lower Lobe Bronchial Culture Pending Received Imaging Last Impressions Chest X-Ray 06/09/17 0600 Signed Impressions: Service Date/Time: Friday, June 09, 2017 05:02 - CONCLUSION: No acute cardiopulmonary disease identified. Noman Mercer MD Pancreas Ultrasound 06/08/17 0000 Signed Impressions: Service Date/Time: May 16:18 - CONCLUSION: 1. No cholelithiasis. However, there is borderline gallbladder wall thickening and subtle potential pericholecystic fluid. This finding may be seen in the setting of chronic illness and chronic liver disease. The differential considerations include cholecystitis, likely chronic. If there is significant concern regarding acute cholecystitis, HIDA scan may be performed to evaluate for cystic duct patency. 2. Mild hepatomegaly. 1. Ziggy Abdi MD Brain MRI 06/07/17 0000 Signed Impressions: Service Date/Time: Wednesday, June 07, 2017 15:41 - CONCLUSION: 1. There is some increased T2 flair signal in the distribution of the striatum bilaterally. Punctate areas of diffusion restriction in the globus pallidus. Findings may be indicative of some degree of anoxic brain injury. 2. Extensive chronic sinusitis bilaterally. Pelon Mazariegos MD Gall Bladder Ultrasound 06/02/17 0000 Signed Impressions: Service Date/Time: Friday, June 02, 2017 07:17 - CONCLUSION: 1. Although the gallbladder is well-distended I see no stones or sludge. There is a trace amount of ascitic fluid including pericholecystic fluid. 2. Questionable small right effusion. No effusion is seen on the recent CT scan. Howard Ricardo Jr., MD CT Angiography 06/02/17 0000 Signed Impressions: Service Date/Time: Friday, June 02, 2017 00:38 - CONCLUSION: No evidence of pulmonary embolism. Left lung perihilar infiltrate. Darrius Blandon MD Abdomen/Pelvis CT 06/02/17 0000 Signed Impressions: Service Date/Time: Friday, June 02, 2017 00:43 - CONCLUSION: Nonspecific distention of bowel. Nonspecific abnormal appearance of the gallbladder. Darrius Blandon MD Head CT 06/01/17 5207 Signed Impressions: Service Date/Time: Ken, June 02, 2017 00:29 - CONCLUSION: No acute intracranial process Darrius Blandon MD Procedures 06/01-femoral central line, arterial line to patient Assessment and Plan Disease Oriented Problem List: (1) Cocaine abuse (2) Cardiopulmonary arrest with successful resuscitation (3) Respiratory failure (4) Asystole (5) Anoxic encephalopathy Symptom Scale: (1) Dyspnea 0-10 Scale: Unable to quantify (2) Anoxic encephalopathy 0-10 Scale: Unable to quantify Pertinent Non-Medical Issues Psychosocial:no longer - from Fredrick Hawkins. Father Gasper Archuleta, mother Kinga Botello-- last known in [place] though pt ex has not been able to reach them at last known numbers. No siblings. Reported to have 1 child who was adopted. Reported to have local significant other Max Mercer. later d/w [facility] counselor (Deisi Anthony) who has known Parris for 3-4 yrs. Pt did have a biological son who a few mos ago. Pt does not have any other children. No siblings that she is aware of. She moved to [place] around age 17 w her father, whom she then lost contact with,father moved back to [place]. She has not had contact w her mother for many years. She is very hoahaoism and has reported God is her father, Ms Anthony feels she would want clay artist support. Substance hx: per prior EMR visits under different med record #- reports alcohol, "K2", marijuana, cocaine Spiritual: not known Legal:Due to clinical condition patient not able to participate in decision- making. She appears to have severe anoxic encephalopathy does not appear she will regain ability to participate. No longer per her ex-. No siblings per her ex- father and mother last known to be in [place] though do not have current contact information for them. If able to locate maybe appropriate legal decision makers for this patient. Patient also reported to have local significant other Mxa Mercer. If family unable to be identified he may be appropriate decision-making proxy. Palliative requested case management assist with ACCURINT report to locate possible NOK. Ethical issues impacting care:no ethical issues identified Important Contacts Ex Fredrick Hawkins. [address] [facility] [phone] Boyfriend - local- Max Anthony- counselor w [employer] [facility] [phone] Gasper Almendarez- Father, [facility] . Prognosis This patient was admitted 06/01/17 secondary to out of hospital cardiopulmonary arrest. It is not known total amount of time that she was minimally responsive and then pulseless before EMS arrival. She underwent at least 26 minutes of resuscitation by nurses medical assistants phlebotomists. She appears to have significant severe anoxic brain injury at this time, she is minimally responsive demonstrating severe cortical injury with EEG near flat line in appearance per neurology. Overall prognosis for meaningful recovery of neurologic function appears poor. High risk for ongoing complications and sequelae secondary to hospitalization, nonresponsive state. . Code Status: Full Code Plan * Legal decision maker: Due to clinical condition patient not able to participate in decision- making. She appears to have severe anoxic encephalopathy does not appear she will regain ability to participate. No longer per her ex-. No siblings per her ex- father and mother last known to be in [place] though do not have current contact information for them. If able to locate maybe appropriate legal decision makers for this patient. Patient also reported to have local significant other Max Mercer. If family unable to be identified he may be appropriate decision-making proxy. Palliative requested case management assist with ACCURINT report 06/06/17 to locate possible NOK. If unable to identify NOK, or appropriate person to serve as HC proxy, may need to utilize [employer] for decision making for pt. 06/08: accurint findings,w possible name /number Tawanda Adrian [phone]. I called this # VM left requesting call back to determine if related to pt. 06/09- this Lillie Almendarez is NOT related/connected to this pt. VM left for ex spouse Fredrick to determine if he wishes to serve as HC proxy. Awaiting call back. If he does NOT wish to serve, then should explore if Max (sig other) wishes to serve as proxy before pursuing [employer]. * Goals: TBD pending identification of appropriate legal decision maker * CODE STATUS:full code by default * SYMPTOMS: --Encephalopathy-status post out of hospital cardiopulmonary arrest-unknown total amount of time down; EEG "near flat line ", minimal neurological function at this time; MRI brain = Findings may be indicative of some degree of anoxic brain injury --Dyspnea-emergently intubated secondary to out of hospital arrest; breathing comfortable on mechanical vent. No gag reflex. +overbreathes vent. * Palliative care will continue to follow during hospital course as condition evolves, to assist patient/decision-maker with understanding of medical conditions, weighing benefits/burdens of treatment options, for clarification of goals of treatment. Additionally will assist with any symptoms of palliative concern Time Spent Total Floor Time (mins): 25 (chart review, PE, d/w friend, d/w critical care, d /w nursing) Attestation To help prompt me to consider important information that might be impacting today's encounter and assessment, information from prior notes written by myself or my colleagues may have been "brought forward" into today's note. My signature on this note, however, is an attestation that I personally performed the exam, history, and/or decision-making noted today, and, unless otherwise indicated, the interactions with patient, family, and staff as well as the review of records all occurred today. I also attest that the listed assessment and stated plan reflect my best clinical judgment today based on the combination of historical information, prior notes, and today's exam/ interactions. When time spent is documented, it refers only to time spent today by the signer, or if indicated, combined time spent today by collaborating physician/nurse practitioner. Thalia Morton Jun 09, 2017 11:49
[2017-06-09] MEDS ORDERED: EPINEPHrine HCL (1:10,000) 1 MG/10 ML SYRINGE ONE (11:54)
[2017-06-09] MEDS: guaiFENesin SOLUTION 200 MG/10 ML CUP OG-TUBE SCH ×2 (14:00→20:14)
--- NOTE | 2017-06-09 14:50 | RADRPT ---
EXAM DATE/TIME: 06/09/2017 11:55 [facility] COMPARISON: US ABDOMEN - PANCREAS, June 08, 2017, 16:18. INDICATIONS : Cholecystitis. Abnormal gallbladder ultrasound. DOSE: 4 mCi Tc99m Mebrofenin IV MEDICAL HISTORY : Anoxic brain injury. SURGICAL HISTORY : Unknown. ENCOUNTER: Initial ACUITY: 1 day PAIN SCALE: Non-responsive LOCATION: Abdomen. TECHNIQUE: Following the intravenous administration of radiotracer, dynamic sequential images were performed wit h continuous acquisition. FINDINGS: There is prompt the site uptake of radiotracer and normal rate of excretion from the hepatic parenchy ma. Activity is seen the extrahepatic biliary system by 6 minutes activity is first seen in the gallb ladder at 14 minutes. Spontaneous contraction of the gallbladder is observed and there is a subsequen tly filling. Radiotracer passes through to the small bowel. CONCLUSION: Prompt visualization of the gallbladder excludes cystic duct obstruction. Howard Dillon MD on June 09, 2017 at 14:46 Board Certified Radiologist. This report was verified electronically.
--- NOTE | 2017-06-09 15:44 | PD.CARD.PN ---
Subjective Subjective Remarks Intubated, on the vent, no change Objective Medications Current Medications Medications (Trade) Dose Ordered Sig/Sidney Route Start Time Stop Time Status Last Admin Miscellaneous Information ml @ 0 mls/hr UNSCH IV 06/02/17 02:30 (NS Flush) 2 ml UNSCH PRN IV FLUSH 06/02/17 02:30 06/09/17 08:29 (NS Flush) 2 ml UNSCH PRN IV FLUSH 06/02/17 02:30 06/07/17 20:46 (Peridex 0.12% Liq) 15 ml BID@08,20 OROPHARYNG 06/02/17 08:00 06/09/17 08:27 (Tears Naturale Opth Soln) 1 drop TID EACH EYE 06/02/17 09:00 06/09/17 08:29 (Zofran Inj) 4 mg Q6H PRN IV PUSH 06/02/17 02:45 (Heparin Inj) 5,000 units Q12H SQ 06/02/17 06:00 06/09/17 05:45 Potassium Chloride 100 ml @ 50 mls/hr Q2H PRN IV 06/02/17 03:00 Potassium Chloride 100 ml @ 50 mls/hr Q2H PRN IV 06/02/17 03:00 06/07/17 08:41 (K-Lyte Cl Eff) 50 meq UNSCH PRN PO 06/02/17 03:00 Potassium Chloride 100 ml @ 25 mls/hr UNSCH PRN IV 06/02/17 03:00 06/05/17 05:23 Potassium Chloride 100 ml @ 50 mls/hr Q2H PRN IV 06/02/17 03:00 Magnesium Sulfate 4 gm/Sodium Chloride 100 ml @ 50 mls/hr UNSCH PRN IV 06/02/17 03:00 (Mag-Ox) 800 mg UNSCH PRN PO 06/02/17 03:00 Magnesium Sulfate 2 gm/Sodium Chloride 100 ml @ 50 mls/hr UNSCH PRN IV 06/02/17 03:00 (K-Phos) 2,000 mg Q4H PRN PO 06/02/17 03:00 Sodium Phosphate 30 mmol/Sodium Chloride 250 ml @ 42 mls/hr UNSCH PRN IV 06/02/17 03:00 (K-Phos) 2,000 mg UNSCH PRN PO/TUBE 06/02/17 03:00 Potassium Phosphate 30 mmol/ Sodium Chloride 260 ml @ 42 mls/hr UNSCH PRN IV 06/02/17 03:00 (D50w (Vial) Inj) 25 ml UNSCH PRN IV PUSH 06/02/17 03:00 (NovoLIN R SUPPLEMENTAL SCALE) 1 Q6HR SQ 06/02/17 06:00 06/02/17 12:10 (Albuterol Neb) 2.5 mg Q2HR NEB PRN NEB 06/02/17 06:15 06/07/17 04:02 (Folate) 1 mg DAILY PO 06/02/17 09:00 06/09/17 08:29 (Theragran) 1 tab DAILY PO 06/02/17 09:00 06/06/17 08:56 (Trandate Inj) 10 mg Q1HR PRN IV PUSH 06/02/17 15:00 Future Hold 06/04/17 04:18 (Apresoline Inj) 10 mg Q1HR PRN IV PUSH 06/02/17 15:00 06/05/17 14:30 (Nitroglycerin 2% Oint) 2 inch Q6HR PRN TOPICAL 06/02/17 15:00 (Trandate Inj) 10 mg Q1H PRN IV PUSH 06/04/17 12:15 06/08/17 15:34 Cefazolin Sodium 1000 mg/Sodium Chloride 100 ml @ 200 mls/hr Q8H IV 06/06/17 09:00 06/09/17 08:28 (fentaNYL INJ) 50 mcg Q1H PRN IV PUSH 06/06/17 14:45 06/09/17 07:29 (Roxicodone Intensol Liq) 5 mg Q4H PRN PO 06/07/17 08:45 06/09/17 04:52 (Duoneb Neb) 1 ampule Q6HR NEB NEB 06/07/17 10:00 06/09/17 15:33 (Vitamin B1) 100 mg DAILY PO 06/07/17 09:00 06/09/17 08:29 (Colace Liq) 100 mg Q12HR PO 06/07/17 09:00 06/09/17 08:27 Levetriacetam 100 ml @ 400 mls/hr Q12H IV 06/08/17 21:00 06/09/17 08:28 (Trandate) 200 mg Q12HR PO 06/09/17 09:00 06/09/17 08:28 Midazolam HCl 100 ml @ 2 mls/hr TITRATE PRN IV 06/09/17 06:30 Fentanyl Citrate 250 ml @ 5 mls/hr TITRATE PRN IV 06/09/17 06:30 (Sodium Chloride 3% Neb) 2 ml Q6HR NEB NEB 06/09/17 10:00 06/14/17 09:59 (Robitussin Liq) 400 mg Q8HR OG-TUBE 06/09/17 14:00 (Free Water) VOLUME: 200 ML Q4HR G-TUBE 06/09/17 08:00 06/09/17 08:00 (Versed Inj) 2 mg Q1H PRN IV PUSH 06/09/17 07:30 (Prevacid Odt) 30 mg DAILY NG 06/09/17 09:00 (Reglan Inj) 5 mg Q8HR PRN IV PUSH 06/09/17 08:45 Vital Signs / I&O Vital Signs Date Time Temp Pulse Resp B/P (MAP) Pulse Ox O2 Delivery O2 Flow Rate FiO2 06/09/17 15:35 97 30 06/09/17 14:31 100 100 06/09/17 12:00 93 06/09/17 12:00 98.0 93 14 112/0 (37) 95 06/09/17 12:00 35 06/09/17 08:30 14 06/09/17 08:00 35 06/09/17 08:00 98.8 132 14 125/93 (104) 98 06/09/17 08:00 132 06/09/17 07:26 99 35 06/09/17 07:24 99 100 06/09/17 07:00 100 100 06/09/17 06:23 18 06/09/17 04:02 99 30 06/09/17 03:00 98.7 115 15 142/99 (113) 99 06/09/17 03:00 30 06/09/17 03:00 110 06/09/17 00:45 99 30 06/08/17 23:00 110 06/08/17 23:00 30 06/08/17 23:00 98.5 111 14 143/100 (114) 97 06/08/17 22:00 98 30 06/08/17 20:15 98 30 06/08/17 20:00 06/08/17 19:00 98.3 105 14 153/106 (122) 98 06/08/17 19:00 105 06/08/17 19:00 30 06/08/17 16:36 98 30 I/O 06/08/17 06/08/17 06/08/17 06/09/17 06/09/17 06/09/17 07:00 15:00 23:00 07:00 15:00 23:00 Intake Total 880 ml 510 ml 932 ml 1366 ml Output Total 1600 ml 1650 ml 2190 ml Balance -720 ml 510 ml -718 ml -824 ml Intake Oral 0 ml IV Total 510 ml 200 ml 553 ml Tube Feeding 480 ml 232 ml 413 ml Tube Irrigant 400 ml 500 ml Other 400 ml Output Urine Total 1200 ml 1250 ml 2165 ml Stool Total 400 ml 400 ml 25 ml Gastric Drainage Total 0 ml # Bowel Movements 0 Physical Exam GENERAL: Intubated SKIN: Warm and dry. HEAD: Normocephalic. EYES: No scleral icterus. No injection or drainage. NECK: Supple, trachea midline. No JVD or lymphadenopathy. CARDIOVASCULAR: Regular rate and rhythm without murmurs, gallops, or rubs. RESPIRATORY: Breath sounds equal bilaterally. No accessory muscle use. GASTROINTESTINAL: Abdomen soft, non-tender, nondistended. MUSCULOSKELETAL: No cyanosis, or edema. Laboratory Laboratory Tests Test 06/09/17 03:55 06/09/17 07:07 White Blood Count 8.8 TH/MM3 Red Blood Count 3.60 MIL/MM3 Hemoglobin 8.6 GM/DL Hematocrit 27.3 % Mean Corpuscular Volume 75.8 FL Mean Corpuscular Hemoglobin 23.9 PG Mean Corpuscular Hemoglobin Concent 31.6 % Red Cell Distribution Width 18.4 % Platelet Count 151 TH/MM3 Mean Platelet Volume 9.0 FL Neutrophils (%) (Auto) 75.9 % Lymphocytes (%) (Auto) 14.2 % Monocytes (%) (Auto) 7.6 % Eosinophils (%) (Auto) 1.7 % Basophils (%) (Auto) 0.6 % Neutrophils # (Auto) 6.7 TH/MM3 Lymphocytes # (Auto) 1.3 TH/MM3 Monocytes # (Auto) 0.7 TH/MM3 Eosinophils # (Auto) 0.1 TH/MM3 Basophils # (Auto) 0.0 TH/MM3 CBC Comment AUTO DIFF Differential Total Cells Counted 100 Neutrophils % (Manual) 71 % Band Neutrophils % 4 % Lymphocytes % 11 % Monocytes % 8 % Eosinophils % 2 % Neutrophils # (Manual) 7.0 TH/MM3 Metamyelocytes 1 % Myelocytes 3 % Differential Comment FINAL DIFF MANUAL Platelet Estimate NORMAL Platelet Morphology Comment NORMAL Blood Urea Nitrogen 15 MG/DL Creatinine 1.02 MG/DL Random Glucose 120 MG/DL Total Protein 6.3 GM/DL Albumin 1.9 GM/DL Calcium Level 8.9 MG/DL Phosphorus Level 2.7 MG/DL Magnesium Level 2.0 MG/DL Alkaline Phosphatase 151 U/L Aspartate Amino Transf (AST/SGOT) 70 U/L Alanine Aminotransferase (ALT/SGPT) 28 U/L Total Bilirubin 0.1 MG/DL Sodium Level 150 MEQ/L Potassium Level 4.0 MEQ/L Chloride Level 118 MEQ/L Carbon Dioxide Level 20.4 MEQ/L Anion Gap 12 MEQ/L Estimat Glomerular Filtration Rate 75 ML/MIN Lactic Acid Level 1.5 mmol/L Ammonia 22 MCMOL/L Total Creatine Kinase 137 U/L Lipase 1074 U/L Bronchoalveolar Lavage WBC 220 /MM3 Bronchoalveolar Lavage RBC 0 /MM3 Bronchoalveolar Lavage Neutrophils 83 % Bronchoalveolar Lavage Lymphocytes 17 % Bronchoalveolar Lavage Eosinophils 1 % Bronchoalveolar Lavage Histiocytes 8 % Lavage Fluid Total Volume 10.0 ML Lavage Fluid Total WBC Count 2.200 MILLION Imaging Last 24 hours Impressions Chest X-Ray 06/09/17 0600 Signed Impressions: Service Date/Time: Friday, June 09, 2017 05:02 - CONCLUSION: No acute cardiopulmonary disease identified. Noman Mercer MD Hepatobiliary Scan Nuclear Medicine 06/09/17 0000 Signed Impressions: Service Date/Time: Friday, June 09, 2017 11:55 - CONCLUSION: Prompt visualization of the gallbladder excludes cystic duct obstruction. Howard Dillon MD Chest X-Ray 06/09/17 0000 Signed Impressions: Service Date/Time: Friday, June 09, 2017 07:23 - CONCLUSION: 1. The patient remains intubated and a nasogastric tube remains in place. 2. No acute cardiopulmonary disease. Gasper Mcgrath MD Assessment and Plan Problem List: (1) Cardiopulmonary arrest with successful resuscitation ICD Codes: I46.9 - Cardiac arrest, cause unspecified Status: Acute (2) Cocaine abuse ICD Codes: F14.10 - Cocaine abuse, uncomplicated Status: Acute (3) Respiratory failure ICD Codes: J96.90 - Respiratory failure, unspecified, unspecified whether with hypoxia or hypercapnia Assessment and Plan No new cardiac issues. Second EEG again c/w severe anoxic encephalopathy. No arrhythmias. Improvement of neuro status is unlikely. Prognosis extremely poor. Withdrawal of care should be considered. Will sign off. Ahmet Perez MD Jun 09, 2017 15:44
--- NOTE | 2017-06-09 20:53 | MG ---
cc: PAULA YEPEZ MD Lab No: [id number] Date: 06/09/17 Age: 37 Sex: F Race: REFERRING PHYSICIAN Dr. Talley Intubated. No sedation. Unresponsive with photic done. No withdrawal on the four extremities to painful stimuli. Last EEG showed severely attenuated background. This is a repeat study. Keppra Oxycodone Heparin. DESCRIPTION OR RECORD The background shows severely depressed low amplitude. Some electrodes were reprepped and reapplied, however, that did not change the background. The background is of really low amplitude, slowing, some minor ICU artifact but does not show any significant reactivity with any tactile stimulation. There is no change with photic stimulation. IMPRESSION severely abnormal EEG due to severe background slowing consistent with a diffuse cerebral dysfunction such as anoxia to be considered. Clinical correlation. Paula Yepez MD DF/ /7:36 PM /8:37 PM
[2017-06-10] VITALS (15 sets, daily range): BP systolic 111–145; BP diastolic 64–92; PULSE 102–112; RESP 14–16; TEMP 98.4–99; O2SAT 97–99
[2017-06-10] MEDS: FREE WATER G-TUBE SCH ×6 (03:27→20:00)
[2017-06-10] MEDS: RESP: SODIUM CHLORIDE 3% 4 ML NEB NEB SCH ×4 (04:08→20:51)
[2017-06-10] MEDS: RESP: ALBUTEROL 2.5 MG/IPRATROPIUM 0.5 MG NEB (SCH) NEB ×4 (04:08→20:50)
--- NOTE | 2017-06-10 05:27 | RADRPT ---
EXAM DATE/TIME: 06/10/2017 04:16 [facility] COMPARISON: CHEST SINGLE AP, June 09, 2017, 7:23. INDICATIONS : Shortness of breath, possible pulmonary disease. MEDICAL HISTORY : None. SURGICAL HISTORY : None. ENCOUNTER: Subsequent ACUITY: 1 week PAIN SCORE: Non-responsive. LOCATION: Bilateral chest FINDINGS: No infiltrate, effusion or pneumothorax. Heart size stable, normal. Endotracheal tube tip is approximately 3 cm above the ferdinand. There is a nasogastric tube coursing in to the stomach. CONCLUSION: No change. Lungs remain clear. Darrius Piedra MD on June 10, 2017 at 5:25 Board Certified Radiologist. This report was verified electronically.
[2017-06-10] MEDS: HEPARIN SODIUM - SQ 10,000 UNITS/ML VIAL SQ SCH ×2 (05:30→17:58)
[2017-06-10] MEDS: guaiFENesin SOLUTION 200 MG/10 ML CUP OG-TUBE SCH ×3 (05:30→21:33)
[2017-06-10 05:57] LABS: AUTOMATED NEUTROPHIL # 8.1 TH/MM3 (1.8-7.7); BASOPHIL % 0.2 % (0.0-2.0); EOSINOPHIL # 0.2 TH/MM3 (0-0.4); EOSINOPHIL % 1.8 % (0.0-4.0); HEMATOCRIT 24.9 % (35.0-46.0); HEMOGLOBIN 7.7 GM/DL (11.6-15.3); LYMPH % 10.4 % (9.0-44.0); LYMPHOCYTE # 1.2 TH/MM3 (1.0-4.8); MEAN CELL VOLUME 75.2 FL (80.0-100.0); MEAN CORPUSCULAR HEMOGLOBIN 23.3 PG (27.0-34.0); MEAN CORPUSCULAR HGB CONC 30.9 % (32.0-36.0); MEAN PLATELET VOLUME 8.8 FL (7.0-11.0); MONO % 14.6 % (0.0-8.0); MONOCYTE # 1.6 TH/MM3 (0-0.9); PLATELET COUNT 198 TH/MM3 (150-450); RED BLOOD COUNT 3.31 MIL/MM3 (4.00-5.30); RED CELL DISTRIBUTION WIDTH 18.1 % (11.6-17.2); WHITE BLOOD COUNT 11.1 TH/MM3 (4.0-11.0)
[2017-06-10] MEDS: INSULIN NovoLIN REGULAR SUPPLEMENTAL SCALE SQ SCH ×4 (06:00→18:00)
[2017-06-10 06:21] LABS: AST (GOT) 62 U/L (15-37); BICARBONATE 24.2 MEQ/L (21.0-32.0); BLOOD UREA NITROGEN 16 MG/DL (7-18); CALCIUM 8.6 MG/DL (8.5-10.1); CHLORIDE 115 MEQ/L (98-107); CREATININE 0.98 MG/DL (0.50-1.00); GLOMERULAR FILTRATION RATE 78 ML/MIN (>89); GLUCOSE,RANDOM 116 MG/DL (74-106); LIPASE 1158 U/L (73-393); MAGNESIUM 1.9 MG/DL (1.5-2.5); SODIUM (NA) 147 MEQ/L (136-145)
[2017-06-10 06:22] LABS: ALT (GPT) 22 U/L (10-53); AMYLASE 145 U/L (25-115)
[2017-06-10 06:25] LABS: ALKALINE PHOSPHATASE 147 U/L (45-117); PHOSPHORUS 3.7 MG/DL (2.5-4.9); TOTAL BILIRUBIN ADULT 0.1 MG/DL (0.2-1.0); TOTAL PROTEIN 6.5 GM/DL (6.4-8.2)
[2017-06-10] MEDS: CHLORHEXIDINE 0.12% (ORAL KIT) 15 ML CUP OROPHARYNG SCH ×2 (07:53→21:32)
[2017-06-10] MEDS: hydrALAZINE HCL 20 MG/ML VIAL IV PUSH PRN (08:04)
[2017-06-10] MEDS: THIAMINE HCL 100 MG TAB PO SCH (08:38)
[2017-06-10] MEDS: DOCUSATE SODIUM 100 MG/10 ML UDC PO SCH ×2 (08:38→21:32)
[2017-06-10] MEDS: FOLIC ACID 1 MG TAB PO SCH (08:38)
[2017-06-10] MEDS: LABETALOL HCL 200 MG TAB PO SCH ×2 (08:38→21:32)
[2017-06-10] MEDS: oxyCODONE HCL ORAL CONC 5 MG/0.25 ML SYRINGE PO PRN (08:38)
[2017-06-10] MEDS: SODIUM CHLORIDE 0.9% FLUSH 10 ML FLUSH IV FLUSH PRN ×2 (08:38)
[2017-06-10] MEDS: LANSOPRAZOLE SOLUTAB 30 MG TAB NG SCH (08:39)
[2017-06-10] MEDS: ARTIFICIAL TEARS OPTH SOLN 15 ML BTL EACH EYE SCH ×3 (08:39→17:57)
[2017-06-10] MEDS: levETIRAcetam INJ 100 ML IV SCH ×2 (08:39→21:32)
[2017-06-10] MEDS: MULTIVITAMIN TAB PO SCH (08:42)
[2017-06-10 08:50] LABS: BANDS 14 % (0-6); CORRECTED NUCLEATED RBC 1 /100 WBC (0-0); LYMPHOCYTES 7 % (9-44); MONOCYTES 13 % (0-8); MYELOCYTES 1 % (0-0); NEUTROPHIL # MANUAL DIFF 8.8 TH/MM3 (1.8-7.7); NUCLEATED RED BLOOD CELL 1 (0-0); POLYS (SEG NEUTROPHILS) 64 % (16-70)
--- NOTE | 2017-06-10 13:46 | HHI.CCPN ---
Subjective Remarks/Hospital Course This is a 37-year-old female with an unknown past medical history who presents after out of hospital cardiac arrest. Per EMS report, a friend found the patient altered with agonal respirations. Per report, the friend did not have any way of contacting 911, so the friend place the patient in a car and drove her to the nearest gas station to call 911. Upon EMS arrival, the patient was unresponsive, not breathing, and pulseless. Presenting rhythm was asystole. ACLS was initiated, 3 A of epinephrine, 1 amp of bicarbonate, 2 mg of Narcan and the patient had ROSC. Patient was transported to [facility] emergency Department. In emergency department, she had a decreased level of consciousness but was moving all 4 extremities spontaneously. Her GCS was 6 (E1 ,V1,M4). Her urine drug screen is positive for cocaine. I discussion with Dr. Yañez the ER physician, and we agree that given her young age and that she was witnessed with a pulse, that the potential benefits of therapeutic hypothermia outweigh the risks in this scenario. No additional information is available from the patient and we do not know of any family at this time. Patient was transported the CVICU and therapeutic hypothermia was initiated. 06/02: Currently on hypothermia protocol. Temperature 33C. Dignishield will be placed. Remains on multiple vasopressors. Troponin climbing with repeat ordered. Echocardiogram and a.m. EKG pending. 06/03: Rewarming process initiated early this a.m.. Patient was weaned off of vasopressors greater than 24 hours. Hemodynamically stable. Early this a.m. the patient noted was noted to have decrease in dorsalis pedis and posterior tibial pulses, now nonpalpable but dopplerable biphasic signals. Arterial Doppler studies pending. Right femoral triple-lumen central line removed. Chest x-ray was noted to have an infiltrate, sputum cultures are pending empiric antibiotics initiated. 06/04: Normothermic at 1930 .Sedation discontinued 1929 on 06/03. The patient remains encephalopathic at this time. She remains hemodynamically stable on no pressors. EEG pending at this time. The patient was noted to be slightly hypernatremic, IV fluids changed. ABIs were performed for slightly decreased pulse yesterday and right lower extremities bilateral ABIs slightly depressed pulses on the right remain dopplerable, biphasic. 06/05: Afebrile. No acute events overnight. Patient continues to be hypertensive scheduled PO labetalol 100 mg BID. Neurologically, the patient remains encephalopathic, EEG performed yesterday showed nearly flat line. CT pending this a.m.. Neurology has been consulted, patient has been off sedation for approximately 36 hours. 06/06 MRI pending. Off sedation. Not brain --> has spontaneous respirations when disconnected vent. Absent pupillary, corneal, oculocephalic and gag reflexes. No motor response to deep noxious stimuli. Had tonic clonic movements of BUE this morning that ceased with Ativan 2 mg IV. 06/07: Afebrile. Tube feeds currently at 30 cc an hour with Jevity 1.5. 200 cc stools per fecal containment device. Received lorazepam 2 mg IV for "tremors " overnight. He reveals diffuse encephalopathy with no epileptiform activity on 06/04 and 06/06. 06/08: Currently afebrile. Tube feeding currently goal at 40 cc now with Jevity 1.5. 600 cc stools per fecal containment device. MRI brain 06/07 showed diffuse signs of anoxic brain injury. 06/09: CURRENT TEMPERATURE 98.7. RN is complaining of "transmitted upper airway sounds". Chest x-ray revealed no acute cardio pulmonary findings. Do not appreciate on my examination. . The patient is tachycardia and tachypnea, with copious thick whitish secretions from ET tube. Tolerate tube feedings with positive bowel movement from fecal team device.. SUBJECTIVE: 06/10 Overbreathing vent otherwise brainstem reflexes absent. Palliative care assisting with determination of healthcare proxy. Have reached out to ex- , Fredrick to see if he is willing to participate in decision-making. If he is not willing, plan to discuss with Max who is her current significant other. Afebrile. Objective Vital Signs Date Time Temp Pulse Resp B/P (MAP) Pulse Ox O2 Delivery O2 Flow Rate FiO2 06/10/17 11:05 30 06/10/17 11:04 102 06/10/17 11:03 98.7 14 111/64 (80) 99 Intake and Output 06/10/17 06/10/17 06/11/17 08:00 16:00 00:00 Intake Total 1256 ml 200 ml Output Total 1700 ml Balance -444 ml 200 ml Result Diagram: 06/10/17 0455 06/10/17 0455 Other Results Laboratory Tests Test 06/10/17 06:03 Blood Gas Puncture Site LT RADIAL Blood Gas Patient Temperature 98.6 Blood Gas HCO3 22 mmol/L (22-26) Blood Gas Base Excess -1.3 mmol/L (-2-2) Blood Gas Oxygen Saturation 95 % (90-100) Arterial Blood pH 7.44 (7.380-7.420) Arterial Blood Partial Pressure CO2 33 mmHg (38-42) Arterial Blood Partial Pressure O2 99 mmHg (61-120) Arterial Blood Oxygen Content 14.7 Vol % (12.0-20.0) Arterial Blood Carboxyhemoglobin 0.7 % (0-4) Arterial Blood Methemoglobin 1.2 % (0-2) Blood Gas Hemoglobin 10.9 G/DL (12.0-16.0) Oxygen Delivery Device VENTILATOR Blood Gas Ventilator Setting A/C12/500/+5PEEP Blood Gas Inspired Oxygen 30 % Imaging Last Impressions Chest X-Ray 06/09/17 0600 Signed Impressions: Service Date/Time: Friday, June 09, 2017 05:02 - CONCLUSION: No acute cardiopulmonary disease identified. Noman Mercer MD Pancreas Ultrasound 06/08/17 0000 Signed Impressions: Service Date/Time: May 16:18 - CONCLUSION: 1. No cholelithiasis. However, there is borderline gallbladder wall thickening and subtle potential pericholecystic fluid. This finding may be seen in the setting of chronic illness and chronic liver disease. The differential considerations include cholecystitis, likely chronic. If there is significant concern regarding acute cholecystitis, HIDA scan may be performed to evaluate for cystic duct patency. 2. Mild hepatomegaly. 1. Ziggy Abdi MD Brain MRI 06/07/17 0000 Signed Impressions: Service Date/Time: Wednesday, June 07, 2017 15:41 - CONCLUSION: 1. There is some increased T2 flair signal in the distribution of the striatum bilaterally. Punctate areas of diffusion restriction in the globus pallidus. Findings may be indicative of some degree of anoxic brain injury. 2. Extensive chronic sinusitis bilaterally. Pelon Mazariegos MD Gall Bladder Ultrasound 06/02/17 0000 Signed Impressions: Service Date/Time: Friday, June 02, 2017 07:17 - CONCLUSION: 1. Although the gallbladder is well-distended I see no stones or sludge. There is a trace amount of ascitic fluid including pericholecystic fluid. 2. Questionable small right effusion. No effusion is seen on the recent CT scan. Howard Ricardo Jr., MD CT Angiography 06/02/17 0000 Signed Impressions: Service Date/Time: Friday, June 02, 2017 00:38 - CONCLUSION: No evidence of pulmonary embolism. Left lung perihilar infiltrate. Darrius Blandon MD Abdomen/Pelvis CT 06/02/17 0000 Signed Impressions: Service Date/Time: Friday, June 02, 2017 00:43 - CONCLUSION: Nonspecific distention of bowel. Nonspecific abnormal appearance of the gallbladder. Darrius Blandon MD Head CT 06/01/17 2347 Signed Impressions: Service Date/Time: Friday, June 02, 2017 00:29 - CONCLUSION: No acute intracranial process Darrius Blandon MD Objective Remarks Drips: None Jevity 1.5 at 40 mL per hour GENERAL: 37-year-old AA female currently orotracheally intubated HEENT: Normocephalic. Atraumatic. Pupils 1-2 mm bilaterally and nonreactive. Scleral edema noted with some erythema NECK: Trachea is midline. There is no JVD. CHEST: Symmetrical chest rise. Coarse bilateral breath sounds. CARDIOVASCULAR: Tachycardic, RR. S1, S2 no S4. Without murmur ABDOMEN: Soft, nontender, nondistended. Bowel sounds present. Fecal containment device with brown liquid stool. Tolerating tube feeds MUSCULOSKELETAL: Pulses 2+ bilateral radial and posterior tibialis. Dependent edema of hands bilaterally. NEUROLOGICAL: No eye opening. Pupils 1-2 mm but nonreactive. No corneal reflex. No gag. No cough. +Spontaneous respirations/having spontaneous respirations over the current ventilator settings. No motor response to deep noxious stimuli. Negative Babinski. No clonus. Date of Insertion: Jun 01, 2017 Date of Removal: Jun 03, 2017 Line: Central Venous Catheter Side: Right Location: Femoral A/P Assessment and Plan Neuro/Psych: Acute hypoxic ischemic encephalopathy Toxic encephalopathy - multifactorial Cocaine overdose EtOH abuse Seizure Status post induced therapeutic hypothermia. Sedation discontinued 06/03 at 1930. Remains off sedatives Neurochecks per ICU protocol CT brain admission 06/01 revealed no acute intracranial findings 06/04 EEG -. Severe encephalopathy with nearly flat line appearance. 06/06 EEG - severe encephalopathy with no epileptic activity 06/09 EEG - severely abnormal, severe background slowing consistent with anoxia. 06/04 ammonia level- 10 Continue thiamine 100 mg daily, folate 1 mg daily and multivitamin 1 tablet daily with EtOH use by history MRI brain 06/07 - increased T2 flair signal in the distribution of the striatum bilaterally. Punctate areas of diffusion restriction in the globus pallidus. Findings may be indicative of some degree of anoxic brain injury. Extensive chronic sinusitis bilaterally. Currently on levetiracetam 1000 mg IV twice a day per neurology's recommendations. Fosphenytoin discontinued Neurology consult/Dr. White Oxycodone 5 mg liquid every 4 hours when necessary pain 1-10/agitation Respiratory: Acute hypoxic and hypercarbic respiratory failure ACV 15/500/5/30 Vent bundle Head of bed 30 Albuterol/ipratropium aerosols every 6 hours with albuterol aerosols every 2 hours as needed Hypertonic saline 3% aerosols 2 mL every 6 hours for mucus thinning Guaifenesin 400 mg by tube every 8 hours Wean FiO2 for goal SPO2 greater than 92% CT pulmonary angiogram 06/01: Negative for acute PE and possible left lower lobe infiltrate Current Mental status barrier to extubation Chest x-ray 06/09 revealed no acute cardio pulmonary findings Status post bronchoscopy 06/09. Please defer to procedure note Cardiovascular: Status post out of hospital cardiac arrest Cardiogenic shock (resolved) NSTEMI Lactic acidosis-resolved Elevated HDL Goal mean arterial pressure greater than 65 Cardiology/Dr. Perez has evaluated and no plans for further workup at this time due to extremely poor neurologic prognosis 06/03 2D echo - The left ventricular systolic function is mildly reduced with an estimated ejection fraction of 45%. Normal left ventricular size. Wall thickness is normal. No regional wall motion abnormalities are present. Mild mitral valve regurgitation. Mild aortic sclerosis. Trace aortic valve regurgitation. Amiodarone infusion discontinued 06/02 secondary to the patient having elevated LFTs. The patient remains in normal sinus rhythm, hemodynamically stable on no vasopressors 06/03- arterial Doppler studies. Slight depression MILES 0.8 bilaterally. Biphasic Doppler signals right DP, PT Currently off all vasopressors. Schedule labetalol 200 mg twice a day As needed labetalol/hydralazine Nitropaste for blood pressure greater than 160 Renal/FEN/: Acute kidney injury - resolved Hypernatremia Creatinine currently within normal limits Currently on Jevity 1.5 goal 40 cc an hours per nutrition's recommendations Sodium is downtrending, continue Free water 200 cc every 4 hours Off IV fluids. 06/09 Discontinue Cochran. Will try pure wick. Bladder scan q6 hours and I/O cath if > 300 Check BMP in a.m. 06/10 GI: Elevated AST/alkaline phosphatase Diarrhea NOS Hypoalbuminemia Elevated amylase/lipase - 1074 06/02 Fecal containment device placed CT abdomen/pelvis revealed a nonspecific bowel gas pattern with dilated bowel loops and abnormal gallbladder appearance. 06/02 gallbladder ultrasound- distended gallbladder pancreatic ultrasound - borderline gallbladder wall thickening. Pericholecystic fluid. Visualized pancrease was normal. HIDA scan ordered for today 06/09 - negative for cystic duct obstruction. LFTs downtrending. Tolerating Jevity 1.5 @40 mL per hour. Lansoprazole 30 mm by tube daily for GI prophylaxis No bowel regimen secondary to ongoing diarrhea. C. difficile negative -06/03 HOSE CEMENTER: Patient is actively menstruating. Change sanitary pads as needed Beta hCG 1 Heme/ID: Microcytic anemia Community-acquired pneumonia Blood culture- NGTD 06/04Sputum culture MSSA, betastrep. 06/09bronchoscopy - negative C. difficile negative Empiric antibiotics initiated secondary to left lung base developing opacity- possibly secondary to aspiration. Has been on cefepime, azithromycin and vancomycin 06/03- Currently on cefazolin 1 g IV every 8 hours On antibiotic day #8. Has leukocytosis but is afebrile. Will watch off antibiotics. If leukocytosis worsens, place consideration to thrombophlebitis; ?pancreatitis. Endocrine: Hyperglycemia of critical illness -- SSI Novolog , medium scale, every 6hr. 0 units provided past 24 hours TSH normal 1.74 Prophylaxis: GI Prophylaxis Lansoprazole 30 mg daily DVT Prophylaxis -- SCDs Subcutaneous heparin 5000 units twice a day Lines: 06/01 right femoral triple-lumen catheter placed in the emergency department by the emergency room physician-[id number] 06/02 right radial arterial line - d/c 06/07 06/02 left femoral code cool catheter - d/c 06/06. PIV Reviewed palliative care note. Her significant other was at bedside with basic questions, answered. Level II follow-up Olya Byrd MD Jun 10, 2017 13:46
[2017-06-11] VITALS (17 sets, daily range): BP systolic 93–145; BP diastolic 53–95; PULSE 82–104; RESP 13–16; TEMP 97.6–98.4; O2SAT 95–99
[2017-06-11] MEDS: FREE WATER G-TUBE SCH ×6 (04:00→20:00)
[2017-06-11] MEDS: RESP: SODIUM CHLORIDE 3% 4 ML NEB NEB SCH ×4 (04:47→22:00)
[2017-06-11] MEDS: RESP: ALBUTEROL 2.5 MG/IPRATROPIUM 0.5 MG NEB (SCH) NEB ×2 (04:48→08:03)
[2017-06-11] MEDS: HEPARIN SODIUM - SQ 10,000 UNITS/ML VIAL SQ SCH ×2 (05:29→17:16)
[2017-06-11] MEDS: guaiFENesin SOLUTION 200 MG/10 ML CUP OG-TUBE SCH ×3 (05:29→21:29)
[2017-06-11] MEDS: INSULIN NovoLIN REGULAR SUPPLEMENTAL SCALE SQ SCH ×4 (06:00→17:22)
[2017-06-11] MEDS: hydrALAZINE HCL 20 MG/ML VIAL IV PUSH PRN (06:30)
[2017-06-11] MEDS: CHLORHEXIDINE 0.12% (ORAL KIT) 15 ML CUP OROPHARYNG SCH ×2 (07:39→20:00)
[2017-06-11 07:54] LABS: AUTOMATED NEUTROPHIL # 9.3 TH/MM3 (1.8-7.7); BASOPHIL % 0.1 % (0.0-2.0); EOSINOPHIL # 0.2 TH/MM3 (0-0.4); EOSINOPHIL % 1.3 % (0.0-4.0); HEMATOCRIT 24.2 % (35.0-46.0); HEMOGLOBIN 7.7 GM/DL (11.6-15.3); LYMPH % 11.8 % (9.0-44.0); LYMPHOCYTE # 1.5 TH/MM3 (1.0-4.8); MEAN CELL VOLUME 74.7 FL (80.0-100.0); MEAN CORPUSCULAR HEMOGLOBIN 23.8 PG (27.0-34.0); MEAN CORPUSCULAR HGB CONC 31.8 % (32.0-36.0); MEAN PLATELET VOLUME 8.7 FL (7.0-11.0); MONO % 13.9 % (0.0-8.0); MONOCYTE # 1.8 TH/MM3 (0-0.9); NEUT % 72.9 % (16.0-70.0); PLATELET COUNT 269 TH/MM3 (150-450); RED BLOOD COUNT 3.24 MIL/MM3 (4.00-5.30); RED CELL DISTRIBUTION WIDTH 18.6 % (11.6-17.2); WHITE BLOOD COUNT 12.8 TH/MM3 (4.0-11.0)
[2017-06-11 08:02] LABS: BICARBONATE 25.2 MEQ/L (21.0-32.0); CREATININE 0.79 MG/DL (0.50-1.00)
[2017-06-11] MEDS: ARTIFICIAL TEARS OPTH SOLN 15 ML BTL EACH EYE SCH ×3 (08:14→17:15)
[2017-06-11] MEDS: THIAMINE HCL 100 MG TAB PO SCH (08:15)
[2017-06-11] MEDS: FOLIC ACID 1 MG TAB PO SCH (08:15)
[2017-06-11] MEDS: levETIRAcetam INJ 100 ML IV SCH ×2 (08:15→21:29)
[2017-06-11] MEDS: LABETALOL HCL 200 MG TAB PO SCH ×2 (08:15→21:29)
[2017-06-11] MEDS: LANSOPRAZOLE SOLUTAB 30 MG TAB NG SCH (08:15)
[2017-06-11] MEDS: SODIUM CHLORIDE 0.9% FLUSH 10 ML FLUSH IV FLUSH PRN ×2 (08:15)
[2017-06-11] MEDS: DOCUSATE SODIUM 100 MG/10 ML UDC PO SCH ×2 (08:15→21:29)
[2017-06-11] MEDS: MULTIVITAMIN TAB PO SCH (08:16)
[2017-06-11 09:39] LABS: BANDS 14 % (0-6); LYMPHOCYTES 12 % (9-44); MONOCYTES 10 % (0-8); POLYS (SEG NEUTROPHILS) 64 % (16-70)
--- NOTE | 2017-06-11 15:30 | HHI.CCPN ---
Subjective Remarks/Hospital Course This is a 37-year-old female with an unknown past medical history who presents after out of hospital cardiac arrest. Per EMS report, a friend found the patient altered with agonal respirations. Per report, the friend did not have any way of contacting 911, so the friend place the patient in a car and drove her to the nearest gas station to call 911. Upon EMS arrival, the patient was unresponsive, not breathing, and pulseless. Presenting rhythm was asystole. ACLS was initiated, 3 A of epinephrine, 1 amp of bicarbonate, 2 mg of Narcan and the patient had ROSC. [facility] In emergency department, she had a decreased level of consciousness but was moving all 4 extremities spontaneously. Her GCS was 6 (E1 ,V1,M4). Her urine drug screen is positive for cocaine. I discussion with Dr. Yañez the ER physician, and we agree that given her young age and that she was witnessed with a pulse, that the potential benefits of therapeutic hypothermia outweigh the risks in this scenario. No additional information is available from the patient and we do not know of any family at this time. Patient was transported the CVICU and therapeutic hypothermia was initiated. 06/02: Currently on hypothermia protocol. Temperature 33C. Dignishield will be placed. Remains on multiple vasopressors. Troponin climbing with repeat ordered. Echocardiogram and a.m. EKG pending. 06/03: Rewarming process initiated early this a.m.. Patient was weaned off of vasopressors greater than 24 hours. Hemodynamically stable. Early this a.m. the patient noted was noted to have decrease in dorsalis pedis and posterior tibial pulses, now nonpalpable but dopplerable biphasic signals. Arterial Doppler studies pending. Right femoral triple-lumen central line removed. Chest x-ray was noted to have an infiltrate, sputum cultures are pending empiric antibiotics initiated. 06/04: Normothermic at 1930 .Sedation discontinued 1929 on 06/03. The patient remains encephalopathic at this time. She remains hemodynamically stable on no pressors. EEG pending at this time. The patient was noted to be slightly hypernatremic, IV fluids changed. ABIs were performed for slightly decreased pulse yesterday and right lower extremities bilateral ABIs slightly depressed pulses on the right remain dopplerable, biphasic. 06/05: Afebrile. No acute events overnight. Patient continues to be hypertensive scheduled PO labetalol 100 mg BID. Neurologically, the patient remains encephalopathic, EEG performed yesterday showed nearly flat line. CT pending this a.m.. Neurology has been consulted, patient has been off sedation for approximately 36 hours. 06/06 MRI pending. Off sedation. Not brain --> has spontaneous respirations when disconnected vent. Absent pupillary, corneal, oculocephalic and gag reflexes. No motor response to deep noxious stimuli. Had tonic clonic movements of BUE this morning that ceased with Ativan 2 mg IV. 06/07: Afebrile. Tube feeds currently at 30 cc an hour with Jevity 1.5. 200 cc stools per fecal containment device. Received lorazepam 2 mg IV for "tremors " overnight. He reveals diffuse encephalopathy with no epileptiform activity on 06/04 and 06/06. 06/08: Currently afebrile. Tube feeding currently goal at 40 cc now with Jevity 1.5. 600 cc stools per fecal containment device. MRI brain 06/07 showed diffuse signs of anoxic brain injury. 06/09: CURRENT TEMPERATURE 98.7. RN is complaining of "transmitted upper airway sounds". Chest x-ray revealed no acute cardio pulmonary findings. Do not appreciate on my examination. . The patient is tachycardia and tachypnea, with copious thick whitish secretions from ET tube. Tolerate tube feedings with positive bowel movement from fecal team device.. 06/10 Overbreathing vent otherwise brainstem reflexes absent. Palliative care assisting with determination of healthcare proxy. Have reached out to ex- , Fredrick to see if he is willing to participate in decision-making. If he is not willing, plan to discuss with Max who is her current significant other. Afebrile. SUBJECTIVE: 06/11 No neuro change. WBC up a little. Afebrile. Tolerating tube feeds. Purewick catheter in place. No invasive lines. Significant other at bedside, hopeful for a miracle recovery. Informed she has permanent brain damage, would require trach/PEG and would expected to be bedridden in intermediate with limited to no reaction to surroundings if she survives. He is aware that there has been discussion about transition to comfort "by people at [facility]". Not yet clear who will be legally making medical decisions, simply addressed Max's questions about her prognosis while he was at bedside with her. Objective Vital Signs Date Time Temp Pulse Resp B/P (MAP) Pulse Ox O2 Delivery O2 Flow Rate FiO2 06/11/17 15:09 95 06/11/17 15:09 30 06/11/17 15:08 97.7 14 122/75 (91) 95 Intake and Output 06/11/17 06/11/17 06/12/17 08:00 16:00 00:00 Intake Total 1264 ml 100 ml Output Total 1100 ml Balance 164 ml 100 ml Result Diagram: 06/11/17 0730 06/11/17 0730 Other Results Microbiology Date/Time Source Procedure Growth Status 06/09/17 07:07 Bronchial Washings Right Upper Lobe Gram Stain - Final Complete 06/09/17 07:07 Bronchial Washings Right Upper Lobe Bronchial Culture - Final HEAVY GROWTH NORMAL RESPIRATORY LAURA Complete 06/09/17 07:07 Bronchial Washings Left Lower Lobe Gram Stain - Final Complete 06/09/17 07:07 Bronchial Washings Left Lower Lobe Bronchial Culture - Final LIGHT GROWTH NORMAL RESPIRATORY LAURA Complete Imaging Last Impressions Chest X-Ray 06/09/17 0600 Signed Impressions: Service Date/Time: Friday, June 09, 2017 05:02 - CONCLUSION: No acute cardiopulmonary disease identified. Noman Mercer MD Pancreas Ultrasound 06/08/17 0000 Signed Impressions: Service Date/Time: May 16:18 - CONCLUSION: 1. No cholelithiasis. However, there is borderline gallbladder wall thickening and subtle potential pericholecystic fluid. This finding may be seen in the setting of chronic illness and chronic liver disease. The differential considerations include cholecystitis, likely chronic. If there is significant concern regarding acute cholecystitis, HIDA scan may be performed to evaluate for cystic duct patency. 2. Mild hepatomegaly. 1. Ziggy Abdi MD Brain MRI 06/07/17 0000 Signed Impressions: Service Date/Time: Wednesday, June 07, 2017 15:41 - CONCLUSION: 1. There is some increased T2 flair signal in the distribution of the striatum bilaterally. Punctate areas of diffusion restriction in the globus pallidus. Findings may be indicative of some degree of anoxic brain injury. 2. Extensive chronic sinusitis bilaterally. Pelon Mazariegos MD Gall Bladder Ultrasound 06/02/17 0000 Signed Impressions: Service Date/Time: Friday, June 02, 2017 07:17 - CONCLUSION: 1. Although the gallbladder is well-distended I see no stones or sludge. There is a trace amount of ascitic fluid including pericholecystic fluid. 2. Questionable small right effusion. No effusion is seen on the recent CT scan. Howard Ricardo Jr., MD CT Angiography 06/02/17 0000 Signed Impressions: Service Date/Time: Friday, June 02, 2017 00:38 - CONCLUSION: No evidence of pulmonary embolism. Left lung perihilar infiltrate. Darrius Blandon MD Abdomen/Pelvis CT 06/02/17 0000 Signed Impressions: Service Date/Time: Friday, June 02, 2017 00:43 - CONCLUSION: Nonspecific distention of bowel. Nonspecific abnormal appearance of the gallbladder. Darrius Blandon MD Head CT 06/01/17 2347 Signed Impressions: Service Date/Time: Friday, June 02, 2017 00:29 - CONCLUSION: No acute intracranial process Darrius Blandon MD Objective Remarks Drips: None Jevity 1.5 at 40 mL per hour GENERAL: 37-year-old AA female orotracheally intubated HEENT: Normocephalic. Atraumatic. Pupils 1-2 mm bilaterally and nonreactive. Scleral edema noted with some erythema NECK: Trachea is midline. There is no JVD. CHEST: Symmetrical chest rise. CTAB. CARDIOVASCULAR: Tachycardic, RR. Without murmur ABDOMEN: Soft, nontender, nondistended. Bowel sounds present. Fecal containment device with brown/yellow liquid stool. Tolerating tube feeds MUSCULOSKELETAL: Pulses 2+ bilateral radial and posterior tibialis. Dependent edema of hands bilaterally. NEUROLOGICAL: No eye opening. Pupils 1-2 mm but nonreactive. No corneal reflex. No gag. No cough. +Spontaneous respirations over the current ventilator settings, also noted spontaneous resp effort when disconnected vent. No motor response to deep noxious stimuli. Negative Babinski. No clonus. Date of Insertion: Jun 01, 2017 Date of Removal: Jun 03, 2017 Line: Central Venous Catheter Side: Right Location: Femoral A/P Assessment and Plan Neuro/Psych: Acute hypoxic ischemic encephalopathy Toxic encephalopathy - multifactorial Cocaine overdose EtOH abuse Seizure Status post induced therapeutic hypothermia. Sedation discontinued 06/03 at 1930. Remains off sedatives Neurochecks per ICU protocol CT brain admission 06/01 revealed no acute intracranial findings 06/04 EEG -. Severe encephalopathy with nearly flat line appearance. 06/06 EEG - severe encephalopathy with no epileptic activity 06/09 EEG - severely abnormal, severe background slowing consistent with anoxia. 06/04 ammonia level- 10 Continue thiamine 100 mg daily, folate 1 mg daily and multivitamin 1 tablet daily with EtOH use by history MRI brain 06/07 - increased T2 flair signal in the distribution of the striatum bilaterally. Punctate areas of diffusion restriction in the globus pallidus. Findings may be indicative of some degree of anoxic brain injury. Extensive chronic sinusitis bilaterally. Currently on levetiracetam 1000 mg IV twice a day per neurology's recommendations. Fosphenytoin discontinued Neurology consult/Dr. White Oxycodone 5 mg liquid every 4 hours when necessary pain 1-10/agitation Respiratory: Acute hypoxic and hypercarbic respiratory failure ACV 15/500//30. Vent bundle Current Mental status barrier to extubation. However, perform daily SBT to mitigate respiratory muscle weakness. Head of bed 30 Albuterol/ipratropium aerosols every 6 hours with albuterol aerosols every 2 hours as needed Hypertonic saline 3% aerosols 2 mL every 6 hours for mucus thinning Guaifenesin 400 mg by tube every 8 hours Wean FiO2 for goal SPO2 greater than 92% CT pulmonary angiogram 06/01: Negative for acute PE and possible left lower lobe infiltrate Chest x-ray 06/09 revealed no acute cardio pulmonary findings Status post bronchoscopy 06/09. Please defer to procedure note Cardiovascular: Status post out of hospital cardiac arrest Cardiogenic shock (resolved) NSTEMI Lactic acidosis-resolved Elevated HDL Goal mean arterial pressure greater than 65 Cardiology/Dr. Perez has evaluated and no plans for further workup at this time due to extremely poor neurologic prognosis 06/03 2D echo - The left ventricular systolic function is mildly reduced with an estimated ejection fraction of 45%. Normal left ventricular size. Wall thickness is normal. No regional wall motion abnormalities are present. Mild mitral valve regurgitation. Mild aortic sclerosis. Trace aortic valve regurgitation. Amiodarone infusion discontinued 06/02 secondary to the patient having elevated LFTs. The patient remains in normal sinus rhythm, hemodynamically stable on no vasopressors 06/03- arterial Doppler studies. Slight depression MILES 0.8 bilaterally. Biphasic Doppler signals right DP, PT Currently off all vasopressors. Scheduled labetalol 200 mg twice a day As needed labetalol/hydralazine Nitropaste for blood pressure greater than 160 Renal/FEN/: Acute kidney injury - resolved Hypernatremia Creatinine currently within normal limits Currently on Jevity 1.5 goal 40 cc an hours per nutrition's recommendations Sodium is downtrending, decrease Free water 200 cc every 6 hours Off IV fluids. 06/[address] Bladder scan q6 hours and I/O cath if >300 Check BMP in a.m GI: Elevated AST/alkaline phosphatase Diarrhea NOS Hypoalbuminemia Elevated amylase/lipase - 1317 06/02 Fecal containment device placed CT abdomen/pelvis revealed a nonspecific bowel gas pattern with dilated bowel loops and abnormal gallbladder appearance. 06/02 gallbladder ultrasound- distended gallbladder pancreatic ultrasound - borderline gallbladder wall thickening. Pericholecystic fluid. Visualized pancreas was normal. HIDA scan oy 06/09 - negative for cystic duct obstruction. LFTs downtrending. Tolerating Jevity 1.5 @40 mL per hour. Lansoprazole 30 mm by tube daily for GI prophylaxis No bowel regimen secondary to ongoing diarrhea. C. difficile negative -06/03 [employer] MACHINE: Patient was actively menstruating. Change sanitary pads as needed Beta hCG 1 Heme/ID: Microcytic anemia Community-acquired pneumonia Blood culture- NGTD 06/04Sputum culture MSSA, betastrep. 06/09bronchoscopy - negative C. difficile negative Empiric antibiotics initiated secondary to left lung base developing opacity- possibly secondary to aspiration. Has been on cefepime, azithromycin and vancomycin 06/03- Compled cefazolin 1 g IV every 8 hours, antibiotic day #8 Stopped 06/10 . Has leukocytosis but is afebrile. Will continue to watch off antibiotics. If leukocytosis worsens, place consideration to thrombophlebitis; ? pancreatitis. ?chronic sinusitis. Endocrine: Hyperglycemia of critical illness, resolved Not requiring sliding scale coverage for many days. Will discontinue. TSH normal 1.74 Prophylaxis: GI Prophylaxis Lansoprazole 30 mg daily DVT Prophylaxis -- SCDs Subcutaneous heparin 5000 units twice a day Lines: 06/01 right femoral triple-lumen catheter placed in the emergency department by the emergency room physician-[id number] 06/02 right radial arterial line - d/c 06/07 06/02 left femoral code cool catheter - d/c 06/06. PIV Reviewed palliative care note. Her significant other was at bedside with multiple questions, answered them. Appreciate palliative care and social work assistance in determining legal decision maker. Patient's prognosis for functional recovery is poor. Would need trach and PEG for ongoing supportive care. We'll discuss with legal decision maker when it is determined who that is. Level II follow-up Olya Byrd MD Jun 11, 2017 15:30
[2017-06-11] MEDS: RESP: ALBUTEROL 2.5 MG/3 ML NEB (PRN) NEB (20:26)
[2017-06-12] VITALS (16 sets, daily range): BP systolic 118–144; BP diastolic 83–101; PULSE 85–101; RESP 12–22; TEMP 97.8–99.1; O2SAT 95–99
[2017-06-12] MEDS: FREE WATER G-TUBE SCH ×4 (02:00→20:00)
[2017-06-12] MEDS: RESP: SODIUM CHLORIDE 3% 4 ML NEB NEB SCH ×4 (04:43→21:13)
[2017-06-12 05:58] LABS: AUTOMATED NEUTROPHIL # 9.2 TH/MM3 (1.8-7.7); BASOPHIL # 0.1 TH/MM3 (0-0.2); BASOPHIL % 0.8 % (0.0-2.0); EOSINOPHIL # 0.1 TH/MM3 (0-0.4); EOSINOPHIL % 1.1 % (0.0-4.0); HEMATOCRIT 25.3 % (35.0-46.0); HEMOGLOBIN 7.8 GM/DL (11.6-15.3); LYMPH % 12.5 % (9.0-44.0); LYMPHOCYTE # 1.6 TH/MM3 (1.0-4.8); MEAN CELL VOLUME 76.1 FL (80.0-100.0); MEAN CORPUSCULAR HEMOGLOBIN 23.6 PG (27.0-34.0); MEAN PLATELET VOLUME 9.2 FL (7.0-11.0); MONO % 14.3 % (0.0-8.0); MONOCYTE # 1.8 TH/MM3 (0-0.9); NEUT % 71.3 % (16.0-70.0); PLATELET COUNT 305 TH/MM3 (150-450); RED BLOOD COUNT 3.32 MIL/MM3 (4.00-5.30); RED CELL DISTRIBUTION WIDTH 18.7 % (11.6-17.2); WHITE BLOOD COUNT 12.9 TH/MM3 (4.0-11.0)
[2017-06-12] MEDS: HEPARIN SODIUM - SQ 10,000 UNITS/ML VIAL SQ SCH ×2 (06:12→18:08)
[2017-06-12] MEDS: guaiFENesin SOLUTION 200 MG/10 ML CUP OG-TUBE SCH ×3 (06:12→20:36)
[2017-06-12 06:27] LABS: ALT (GPT) 18 U/L (10-53); AST (GOT) 58 U/L (15-37); BLOOD UREA NITROGEN 15 MG/DL (7-18); CALCIUM 9.1 MG/DL (8.5-10.1); CHLORIDE 111 MEQ/L (98-107); CREATININE 0.76 MG/DL (0.50-1.00); GLOMERULAR FILTRATION RATE 105 ML/MIN (>89); GLUCOSE,RANDOM 92 MG/DL (74-106); LIPASE 1395 U/L (73-393); SODIUM (NA) 145 MEQ/L (136-145)
[2017-06-12 06:30] LABS: ALKALINE PHOSPHATASE 148 U/L (45-117); TOTAL BILIRUBIN ADULT 0.1 MG/DL (0.2-1.0)
[2017-06-12 07:18] LABS: BANDS 14 % (0-6); LYMPHOCYTES 8 % (9-44); MONOCYTES 7 % (0-8); MYELOCYTES 4 % (0-0); NEUTROPHIL # MANUAL DIFF 10.8 TH/MM3 (1.8-7.7); POLYS (SEG NEUTROPHILS) 66 % (16-70)
[2017-06-12] MEDS: CHLORHEXIDINE 0.12% (ORAL KIT) 15 ML CUP OROPHARYNG SCH ×2 (07:35→20:37)
[2017-06-12] MEDS: SODIUM CHLORIDE 0.9% FLUSH 10 ML FLUSH IV FLUSH PRN ×2 (08:55)
[2017-06-12] MEDS: ARTIFICIAL TEARS OPTH SOLN 15 ML BTL EACH EYE SCH ×3 (08:55→18:08)
[2017-06-12] MEDS: FAMOTIDINE 20 MG TAB NG SCH ×2 (08:56→20:36)
[2017-06-12] MEDS: FOLIC ACID 1 MG TAB PO SCH (08:56)
[2017-06-12] MEDS: MULTIVITAMIN TAB PO SCH (08:56)
[2017-06-12] MEDS: LABETALOL HCL 200 MG TAB PO SCH ×2 (08:56→20:36)
[2017-06-12] MEDS: THIAMINE HCL 100 MG TAB PO SCH (08:56)
[2017-06-12] MEDS: DOCUSATE SODIUM 100 MG/10 ML UDC PO SCH ×2 (08:56→20:36)
--- NOTE | 2017-06-12 08:57 | HHI.CCPN ---
Subjective Remarks/Hospital Course This is a 37-year-old female with an unknown past medical history who presents after out of hospital cardiac arrest. Per EMS report, a friend found the patient altered with agonal respirations. Per report, the friend did not have any way of contacting 911, so the friend place the patient in a car and drove her to the nearest gas station to call 911. Upon EMS arrival, the patient was unresponsive, not breathing, and pulseless. Presenting rhythm was asystole. ACLS was initiated, 3 A of epinephrine, 1 amp of bicarbonate, 2 mg of Narcan and the patient had ROSC. Patient was transported to [facility] emergency Department. In emergency department, she had a decreased level of consciousness but was moving all 4 extremities spontaneously. Her GCS was 6 (E1 ,V1,M4). Her urine drug screen is positive for cocaine. I discussion with Dr. Yañez the ER physician, and we agree that given her young age and that she was witnessed with a pulse, that the potential benefits of therapeutic hypothermia outweigh the risks in this scenario. No additional information is available from the patient and we do not know of any family at this time. Patient was transported the CVICU and therapeutic hypothermia was initiated. 06/02: Currently on hypothermia protocol. Temperature 33C. Dignishield will be placed. Remains on multiple vasopressors. Troponin climbing with repeat ordered. Echocardiogram and a.m. EKG pending. 06/03: Rewarming process initiated early this a.m.. Patient was weaned off of vasopressors greater than 24 hours. Hemodynamically stable. Early this a.m. the patient noted was noted to have decrease in dorsalis pedis and posterior tibial pulses, now nonpalpable but dopplerable biphasic signals. Arterial Doppler studies pending. Right femoral triple-lumen central line removed. Chest x-ray was noted to have an infiltrate, sputum cultures are pending empiric antibiotics initiated. 06/04: Normothermic at 1930 .Sedation discontinued 1929 on 06/03. The patient remains encephalopathic at this time. She remains hemodynamically stable on no pressors. EEG pending at this time. The patient was noted to be slightly hypernatremic, IV fluids changed. ABIs were performed for slightly decreased pulse yesterday and right lower extremities bilateral ABIs slightly depressed pulses on the right remain dopplerable, biphasic. 06/05: Afebrile. No acute events overnight. Patient continues to be hypertensive scheduled PO labetalol 100 mg BID. Neurologically, the patient remains encephalopathic, EEG performed yesterday showed nearly flat line. CT pending this a.m.. Neurology has been consulted, patient has been off sedation for approximately 36 hours. 06/06 MRI pending. Off sedation. Not brain --> has spontaneous respirations when disconnected vent. Absent pupillary, corneal, oculocephalic and gag reflexes. No motor response to deep noxious stimuli. Had tonic clonic movements of BUE this morning that ceased with Ativan 2 mg IV. 06/07: Afebrile. Tube feeds currently at 30 cc an hour with Jevity 1.5. 200 cc stools per fecal containment device. Received lorazepam 2 mg IV for "tremors " overnight. He reveals diffuse encephalopathy with no epileptiform activity on 06/04 and 06/06. 06/08: Currently afebrile. Tube feeding currently goal at 40 cc now with Jevity 1.5. 600 cc stools per fecal containment device. MRI brain 06/07 showed diffuse signs of anoxic brain injury. 06/09: CURRENT TEMPERATURE 98.7. RN is complaining of "transmitted upper airway sounds". Chest x-ray revealed no acute cardio pulmonary findings. Do not appreciate on my examination. . The patient is tachycardia and tachypnea, with copious thick whitish secretions from ET tube. Tolerate tube feedings with positive bowel movement from fecal team device.. 06/10 Overbreathing vent otherwise brainstem reflexes absent. Palliative care assisting with determination of healthcare proxy. Have reached out to ex- , Fredrick to see if he is willing to participate in decision-making. If he is not willing, plan to discuss with Max who is her current significant other. Afebrile. 06/11 No neuro change. WBC up a little. Afebrile. Tolerating tube feeds. Purewick catheter in place. No invasive lines. Significant other at bedside, hopeful for a miracle recovery. Informed she has permanent brain damage, would require trach/PEG and would expected to be bedridden in snf with limited to no reaction to surroundings if she survives. He is aware that there has been discussion about transition to comfort "by people at the [facility]". Not yet clear who will be legally making medical decisions, simply addressed Max's questions about her prognosis while he was at bedside with her. SUBJECTIVE: 06/12: no changes or improvements. palliative with ongoing discussions. Objective Vital Signs Date Time Temp Pulse Resp B/P (MAP) Pulse Ox O2 Delivery O2 Flow Rate FiO2 06/12/17 07:42 99 40 06/12/17 07:07 97 06/12/17 07:07 97.8 13 144/92 (109) Intake and Output 06/12/17 06/12/17 06/13/17 08:00 16:00 00:00 Output Total 900 ml Balance -900 ml Result Diagram: 06/12/17 0403 06/12/17 0403 Imaging Last Impressions Chest X-Ray 06/09/17 0600 Signed Impressions: Service Date/Time: Friday, June 09, 2017 05:02 - CONCLUSION: No acute cardiopulmonary disease identified. Noman Mercer MD Pancreas Ultrasound 06/08/17 0000 Signed Impressions: Service Date/Time: May 16:18 - CONCLUSION: 1. No cholelithiasis. However, there is borderline gallbladder wall thickening and subtle potential pericholecystic fluid. This finding may be seen in the setting of chronic illness and chronic liver disease. The differential considerations include cholecystitis, likely chronic. If there is significant concern regarding acute cholecystitis, HIDA scan may be performed to evaluate for cystic duct patency. 2. Mild hepatomegaly. 1. Ziggy Abdi MD Brain MRI 06/07/17 0000 Signed Impressions: Service Date/Time: Wednesday, June 07, 2017 15:41 - CONCLUSION: 1. There is some increased T2 flair signal in the distribution of the striatum bilaterally. Punctate areas of diffusion restriction in the globus pallidus. Findings may be indicative of some degree of anoxic brain injury. 2. Extensive chronic sinusitis bilaterally. Pelon Mazariegos MD Gall Bladder Ultrasound 06/02/17 0000 Signed Impressions: Service Date/Time: Friday, June 02, 2017 07:17 - CONCLUSION: 1. Although the gallbladder is well-distended I see no stones or sludge. There is a trace amount of ascitic fluid including pericholecystic fluid. 2. Questionable small right effusion. No effusion is seen on the recent CT scan. Howard Ricardo Jr., MD CT Angiography 06/02/17 0000 Signed Impressions: Service Date/Time: Friday, June 02, 2017 00:38 - CONCLUSION: No evidence of pulmonary embolism. Left lung perihilar infiltrate. Darrius Blandon MD Abdomen/Pelvis CT 06/02/17 0000 Signed Impressions: Service Date/Time: Friday, June 02, 2017 00:43 - CONCLUSION: Nonspecific distention of bowel. Nonspecific abnormal appearance of the gallbladder. Darrius Blandon MD Head CT 06/01/17 2347 Signed Impressions: Service Date/Time: Friday, June 02, 2017 00:29 - CONCLUSION: No acute intracranial process Darrius Blandon MD Objective Remarks GENERAL: 37-year-old AA female orotracheally intubated HEENT: Normocephalic. Atraumatic. Pupils 1-2 mm bilaterally and nonreactive. Scleral edema noted with some erythema NECK: Trachea is midline. There is no JVD. CHEST: Symmetrical chest rise. PSV 12/5/35% CARDIOVASCULAR: Tachycardic, RR. Without murmur ABDOMEN: Soft, nontender, nondistended. Bowel sounds present. Fecal containment device with brown/yellow liquid stool. Tolerating tube feeds MUSCULOSKELETAL: Pulses 2+ bilateral radial and posterior tibialis. Dependent edema of hands bilaterally. NEUROLOGICAL: No eye opening. Pupils 1-2 mm but nonreactive. No corneal reflex. No gag. No cough. +Spontaneous respirations over the current ventilator settings, also noted spontaneous resp effort when disconnected vent. No motor response to deep noxious stimuli. Negative Babinski. No clonus. A/P Assessment and Plan Assessment: 37yF with severe anoxic brain injury without neurologic improvement. poor prognosis. Neuro/Psych: Acute hypoxic ischemic encephalopathy Toxic encephalopathy - multifactorial Cocaine overdose EtOH abuse Seizure Status post induced therapeutic hypothermia. Sedation discontinued 06/03 at 1930. Remains off sedatives Neurochecks per ICU protocol CT brain admission 06/01 revealed no acute intracranial findings 06/04 EEG -. Severe encephalopathy with nearly flat line appearance. 06/06 EEG - severe encephalopathy with no epileptic activity 06/09 EEG - severely abnormal, severe background slowing consistent with anoxia. 06/04 ammonia level- 10 MRI brain 06/07 - increased T2 flair signal in the distribution of the striatum bilaterally. Punctate areas of diffusion restriction in the globus pallidus. Findings may be indicative of some degree of anoxic brain injury. Extensive chronic sinusitis bilaterally. Continue thiamine 100 mg daily, folate 1 mg daily and multivitamin 1 tablet daily with EtOH use by history Currently on levetiracetam 1000 mg po twice a day per neurology's recommendations. Fosphenytoin discontinued Neurology consult/Dr. White Oxycodone 5 mg liquid every 4 hours when necessary pain 1-10/agitation Respiratory: Acute hypoxic and hypercarbic respiratory failure ACV 15/500//30. Vent bundle Current Mental status barrier to extubation. However, perform daily SBT to mitigate respiratory muscle weakness. Head of bed 30 Albuterol/ipratropium aerosols every 6 hours with albuterol aerosols every 2 hours as needed Hypertonic saline 3% aerosols 2 mL every 6 hours for mucus thinning Guaifenesin 400 mg by tube every 8 hours Wean FiO2 for goal SPO2 greater than 92% CT pulmonary angiogram 06/01: Negative for acute PE and possible left lower lobe infiltrate Chest x-ray 06/09 revealed no acute cardio pulmonary findings Status post bronchoscopy 06/09. Please defer to procedure note Cardiovascular: Status post out of hospital cardiac arrest Cardiogenic shock (resolved) NSTEMI- resolved. Lactic acidosis-resolved Elevated HDL Goal mean arterial pressure greater than 65 Cardiology/Dr. Perez has evaluated and no plans for further workup at this time due to extremely poor neurologic prognosis 06/03 2D echo - The left ventricular systolic function is mildly reduced with an estimated ejection fraction of 45%. Normal left ventricular size. Wall thickness is normal. No regional wall motion abnormalities are present. Mild mitral valve regurgitation. Mild aortic sclerosis. Trace aortic valve regurgitation. Amiodarone infusion discontinued 06/02 secondary to the patient having elevated LFTs. The patient remains in normal sinus rhythm, hemodynamically stable on no vasopressors 06/03- arterial Doppler studies. Slight depression MILES 0.8 bilaterally. Biphasic Doppler signals right DP, PT Currently off all vasopressors. Scheduled labetalol 200 mg twice a day As needed labetalol/hydralazine Nitropaste for blood pressure greater than 160 Renal/FEN/: Acute kidney injury - resolved Hypernatremia Creatinine currently within normal limits Currently on Jevity 1.5 goal 40 cc an hours per nutrition's recommendations Sodium is downtrending, Free water 200 cc every 6 hours Off IV fluids. 06/[address] Bladder scan q6 hours and I/O cath if >300 GI: Elevated AST/alkaline phosphatase Diarrhea NOS Hypoalbuminemia Elevated amylase/lipase - 1317 06/02 Fecal containment device placed CT abdomen/pelvis revealed a nonspecific bowel gas pattern with dilated bowel loops and abnormal gallbladder appearance. 06/02 gallbladder ultrasound- distended gallbladder pancreatic ultrasound - borderline gallbladder wall thickening. Pericholecystic fluid. Visualized pancreas was normal. HIDA scan oy 06/09 - negative for cystic duct obstruction. LFTs downtrending. Tolerating Jevity 1.5 @40 mL per hour. Lansoprazole 30 mm by tube daily for GI prophylaxis No bowel regimen secondary to ongoing diarrhea. C. difficile negative -06/03 MANAGER ANIMATION: Patient was actively menstruating. Change sanitary pads as needed Beta hCG 1 Heme/ID: Microcytic anemia Community-acquired pneumonia Blood culture- NGTD 06/04Sputum culture MSSA, betastrep. 06/09bronchoscopy - negative C. difficile negative Empiric antibiotics initiated secondary to left lung base developing opacity- possibly secondary to aspiration. Has been on cefepime, azithromycin and vancomycin 06/03- Compled cefazolin 1 g IV every 8 hours, antibiotic day #8 Stopped 06/10 .monitor off abx Endocrine: Hyperglycemia of critical illness, resolved Not requiring sliding scale coverage for many days. Will discontinue. TSH normal 1.74 Prophylaxis: GI Prophylaxis Lansoprazole 30 mg daily DVT Prophylaxis -- SCDs Subcutaneous heparin 5000 units twice a day Lines: 06/01 right femoral triple-lumen catheter placed in the emergency department by the emergency room [id number] 06/02 right radial arterial line - d/c 06/07 06/02 left femoral code cool catheter - d/c 06/06. PIV Americo Ruiz MD Jun 12, 2017 08:57
--- NOTE | 2017-06-12 10:51 | HHI.HCPN ---
Reason for visit a. To assist with evaluation and management of symptoms including: Dyspnea, encephalopathy b. To assist medical decision maker(s) with: better understanding of current medical conditions; weighing benefits/burdens of medical treatment options; making medical treatment decisions. (Thalia Morton) Subjective/Interval History Pt seen today to follow up on comfort, possible decision maker. Stable in ICU- not requiring pressors. No improvement in neurological status. Repeat EEG 06/09 = severely abnormal EEG due to severe background slowing consistent with a diffuse cerebral dysfunction such as anoxia to be considered. . vPoor prognosis per neurology. s/p HIDA scan last week for elevated lipase; no duct obstruction. lipase 1395. H&h slowly downtrending; stable at 7.8/25.3. Remains on mech vent, + overbreathing vent rate, plans for CPAP trials though no plan for extubation 2/2 unable to protect airway. pt examined in room, nursing present. (Dual visit w Josephine GUY) Pt non responsive to exam. +edema to tongue, protruding from mouth. nursing informs sig other Max comes to visit. Palliative received a VM from ex spouse Fredrick Hawkins 06/11 , return call to him today after exam. Spoke w Mr. Hawkins regarding proxy decision making, and possibility may entail buttermaker helper decision making as pt not expected to regain capacity. He is agreement to serve as HC PROXY. He has known Ms Almendarez for 4- 5 years. Says she has struggled with homelessness for a long time-- even when she had a place to go she would always end up back on the street. Updated on Ms. Almendarez conditions, prognosis, predicated trajectory, and possible treatments going forward to continue aggressive tx- including tracheostomy/PEG. Alternatively, review option to transition to comfort focus and comfort measures only, pt would likely in days to weeks, with comfort measures in place. Review of CPR benefits/burdens. He requests that no further cardiac resuscitation be administered, though continue with ETT/mech ventilation. ALT CODE to be entered. He indicates he would like until Monday to make decisions RE trach/PEG, wishes to weigh information, talk to his support system before making further decisions. D/w nursing, critical care. * DECISION MAKER: accurint findings=possible name /number Lillie Erickson Tawanda Erickson [phone]. I called this # VM left requesting call back to determine if related to pt 06/08/17. I called this number again, reached Ms Lillie Almendarez, she is NOT related to this pt, should not be contacted further. As of 06/09 morning, I have not heard back from pt significant other Max. Hospital Searches have not located parents. Would determine if ex-spouse wishes to serve as proxy. If close friend does not wish to serve as proxy then would recommend proceed w [employer] consultation to assist w decision making. 11am I left message for Fredrick Hawkins (ex spouse) to call me back RE serving as HCP. Awaiting call back. If he does NOT wish to serve, then should explore if Max wishes to serve before pursuing [employer]. 06/12/17 Palliative received a VM from ex spouse Fredrick Hawkins 06/11 , return call to him today after exam. Spoke w Mr. Hawkins regarding proxy decision making , and possibility may entail residential decision making as pt not expected to regain capacity. He is agreement to serve as HC PROXY. . (Thalia Morton) Advance Directives Living Will: Never completed Health Care Surrogate: Never completed Durable Power of Aix System Administrator: Never completed (Thalia Morton) Advance Directive Specifics Significant change in goals: HC proxy established, requests Alt code/intubation only. Considering trach/PEG vs transition to comfort. . (Thalia Morton) Objective Vital Signs Date Time Temp Pulse Resp B/P (MAP) Pulse Ox O2 Delivery O2 Flow Rate FiO2 06/12/17 09:22 99 40 06/12/17 07:42 99 40 06/12/17 07:42 40 06/12/17 07:07 97 06/12/17 07:07 97.8 98 13 144/92 (109) 98 06/12/17 07:06 30 06/12/17 04:46 99 40 06/12/17 04:12 97.9 100 12 131/86 (101) 99 06/12/17 04:12 30 06/12/17 03:00 97 06/12/17 00:53 95 40 06/11/17 23:36 97.7 82 13 93/53 (66) 99 06/11/17 23:36 30 06/11/17 23:26 83 06/11/17 20:21 97 30 06/11/17 19:47 97.8 102 16 145/95 (112) 98 06/11/17 19:46 30 06/11/17 19:00 104 06/11/17 16:15 97 30 06/11/17 15:09 95 06/11/17 15:09 30 06/11/17 15:08 97.7 98 14 122/75 (91) 95 06/11/17 11:13 97.6 88 14 107/64 (78) 96 06/11/17 11:13 95 30 06/11/17 11:12 86 06/11/17 11:11 30 Intake & Output 06/12/17 06/12/17 07:00 19:00 Intake Total 120 ml Output Total 900 ml Balance -780 ml IV Total 120 ml Output Urine Total 900 ml # Bowel Movements 50 Physical Exam CONSTITUTIONAL/GENERAL: This is an adequately nourished patient, nonresponsive on mechanical vent TUBES/LINES/DRAINS: PIV BUE, ET tube, NG tube, Cochran catheter, rectal drain SKIN: No jaundice, rashes, or lesions. No wounds seen anteriorly. Skin temperature warm, dry. Nails long, broken and uneven. EYES: Pupils 3mm slight reaction to light. No corneal reflex. No injection or drainage. Fundi not examined. CARDIOVASCULAR: Regular rate and rhythm without murmur. Peripheral pulses faint. Edema to extremities. RESPIRATORY/CHEST: Symmetric, unlabored respirations via mechanical vent. Over breathes over ventilator rate. rhonchi to right, clear otherwise, diminished. Equal bilaterally. GASTROINTESTINAL: Abdomen soft, nondistended. Unable to determine tenderness secondary to nonresponsiveness. No palpable masses. Bowel sounds normoactive. Tube feed infusing GENITOURINARY: Without palpable bladder distension. Cochran catheter in place. MUSCULOSKELETAL: Extremities without clubbing, cyanosis. Edema to extremities. No mottling or clubbing. NEUROLOGICAL: Not currently on sedation, nonresponsive to exam--no withdrawal to pain stimuli to extremities, no corneal reflex, no eye opening. PSYCHIATRIC: Limited assessment due to clinical condition . (Thalia Morton) Diagnostic Tests Laboratory Laboratory Tests Test 06/10/17 04:55 06/10/17 06:03 06/11/17 07:30 06/12/17 04:03 White Blood Count 11.1 TH/MM3 (4.0-11.0) 12.8 TH/MM3 (4.0-11.0) 12.9 TH/MM3 (4.0-11.0) Red Blood Count 3.31 MIL/MM3 (4.00-5.30) 3.24 MIL/MM3 (4.00-5.30) 3.32 MIL/MM3 (4.00-5.30) Hemoglobin 7.7 GM/DL (11.6-15.3) 7.7 GM/DL (11.6-15.3) 7.8 GM/DL (11.6-15.3) Hematocrit 24.9 % (35.0-46.0) 24.2 % (35.0-46.0) 25.3 % (35.0-46.0) Mean Corpuscular Volume 75.2 FL (80.0-100.0) 74.7 FL (80.0-100.0) 76.1 FL (80.0-100.0) Mean Corpuscular Hemoglobin 23.3 PG (27.0-34.0) 23.8 PG (27.0-34.0) 23.6 PG (27.0-34.0) Mean Corpuscular Hemoglobin Concent 30.9 % (32.0-36.0) 31.8 % (32.0-36.0) 31.0 % (32.0-36.0) Red Cell Distribution Width 18.1 % (11.6-17.2) 18.6 % (11.6-17.2) 18.7 % (11.6-17.2) Platelet Count 198 TH/MM3 (150-450) 269 TH/MM3 (150-450) 305 TH/MM3 (150-450) Mean Platelet Volume 8.8 FL (7.0-11.0) 8.7 FL (7.0-11.0) 9.2 FL (7.0-11.0) Neutrophils (%) (Auto) 73.0 % (16.0-70.0) 72.9 % (16.0-70.0) 71.3 % (16.0-70.0) Lymphocytes (%) (Auto) 10.4 % (9.0-44.0) 11.8 % (9.0-44.0) 12.5 % (9.0-44.0) Monocytes (%) (Auto) 14.6 % (0.0-8.0) 13.9 % (0.0-8.0) 14.3 % (0.0-8.0) Eosinophils (%) (Auto) 1.8 % (0.0-4.0) 1.3 % (0.0-4.0) 1.1 % (0.0-4.0) Basophils (%) (Auto) 0.2 % (0.0-2.0) 0.1 % (0.0-2.0) 0.8 % (0.0-2.0) Neutrophils # (Auto) 8.1 TH/MM3 (1.8-7.7) 9.3 TH/MM3 (1.8-7.7) 9.2 TH/MM3 (1.8-7.7) Lymphocytes # (Auto) 1.2 TH/MM3 (1.0-4.8) 1.5 TH/MM3 (1.0-4.8) 1.6 TH/MM3 (1.0-4.8) Monocytes # (Auto) 1.6 TH/MM3 (0-0.9) 1.8 TH/MM3 (0-0.9) 1.8 TH/MM3 (0-0.9) Eosinophils # (Auto) 0.2 TH/MM3 (0-0.4) 0.2 TH/MM3 (0-0.4) 0.1 TH/MM3 (0-0.4) Basophils # (Auto) 0.0 TH/MM3 (0-0.2) 0.0 TH/MM3 (0-0.2) 0.1 TH/MM3 (0-0.2) CBC Comment AUTO DIFF AUTO DIFF AUTO DIFF Differential Total Cells Counted 100 100 100 Neutrophils % (Manual) 64 % (16-70) 64 % (16-70) 66 % (16-70) Band Neutrophils % 14 % (0-6) 14 % (0-6) 14 % (0-6) Lymphocytes % 7 % (9-44) 12 % (9-44) 8 % (9-44) Monocytes % 13 % (0-8) 10 % (0-8) 7 % (0-8) Eosinophils % 1 % (0-4) 1 % (0-4) Neutrophils # (Manual) 8.8 TH/MM3 (1.8-7.7) 10.0 TH/MM3 (1.8-7.7) 10.8 TH/MM3 (1.8-7.7) Myelocytes 1 % (0-0) 4 % (0-0) Nucleated Red Blood Cells 1 /100 WBC (0-0) Differential Comment FINAL DIFF MANUAL FINAL DIFF MANUAL FINAL DIFF MANUAL Platelet Estimate NORMAL (NORMAL) NORMAL (NORMAL) NORMAL (NORMAL) Platelet Morphology Comment NORMAL (NORMAL) NORMAL (NORMAL) NORMAL (NORMAL) Blood Urea Nitrogen 16 MG/DL (7-18) 16 MG/DL (7-18) 15 MG/DL (7-18) Creatinine 0.98 MG/DL (0.50-1.00) 0.79 MG/DL (0.50-1.00) 0.76 MG/DL (0.50-1.00) Random Glucose 116 MG/DL (74-106) 122 MG/DL (74-106) 92 MG/DL (74-106) Total Protein 6.5 GM/DL (6.4-8.2) 7.0 GM/DL (6.4-8.2) Albumin 2.0 GM/DL (3.4-5.0) 2.0 GM/DL (3.4-5.0) Calcium Level 8.6 MG/DL (8.5-10.1) 9.0 MG/DL (8.5-10.1) 9.1 MG/DL (8.5-10.1) Phosphorus Level 3.7 MG/DL (2.5-4.9) Magnesium Level 1.9 MG/DL (1.5-2.5) Alkaline Phosphatase 147 U/L (45-117) 148 U/L (45-117) Aspartate Amino Transf (AST/SGOT) 62 U/L (15-37) 58 U/L (15-37) Alanine Aminotransferase (ALT/SGPT) 22 U/L (10-53) 18 U/L (10-53) Total Bilirubin 0.1 MG/DL (0.2-1.0) 0.1 MG/DL (0.2-1.0) Sodium Level 147 MEQ/L (136-145) 145 MEQ/L (136-145) 145 MEQ/L (136-145) Potassium Level 3.8 MEQ/L (3.5-5.1) 3.6 MEQ/L (3.5-5.1) 4.0 MEQ/L (3.5-5.1) Chloride Level 115 MEQ/L (98-107) 113 MEQ/L (98-107) 111 MEQ/L (98-107) Carbon Dioxide Level 24.2 MEQ/L (21.0-32.0) 25.2 MEQ/L (21.0-32.0) 26.0 MEQ/L (21.0-32.0) Anion Gap 8 MEQ/L (5-15) 7 MEQ/L (5-15) 8 MEQ/L (5-15) Estimat Glomerular Filtration Rate 78 ML/MIN (>89) 100 ML/MIN (>89) 105 ML/MIN (>89) Amylase Level 145 U/L (25-115) Lipase 1158 U/L (73-393) 1317 U/L (73-393) 1395 U/L (73-393) Blood Gas Puncture Site LT RADIAL Blood Gas Patient Temperature 98.6 Blood Gas HCO3 22 mmol/L (22-26) Blood Gas Base Excess -1.3 mmol/L (-2-2) Blood Gas Oxygen Saturation 95 % (90-100) Arterial Blood pH 7.44 (7.380-7.420) Arterial Blood Partial Pressure CO2 33 mmHg (38-42) Arterial Blood Partial Pressure O2 99 mmHg (61-120) Arterial Blood Oxygen Content 14.7 Vol % (12.0-20.0) Arterial Blood Carboxyhemoglobin 0.7 % (0-4) Arterial Blood Methemoglobin 1.2 % (0-2) Blood Gas Hemoglobin 10.9 G/DL (12.0-16.0) Oxygen Delivery Device VENTILATOR Blood Gas Ventilator Setting A/C12/500/+5PEEP Blood Gas Inspired Oxygen 30 % (Thalia Morton) Result Diagram: 06/12/1740206/12/17402 Imaging Microbiology Date/Time Source Procedure Growth Status 06/02/17 17:10 Blood Peripheral Aerobic Blood Culture - Final NO GROWTH IN 5 DAYS Complete 06/02/17 17:10 Blood Peripheral Anaerobic Blood Culture - Final NO GROWTH IN 5 DAYS Complete 06/09/17 07:07 Bronchial Washings Right Upper Lobe Fungal Smear - Final NO FUNGAL ELEMENTS SEEN. Resulted 06/09/17 07:07 Bronchial Washings Right Upper Lobe Fungal Culture Pending Resulted Procedures 06/01-femoral central line, arterial line to patient (Thalia Morton) Assessment and Plan Disease Oriented Problem List: (1) Cocaine abuse (2) Cardiopulmonary arrest with successful resuscitation (3) Respiratory failure (4) Asystole (5) Anoxic encephalopathy Symptom Scale: (1) Dyspnea 0-10 Scale: Unable to quantify (2) Anoxic encephalopathy 0-10 Scale: Unable to quantify Pertinent Non-Medical Issues Psychosocial:no longer - from Fredrick Hawkins. Father Gasper Archuleta, mother Kinga Botello-- last known in [place] though pt ex has not been able to reach them at last known numbers. No siblings. Reported to have 1 child who was adopted. Reported to have local significant other Max Mercer. later d/w homeless [facility] counselor (Deisi Raj) who has known Parris for 3-4 yrs. Pt did have a biological son who a few mos ago. Pt does not have any other children. No siblings that she is aware of. She moved to [place] around age 17 w her father, whom she then lost contact with,father moved back to [place]. She has not had contact w her mother for many years. She is very nondenominational and has reported God is her father, Ms Anthony feels she would want firmware engineer support. Substance hx: per prior EMR visits under different med record #- reports alcohol, "K2", marijuana, cocaine Spiritual: not known Legal:Due to clinical condition patient not able to participate in decision- making. She appears to have severe anoxic encephalopathy does not appear she will regain ability to participate. No longer per her ex-. No siblings per her ex- father and mother last known to be in [place] though do not have current contact information for them. If able to locate maybe appropriate legal decision makers for this patient. Patient also reported to have local significant other Max Mercer. If family unable to be identified he may be appropriate decision-making proxy. Palliative requested case management assist with ACCURINT report to locate possible NOK. Ethical issues impacting care:no ethical issues identified Important Contacts Ex Fredrick Hawkins. [address] [place] [address] Boyfriend - local- Max Lipscomb Raj- counselor w [facility]/[place] [facility] [phone] Gasper Almendarez- Father, [facility] . Prognosis This patient was admitted 06/01/17 secondary to out of hospital cardiopulmonary arrest. It is not known total amount of time that she was minimally responsive and then pulseless before EMS arrival. She underwent at least 26 minutes of resuscitation by medical accounts receivable specialist. She appears to have significant severe anoxic brain injury at this time, she is minimally responsive demonstrating severe cortical injury with EEG near flat line in appearance per neurology. Overall prognosis for meaningful recovery of neurologic function appears poor. High risk for ongoing complications and sequelae secondary to hospitalization, nonresponsive state. . Code Status: Full Code Plan * Legal decision maker: Due to clinical condition patient not able to participate in decision- making. She appears to have severe anoxic encephalopathy does not appear she will regain ability to participate. No longer per her ex-. No siblings per her ex- father and mother last known to be in [place] though do not have current contact information for them. If able to locate maybe appropriate legal decision makers for this patient. Patient also reported to have local significant other Max Mercer. If family unable to be identified he may be appropriate decision-making proxy. Palliative requested case management assist with ACCURINT report 06/06/17 to locate possible NOK. If unable to identify NOK, or appropriate person to serve as HC proxy, may need to utilize [employer] for decision making for pt. 06/08: accurint findings,w possible name /number Tawanda Adrian [phone]. I called this # VM left requesting call back to determine if related to pt. 06/09 - this Lillie Almendarez is NOT related/connected to this pt. left for ex spouse Fredrick to determine if he wishes to serve as HC proxy. Awaiting call back. If he does NOT wish to serve, then should explore if Max (sig other) wishes to serve as proxy before pursuing [employer]. 06/12/17 Spoke w Mr. Hawkins regarding proxy decision making, and possibility may entail residential decision making as pt not expected to regain capacity. He is agreement to serve as HC PROXY. * Goals: PC Proxy Mr Hawkins wishes to consider trach/peg vs transition to comfort focus, over next couple of days, will make decision Monday. he elected alt code/intubation only today. * CODE STATUS: ALTERNATIVE CODE/Intubation only * SYMPTOMS: --Encephalopathy-status post out of hospital cardiopulmonary arrest-unknown total amount of time down; EEG "near flat line ", minimal neurological function at this time;repeat EEG continue to be very abnormal. MRI brain = Findings may be indicative of some degree of anoxic brain injury --Dyspnea-emergently intubated secondary to out of hospital arrest; breathing comfortable on mechanical vent. No gag reflex. +overbreathes vent. CPAP trials planned, not planned for medical extubation 2/2 unable to protect airway. * Palliative care will continue to follow during hospital course as condition evolves, to assist patient/decision-maker with understanding of medical conditions, weighing benefits/burdens of treatment options, for clarification of goals of treatment. Additionally will assist with any symptoms of palliative concern (Thalia Morton) Time Spent Total Floor Time (mins): 25 (chart review, PE, d/w nursing, critical care, d/w proxy) (Thalia Morton) Attestation To help prompt me to consider important information that might be impacting today's encounter and assessment, information from prior notes written by myself or my colleagues may have been "brought forward" into today's note. My signature on this note, however, is an attestation that I personally performed the exam, history, and/or decision-making noted today, and, unless otherwise indicated, the interactions with patient, family, and staff as well as the review of records all occurred today. I also attest that the listed assessment and stated plan reflect my best clinical judgment today based on the combination of historical information, prior notes, and today's exam/ interactions. When time spent is documented, it refers only to time spent today by the signer, or if indicated, combined time spent today by collaborating physician/nurse practitioner. (Thalia Morton) Collaborating MD Comments Chart reviewed. Case discussed with palliative care DOPE SPRAYER. Above BROOKS note reviewed and I concur. . (Julio Cesar Darby MD) Thalia Morton Jun 12, 2017 10:51 Julio Cesar Darby MD Jun 20, 2017 14:34
[2017-06-12] MEDS: levETIRAcetam 500 MG/5 ML UDC NG SCH ×2 (14:10→20:36)
[2017-06-12] MEDS: RESP: ALBUTEROL 2.5 MG/3 ML NEB (PRN) NEB (21:13)
[2017-06-13] VITALS (16 sets, daily range): BP systolic 98–145; BP diastolic 58–101; PULSE 82–97; RESP 12–30; TEMP 98–99; O2SAT 97–100
[2017-06-13] MEDS: FREE WATER G-TUBE SCH ×4 (02:00→20:00)
[2017-06-13] MEDS: RESP: SODIUM CHLORIDE 3% 4 ML NEB NEB SCH ×4 (04:05→21:34)
[2017-06-13] MEDS: guaiFENesin SOLUTION 200 MG/10 ML CUP OG-TUBE SCH ×3 (05:48→21:58)
[2017-06-13] MEDS: HEPARIN SODIUM - SQ 10,000 UNITS/ML VIAL SQ SCH ×2 (05:48→17:15)
[2017-06-13] MEDS ORDERED: MIDAZOLAM HCL 5 MG/ML VIAL (1 ML) ONE (06:36)
[2017-06-13] MEDS: CHLORHEXIDINE 0.12% (ORAL KIT) 15 ML CUP OROPHARYNG SCH ×2 (08:00→20:00)
[2017-06-13] MEDS: MULTIVITAMIN TAB PO SCH (09:36)
[2017-06-13] MEDS: levETIRAcetam 500 MG/5 ML UDC NG SCH ×2 (09:36→21:58)
[2017-06-13] MEDS: DOCUSATE SODIUM 100 MG/10 ML UDC PO SCH ×2 (09:36→21:58)
[2017-06-13] MEDS: LABETALOL HCL 200 MG TAB PO SCH ×2 (09:36→21:58)
[2017-06-13] MEDS: THIAMINE HCL 100 MG TAB PO SCH (09:37)
[2017-06-13] MEDS: FOLIC ACID 1 MG TAB PO SCH (09:37)
[2017-06-13] MEDS: FAMOTIDINE 20 MG TAB NG SCH ×2 (09:37→21:58)
[2017-06-13] MEDS: ARTIFICIAL TEARS OPTH SOLN 15 ML BTL EACH EYE SCH ×3 (09:38→17:15)
[2017-06-13] MEDS: RESP: ALBUTEROL 2.5 MG/3 ML NEB (PRN) NEB ×2 (16:11→21:34)
--- NOTE | 2017-06-13 19:04 | HHI.CCPN ---
Subjective Remarks/Hospital Course This is a 37-year-old female with an unknown past medical history who presents after out of hospital cardiac arrest. Per EMS report, a friend found the patient altered with agonal respirations. Per report, the friend did not have any way of contacting 911, so the friend place the patient in a car and drove her to the nearest gas station to call 911. Upon EMS arrival, the patient was unresponsive, not breathing, and pulseless. Presenting rhythm was asystole. ACLS was initiated, 3 A of epinephrine, 1 amp of bicarbonate, 2 mg of Narcan and the patient had ROSC. Patient was transported to [facility] emergency Department. In emergency department, she had a decreased level of consciousness but was moving all 4 extremities spontaneously. Her GCS was 6 (E1 ,V1,M4). Her urine drug screen is positive for cocaine. I discussion with Dr. Yañez the ER physician, and we agree that given her young age and that she was witnessed with a pulse, that the potential benefits of therapeutic hypothermia outweigh the risks in this scenario. No additional information is available from the patient and we do not know of any family at this time. Patient was transported the CVICU and therapeutic hypothermia was initiated. 06/02: Currently on hypothermia protocol. Temperature 33C. Dignishield will be placed. Remains on multiple vasopressors. Troponin climbing with repeat ordered. Echocardiogram and a.m. EKG pending. 06/03: Rewarming process initiated early this a.m.. Patient was weaned off of vasopressors greater than 24 hours. Hemodynamically stable. Early this a.m. the patient noted was noted to have decrease in dorsalis pedis and posterior tibial pulses, now nonpalpable but dopplerable biphasic signals. Arterial Doppler studies pending. Right femoral triple-lumen central line removed. Chest x-ray was noted to have an infiltrate, sputum cultures are pending empiric antibiotics initiated. 06/04: Normothermic at 1930 .Sedation discontinued 1929 on 06/03. The patient remains encephalopathic at this time. She remains hemodynamically stable on no pressors. EEG pending at this time. The patient was noted to be slightly hypernatremic, IV fluids changed. ABIs were performed for slightly decreased pulse yesterday and right lower extremities bilateral ABIs slightly depressed pulses on the right remain dopplerable, biphasic. 06/05: Afebrile. No acute events overnight. Patient continues to be hypertensive scheduled PO labetalol 100 mg BID. Neurologically, the patient remains encephalopathic, EEG performed yesterday showed nearly flat line. CT pending this a.m.. Neurology has been consulted, patient has been off sedation for approximately 36 hours. 06/06 MRI pending. Off sedation. Not brain --> has spontaneous respirations when disconnected vent. Absent pupillary, corneal, oculocephalic and gag reflexes. No motor response to deep noxious stimuli. Had tonic clonic movements of BUE this morning that ceased with Ativan 2 mg IV. 06/07: Afebrile. Tube feeds currently at 30 cc an hour with Jevity 1.5. 200 cc stools per fecal containment device. Received lorazepam 2 mg IV for "tremors " overnight. He reveals diffuse encephalopathy with no epileptiform activity on 06/04 and 06/06. 06/08: Currently afebrile. Tube feeding currently goal at 40 cc now with Jevity 1.5. 600 cc stools per fecal containment device. MRI brain 06/07 showed diffuse signs of anoxic brain injury. 06/09: CURRENT TEMPERATURE 98.7. RN is complaining of "transmitted upper airway sounds". Chest x-ray revealed no acute cardio pulmonary findings. Do not appreciate on my examination. . The patient is tachycardia and tachypnea, with copious thick whitish secretions from ET tube. Tolerate tube feedings with positive bowel movement from fecal team device.. 06/10 Overbreathing vent otherwise brainstem reflexes absent. Palliative care assisting with determination of healthcare proxy. Have reached out to ex- , Fredrick to see if he is willing to participate in decision-making. If he is not willing, plan to discuss with Max who is her current significant other. Afebrile. 06/11 No neuro change. WBC up a little. Afebrile. Tolerating tube feeds. Purewick catheter in place. No invasive lines. Significant other at bedside, hopeful for a miracle recovery. Informed she has permanent brain damage, would require trach/PEG and would expected to be bedridden in senior living with limited to no reaction to surroundings if she survives. He is aware that there has been discussion about transition to comfort "by people at [facility]". Not yet clear who will be legally making medical decisions, simply addressed Max's questions about her prognosis while he was at bedside with her. 06/12: no changes or improvements. palliative with ongoing discussions. SUBJECTIVE: 06/13: patient made DNR yesterday by healthcare proxy. no changes or improvements to mental status. poor prognosis. unlikely to regain any neurologic function. wbc remains elevated, and significant secretions from ETT, however, patient remains afebrile without significant o2 requirement on ventilator. Objective Vital Signs Date Time Temp Pulse Resp B/P (MAP) Pulse Ox O2 Delivery O2 Flow Rate FiO2 06/13/17 15:56 99 40 06/13/17 15:00 98.0 88 30 136/94 (108) Intake and Output 06/13/17 06/13/17 06/14/17 08:00 16:00 00:00 Intake Total 912 ml 391 ml Output Total 1200 ml 1050 ml Balance -288 ml -659 ml Result Diagram: 06/12/17 0403 06/12/17 0403 Imaging Last Impressions Chest X-Ray 06/09/17 0600 Signed Impressions: Service Date/Time: Friday, June 09, 2017 05:02 - CONCLUSION: No acute cardiopulmonary disease identified. Noman Mercer MD Pancreas Ultrasound 06/08/17 0000 Signed Impressions: Service Date/Time: May 16:18 - CONCLUSION: 1. No cholelithiasis. However, there is borderline gallbladder wall thickening and subtle potential pericholecystic fluid. This finding may be seen in the setting of chronic illness and chronic liver disease. The differential considerations include cholecystitis, likely chronic. If there is significant concern regarding acute cholecystitis, HIDA scan may be performed to evaluate for cystic duct patency. 2. Mild hepatomegaly. 1. Ziggy Abdi MD Brain MRI 06/07/17 0000 Signed Impressions: Service Date/Time: Wednesday, June 07, 2017 15:41 - CONCLUSION: 1. There is some increased T2 flair signal in the distribution of the striatum bilaterally. Punctate areas of diffusion restriction in the globus pallidus. Findings may be indicative of some degree of anoxic brain injury. 2. Extensive chronic sinusitis bilaterally. Pelon Mazariegos MD Gall Bladder Ultrasound 06/02/17 0000 Signed Impressions: Service Date/Time: Friday, June 02, 2017 07:17 - CONCLUSION: 1. Although the gallbladder is well-distended I see no stones or sludge. There is a trace amount of ascitic fluid including pericholecystic fluid. 2. Questionable small right effusion. No effusion is seen on the recent CT scan. Howard Ricardo Jr., MD CT Angiography 06/02/17 0000 Signed Impressions: Service Date/Time: Friday, June 02, 2017 00:38 - CONCLUSION: No evidence of pulmonary embolism. Left lung perihilar infiltrate. Darrius Blandon MD Abdomen/Pelvis CT 06/02/17 0000 Signed Impressions: Service Date/Time: Friday, June 02, 2017 00:43 - CONCLUSION: Nonspecific distention of bowel. Nonspecific abnormal appearance of the gallbladder. Darrius Blandon MD Head CT 06/01/17 2347 Signed Impressions: Service Date/Time: Friday, June 02, 2017 00:29 - CONCLUSION: No acute intracranial process Darrius Blandon MD Objective Remarks GENERAL: 37-year-old AA female orotracheally intubated HEENT: Normocephalic. Atraumatic. Pupils 1-2 mm bilaterally and nonreactive. Scleral edema noted with some erythema NECK: Trachea is midline. There is no JVD. CHEST: Symmetrical chest rise. PRVC, 35% fio2. CARDIOVASCULAR: Tachycardic, RR. Without murmur ABDOMEN: Soft, nontender, nondistended. Fecal containment device with brown/ yellow liquid stool. Tolerating tube feeds MUSCULOSKELETAL: Pulses 2+ bilateral radial and posterior tibialis. Dependent edema of hands bilaterally. NEUROLOGICAL: No eye opening. Pupils 1-2 mm but nonreactive. No corneal reflex. No gag. No cough. +Spontaneous respirations over the current ventilator settings, also noted spontaneous resp effort when disconnected vent. No motor response to deep noxious stimuli. Negative Babinski. No clonus. A/P Assessment and Plan Assessment: 37yF with severe anoxic brain injury without neurologic improvement. poor prognosis. Will avoid exposure to broad spectrum abx unless clinically appears infected. continue to monitor. Neuro/Psych: Acute hypoxic ischemic encephalopathy Toxic encephalopathy - multifactorial Cocaine overdose EtOH abuse Seizure Status post induced therapeutic hypothermia. Sedation discontinued 06/03 at 1930. Remains off sedatives Neurochecks per ICU protocol CT brain admission 06/01 revealed no acute intracranial findings 06/04 EEG -. Severe encephalopathy with nearly flat line appearance. 06/06 EEG - severe encephalopathy with no epileptic activity 06/09 EEG - severely abnormal, severe background slowing consistent with anoxia. 06/04 ammonia level- 10 MRI brain 06/07 - increased T2 flair signal in the distribution of the striatum bilaterally. Punctate areas of diffusion restriction in the globus pallidus. Findings may be indicative of some degree of anoxic brain injury. Extensive chronic sinusitis bilaterally. Continue thiamine 100 mg daily, folate 1 mg daily and multivitamin 1 tablet daily with EtOH use by history Currently on levetiracetam 1000 mg po twice a day per neurology's recommendations. Fosphenytoin discontinued Neurology consult/Dr. White Oxycodone 5 mg liquid every 4 hours when necessary pain 1-10/agitation Respiratory: Acute hypoxic and hypercarbic respiratory failure ACV 15/500/11/08. Vent bundle Current Mental status barrier to extubation. However, perform daily SBT to mitigate respiratory muscle weakness. Head of bed 30 Albuterol/ipratropium aerosols every 6 hours with albuterol aerosols every 2 hours as needed Hypertonic saline 3% aerosols 2 mL every 6 hours for mucus thinning Guaifenesin 400 mg by tube every 8 hours Wean FiO2 for goal SPO2 greater than 92% CT pulmonary angiogram 06/01: Negative for acute PE and possible left lower lobe infiltrate Chest x-ray 06/09 revealed no acute cardio pulmonary findings Status post bronchoscopy 06/09. Please defer to procedure note Cardiovascular: Status post out of hospital cardiac arrest Cardiogenic shock (resolved) NSTEMI- resolved. Lactic acidosis-resolved Elevated HDL Goal mean arterial pressure greater than 65 Cardiology/Dr. Perez has evaluated and no plans for further workup at this time due to extremely poor neurologic prognosis 06/03 2D echo - The left ventricular systolic function is mildly reduced with an estimated ejection fraction of 45%. Normal left ventricular size. Wall thickness is normal. No regional wall motion abnormalities are present. Mild mitral valve regurgitation. Mild aortic sclerosis. Trace aortic valve regurgitation. Amiodarone infusion discontinued 06/02 secondary to the patient having elevated LFTs. The patient remains in normal sinus rhythm, hemodynamically stable on no vasopressors 06/03- arterial Doppler studies. Slight depression MILES 0.8 bilaterally. Biphasic Doppler signals right DP, PT Currently off all vasopressors. Scheduled labetalol 200 mg twice a day As needed labetalol/hydralazine Nitropaste for blood pressure greater than 160 Renal/FEN/: Acute kidney injury - resolved Hypernatremia Creatinine currently within normal limits Currently on Jevity 1.5 goal 40 cc an hours per nutrition's recommendations Sodium is downtrending, Free water 200 cc every 6 hours Off IV fluids. 06/[address] Bladder scan q6 hours and I/O cath if >300 GI: Elevated AST/alkaline phosphatase Diarrhea NOS Hypoalbuminemia Elevated amylase/lipase - 1317 06/02 F[address] containment device placed CT abdomen/pelvis revealed a nonspecific bowel gas pattern with dilated bowel loops and abnormal gallbladder appearance. 06/02 gallbladder ultrasound- distended gallbladder pancreatic ultrasound - borderline gallbladder wall thickening. Pericholecystic fluid. Visualized pancreas was normal. HIDA scan oy 06/09 - negative for cystic duct obstruction. LFTs downtrending. Tolerating Jevity 1.5 @40 mL per hour. Lansoprazole 30 mm by tube daily for GI prophylaxis No bowel regimen secondary to ongoing diarrhea. C. 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 Change sanitary pads as needed Beta hCG 1 Heme/ID: Microcytic anemia Community-acquired pneumonia Blood culture- NGTD 06/04Sputum culture MSSA, betastrep. 06/09bronchoscopy - negative C. difficile negative Empiric antibiotics initiated secondary to left lung base developing opacity- possibly secondary to aspiration. Has been on cefepime, azithromycin and vancomycin 06/03- Compled cefazolin 1 g IV every 8 hours, antibiotic day #8 Stopped 06/10 .monitor off abx Endocrine: Hyperglycemia of critical illness, resolved Not requiring sliding scale coverage for many days. Will discontinue. TSH normal 1.74 Prophylaxis: GI Prophylaxis Lansoprazole 30 mg daily DVT Prophylaxis -- SCDs Subcutaneous heparin 5000 units twice a day Lines: 06/01 right femoral triple-lumen catheter placed in the emergency department by the emergency room [id number] 06/02 right radial arterial line - d/c 06/07 06/02 left femoral code cool catheter - d/c 06/06. PIV Americo Ruiz MD Jun 13, 2017 19:04
[2017-06-14] VITALS (15 sets, daily range): BP systolic 98–141; BP diastolic 65–102; PULSE 91–103; RESP 12–17; TEMP 98.8–99.4; O2SAT 95–100
[2017-06-14] MEDS: FREE WATER G-TUBE SCH ×4 (02:00→20:00)
[2017-06-14] MEDS: RESP: SODIUM CHLORIDE 3% 4 ML NEB NEB SCH ×2 (03:29→07:47)
[2017-06-14] MEDS: guaiFENesin SOLUTION 200 MG/10 ML CUP OG-TUBE SCH ×3 (05:45→21:15)
[2017-06-14] MEDS: HEPARIN SODIUM - SQ 10,000 UNITS/ML VIAL SQ SCH ×2 (05:46→18:32)
[2017-06-14] MEDS: RESP: ALBUTEROL 2.5 MG/3 ML NEB (PRN) NEB (07:46)
[2017-06-14] MEDS: CHLORHEXIDINE 0.12% (ORAL KIT) 15 ML CUP OROPHARYNG SCH ×2 (07:50→20:23)
[2017-06-14] MEDS: DOCUSATE SODIUM 100 MG/10 ML UDC PO SCH ×2 (09:44→20:23)
[2017-06-14] MEDS: levETIRAcetam 500 MG/5 ML UDC NG SCH ×2 (09:44→20:23)
[2017-06-14] MEDS: LABETALOL HCL 200 MG TAB PO SCH ×2 (09:44→20:23)
[2017-06-14] MEDS: MULTIVITAMIN TAB PO SCH (09:44)
[2017-06-14] MEDS: THIAMINE HCL 100 MG TAB PO SCH (09:44)
[2017-06-14] MEDS: FOLIC ACID 1 MG TAB PO SCH (09:45)
[2017-06-14] MEDS: ARTIFICIAL TEARS OPTH SOLN 15 ML BTL EACH EYE SCH ×3 (09:45→18:31)
[2017-06-14] MEDS: FAMOTIDINE 20 MG TAB NG SCH ×2 (09:45→21:15)
--- NOTE | 2017-06-14 10:49 | HHI.HCPN ---
Reason for visit a. To assist with evaluation and management of symptoms including: Dyspnea, encephalopathy b. To assist medical decision maker(s) with: better understanding of current medical conditions; weighing benefits/burdens of medical treatment options; making medical treatment decisions. (Thalia Morton) Subjective/Interval History Pt seen today to follow up on comfort, goals w decision maker. Stable in ICU. No improvement in neurological status. remains on mech vent, unable to extubate 2/2 neurological status. Will require trach/PEG for continued aggressive treatment. No new labs/imaging today. Spoke w PROXY pt ex Fredrick Hawkins Monday, he indicated plans to visit/make decisions Monday (today). Seen in room significant other Max at bedside. Non-responsive to exam. Max tells me he is praying for her to get better. Advised that she is not improving and she is not expected to make significant neurological improvement. He asks if any decisions have been made yet I advised that we have been in communication with Fredrick Hawkins and further decisions are pending, he is encouraged to speak with Mr. Hawkins as well. Patient nonresponsive to my exam--no response to pain stimuli no gag with ET tube stimulation. Continues to have some edema to tongue. Discussed with nurse. Following exam call to ex Fredrick Hawkins review with him current assessment, no improvement in neurological status, and expected trajectory/ prognosis. Review patient will require tracheostomy and PEG tube continue aggressive measures, alternatively review transition to comfort focus and de- escalation of artificial treatments. He has no additional questions, he expresses he understands how severe her condition is and that she is not expected to recover. He advises he is still considering, he will be in later to see the patient. He tells me that he knows she would not want to "be on machines and tubes forever". He will make a decision today or tomorrow after he has visited the patient. . (Thalia Morton) Advance Directives Living Will: Never completed Health Care Surrogate: Never completed Durable Power of Prenatal Genetic Counselor: Never completed (Thalia Morton) Objective Vital Signs Date Time Temp Pulse Resp B/P (MAP) Pulse Ox O2 Delivery O2 Flow Rate FiO2 06/14/17 07:47 99 40 06/14/17 07:00 98.8 99 12 115/76 (89) 95 06/14/17 07:00 91 06/14/17 07:00 40 06/14/17 04:10 97 40 06/14/17 03:10 103 06/14/17 03:10 40 06/14/17 03:10 99.0 103 17 112/79 (90) 98 06/14/17 01:08 98 40 06/13/17 23:23 40 06/13/17 23:23 98.8 85 16 98/58 (71) 98 06/13/17 23:23 86 06/13/17 22:08 98 40 06/13/17 19:57 98 40 06/13/17 19:36 40 06/13/17 19:36 98.8 94 16 131/93 (106) 98 06/13/17 19:00 97 06/13/17 15:56 99 40 06/13/17 15:00 40 06/13/17 15:00 98.0 88 30 136/94 (108) 98 06/13/17 15:00 94 06/13/17 13:29 99 40 06/13/17 11:00 40 06/13/17 11:00 98.0 83 27 107/70 (82) 97 06/13/17 11:00 82 Intake & Output 06/14/17 06/14/17 07:00 19:00 Intake Total 889 ml Output Total 500 ml Balance 389 ml Tube Feeding 489 ml Other 400 ml Output Urine Total 500 ml # Bowel Movements 0 Physical Exam CONSTITUTIONAL/GENERAL: This is an adequately nourished patient, nonresponsive on mechanical vent TUBES/LINES/DRAINS: PIV BUE, ET tube, NG tube, Cochran catheter, rectal drain SKIN: No jaundice, rashes, or lesions. No wounds seen anteriorly. Skin temperature warm, dry. Nails long, broken and uneven. EYES: Pupils 3mm slight reaction to light. No corneal reflex. No injection or drainage. Fundi not examined. CARDIOVASCULAR: Regular rate and rhythm without murmur. Peripheral pulses faint. Edema to extremities. RESPIRATORY/CHEST: Symmetric, unlabored respirations via mechanical vent. Over breathes over ventilator rate. + scattered rhonchi. Equal bilaterally. GASTROINTESTINAL: Abdomen soft, nondistended. Unable to determine tenderness secondary to nonresponsiveness. No palpable masses. Bowel sounds normoactive. Tube feed infusing GENITOURINARY: Without palpable bladder distension. Cochran catheter in place. MUSCULOSKELETAL: Extremities without clubbing, cyanosis. Edema to extremities. No mottling or clubbing. NEUROLOGICAL: Not currently on sedation, nonresponsive to exam--no withdrawal to pain stimuli to extremities, no corneal reflex, no eye opening. PSYCHIATRIC: Limited assessment due to clinical condition . (Thalia Morton) Diagnostic Tests Laboratory Laboratory Tests Test 06/12/17 04:03 White Blood Count 12.9 TH/MM3 (4.0-11.0) Red Blood Count 3.32 MIL/MM3 (4.00-5.30) Hemoglobin 7.8 GM/DL (11.6-15.3) Hematocrit 25.3 % (35.0-46.0) Mean Corpuscular Volume 76.1 FL (80.0-100.0) Mean Corpuscular Hemoglobin 23.6 PG (27.0-34.0) Mean Corpuscular Hemoglobin Concent 31.0 % (32.0-36.0) Red Cell Distribution Width 18.7 % (11.6-17.2) Platelet Count 305 TH/MM3 (150-450) Mean Platelet Volume 9.2 FL (7.0-11.0) Neutrophils (%) (Auto) 71.3 % (16.0-70.0) Lymphocytes (%) (Auto) 12.5 % (9.0-44.0) Monocytes (%) (Auto) 14.3 % (0.0-8.0) Eosinophils (%) (Auto) 1.1 % (0.0-4.0) Basophils (%) (Auto) 0.8 % (0.0-2.0) Neutrophils # (Auto) 9.2 TH/MM3 (1.8-7.7) Lymphocytes # (Auto) 1.6 TH/MM3 (1.0-4.8) Monocytes # (Auto) 1.8 TH/MM3 (0-0.9) Eosinophils # (Auto) 0.1 TH/MM3 (0-0.4) Basophils # (Auto) 0.1 TH/MM3 (0-0.2) CBC Comment AUTO DIFF Differential Total Cells Counted 100 Neutrophils % (Manual) 66 % (16-70) Band Neutrophils % 14 % (0-6) Lymphocytes % 8 % (9-44) Monocytes % 7 % (0-8) Eosinophils % 1 % (0-4) Neutrophils # (Manual) 10.8 TH/MM3 (1.8-7.7) Myelocytes 4 % (0-0) Differential Comment FINAL DIFF MANUAL Platelet Estimate NORMAL (NORMAL) Platelet Morphology Comment NORMAL (NORMAL) Blood Urea Nitrogen 15 MG/DL (7-18) Creatinine 0.76 MG/DL (0.50-1.00) Random Glucose 92 MG/DL (74-106) Total Protein 7.0 GM/DL (6.4-8.2) Albumin 2.0 GM/DL (3.4-5.0) Calcium Level 9.1 MG/DL (8.5-10.1) Alkaline Phosphatase 148 U/L (45-117) Aspartate Amino Transf (AST/SGOT) 58 U/L (15-37) Alanine Aminotransferase (ALT/SGPT) 18 U/L (10-53) Total Bilirubin 0.1 MG/DL (0.2-1.0) Sodium Level 145 MEQ/L (136-145) Potassium Level 4.0 MEQ/L (3.5-5.1) Chloride Level 111 MEQ/L (98-107) Carbon Dioxide Level 26.0 MEQ/L (21.0-32.0) Anion Gap 8 MEQ/L (5-15) Estimat Glomerular Filtration Rate 105 ML/MIN (>89) Lipase 1395 U/L (73-393) (Thalia Morton) Result Diagram: 06/12/17 0403 06/12/17 0403 Imaging Last Impressions Chest X-Ray 06/10/17 0600 Signed Impressions: Service Date/Time: Saturday, June 10, 2017 04:16 - CONCLUSION: No change. Lungs remain clear. Darrius Piedra MD Hepatobiliary Scan Nuclear Medicine 06/09/17 0000 Signed Impressions: Service Date/Time: Friday, June 09, 2017 11:55 - CONCLUSION: Prompt visualization of the gallbladder excludes cystic duct obstruction. Howard Dillon MD Pancreas Ultrasound 06/08/17 0000 Signed Impressions: Service Date/Time: May 16:18 - CONCLUSION: 1. No cholelithiasis. However, there is borderline gallbladder wall thickening and subtle potential pericholecystic fluid. This finding may be seen in the setting of chronic illness and chronic liver disease. The differential considerations include cholecystitis, likely chronic. If there is significant concern regarding acute cholecystitis, HIDA scan may be performed to evaluate for cystic duct patency. 2. Mild hepatomegaly. 1. Ziggy Abdi MD Brain MRI 06/07/17 0000 Signed Impressions: Service Date/Time: Wednesday, June 07, 2017 15:41 - CONCLUSION: 1. There is some increased T2 flair signal in the distribution of the striatum bilaterally. Punctate areas of diffusion restriction in the globus pallidus. Findings may be indicative of some degree of anoxic brain injury. 2. Extensive chronic sinusitis bilaterally. Pelon Mazariegos MD Gall Bladder Ultrasound 06/02/17 0000 Signed Impressions: Service Date/Time: Friday, June 02, 2017 07:17 - CONCLUSION: 1. Although the gallbladder is well-distended I see no stones or sludge. There is a trace amount of ascitic fluid including pericholecystic fluid. 2. Questionable small right effusion. No effusion is seen on the recent CT scan. Howard Ricardo Jr., MD CT Angiography 06/02/17 0000 Signed Impressions: Service Date/Time: Friday, June 02, 2017 00:38 - CONCLUSION: No evidence of pulmonary embolism. Left lung perihilar infiltrate. Darrius Blandon MD Abdomen/Pelvis CT 06/02/17 0000 Signed Impressions: Service Date/Time: Friday, June 02, 2017 00:43 - CONCLUSION: Nonspecific distention of bowel. Nonspecific abnormal appearance of the gallbladder. Darrius Blandon MD Head CT 06/01/17 2347 Signed Impressions: Service Date/Time: Friday, June 02, 2017 00:29 - CONCLUSION: No acute intracranial process Darrius Blanodn MD Procedures 06/01-femoral central line, arterial line to patient (Thalia Morton) Assessment and Plan Disease Oriented Problem List: (1) Cocaine abuse (2) Cardiopulmonary arrest with successful resuscitation (3) Respiratory failure (4) Asystole (5) Anoxic encephalopathy Symptom Scale: (1) Dyspnea 0-10 Scale: Unable to quantify (2) Anoxic encephalopathy 0-10 Scale: Unable to quantify Pertinent Non-Medical Issues Psychosocial:no longer - from Fredrick Hawkins. Father Gasper Archuleta, mother Kinga Botello-- last known in [place] though pt ex has not been able to reach them at last known numbers. No siblings. Reported to have 1 child who was adopted. Reported to have local significant other Max Mercer. later d/w homeless [facility] counselor (Deisi Anthony) who has known Parris for 3-4 yrs. Pt did have a biological son who a few mos ago. Pt does not have any other children. No siblings that she is aware of. She moved to [place] around age 17 w her father, whom she then lost contact with,father moved back to [place]. She has not had contact w her mother for many years. She is very yarsanism and has reported God is her father, Ms Raj feels she would want driver guard support. Substance hx: per prior EMR visits under different med record #- reports alcohol, "K2", marijuana, cocaine Spiritual: not known Legal:Due to clinical condition patient not able to participate in decision- making. She appears to have severe anoxic encephalopathy does not appear she will regain ability to participate. No longer per her ex-. No siblings per her ex- father and mother last known to be in [place] though do not have current contact information for them. If able to locate maybe appropriate legal decision makers for this patient. Patient also reported to have local significant other Max Mercer. If family unable to be identified he may be appropriate decision-making proxy. Palliative requested case management assist with ACCURINT report to locate possible NOK. Ethical issues impacting care:no ethical issues identified Important Contacts Ex Fredrick Hawkins. [address] [facility] [phone] Boyfriend - local- Max Anthony- counselor w [employer] [phone] Gasper Almendarez- Father, [facility] . Prognosis This patient was admitted 06/01/17 secondary to out of hospital cardiopulmonary arrest. It is not known total amount of time that she was minimally responsive and then pulseless before EMS arrival. She underwent at least 26 minutes of resuscitation by medical auditor. She appears to have significant severe anoxic brain injury at this time, she is minimally responsive demonstrating severe cortical injury with EEG near flat line in appearance per neurology. Overall prognosis for meaningful recovery of neurologic function appears poor. High risk for ongoing complications and sequelae secondary to hospitalization, nonresponsive state. . Code Status: Full Code Plan * Legal decision maker: Due to clinical condition patient not able to participate in decision- making. She appears to have severe anoxic encephalopathy does not appear she will regain ability to participate. No longer per her ex-. No siblings per her ex- father and mother last known to be in [place] though do not have current contact information for them. If able to locate maybe appropriate legal decision makers for this patient. Patient also reported to have local significant other Max Mercer. If family unable to be identified he may be appropriate decision-making proxy. Palliative requested case management assist with ACCURINT report 06/06/17 to locate possible NOK. If unable to identify NOK, or appropriate person to serve as HC proxy, may need to utilize [employer] for decision making for pt. 06/08: accurint findings,w possible name /number Tawanda Adrian [phone]. I called this # VM left requesting call back to determine if related to pt. 06/09 - this Lillie Almendarez is NOT related/connected to this pt. VM left for ex spouse Fredrick to determine if he wishes to serve as HC proxy. Awaiting call back. If he does NOT wish to serve, then should explore if Max (sig other) wishes to serve as proxy before pursuing [employer]. 06/12/17 Spoke w Mr. Hawkins regarding proxy decision making, and possibility may entail termite control technician decision making as pt not expected to regain capacity. He is agreement to serve as HC PROXY. * Goals: Discussed treatment options today with HC Proxy Mr Hawkins.(Continued aggressive treatments, tracheostomy, PEG versus transition to comfort) He advises he is still considering, he will be in later to see the patient. He tells me that he knows she would not want to "be on machines and tubes forever" . He will make a decision today or tomorrow after he has visited the patient. * CODE STATUS: ALTERNATIVE CODE/Intubation only * SYMPTOMS: --Encephalopathy-status post out of hospital cardiopulmonary arrest-unknown total amount of time down; EEG "near flat line ", minimal neurological function at this time;repeat EEG continue to be very abnormal. MRI brain = Findings may be indicative of some degree of anoxic brain injury --Dyspnea-emergently intubated secondary to out of hospital arrest; breathing comfortable on mechanical vent. No gag reflex. +overbreathes vent. Undergoing CPAP trials, not planned for medical extubation 2/2 unable to protect airway. * Palliative care will continue to follow during hospital course as condition evolves, to assist patient/decision-maker with understanding of medical conditions, weighing benefits/burdens of treatment options, for clarification of goals of treatment. Additionally will assist with any symptoms of palliative concern (Thalia Morton) Time Spent Total Floor Time (mins): 25 (Chart review, PE, Discussed with nurse, healthcare proxy) (Thalia Morton) Attestation To help prompt me to consider important information that might be impacting today's encounter and assessment, information from prior notes written by myself or my colleagues may have been "brought forward" into today's note. My signature on this note, however, is an attestation that I personally performed the exam, history, and/or decision-making noted today, and, unless otherwise indicated, the interactions with patient, family, and staff as well as the review of records all occurred today. I also attest that the listed assessment and stated plan reflect my best clinical judgment today based on the combination of historical information, prior notes, and today's exam/ interactions. When time spent is documented, it refers only to time spent today by the signer, or if indicated, combined time spent today by collaborating physician/nurse practitioner. (Thalia Morton) Collaborating MD Comments Chart reviewed. Case discussed with palliative care STUDIO OWNER. Above BROOKS note reviewed and I concur. . (Julio Cesar Darby MD) Thalia Morton Jun 14, 2017 10:49 Julio Cesar Darby MD Jun 20, 2017 14:54
--- NOTE | 2017-06-14 13:10 | HHI.CCPN ---
Subjective Remarks/Hospital Course This is a 37-year-old female with an unknown past medical history who presents after out of hospital cardiac arrest. Per EMS report, a friend found the patient altered with agonal respirations. Per report, the friend did not have any way of contacting 911, so the friend place the patient in a car and drove her to the nearest gas station to call 911. Upon EMS arrival, the patient was unresponsive, not breathing, and pulseless. Presenting rhythm was asystole. ACLS was initiated, 3 A of epinephrine, 1 amp of bicarbonate, 2 mg of Narcan and the patient had ROSC. Patient was transported to [facility] emergency Department. In emergency department, she had a decreased level of consciousness but was moving all 4 extremities spontaneously. Her GCS was 6 (E1 ,V1,M4). Her urine drug screen is positive for cocaine. I discussion with Dr. Yañez the ER physician, and we agree that given her young age and that she was witnessed with a pulse, that the potential benefits of therapeutic hypothermia outweigh the risks in this scenario. No additional information is available from the patient and we do not know of any family at this time. Patient was transported the CVICU and therapeutic hypothermia was initiated. 06/02: Currently on hypothermia protocol. Temperature 33C. Dignishield will be placed. Remains on multiple vasopressors. Troponin climbing with repeat ordered. Echocardiogram and a.m. EKG pending. 06/03: Rewarming process initiated early this a.m.. Patient was weaned off of vasopressors greater than 24 hours. Hemodynamically stable. Early this a.m. the patient noted was noted to have decrease in dorsalis pedis and posterior tibial pulses, now nonpalpable but dopplerable biphasic signals. Arterial Doppler studies pending. Right femoral triple-lumen central line removed. Chest x-ray was noted to have an infiltrate, sputum cultures are pending empiric antibiotics initiated. 06/04: Normothermic at 1930 .Sedation discontinued 1929 on 06/03. The patient remains encephalopathic at this time. She remains hemodynamically stable on no pressors. EEG pending at this time. The patient was noted to be slightly hypernatremic, IV fluids changed. ABIs were performed for slightly decreased pulse yesterday and right lower extremities bilateral ABIs slightly depressed pulses on the right remain dopplerable, biphasic. 06/05: Afebrile. No acute events overnight. Patient continues to be hypertensive scheduled PO labetalol 100 mg BID. Neurologically, the patient remains encephalopathic, EEG performed yesterday showed nearly flat line. CT pending this a.m.. Neurology has been consulted, patient has been off sedation for approximately 36 hours. 06/06 MRI pending. Off sedation. Not brain --> has spontaneous respirations when disconnected vent. Absent pupillary, corneal, oculocephalic and gag reflexes. No motor response to deep noxious stimuli. Had tonic clonic movements of BUE this morning that ceased with Ativan 2 mg IV. 06/07: Afebrile. Tube feeds currently at 30 cc an hour with Jevity 1.5. 200 cc stools per fecal containment device. Received lorazepam 2 mg IV for "tremors " overnight. He reveals diffuse encephalopathy with no epileptiform activity on 06/04 and 06/06. 06/08: Currently afebrile. Tube feeding currently goal at 40 cc now with Jevity 1.5. 600 cc stools per fecal containment device. MRI brain 06/07 showed diffuse signs of anoxic brain injury. 06/09: CURRENT TEMPERATURE 98.7. RN is complaining of "transmitted upper airway sounds". Chest x-ray revealed no acute cardio pulmonary findings. Do not appreciate on my examination. . The patient is tachycardia and tachypnea, with copious thick whitish secretions from ET tube. Tolerate tube feedings with positive bowel movement from fecal team device.. 06/10 Overbreathing vent otherwise brainstem reflexes absent. Palliative care assisting with determination of healthcare proxy. Have reached out to ex- , Fredrick to see if he is willing to participate in decision-making. If he is not willing, plan to discuss with Max who is her current significant other. Afebrile. 06/11 No neuro change. WBC up a little. Afebrile. Tolerating tube feeds. Purewick catheter in place. No invasive lines. Significant other at bedside, hopeful for a miracle recovery. Informed she has permanent brain damage, would require trach/PEG and would expected to be bedridden in jail with limited to no reaction to surroundings if she survives. He is aware that there has been discussion about transition to comfort "by people at [facility] [employer]". Not yet clear who will be legally making medical decisions, simply addressed Max's questions about her prognosis while he was at bedside with her. 06/12: no changes or improvements. palliative with ongoing discussions. 06/13: patient made DNR yesterday by healthcare proxy. no changes or improvements to mental status. poor prognosis. unlikely to regain any neurologic function. wbc remains elevated, and significant secretions from ETT, however, patient remains afebrile without significant o2 requirement on ventilator. SUBJECTIVE: 06/14: no changes. no improvements. Objective Vital Signs Date Time Temp Pulse Resp B/P (MAP) Pulse Ox O2 Delivery O2 Flow Rate FiO2 06/14/17 12:50 99 40 06/14/17 11:00 99.4 98 14 98/65 (76) Intake and Output 06/14/17 06/14/17 06/15/17 08:00 16:00 00:00 Intake Total 889 ml Output Total 500 ml Balance 389 ml Result Diagram: 06/12/17 0403 06/12/17 0403 Imaging Last Impressions Chest X-Ray 06/09/17 0600 Signed Impressions: Service Date/Time: Friday, June 09, 2017 05:02 - CONCLUSION: No acute cardiopulmonary disease identified. Noman Mercer MD Pancreas Ultrasound 06/08/17 0000 Signed Impressions: Service Date/Time: May 16:18 - CONCLUSION: 1. No cholelithiasis. However, there is borderline gallbladder wall thickening and subtle potential pericholecystic fluid. This finding may be seen in the setting of chronic illness and chronic liver disease. The differential considerations include cholecystitis, likely chronic. If there is significant concern regarding acute cholecystitis, HIDA scan may be performed to evaluate for cystic duct patency. 2. Mild hepatomegaly. 1. Ziggy Abdi MD Brain MRI 06/07/17 0000 Signed Impressions: Service Date/Time: Wednesday, June 07, 2017 15:41 - CONCLUSION: 1. There is some increased T2 flair signal in the distribution of the striatum bilaterally. Punctate areas of diffusion restriction in the globus pallidus. Findings may be indicative of some degree of anoxic brain injury. 2. Extensive chronic sinusitis bilaterally. Pelon Mazariegos MD Gall Bladder Ultrasound 06/02/17 0000 Signed Impressions: Service Date/Time: Friday, June 02, 2017 07:17 - CONCLUSION: 1. Although the gallbladder is well-distended I see no stones or sludge. There is a trace amount of ascitic fluid including pericholecystic fluid. 2. Questionable small right effusion. No effusion is seen on the recent CT scan. Howard Ricardo Jr., MD CT Angiography 06/02/17 0000 Signed Impressions: Service Date/Time: Friday, June 02, 2017 00:38 - CONCLUSION: No evidence of pulmonary embolism. Left lung perihilar infiltrate. Darrius Blandon MD Abdomen/Pelvis CT 06/02/17 0000 Signed Impressions: Service Date/Time: Friday, June 02, 2017 00:43 - CONCLUSION: Nonspecific distention of bowel. Nonspecific abnormal appearance of the gallbladder. Darrius Blandon MD Head CT 06/01/17 2347 Signed Impressions: Service Date/Time: Friday, June 02, 2017 00:29 - CONCLUSION: No acute intracranial process Drarius Blandon MD Objective Remarks GENERAL: 37-year-old AA female orotracheally intubated HEENT: Normocephalic. Atraumatic. Pupils 1-2 mm bilaterally and nonreactive. Scleral edema noted with some erythema NECK: Trachea is midline. There is no JVD. CHEST: Symmetrical chest rise. PRVC, 35% fio2. CARDIOVASCULAR: Tachycardic, RR. Without murmur ABDOMEN: Soft, nontender, nondistended. Fecal containment device with brown/ yellow liquid stool. Tolerating tube feeds MUSCULOSKELETAL: Pulses 2+ bilateral radial and posterior tibialis. Dependent edema of hands bilaterally. NEUROLOGICAL: No eye opening. Pupils 1-2 mm but nonreactive. No corneal reflex. No gag. No cough. +Spontaneous respirations over the current ventilator settings, also noted spontaneous resp effort when disconnected vent. No motor response to deep noxious stimuli. Negative Babinski. No clonus. A/P Assessment and Plan Assessment: 37yF with severe anoxic brain injury without neurologic improvement. poor prognosis. Will avoid exposure to broad spectrum abx unless clinically appears infected. continue to monitor. Neuro/Psych: Acute hypoxic ischemic encephalopathy Toxic encephalopathy - multifactorial Cocaine overdose EtOH abuse Seizure Status post induced therapeutic hypothermia. Sedation discontinued 06/03 at 1930. Remains off sedatives Neurochecks per ICU protocol CT brain admission 06/01 revealed no acute intracranial findings 06/04 EEG -. Severe encephalopathy with nearly flat line appearance. 06/06 EEG - severe encephalopathy with no epileptic activity 06/09 EEG - severely abnormal, severe background slowing consistent with anoxia. 06/04 ammonia level- 10 MRI brain 06/07 - increased T2 flair signal in the distribution of the striatum bilaterally. Punctate areas of diffusion restriction in the globus pallidus. Findings may be indicative of some degree of anoxic brain injury. Extensive chronic sinusitis bilaterally. Continue thiamine 100 mg daily, folate 1 mg daily and multivitamin 1 tablet daily with EtOH use by history Currently on levetiracetam 1000 mg po twice a day per neurology's recommendations. Fosphenytoin discontinued Neurology consult/Dr. White Oxycodone 5 mg liquid every 4 hours when necessary pain 1-10/agitation Respiratory: Acute hypoxic and hypercarbic respiratory failure ACV 15/500/11/08. Vent bundle Current Mental status barrier to extubation. However, perform daily SBT to mitigate respiratory muscle weakness. Head of bed 30 Albuterol/ipratropium aerosols every 6 hours with albuterol aerosols every 2 hours as needed Hypertonic saline 3% aerosols 2 mL every 6 hours for mucus thinning Guaifenesin 400 mg by tube every 8 hours Wean FiO2 for goal SPO2 greater than 92% CT pulmonary angiogram 06/01: Negative for acute PE and possible left lower lobe infiltrate Chest x-ray 06/09 revealed no acute cardio pulmonary findings Status post bronchoscopy 06/09. Please defer to procedure note Cardiovascular: Status post out of hospital cardiac arrest Cardiogenic shock (resolved) NSTEMI- resolved. Lactic acidosis-resolved Elevated HDL Goal mean arterial pressure greater than 65 Cardiology/Dr. Perez has evaluated and no plans for further workup at this time due to extremely poor neurologic prognosis 06/03 2D echo - The left ventricular systolic function is mildly reduced with an estimated ejection fraction of 45%. Normal left ventricular size. Wall thickness is normal. No regional wall motion abnormalities are present. Mild mitral valve regurgitation. Mild aortic sclerosis. Trace aortic valve regurgitation. Amiodarone infusion discontinued 06/02 secondary to the patient having elevated LFTs. The patient remains in normal sinus rhythm, hemodynamically stable on no vasopressors 06/03- arterial Doppler studies. Slight depression MILES 0.8 bilaterally. Biphasic Doppler signals right DP, PT Currently off all vasopressors. Scheduled labetalol 200 mg twice a day As needed labetalol/hydralazine Nitropaste for blood pressure greater than 160 Renal/FEN/: Acute kidney injury - resolved Hypernatremia Creatinine currently within normal limits Currently on Jevity 1.5 goal 40 cc an hours per nutrition's recommendations Sodium is downtrending, Free water 200 cc every 6 hours Off IV fluids. 06/[address] Bladder scan q6 hours and I/O cath if >300 GI: Elevated AST/alkaline phosphatase Diarrhea NOS Hypoalbuminemia Elevated amylase/lipase - 1317 06/02 Fecal containment device placed CT abdomen/pelvis revealed a nonspecific bowel gas pattern with dilated bowel loops and abnormal gallbladder appearance. 06/02 gallbladder ultrasound- distended gallbladder pancreatic ultrasound - borderline gallbladder wall thickening. Pericholecystic fluid. Visualized pancreas was normal. HIDA scan oy 06/09 - negative for cystic duct obstruction. LFTs downtrending. Tolerating Jevity 1.5 @40 mL per hour. Lansoprazole 30 mm by tube daily for GI prophylaxis No bowel regimen secondary to ongoing diarrhea. C. 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 Change sanitary pads as needed Beta hCG 1 Heme/ID: Microcytic anemia Community-acquired pneumonia Blood culture- NGTD 06/04Sputum culture MSSA, betastrep. 06/09bronchoscopy - negative C. difficile negative Empiric antibiotics initiated secondary to left lung base developing opacity- possibly secondary to aspiration. Has been on cefepime, azithromycin and vancomycin 06/03- Compled cefazolin 1 g IV every 8 hours, antibiotic day #8 Stopped 06/10 .monitor off abx Endocrine: Hyperglycemia of critical illness, resolved Not requiring sliding scale coverage for many days. Will discontinue. TSH normal 1.74 Prophylaxis: GI Prophylaxis Lansoprazole 30 mg daily DVT Prophylaxis -- SCDs Subcutaneous heparin 5000 units twice a day Lines: 06/01 right femoral triple-lumen catheter placed in the emergency department by the emergency room physician-[id number] 06/02 right radial arterial line - d/c 06/07 06/02 left femoral code cool catheter - d/c 06/06. PIV Americo Ruiz MD Jun 14, 2017 13:10
[2017-06-15] VITALS (13 sets, daily range): BP systolic 109–134; BP diastolic 75–91; PULSE 87–107; RESP 12–16; TEMP 98.5–99.9; O2SAT 97–99
[2017-06-15] MEDS: FREE WATER G-TUBE SCH ×4 (01:08→20:00)
[2017-06-15] MEDS: guaiFENesin SOLUTION 200 MG/10 ML CUP OG-TUBE SCH ×3 (05:33→20:06)
[2017-06-15] MEDS: HEPARIN SODIUM - SQ 10,000 UNITS/ML VIAL SQ SCH ×2 (05:33→17:55)
[2017-06-15] MEDS: CHLORHEXIDINE 0.12% (ORAL KIT) 15 ML CUP OROPHARYNG SCH ×2 (08:00→20:05)
[2017-06-15] MEDS: MULTIVITAMIN TAB PO SCH (08:52)
[2017-06-15] MEDS: LABETALOL HCL 200 MG TAB PO SCH ×2 (08:52→20:06)
[2017-06-15] MEDS: DOCUSATE SODIUM 100 MG/10 ML UDC PO SCH ×2 (08:52→20:06)
[2017-06-15] MEDS: THIAMINE HCL 100 MG TAB PO SCH (08:52)
[2017-06-15] MEDS: levETIRAcetam 500 MG/5 ML UDC NG SCH ×2 (08:52→20:05)
[2017-06-15] MEDS: FOLIC ACID 1 MG TAB PO SCH (08:53)
[2017-06-15] MEDS: FAMOTIDINE 20 MG TAB NG SCH ×2 (08:53→20:06)
[2017-06-15] MEDS: ARTIFICIAL TEARS OPTH SOLN 15 ML BTL EACH EYE SCH ×3 (09:00→17:55)
--- NOTE | 2017-06-15 13:09 | HHI.HCPN ---
Reason for visit a. To assist with evaluation and management of symptoms including: Dyspnea, encephalopathy b. To assist medical decision maker(s) with: better understanding of current medical conditions; weighing benefits/burdens of medical treatment options; making medical treatment decisions. Subjective/Interval History Pt seen today to follow up on comfort, goals w decision maker. Stable in ICU. No improvement in neurological status. remains on mech vent, unable to extubate 2/2 neurological status. Tolerating TF, having BMs. Will require trach/PEG for continued aggressive treatment. No new labs/imaging today. Spoke w PROXY pt ex Fredrick Hawkins yesterday, he still hadn't decided RE trach/PEG vs transition to comfort. [dual visit w Josephine GUY] Seen in room no visitors. Non-responsive to exam. VS stable via bedside monitor. + overbreathing mech vent rate. Following exam call to ex Fredrick Ross review with him current assessment, no improvement in neurological status, and expected trajectory/ prognosis. Review patient will require tracheostomy and PEG tube continue aggressive measures. He tells me he has made a decision--- he knows the pt would NOT want to continue on artificial measures without meaningful recovery, and that he has decided NO trach/PEG, and will want comfort measures only. Gently explore withdrawal/ hospice for comfort, and that will need to know timeframe to have plan in place for pt comfort. He has not decided when yet, he will be in this afternoon to visit her and he may decide at that time. d/w critical care, nursing. Nursing to notify me when Mr Hawkins arrives later, if I am available I will follow up w him at bedside. 1600--later spoke with critical care again regarding family requests for a few more days to monitor for possible improvement, discussed continuing care, monitoring patient Monday with possible withdrawal Monday. Exhibits placed in chart in preparation. Palliative to call Mr. Hawkins Monday a.m. to discuss further. . Family/friend interactions 1600 later notified by nursing pt ex present. Met w Fredrick Ross at bedside, another close friend of pt present with him, appears to be supporting him w decision making. Review condition, diagnostics, prognosis- options of trach/PEG for long term care administrator care, vs withdrawal and comfort with hospice. He indicates the pt would NOT want trach /peg, she did NOT ever want to go to the hospital, avoided drs and procedures, even refused stitches once for a dog bite. The friend asks if there is anything else to help her brain, advise there are no additional tx. Mr Walker asks if they may have a few more days to monitor for signs of improvement before proceeding with withdrawal. Advise I would discuss w critical care, review of rationale for trach/PEG and timing. He is certain she would not want to proceed w Trach/PEG . . Advance Directives Living Will: Never completed Health Care Surrogate: Never completed Durable Power of Hair Specialist: Never completed Objective Vital Signs Date Time Temp Pulse Resp B/P (MAP) Pulse Ox O2 Delivery O2 Flow Rate FiO2 06/15/17 11:49 97 40 06/15/17 11:00 98.5 89 16 109/75 (86) 98 06/15/17 11:00 89 06/15/17 11:00 40 06/15/17 07:51 98 40 06/15/17 07:50 40 06/15/17 07:00 100 06/15/17 07:00 98.7 100 16 125/87 (100) 98 06/15/17 07:00 40 06/15/17 04:15 97 40 06/15/17 03:03 90 06/15/17 03:00 40 06/15/17 03:00 99.4 102 12 118/80 (93) 97 06/15/17 01:02 97 40 06/14/17 23:00 40 06/14/17 23:00 92 06/14/17 23:00 99.1 92 12 118/79 (92) 99 06/14/17 22:02 98 40 06/14/17 20:27 99 40 06/14/17 19:00 99.1 100 15 141/102 (115) 100 06/14/17 19:00 40 06/14/17 19:00 100 06/14/17 15:27 99 40 06/14/17 15:00 40 06/14/17 15:00 99.0 91 14 120/80 (93) 99 06/14/17 15:00 93 06/14/17 12:50 99 40 Intake & Output 06/15/17 06/15/17 07:00 19:00 Intake Total 439 ml Output Total 960 ml Balance -521 ml Tube Feeding 239 ml Other 200 ml Output Urine Total 900 ml Stool Total 60 ml Physical Exam CONSTITUTIONAL/GENERAL: This is an adequately nourished patient, nonresponsive on mechanical vent TUBES/LINES/DRAINS: PIV BUE, ET tube, NG tube, rectal drain SKIN: No jaundice, rashes, or lesions. No wounds seen anteriorly. Skin temperature warm, dry. Nails long, broken and uneven. EYES: Pupils 3mm questionable reaction to light. No corneal reflex. No injection or drainage. CARDIOVASCULAR: Regular rate and rhythm without murmur. Peripheral pulses faint. Edema to extremities. RESPIRATORY/CHEST: Symmetric, unlabored respirations via mechanical vent. Over breathes over ventilator rate. + scattered rhonchi to right. Equal bilaterally. GASTROINTESTINAL: Abdomen soft, nondistended. Unable to determine tenderness secondary to nonresponsiveness. No palpable masses. Bowel sounds normoactive. Tube feed infusing, +loose stool via rectal drain GENITOURINARY: Without palpable bladder distension. MUSCULOSKELETAL: Extremities without clubbing, cyanosis. Edema to extremities. No mottling or clubbing. NEUROLOGICAL: Not currently on sedation, nonresponsive to exam--no withdrawal to pain stimuli to extremities, no corneal reflex, no eye opening. PSYCHIATRIC: Limited assessment due to clinical condition . Diagnostic Tests Result Diagram: 06/12/17 0403 06/12/17 0403 Imaging Last Impressions Chest X-Ray 06/10/17 0600 Signed Impressions: Service Date/Time: Saturday, June 10, 2017 04:16 - CONCLUSION: No change. Lungs remain clear. Darrius Piedra MD Hepatobiliary Scan Nuclear Medicine 06/09/17 0000 Signed Impressions: Service Date/Time: Friday, June 09, 2017 11:55 - CONCLUSION: Prompt visualization of the gallbladder excludes cystic duct obstruction. Howard Dillon MD Pancreas Ultrasound 06/08/17 0000 Signed Impressions: Service Date/Time: May 16:18 - CONCLUSION: 1. No cholelithiasis. However, there is borderline gallbladder wall thickening and subtle potential pericholecystic fluid. This finding may be seen in the setting of chronic illness and chronic liver disease. The differential considerations include cholecystitis, likely chronic. If there is significant concern regarding acute cholecystitis, HIDA scan may be performed to evaluate for cystic duct patency. 2. Mild hepatomegaly. 1. Ziggy Abdi MD Brain MRI 06/07/17 0000 Signed Impressions: Service Date/Time: Wednesday, June 07, 2017 15:41 - CONCLUSION: 1. There is some increased T2 flair signal in the distribution of the striatum bilaterally. Punctate areas of diffusion restriction in the globus pallidus. Findings may be indicative of some degree of anoxic brain injury. 2. Extensive chronic sinusitis bilaterally. Pelon Mazariegos MD Gall Bladder Ultrasound 06/02/17 0000 Signed Impressions: Service Date/Time: Friday, June 02, 2017 07:17 - CONCLUSION: 1. Although the gallbladder is well-distended I see no stones or sludge. There is a trace amount of ascitic fluid including pericholecystic fluid. 2. Questionable small right effusion. No effusion is seen on the recent CT scan. Howard Ricardo Jr., MD CT Angiography 06/02/17 0000 Signed Impressions: Service Date/Time: Friday, June 02, 2017 00:38 - CONCLUSION: No evidence of pulmonary embolism. Left lung perihilar infiltrate. Darrius Blandon MD Abdomen/Pelvis CT 06/02/17 0000 Signed Impressions: Service Date/Time: Friday, June 02, 2017 00:43 - CONCLUSION: Nonspecific distention of bowel. Nonspecific abnormal appearance of the gallbladder. Darrius Blandon MD Head CT 06/01/17 2347 Signed Impressions: Service Date/Time: Friday, June 02, 2017 00:29 - CONCLUSION: No acute intracranial process Darrius Blandon MD Procedures 06/01-femoral central line, arterial line to patient Assessment and Plan Disease Oriented Problem List: (1) Cocaine abuse (2) Cardiopulmonary arrest with successful resuscitation (3) Respiratory failure (4) Asystole (5) Anoxic encephalopathy Symptom Scale: (1) Dyspnea 0-10 Scale: Unable to quantify (2) Anoxic encephalopathy 0-10 Scale: Unable to quantify Pertinent Non-Medical Issues Psychosocial:no longer - from Fredrick Ross. Father Gasper Archuleta, mother Kinga Botello-- last known in [place] though pt ex has not been able to reach them at last known numbers. No siblings. Reported to have 1 child who was adopted. Reported to have local significant other Max Mercer. later d/w homeless coalition counselor (Deisi Anthony) who has known Parris for 3-4 yrs. Pt did have a biological son who a few mos ago. Pt does not have any other children. No siblings that she is aware of. She moved to [place] around age 17 w her father, whom she then lost contact with,father moved back to [place]. She has not had contact w her mother for many years. She is very buddhism and has reported God is her father, Ms Anthony feels she would want diesel mechanic support. Substance hx: per prior EMR visits under different med record #- reports alcohol, "K2", marijuana, cocaine Spiritual: not known Legal:Due to clinical condition patient not able to participate in decision- making. She appears to have severe anoxic encephalopathy does not appear she will regain ability to participate. No longer per her ex-. No siblings per her ex- father and mother last known to be in [place] though do not have current contact information for them. If able to locate maybe appropriate legal decision makers for this patient. Patient also reported to have local significant other Max Mercer. If family unable to be identified he may be appropriate decision-making proxy. Palliative requested case management assist with ACCURINT report to locate possible NOK. Ethical issues impacting care:no ethical issues identified Important Contacts Ex Fredrick Hawkins. [address] [facility] [phone] Boyfriend - local- Max Anthony- counselor w [facility] [facility] [phone] Gasper Almendarez- Father, [facility] . Prognosis This patient was admitted 06/01/17 secondary to out of hospital cardiopulmonary arrest. It is not known total amount of time that she was minimally responsive and then pulseless before EMS arrival. She underwent at least 26 minutes of resuscitation by medical doctor md. She appears to have significant severe anoxic brain injury at this time, she is minimally responsive demonstrating severe cortical injury with EEG near flat line in appearance per neurology. Overall prognosis for meaningful recovery of neurologic function appears poor. High risk for ongoing complications and sequelae secondary to hospitalization, nonresponsive state. . Code Status: Full Code Plan * Legal decision maker: Due to clinical condition patient not able to participate in decision- making. She appears to have severe anoxic encephalopathy does not appear she will regain ability to participate. No longer per her ex-. No siblings per her ex- father and mother last known to be in [place] though do not have current contact information for them. If able to locate maybe appropriate legal decision makers for this patient. Patient also reported to have local significant other Max Mercer. If family unable to be identified he may be appropriate decision-making proxy. Palliative requested case management assist with ACCURINT report 06/06/17 to locate possible NOK. If unable to identify NOK, or appropriate person to serve as HC proxy, may need to utilize [employer] for decision making for pt. 06/08: accurint findings,w possible name /number Tawanda Adrian [phone]. I called this # VM left requesting call back to determine if related to pt. 06/09 - this Lillie Almendarez is NOT related/connected to this pt. VM left for ex spouse Fredrick to determine if he wishes to serve as HC proxy. Awaiting call back. If he does NOT wish to serve, then should explore if Max (sig other) wishes to serve as proxy before pursuing [employer]. 06/12/17 Spoke w Mr. Hawkins regarding proxy decision making, and possibility may entail long term care administrator decision making as pt not expected to regain capacity. He is agreement to serve as HC PROXY. * Goals: Discussed treatment options today with HC Proxy Mr Hawkins.(Continued aggressive treatments, tracheostomy, PEG versus transition to comfort) He expresses that pt would NOT WANT trach/PEG and he plans to withdrawal life support and transition to comfort measures. He is not certain of when yet, he will be by later this afternoon and may make decisions then. --->> later met w Mr Hawkins- he would like a few more days before proceeding with withdrawal. * CODE STATUS: ALTERNATIVE CODE/Intubation only * SYMPTOMS: --Encephalopathy-status post out of hospital cardiopulmonary arrest-unknown total amount of time down; EEG "near flat line ", minimal neurological function at this time;repeat EEG continue to be very abnormal. MRI brain = Findings may be indicative of some degree of anoxic brain injury --Dyspnea-emergently intubated secondary to out of hospital arrest; breathing comfortable on mechanical vent. No gag reflex. +overbreathes vent. Undergoing CPAP trials, not planned for medical extubation 2/2 unable to protect airway. * Palliative care will continue to follow during hospital course as condition evolves, to assist patient/decision-maker with understanding of medical conditions, weighing benefits/burdens of treatment options, for clarification of goals of treatment. Additionally will assist with any symptoms of palliative concern Time Spent Total Floor Time (mins): 30 (chart review , PE, d/w nursing, d/w critical care , d/w family /PROXY) Attestation To help prompt me to consider important information that might be impacting today's encounter and assessment, information from prior notes written by myself or my colleagues may have been "brought forward" into today's note. My signature on this note, however, is an attestation that I personally performed the exam, history, and/or decision-making noted today, and, unless otherwise indicated, the interactions with patient, family, and staff as well as the review of records all occurred today. I also attest that the listed assessment and stated plan reflect my best clinical judgment today based on the combination of historical information, prior notes, and today's exam/ interactions. When time spent is documented, it refers only to time spent today by the signer, or if indicated, combined time spent today by collaborating physician/nurse practitioner. Thalia Morton Jun 15, 2017 13:09
--- NOTE | 2017-06-15 18:29 | HHI.CCPN ---
Subjective Remarks/Hospital Course This is a 37-year-old female with an unknown past medical history who presents after out of hospital cardiac arrest. Per EMS report, a friend found the patient altered with agonal respirations. Per report, the friend did not have any way of contacting 911, so the friend place the patient in a car and drove her to the nearest gas station to call 911. Upon EMS arrival, the patient was unresponsive, not breathing, and pulseless. Presenting rhythm was asystole. ACLS was initiated, 3 A of epinephrine, 1 amp of bicarbonate, 2 mg of Narcan and the patient had ROSC. Patient was transported to [facility] emergency Department. In emergency department, she had a decreased level of consciousness but was moving all 4 extremities spontaneously. Her GCS was 6 (E1 ,V1,M4). Her urine drug screen is positive for cocaine. I discussion with Dr. Yañez the ER physician, and we agree that given her young age and that she was witnessed with a pulse, that the potential benefits of therapeutic hypothermia outweigh the risks in this scenario. No additional information is available from the patient and we do not know of any family at this time. Patient was transported the CVICU and therapeutic hypothermia was initiated. 06/02: Currently on hypothermia protocol. Temperature 33C. Dignishield will be placed. Remains on multiple vasopressors. Troponin climbing with repeat ordered. Echocardiogram and a.m. EKG pending. 06/03: Rewarming process initiated early this a.m.. Patient was weaned off of vasopressors greater than 24 hours. Hemodynamically stable. Early this a.m. the patient noted was noted to have decrease in dorsalis pedis and posterior tibial pulses, now nonpalpable but dopplerable biphasic signals. Arterial Doppler studies pending. Right femoral triple-lumen central line removed. Chest x-ray was noted to have an infiltrate, sputum cultures are pending empiric antibiotics initiated. 06/04: Normothermic at 1930 .Sedation discontinued 1929 on 06/03. The patient remains encephalopathic at this time. She remains hemodynamically stable on no pressors. EEG pending at this time. The patient was noted to be slightly hypernatremic, IV fluids changed. ABIs were performed for slightly decreased pulse yesterday and right lower extremities bilateral ABIs slightly depressed pulses on the right remain dopplerable, biphasic. 06/05: Afebrile. No acute events overnight. Patient continues to be hypertensive scheduled PO labetalol 100 mg BID. Neurologically, the patient remains encephalopathic, EEG performed yesterday showed nearly flat line. CT pending this a.m.. Neurology has been consulted, patient has been off sedation for approximately 36 hours. 06/06 MRI pending. Off sedation. Not brain --> has spontaneous respirations when disconnected vent. Absent pupillary, corneal, oculocephalic and gag reflexes. No motor response to deep noxious stimuli. Had tonic clonic movements of BUE this morning that ceased with Ativan 2 mg IV. 06/07: Afebrile. Tube feeds currently at 30 cc an hour with Jevity 1.5. 200 cc stools per fecal containment device. Received lorazepam 2 mg IV for "tremors " overnight. He reveals diffuse encephalopathy with no epileptiform activity on 06/04 and 06/06. 06/08: Currently afebrile. Tube feeding currently goal at 40 cc now with Jevity 1.5. 600 cc stools per fecal containment device. MRI brain 06/07 showed diffuse signs of anoxic brain injury. 06/09: CURRENT TEMPERATURE 98.7. RN is complaining of "transmitted upper airway sounds". Chest x-ray revealed no acute cardio pulmonary findings. Do not appreciate on my examination. . The patient is tachycardia and tachypnea, with copious thick whitish secretions from ET tube. Tolerate tube feedings with positive bowel movement from fecal team device.. 06/10 Overbreathing vent otherwise brainstem reflexes absent. Palliative care assisting with determination of healthcare proxy. Have reached out to ex- , Fredrick to see if he is willing to participate in decision-making. If he is not willing, plan to discuss with Max who is her current significant other. Afebrile. 06/11 No neuro change. WBC up a little. Afebrile. Tolerating tube feeds. Purewick catheter in place. No invasive lines. Significant other at bedside, hopeful for a miracle recovery. Informed she has permanent brain damage, would require trach/PEG and would expected to be bedridden in group home with limited to no reaction to surroundings if she survives. He is aware that there has been discussion about transition to comfort "by people at [facility]". Not yet clear who will be legally making medical decisions, simply addressed Max's questions about her prognosis while he was at bedside with her. 06/12: no changes or improvements. palliative with ongoing discussions. 06/13: patient made DNR yesterday by healthcare proxy. no changes or improvements to mental status. poor prognosis. unlikely to regain any neurologic function. wbc remains elevated, and significant secretions from ETT, however, patient remains afebrile without significant o2 requirement on ventilator. 06/14: no changes. no improvements. SUBJECTIVE: 06/15: family decided today no trach/peg. however, they asked for 1 more week before withdraw of care. discussed with family this was not appropriate that we make patient suffer additional week when decision for comfort measures already made. family needs 1-2 more days to gather together before withdraw. Objective Vital Signs Date Time Temp Pulse Resp B/P (MAP) Pulse Ox O2 Delivery O2 Flow Rate FiO2 06/15/17 16:09 97 40 06/15/17 15:00 96 06/15/17 15:00 98.7 16 134/91 (105) Intake and Output 06/15/17 06/15/17 06/16/17 08:00 16:00 00:00 Intake Total 439 ml 419 ml Output Total 960 ml 990 ml Balance -521 ml -571 ml Result Diagram: 06/12/17 0403 06/12/17 0403 Imaging Last Impressions Chest X-Ray 06/09/17 0600 Signed Impressions: Service Date/Time: Friday, June 09, 2017 05:02 - CONCLUSION: No acute cardiopulmonary disease identified. Noman Mercer MD Pancreas Ultrasound 06/08/17 0000 Signed Impressions: Service Date/Time: May 16:18 - CONCLUSION: 1. No cholelithiasis. However, there is borderline gallbladder wall thickening and subtle potential pericholecystic fluid. This finding may be seen in the setting of chronic illness and chronic liver disease. The differential considerations include cholecystitis, likely chronic. If there is significant concern regarding acute cholecystitis, HIDA scan may be performed to evaluate for cystic duct patency. 2. Mild hepatomegaly. 1. Ziggy Abdi MD Brain MRI 06/07/17 0000 Signed Impressions: Service Date/Time: Wednesday, June 07, 2017 15:41 - CONCLUSION: 1. There is some increased T2 flair signal in the distribution of the striatum bilaterally. Punctate areas of diffusion restriction in the globus pallidus. Findings may be indicative of some degree of anoxic brain injury. 2. Extensive chronic sinusitis bilaterally. Pelon Mazariegos MD Gall Bladder Ultrasound 06/02/17 0000 Signed Impressions: Service Date/Time: Friday, June 02, 2017 07:17 - CONCLUSION: 1. Although the gallbladder is well-distended I see no stones or sludge. There is a trace amount of ascitic fluid including pericholecystic fluid. 2. Questionable small right effusion. No effusion is seen on the recent CT scan. Howard Ricardo Jr., MD CT Angiography 06/02/17 0000 Signed Impressions: Service Date/Time: Friday, June 02, 2017 00:38 - CONCLUSION: No evidence of pulmonary embolism. Left lung perihilar infiltrate. Darrius Blandon MD Abdomen/Pelvis CT 06/02/17 0000 Signed Impressions: Service Date/Time: Friday, June 02, 2017 00:43 - CONCLUSION: Nonspecific distention of bowel. Nonspecific abnormal appearance of the gallbladder. Darrius Blandon MD Head CT 06/01/17 2347 Signed Impressions: Service Date/Time: Friday, June 02, 2017 00:29 - CONCLUSION: No acute intracranial process Darrius Blandon MD Objective Remarks GENERAL: 37-year-old AA female orotracheally intubated HEENT: Normocephalic. Atraumatic. Pupils 1-2 mm bilaterally and nonreactive. Scleral edema noted with some erythema NECK: Trachea is midline. There is no JVD. CHEST: Symmetrical chest rise. PRVC, 35% fio2. CARDIOVASCULAR: Tachycardic, RR. Without murmur ABDOMEN: Soft, nontender, nondistended. Fecal containment device with brown/ yellow liquid stool. Tolerating tube feeds MUSCULOSKELETAL: Pulses 2+ bilateral radial and posterior tibialis. Dependent edema of hands bilaterally. NEUROLOGICAL: No eye opening. Pupils 1-2 mm but nonreactive. No corneal reflex. No gag. No cough. +Spontaneous respirations over the current ventilator settings, also noted spontaneous resp effort when disconnected vent. No motor response to deep noxious stimuli. Negative Babinski. No clonus. A/P Assessment and Plan Assessment: 37yF with severe anoxic brain injury without neurologic improvement. poor prognosis. Will avoid exposure to broad spectrum abx unless clinically appears infected. continue to monitor. Neuro/Psych: Acute hypoxic ischemic encephalopathy Toxic encephalopathy - multifactorial Cocaine overdose EtOH abuse Seizure Status post induced therapeutic hypothermia. Sedation discontinued 06/03 at 1930. Remains off sedatives Neurochecks per ICU protocol CT brain admission 06/01 revealed no acute intracranial findings 06/04 EEG -. Severe encephalopathy with nearly flat line appearance. 06/06 EEG - severe encephalopathy with no epileptic activity 06/09 EEG - severely abnormal, severe background slowing consistent with anoxia. 06/04 ammonia level- 10 MRI brain 06/07 - increased T2 flair signal in the distribution of the striatum bilaterally. Punctate areas of diffusion restriction in the globus pallidus. Findings may be indicative of some degree of anoxic brain injury. Extensive chronic sinusitis bilaterally. Continue thiamine 100 mg daily, folate 1 mg daily and multivitamin 1 tablet daily with EtOH use by history Currently on levetiracetam 1000 mg po twice a day per neurology's recommendations. Fosphenytoin discontinued Neurology consult/Dr. White Oxycodone 5 mg liquid every 4 hours when necessary pain 1-10/agitation Respiratory: Acute hypoxic and hypercarbic respiratory failure ACV 15/500/5/30. Vent bundle Current Mental status barrier to extubation. However, perform daily SBT to mitigate respiratory muscle weakness. Head of bed 30 Albuterol/ipratropium aerosols every 6 hours with albuterol aerosols every 2 hours as needed Hypertonic saline 3% aerosols 2 mL every 6 hours for mucus thinning Guaifenesin 400 mg by tube every 8 hours Wean FiO2 for goal SPO2 greater than 92% CT pulmonary angiogram 06/01: Negative for acute PE and possible left lower lobe infiltrate Chest x-ray 06/09 revealed no acute cardio pulmonary findings Status post bronchoscopy 06/09. Please defer to procedure note Cardiovascular: Status post out of hospital cardiac arrest Cardiogenic shock (resolved) NSTEMI- resolved. Lactic acidosis-resolved Elevated HDL Goal mean arterial pressure greater than 65 Cardiology/Dr. Perez has evaluated and no plans for further workup at this time due to extremely poor neurologic prognosis 06/03 2D echo - The left ventricular systolic function is mildly reduced with an estimated ejection fraction of 45%. Normal left ventricular size. Wall thickness is normal. No regional wall motion abnormalities are present. Mild mitral valve regurgitation. Mild aortic sclerosis. Trace aortic valve regurgitation. Amiodarone infusion discontinued 06/02 secondary to the patient having elevated LFTs. The patient remains in normal sinus rhythm, hemodynamically stable on no vasopressors 06/03- arterial Doppler studies. Slight depression MILES 0.8 bilaterally. Biphasic Doppler signals right DP, PT Currently off all vasopressors. Scheduled labetalol 200 mg twice a day As needed labetalol/hydralazine Nitropaste for blood pressure greater than 160 Renal/FEN/: Acute kidney injury - resolved Hypernatremia Creatinine currently within normal limits Currently on Jevity 1.5 goal 40 cc an hours per nutrition's recommendations Sodium is downtrending, Free water 200 cc every 6 hours Off IV fluids. 06/[address] Bladder scan q6 hours and I/O cath if >300 GI: Elevated AST/alkaline phosphatase Diarrhea NOS Hypoalbuminemia Elevated amylase/lipase - 1317 06/02 Fecal containment device placed CT abdomen/pelvis revealed a nonspecific bowel gas pattern with dilated bowel loops and abnormal gallbladder appearance. 06/02 gallbladder ultrasound- distended gallbladder pancreatic ultrasound - borderline gallbladder wall thickening. Pericholecystic fluid. Visualized pancreas was normal. HIDA scan oy 06/09 - negative for cystic duct obstruction. LFTs downtrending. Tolerating Jevity 1.5 @40 mL per hour. Lansoprazole 30 mm by tube daily for GI prophylaxis No bowel regimen secondary to ongoing diarrhea. C. 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 Change sanitary pads as needed Beta hCG 1 Heme/ID: Microcytic anemia Community-acquired pneumonia Blood culture- NGTD 06/04Sputum culture MSSA, betastrep. 06/09bronchoscopy - negative C. difficile negative Empiric antibiotics initiated secondary to left lung base developing opacity- possibly secondary to aspiration. Has been on cefepime, azithromycin and vancomycin 06/03- Compled cefazolin 1 g IV every 8 hours, antibiotic day #8 Stopped 06/10 .monitor off abx Endocrine: Hyperglycemia of critical illness, resolved Not requiring sliding scale coverage for many days. Will discontinue. TSH normal 1.74 Prophylaxis: GI Prophylaxis Lansoprazole 30 mg daily DVT Prophylaxis -- SCDs Subcutaneous heparin 5000 units twice a day Lines: 06/01 right femoral triple-lumen catheter placed in the emergency department by the emergency room [id number] 06/02 right radial arterial line - d/c 06/07 06/02 left femoral code cool catheter - d/c 06/06. Americo Swenson MD Jun 15, 2017 18:29
[2017-06-16] VITALS (15 sets, daily range): BP systolic 91–133; BP diastolic 54–91; PULSE 86–106; RESP 13–18; TEMP 97.8–99.7; O2SAT 93–98
[2017-06-16] MEDS: FREE WATER G-TUBE SCH ×4 (01:23→20:47)
[2017-06-16] MEDS: guaiFENesin SOLUTION 200 MG/10 ML CUP OG-TUBE SCH ×3 (06:05→20:41)
[2017-06-16] MEDS: HEPARIN SODIUM - SQ 10,000 UNITS/ML VIAL SQ SCH ×2 (06:06→17:55)
[2017-06-16] MEDS: DOCUSATE SODIUM 100 MG/10 ML UDC PO SCH ×2 (09:00→20:42)
[2017-06-16] MEDS: LABETALOL HCL 200 MG TAB PO SCH ×2 (10:02→20:42)
[2017-06-16] MEDS: THIAMINE HCL 100 MG TAB PO SCH (10:02)
[2017-06-16] MEDS: levETIRAcetam 500 MG/5 ML UDC NG SCH ×2 (10:02→20:41)
[2017-06-16] MEDS: FAMOTIDINE 20 MG TAB NG SCH ×2 (10:03→20:42)
[2017-06-16] MEDS: MULTIVITAMIN TAB PO SCH (10:03)
[2017-06-16] MEDS: FOLIC ACID 1 MG TAB PO SCH (10:03)
[2017-06-16] MEDS: ARTIFICIAL TEARS OPTH SOLN 15 ML BTL EACH EYE SCH ×3 (10:03→17:55)
[2017-06-16] MEDS: CHLORHEXIDINE 0.12% (ORAL KIT) 15 ML CUP OROPHARYNG SCH ×2 (10:04→20:47)
--- NOTE | 2017-06-16 16:12 | HHI.HCPN ---
Reason for visit a. To assist with evaluation and management of symptoms including: Dyspnea, encephalopathy b. To assist medical decision maker(s) with: better understanding of current medical conditions; weighing benefits/burdens of medical treatment options; making medical treatment decisions. (Lydia Vance) Subjective/Interval History Pt seen today to follow up on comfort, goals w decision maker, no visitors at bedside. Patient remains intubated on mechanical ventilation in ICU. No improvement in neurological status. Nonresponsive on exam; no corneal reflex; no gag; does not withdraw to noxious stimuli. Tolerating TF with no residuals; having BMs. Will require trach/PEG for continued aggressive treatment. Spoke with HCP/ex - , Fredrick Hawkins, this morning. He has decided NOT to proceed with PEG/trach placement. He states he has made the decision to transition to comfort focus care stating the patient would NOT want to continue on artificial measures without meaningful recovery. Plan for compassionate withdrawal of artificial life support tomorrow 06/17/2017. Exhibits are on patient chart. Palliative care provided contact information to Mr. Hawkins who plans to visit the patient later today. Discussed with critical care nurseAgata. Requested notification when Mr. Hawkins arrives to further discuss the process of withdrawing artificial life support . . (Lydia Vance) Advance Directives Living Will: Never completed Health Care Surrogate: Never completed Durable Power of Facial Operator: Never completed (Lydia Vance) Advance Directive Specifics Significant change in goals: Plan for compassionate withdrawal of artificial life support tomorrow 06/17/2017. . (Lydia Vance) Objective Vital Signs Date Time Temp Pulse Resp B/P (MAP) Pulse Ox O2 Delivery O2 Flow Rate FiO2 06/16/17 15:00 40 06/16/17 15:00 98.7 97 16 101/69 (80) 97 06/16/17 15:00 97 06/16/17 13:05 97 40 06/16/17 11:13 93 40 06/16/17 11:00 86 06/16/17 11:00 98.2 86 16 91/54 (66) 98 06/16/17 11:00 40 06/16/17 09:21 40 06/16/17 07:47 98 40 06/16/17 07:00 103 1/5/18 07:00 97.8 103 16 133/91 (105) 98 06/16/17 07:00 40 06/16/17 04:43 98 40 06/16/17 03:00 99.7 106 13 124/85 (98) 98 06/16/17 03:00 106 06/16/17 03:00 40 06/16/17 01:00 98 40 06/15/17 23:00 88 06/15/17 23:00 99.5 88 16 120/84 (96) 99 06/15/17 23:00 40 06/15/17 20:45 97 40 06/15/17 19:00 107 06/15/17 19:00 99.9 107 14 128/90 (103) 97 06/15/17 19:00 40 06/15/17 16:09 97 40 Intake & Output 06/16/17 06/16/17 07:00 19:00 Intake Total 854 ml Output Total 850 ml Balance 4 ml Tube Feeding 454 ml Other 400 ml Output Urine Total 800 ml Stool Total 50 ml . Physical Exam CONSTITUTIONAL/GENERAL: This is an adequately nourished patient, nonresponsive on mechanical vent TUBES/LINES/DRAINS: PIV BUE, ET tube, NG tube, rectal drain SKIN: No jaundice, rashes, or lesions. No wounds seen anteriorly. Skin temperature warm, dry. Nails long, broken and uneven. EYES: Pupils 3mm questionable reaction to light. No corneal reflex. No injection or drainage. CARDIOVASCULAR: Regular rate and rhythm without murmur. Peripheral pulses faint. Edema to extremities. RESPIRATORY/CHEST: Symmetric, unlabored respirations via mechanical vent. + scattered rhonchi to right. GASTROINTESTINAL: Abdomen soft, nondistended. No palpable masses. Bowel sounds normoactive. GENITOURINARY: Without palpable bladder distension. MUSCULOSKELETAL: Extremities without clubbing, cyanosis. Edema to extremities. No mottling or clubbing. NEUROLOGICAL: Not currently on sedation, nonresponsive to exam--no withdrawal to pain stimuli to extremities, no corneal reflex, no eye opening. PSYCHIATRIC: Limited assessment due to clinical condition . (Lydia Vance) Diagnostic Tests Result Diagram: 06/12/173 06/12/173 Procedures 06/01-femoral central line, arterial line to patient (Lydia VanceMoi GUY) Assessment and Plan Disease Oriented Problem List: (1) Cocaine abuse (2) Cardiopulmonary arrest with successful resuscitation (3) Respiratory failure (4) Asystole (5) Anoxic encephalopathy Symptom Scale: (1) Dyspnea 0-10 Scale: Unable to quantify (2) Anoxic encephalopathy 0-10 Scale: Unable to quantify Pertinent Non-Medical Issues Psychosocial:no longer - from Fredrick Hawkins. Father Gasper Archuleta, mother Kinga Botello-- last known in [place] though pt ex has not been able to reach them at last known numbers. No siblings. Reported to have 1 child who was adopted. Reported to have local significant other Max Mercer. later d/w ltac, located within [facility] counselor (Deisi Anthony) who has known Parris for 3-4 yrs. Pt did have a biological son who a few mos ago. Pt does not have any other children. No siblings that she is aware of. She moved to [place] around age 17 w her father, whom she then lost contact with,father moved back to [place]. She has not had contact w her mother for many years. She is very methodist and has reported God is her father, Ms Anthony feels she would want aoc plans intelligence officer support. Substance hx: per prior EMR visits under different med record #- reports alcohol, "K2", marijuana, cocaine Spiritual: not known Legal:Due to clinical condition patient not able to participate in decision- making. She appears to have severe anoxic encephalopathy does not appear she will regain ability to participate. No longer per her ex-. No siblings per her ex- father and mother last known to be in [place] though do not have current contact information for them. If able to locate maybe appropriate legal decision makers for this patient. Patient also reported to have local significant other Max Mercer. If family unable to be identified he may be appropriate decision-making proxy. Palliative requested case management assist with ACCURINT report to locate possible NOK. Ethical issues impacting care:no ethical issues identified Important Contacts Ex Fredrick Hawkins. [address] [facility] [phone] Boyfriend - local- Max Anthony- counselor w [facility], located within [facility] [phone] Gasper Almendarez- Father, [facility] . Prognosis This patient was admitted 06/01/17 secondary to out of hospital cardiopulmonary arrest. It is not known total amount of time that she was minimally responsive and then pulseless before EMS arrival. She underwent at least 26 minutes of resuscitation by district medical examiner. She appears to have significant severe anoxic brain injury at this time, she is minimally responsive demonstrating severe cortical injury with EEG near flat line in appearance per neurology. Overall prognosis for meaningful recovery of neurologic function appears poor. High risk for ongoing complications and sequelae secondary to hospitalization, nonresponsive state. . Code Status: Full Code Plan * Legal decision maker:Due to clinical condition patient not able to participate in decision-making. She appears to have severe anoxic encephalopathy does not appear she will regain ability to participate. No longer per her ex-. No siblings per her ex- father and mother last known to be in [place] though do not have current contact information for them. If able to locate maybe appropriate legal decision makers for this patient. Patient also reported to have local significant other Max Mercer. If family unable to be identified he may be appropriate decision -making proxy. Palliative requested case management assist with ACCURINT report 06/06/17 to locate possible NOK. If unable to identify NOK, or appropriate person to serve as HC proxy, may need to utilize [employer] for decision making for pt. 06/08: accurint findings,w possible name / number Tawanda Adrian [phone]. I called this # VM left requesting call back to determine if related to pt. 06/09- this Lillie Almendarez is NOT related/connected to this pt. VM left for ex spouse Fredrick to determine if he wishes to serve as HC proxy. Awaiting call back. If he does NOT wish to serve, then should explore if Max (sig other) wishes to serve as proxy before pursuing [employer]. 06/12/17 Spoke w Mr. Hawkins regarding proxy decision making, and possibility may entail termination clerk decision making as pt not expected to regain capacity. He is agreement to serve as HC PROXY. * Goals: Spoke with HCP/ex - , Fredrick Hawkins, this morning. He has decided NOT to proceed with PEG/trach placement. He states he has made the decision to transition to comfort focus care stating the patient would NOT want to continue on artificial measures without meaningful recovery. Plan for compassionate withdrawal of artificial life support tomorrow 06/17/2017. Exhibits are on patient chart. * CODE STATUS: ALTERNATIVE CODE/Intubation only * SYMPTOMS: --Encephalopathy-status post out of hospital cardiopulmonary arrest-unknown total amount of time down; EEG "near flat line ", minimal neurological function at this time;repeat EEG continue to be very abnormal. MRI brain = Findings may be indicative of some degree of anoxic brain injury. No neurological improvement. No corneal reflex, no gag reflex, no cough. Patient does not withdraw to deep noxious stimuli. --Dyspnea-emergently intubated secondary to out of hospital arrest; breathing comfortable on mechanical vent. No gag reflex. +overbreathes vent. Undergoing CPAP trials, not planned for medical extubation 2/2 unable to protect airway. * Palliative care will continue to follow during hospital course as condition evolves, to assist patient/decision-maker with understanding of medical conditions, weighing benefits/burdens of treatment options, for clarification of goals of treatment. Additionally will assist with any symptoms of palliative concern (Lydia Vance) Attestation To help prompt me to consider important information that might be impacting today's encounter and assessment, information from prior notes written by myself or my colleagues may have been "brought forward" into today's note. My signature on this note, however, is an attestation that I personally performed the exam, history, and/or decision-making noted today, and, unless otherwise indicated, the interactions with patient, family, and staff as well as the review of records all occurred today. I also attest that the listed assessment and stated plan reflect my best clinical judgment today based on the combination of historical information, prior notes, and today's exam/ interactions. When time spent is documented, it refers only to time spent today by the signer, or if indicated, combined time spent today by collaborating physician/nurse practitioner. . (Lydia Vance) Attestation Chart reviewed. Patient examined personally by me. Case discussed with palliative care HAY FARMER. I have reviewed above HAY FARMER note and concur. Patient is intubated, mechanically ventilated, and unresponsive off sedation in an intensive care unit bed. At time of my visit lungs are clear. Heart is regular. She does not withdraw to even noxious stimuli. Based on history of my physical exam, I believe the patient has an end-stage condition. There is no reasonable probability that she will recover capacity to make her own decisions. Given the above, showed a legal decision-maker decide to withhold/withdraw life-prolonging measures, I would have no reason to object. TIME: Over 35 minutes was spent on floor by combined physician and nurse practitioner visits. Total time included chart review, patient examination, above-referenced conversation with the patient's decision-maker, and collaboration with primary nurse. Over 50% of the time was spent on counseling/ coordination of care. . (Julio Cesar Darby MD) Lydia Vance Jun 16, 2017 16:12 Julio Cesar Darby MD Jun 16, 2017 20:50
--- NOTE | 2017-06-16 16:38 | HHI.CCPN ---
Subjective Remarks/Hospital Course This is a 37-year-old female with an unknown past medical history who presents after out of hospital cardiac arrest. Per EMS report, a friend found the patient altered with agonal respirations. Per report, the friend did not have any way of contacting 911, so the friend place the patient in a car and drove her to the nearest gas station to call 911. Upon EMS arrival, the patient was unresponsive, not breathing, and pulseless. Presenting rhythm was asystole. ACLS was initiated, 3 A of epinephrine, 1 amp of bicarbonate, 2 mg of Narcan and the patient had ROSC. Patient was transported to [facility] emergency Department. In emergency department, she had a decreased level of consciousness but was moving all 4 extremities spontaneously. Her GCS was 6 (E1 ,V1,M4). Her urine drug screen is positive for cocaine. I discussion with Dr. Yañez the ER physician, and we agree that given her young age and that she was witnessed with a pulse, that the potential benefits of therapeutic hypothermia outweigh the risks in this scenario. No additional information is available from the patient and we do not know of any family at this time. Patient was transported the CVICU and therapeutic hypothermia was initiated. 06/02: Currently on hypothermia protocol. Temperature 33C. Dignishield will be placed. Remains on multiple vasopressors. Troponin climbing with repeat ordered. Echocardiogram and a.m. EKG pending. 06/03: Rewarming process initiated early this a.m.. Patient was weaned off of vasopressors greater than 24 hours. Hemodynamically stable. Early this a.m. the patient noted was noted to have decrease in dorsalis pedis and posterior tibial pulses, now nonpalpable but dopplerable biphasic signals. Arterial Doppler studies pending. Right femoral triple-lumen central line removed. Chest x-ray was noted to have an infiltrate, sputum cultures are pending empiric antibiotics initiated. 06/04: Normothermic at 1930 .Sedation discontinued 1929 on 06/03. The patient remains encephalopathic at this time. She remains hemodynamically stable on no pressors. EEG pending at this time. The patient was noted to be slightly hypernatremic, IV fluids changed. ABIs were performed for slightly decreased pulse yesterday and right lower extremities bilateral ABIs slightly depressed pulses on the right remain dopplerable, biphasic. 06/05: Afebrile. No acute events overnight. Patient continues to be hypertensive scheduled PO labetalol 100 mg BID. Neurologically, the patient remains encephalopathic, EEG performed yesterday showed nearly flat line. CT pending this a.m.. Neurology has been consulted, patient has been off sedation for approximately 36 hours. 06/06 MRI pending. Off sedation. Not brain --> has spontaneous respirations when disconnected vent. Absent pupillary, corneal, oculocephalic and gag reflexes. No motor response to deep noxious stimuli. Had tonic clonic movements of BUE this morning that ceased with Ativan 2 mg IV. 06/07: Afebrile. Tube feeds currently at 30 cc an hour with Jevity 1.5. 200 cc stools per fecal containment device. Received lorazepam 2 mg IV for "tremors " overnight. He reveals diffuse encephalopathy with no epileptiform activity on 06/04 and 06/06. 06/08: Currently afebrile. Tube feeding currently goal at 40 cc now with Jevity 1.5. 600 cc stools per fecal containment device. MRI brain 06/07 showed diffuse signs of anoxic brain injury. 06/09: CURRENT TEMPERATURE 98.7. RN is complaining of "transmitted upper airway sounds". Chest x-ray revealed no acute cardio pulmonary findings. Do not appreciate on my examination. . The patient is tachycardia and tachypnea, with copious thick whitish secretions from ET tube. Tolerate tube feedings with positive bowel movement from fecal team device.. 06/10 Overbreathing vent otherwise brainstem reflexes absent. Palliative care assisting with determination of healthcare proxy. Have reached out to ex- , Fredrick to see if he is willing to participate in decision-making. If he is not willing, plan to discuss with Max who is her current significant other. Afebrile. 06/11 No neuro change. WBC up a little. Afebrile. Tolerating tube feeds. Purewick catheter in place. No invasive lines. Significant other at bedside, hopeful for a miracle recovery. Informed she has permanent brain damage, would require trach/PEG and would expected to be bedridden in alf with limited to no reaction to surroundings if she survives. He is aware that there has been discussion about transition to comfort "by people at [facility]". Not yet clear who will be legally making medical decisions, simply addressed Max's questions about her prognosis while he was at bedside with her. 06/12: no changes or improvements. palliative with ongoing discussions. 06/13: patient made DNR yesterday by healthcare proxy. no changes or improvements to mental status. poor prognosis. unlikely to regain any neurologic function. wbc remains elevated, and significant secretions from ETT, however, patient remains afebrile without significant o2 requirement on ventilator. 06/14: no changes. no improvements. SUBJECTIVE: 06/15: family decided today no trach/peg. however, they asked for 1 more week before withdraw of care. discussed with family this was not appropriate that we make patient suffer additional week when decision for comfort measures already made. family needs 1-2 more days to gather together before withdraw. 06/16: Remains encephalopathic, orally intubated on mechanical ventilation. Objective Vital Signs Date Time Temp Pulse Resp B/P (MAP) Pulse Ox O2 Delivery O2 Flow Rate FiO2 06/16/17 15:00 40 06/16/17 15:00 98.7 97 16 101/69 (80) 97 Intake and Output 06/16/17 06/16/17 06/17/17 08:00 16:00 00:00 Intake Total 854 ml Output Total 850 ml Balance 4 ml Result Diagram: 06/12/17 0403 06/12/17 0403 Imaging Last Impressions Chest X-Ray 06/09/17 0600 Signed Impressions: Service Date/Time: Friday, June 09, 2017 05:02 - CONCLUSION: No acute cardiopulmonary disease identified. Noman Mercer MD Pancreas Ultrasound 06/08/17 0000 Signed Impressions: Service Date/Time: May 16:18 - CONCLUSION: 1. No cholelithiasis. However, there is borderline gallbladder wall thickening and subtle potential pericholecystic fluid. This finding may be seen in the setting of chronic illness and chronic liver disease. The differential considerations include cholecystitis, likely chronic. If there is significant concern regarding acute cholecystitis, HIDA scan may be performed to evaluate for cystic duct patency. 2. Mild hepatomegaly. 1. Ziggy Abdi MD Brain MRI 06/07/17 0000 Signed Impressions: Service Date/Time: Wednesday, June 07, 2017 15:41 - CONCLUSION: 1. There is some increased T2 flair signal in the distribution of the striatum bilaterally. Punctate areas of diffusion restriction in the globus pallidus. Findings may be indicative of some degree of anoxic brain injury. 2. Extensive chronic sinusitis bilaterally. Pelon Mazariegos MD Gall Bladder Ultrasound 06/02/17 0000 Signed Impressions: Service Date/Time: Friday, June 02, 2017 07:17 - CONCLUSION: 1. Although the gallbladder is well-distended I see no stones or sludge. There is a trace amount of ascitic fluid including pericholecystic fluid. 2. Questionable small right effusion. No effusion is seen on the recent CT scan. Howard Ricardo Jr., MD CT Angiography 06/02/17 0000 Signed Impressions: Service Date/Time: Friday, June 02, 2017 00:38 - CONCLUSION: No evidence of pulmonary embolism. Left lung perihilar infiltrate. Darrius Blandon MD Abdomen/Pelvis CT 06/02/17 0000 Signed Impressions: Service Date/Time: Friday, June 02, 2017 00:43 - CONCLUSION: Nonspecific distention of bowel. Nonspecific abnormal appearance of the gallbladder. Darrius Blandon MD Head CT 06/01/17 2347 Signed Impressions: Service Date/Time: Friday, June 02, 2017 00:29 - CONCLUSION: No acute intracranial process Darrius Blandon MD Objective Remarks GENERAL: 37-year-old AA female orotracheally intubated HEENT: Normocephalic. Atraumatic. Pupils 1-2 mm bilaterally and nonreactive. Scleral edema noted with some erythema NECK: Trachea is midline. There is no JVD. CHEST: Symmetrical chest rise. PRVC, 35% fio2. CARDIOVASCULAR: Tachycardic, RR. Without murmur ABDOMEN: Soft, nontender, nondistended. Fecal containment device with brown/ yellow liquid stool. Tolerating tube feeds MUSCULOSKELETAL: Pulses 2+ bilateral radial and posterior tibialis. Dependent edema of hands bilaterally. NEUROLOGICAL: No eye opening. Pupils 1-2 mm but nonreactive. No corneal reflex. No gag. No cough. +Spontaneous respirations over the current ventilator settings, also noted spontaneous resp effort when disconnected vent. No motor response to deep noxious stimuli. Negative Babinski. No clonus. A/P Assessment and Plan Assessment: 37yF with severe anoxic brain injury without neurologic improvement. poor prognosis. Will avoid exposure to broad spectrum abx unless clinically appears infected. continue to monitor. Neuro/Psych: Acute hypoxic ischemic encephalopathy Toxic encephalopathy - multifactorial Cocaine overdose EtOH abuse Seizure Status post induced therapeutic hypothermia. Sedation discontinued 06/03 at 1930. Remains off sedatives Neurochecks per ICU protocol CT brain admission 06/01 revealed no acute intracranial findings 06/04 EEG -. Severe encephalopathy with nearly flat line appearance. 06/06 EEG - severe encephalopathy with no epileptic activity 06/09 EEG - severely abnormal, severe background slowing consistent with anoxia. 06/04 ammonia level- 10 MRI brain 06/07 - increased T2 flair signal in the distribution of the striatum bilaterally. Punctate areas of diffusion restriction in the globus pallidus. Findings may be indicative of some degree of anoxic brain injury. Extensive chronic sinusitis bilaterally. Continue thiamine 100 mg daily, folate 1 mg daily and multivitamin 1 tablet daily with EtOH use by history Currently on levetiracetam 1000 mg po twice a day per neurology's recommendations. Fosphenytoin discontinued Neurology consult/Dr. White Oxycodone 5 mg liquid every 4 hours when necessary pain 1-10/agitation Respiratory: Acute hypoxic and hypercarbic respiratory failure ACV 15/500/5/30. Vent bundle Current Mental status barrier to extubation. However, perform daily SBT to mitigate respiratory muscle weakness. Head of bed 30 Albuterol/ipratropium aerosols every 6 hours with albuterol aerosols every 2 hours as needed Hypertonic saline 3% aerosols 2 mL every 6 hours for mucus thinning Guaifenesin 400 mg by tube every 8 hours Wean FiO2 for goal SPO2 greater than 92% CT pulmonary angiogram 06/01: Negative for acute PE and possible left lower lobe infiltrate Chest x-ray 06/09 revealed no acute cardio pulmonary findings Status post bronchoscopy 06/09. Please defer to procedure note Cardiovascular: Status post out of hospital cardiac arrest Cardiogenic shock (resolved) NSTEMI- resolved. Lactic acidosis-resolved Elevated HDL Goal mean arterial pressure greater than 65 Cardiology/Dr. Perez has evaluated and no plans for further workup at this time due to extremely poor neurologic prognosis 06/03 2D echo - The left ventricular systolic function is mildly reduced with an estimated ejection fraction of 45%. Normal left ventricular size. Wall thickness is normal. No regional wall motion abnormalities are present. Mild mitral valve regurgitation. Mild aortic sclerosis. Trace aortic valve regurgitation. Amiodarone infusion discontinued 06/02 secondary to the patient having elevated LFTs. The patient remains in normal sinus rhythm, hemodynamically stable on no vasopressors 06/03- arterial Doppler studies. Slight depression MILES 0.8 bilaterally. Biphasic Doppler signals right DP, PT Currently off all vasopressors. Scheduled labetalol 200 mg twice a day As needed labetalol/hydralazine Nitropaste for blood pressure greater than 160 Renal/FEN/: Acute kidney injury - resolved Hypernatremia Creatinine currently within normal limits Currently on Jevity 1.5 goal 40 cc an hours per nutrition's recommendations Sodium is downtrending, Free water 200 cc every 6 hours Off IV fluids. 06/[address] Bladder scan q6 hours and I/O cath if >300 GI: Elevated AST/alkaline phosphatase Diarrhea NOS Hypoalbuminemia Elevated amylase/lipase - 1317 06/02 Fecal containment device placed CT abdomen/pelvis revealed a nonspecific bowel gas pattern with dilated bowel loops and abnormal gallbladder appearance. 06/02 gallbladder ultrasound- distended gallbladder pancreatic ultrasound - borderline gallbladder wall thickening. Pericholecystic fluid. Visualized pancreas was normal. HIDA scan oy 06/09 - negative for cystic duct obstruction. LFTs downtrending. Tolerating Jevity 1.5 @40 mL per hour. Lansoprazole 30 mm by tube daily for GI prophylaxis No bowel regimen secondary to ongoing diarrhea. C. difficile negative -06/03 [employer]: Patient was actively menstruating. Change sanitary pads as needed Beta hCG 1 Heme/ID: Microcytic anemia Community-acquired pneumonia Blood culture- NGTD 06/04Sputum culture MSSA, betastrep. 06/09bronchoscopy - negative C. difficile negative Empiric antibiotics initiated secondary to left lung base developing opacity- possibly secondary to aspiration. Has been on cefepime, azithromycin and vancomycin 06/03- Compled cefazolin 1 g IV every 8 hours, antibiotic day #8 Stopped 06/10 .monitor off abx Endocrine: Hyperglycemia of critical illness, resolved Not requiring sliding scale coverage for many days. Will discontinue. TSH normal 1.74 Prophylaxis: GI Prophylaxis Lansoprazole 30 mg daily DVT Prophylaxis -- SCDs Subcutaneous heparin 5000 units twice a day Lines: 06/01 right femoral triple-lumen catheter placed in the emergency department by the emergency room [id number] 06/02 right radial arterial line - d/c 06/07 06/02 left femoral code cool catheter - d/c 06/06. PIV Being followed by palliative care team. Family planning on possible de- escalation of therapy on 06/17 with transition to comfort measures. Tommy Dee MD Jun 16, 2017 16:38
[2017-06-17] VITALS (12 sets, daily range): BP systolic 102–135; BP diastolic 66–100; PULSE 85–100; RESP 14–21; TEMP 98.7–99.6; O2SAT 94–99
[2017-06-17] MEDS: FREE WATER G-TUBE SCH ×4 (02:00→20:00)
[2017-06-17] MEDS: guaiFENesin SOLUTION 200 MG/10 ML CUP OG-TUBE SCH ×3 (05:35→22:00)
[2017-06-17] MEDS: HEPARIN SODIUM - SQ 10,000 UNITS/ML VIAL SQ SCH ×2 (05:36→16:48)
[2017-06-17] MEDS: CHLORHEXIDINE 0.12% (ORAL KIT) 15 ML CUP OROPHARYNG SCH ×2 (08:00→20:00)
[2017-06-17] MEDS: FOLIC ACID 1 MG TAB PO SCH (10:09)
[2017-06-17] MEDS: DOCUSATE SODIUM 100 MG/10 ML UDC PO SCH ×2 (10:09→20:51)
[2017-06-17] MEDS: LABETALOL HCL 200 MG TAB PO SCH ×2 (10:09→20:51)
[2017-06-17] MEDS: FAMOTIDINE 20 MG TAB NG SCH ×2 (10:09→20:51)
[2017-06-17] MEDS: THIAMINE HCL 100 MG TAB PO SCH (10:09)
[2017-06-17] MEDS: levETIRAcetam 500 MG/5 ML UDC NG SCH ×2 (10:09→20:51)
[2017-06-17] MEDS: MULTIVITAMIN TAB PO SCH (10:09)
[2017-06-17] MEDS: ARTIFICIAL TEARS OPTH SOLN 15 ML BTL EACH EYE SCH ×3 (10:10→17:59)
--- NOTE | 2017-06-17 16:19 | HHI.CCPN ---
Subjective Remarks/Hospital Course This is a 37-year-old female with an unknown past medical history who presents after out of hospital cardiac arrest. Per EMS report, a friend found the patient altered with agonal respirations. Per report, the friend did not have any way of contacting 911, so the friend place the patient in a car and drove her to the nearest gas station to call 911. Upon EMS arrival, the patient was unresponsive, not breathing, and pulseless. Presenting rhythm was asystole. ACLS was initiated, 3 A of epinephrine, 1 amp of bicarbonate, 2 mg of Narcan and the patient had ROSC. Patient was transported to [facility] emergency Department. In emergency department, she had a decreased level of consciousness but was moving all 4 extremities spontaneously. Her GCS was 6 (E1 ,V1,M4). Her urine drug screen is positive for cocaine. I discussion with Dr. Yañez the ER physician, and we agree that given her young age and that she was witnessed with a pulse, that the potential benefits of therapeutic hypothermia outweigh the risks in this scenario. No additional information is available from the patient and we do not know of any family at this time. Patient was transported the CVICU and therapeutic hypothermia was initiated. 06/02: Currently on hypothermia protocol. Temperature 33C. Dignishield will be placed. Remains on multiple vasopressors. Troponin climbing with repeat ordered. Echocardiogram and a.m. EKG pending. 06/03: Rewarming process initiated early this a.m.. Patient was weaned off of vasopressors greater than 24 hours. Hemodynamically stable. Early this a.m. the patient noted was noted to have decrease in dorsalis pedis and posterior tibial pulses, now nonpalpable but dopplerable biphasic signals. Arterial Doppler studies pending. Right femoral triple-lumen central line removed. Chest x-ray was noted to have an infiltrate, sputum cultures are pending empiric antibiotics initiated. 06/04: Normothermic at 1930 .Sedation discontinued 1929 on 06/03. The patient remains encephalopathic at this time. She remains hemodynamically stable on no pressors. EEG pending at this time. The patient was noted to be slightly hypernatremic, IV fluids changed. ABIs were performed for slightly decreased pulse yesterday and right lower extremities bilateral ABIs slightly depressed pulses on the right remain dopplerable, biphasic. 06/05: Afebrile. No acute events overnight. Patient continues to be hypertensive scheduled PO labetalol 100 mg BID. Neurologically, the patient remains encephalopathic, EEG performed yesterday showed nearly flat line. CT pending this a.m.. Neurology has been consulted, patient has been off sedation for approximately 36 hours. 06/06 MRI pending. Off sedation. Not brain --> has spontaneous respirations when disconnected vent. Absent pupillary, corneal, oculocephalic and gag reflexes. No motor response to deep noxious stimuli. Had tonic clonic movements of BUE this morning that ceased with Ativan 2 mg IV. 06/07: Afebrile. Tube feeds currently at 30 cc an hour with Jevity 1.5. 200 cc stools per fecal containment device. Received lorazepam 2 mg IV for "tremors " overnight. He reveals diffuse encephalopathy with no epileptiform activity on 06/04 and 06/06. 06/08: Currently afebrile. Tube feeding currently goal at 40 cc now with Jevity 1.5. 600 cc stools per fecal containment device. MRI brain 06/07 showed diffuse signs of anoxic brain injury. 06/09: CURRENT TEMPERATURE 98.7. RN is complaining of "transmitted upper airway sounds". Chest x-ray revealed no acute cardio pulmonary findings. Do not appreciate on my examination. . The patient is tachycardia and tachypnea, with copious thick whitish secretions from ET tube. Tolerate tube feedings with positive bowel movement from fecal team device.. 06/10 Overbreathing vent otherwise brainstem reflexes absent. Palliative care assisting with determination of healthcare proxy. Have reached out to ex- , Fredrick to see if he is willing to participate in decision-making. If he is not willing, plan to discuss with Max who is her current significant other. Afebrile. 06/11 No neuro change. WBC up a little. Afebrile. Tolerating tube feeds. Purewick catheter in place. No invasive lines. Significant other at bedside, hopeful for a miracle recovery. Informed she has permanent brain damage, would require trach/PEG and would expected to be bedridden in retirement with limited to no reaction to surroundings if she survives. He is aware that there has been discussion about transition to comfort "by people at [facility]". Not yet clear who will be legally making medical decisions, simply addressed Max's questions about her prognosis while he was at bedside with her. 06/12: no changes or improvements. palliative with ongoing discussions. 06/13: patient made DNR yesterday by healthcare proxy. no changes or improvements to mental status. poor prognosis. unlikely to regain any neurologic function. wbc remains elevated, and significant secretions from ETT, however, patient remains afebrile without significant o2 requirement on ventilator. 06/14: no changes. no improvements. SUBJECTIVE: 06/15: family decided today no trach/peg. however, they asked for 1 more week before withdraw of care. discussed with family this was not appropriate that we make patient suffer additional week when decision for comfort measures already made. family needs 1-2 more days to gather together before withdraw. 06/16: Remains encephalopathic, orally intubated on mechanical ventilation. 06/17: Remains encephalopathic, orally intubated on mechanical ventilation. Patient's planning to come in tomorrow for possible terminal wean Objective Vital Signs Date Time Temp Pulse Resp B/P (MAP) Pulse Ox O2 Delivery O2 Flow Rate FiO2 06/17/17 13:19 97 40 06/17/17 11:00 85 06/17/17 07:00 99.6 21 135/100 (112) Intake and Output 06/17/17 06/17/17 06/18/17 08:00 16:00 00:00 Intake Total 680 ml Output Total 500 ml Balance 180 ml Imaging Last Impressions Chest X-Ray 06/09/17 0600 Signed Impressions: Service Date/Time: Friday, June 09, 2017 05:02 - CONCLUSION: No acute cardiopulmonary disease identified. Noman Mercer MD Pancreas Ultrasound 06/08/17 0000 Signed Impressions: Service Date/Time: May 16:18 - CONCLUSION: 1. No cholelithiasis. However, there is borderline gallbladder wall thickening and subtle potential pericholecystic fluid. This finding may be seen in the setting of chronic illness and chronic liver disease. The differential considerations include cholecystitis, likely chronic. If there is significant concern regarding acute cholecystitis, HIDA scan may be performed to evaluate for cystic duct patency. 2. Mild hepatomegaly. 1. Ziggy Abdi MD Brain MRI 06/07/17 0000 Signed Impressions: Service Date/Time: Wednesday, June 07, 2017 15:41 - CONCLUSION: 1. There is some increased T2 flair signal in the distribution of the striatum bilaterally. Punctate areas of diffusion restriction in the globus pallidus. Findings may be indicative of some degree of anoxic brain injury. 2. Extensive chronic sinusitis bilaterally. Pelon Mazariegos MD Gall Bladder Ultrasound 06/02/17 0000 Signed Impressions: Service Date/Time: Friday, June 02, 2017 07:17 - CONCLUSION: 1. Although the gallbladder is well-distended I see no stones or sludge. There is a trace amount of ascitic fluid including pericholecystic fluid. 2. Questionable small right effusion. No effusion is seen on the recent CT scan. Howard Ricardo Jr., MD CT Angiography 06/02/17 0000 Signed Impressions: Service Date/Time: Friday, June 02, 2017 00:38 - CONCLUSION: No evidence of pulmonary embolism. Left lung perihilar infiltrate. Darrius Blandon MD Abdomen/Pelvis CT 06/02/17 0000 Signed Impressions: Service Date/Time: Friday, June 02, 2017 00:43 - CONCLUSION: Nonspecific distention of bowel. Nonspecific abnormal appearance of the gallbladder. Darrius Blandon MD Head CT 06/01/17 2347 Signed Impressions: Service Date/Time: Friday, June 02, 2017 00:29 - CONCLUSION: No acute intracranial process Darrius Blandon MD Objective Remarks GENERAL: 37-year-old AA female orotracheally intubated HEENT: Normocephalic. Atraumatic. Pupils 1-2 mm bilaterally and nonreactive. Scleral edema noted with some erythema NECK: Trachea is midline. There is no JVD. CHEST: Symmetrical chest rise. PRVC, 35% fio2. CARDIOVASCULAR: Tachycardic, RR. Without murmur ABDOMEN: Soft, nontender, nondistended. Fecal containment device with brown/ yellow liquid stool. Tolerating tube feeds MUSCULOSKELETAL: Pulses 2+ bilateral radial and posterior tibialis. Dependent edema of hands bilaterally. NEUROLOGICAL: No eye opening. Pupils 1-2 mm but nonreactive. No corneal reflex. No gag. No cough. +Spontaneous respirations over the current ventilator settings, also noted spontaneous resp effort when disconnected vent. No motor response to deep noxious stimuli. Negative Babinski. No clonus. A/P Assessment and Plan Assessment: 37yF with severe anoxic brain injury without neurologic improvement. poor prognosis. Will avoid exposure to broad spectrum abx unless clinically appears infected. continue to monitor. Neuro/Psych: Acute hypoxic ischemic encephalopathy Toxic encephalopathy - multifactorial Cocaine overdose EtOH abuse Seizure Status post induced therapeutic hypothermia. Sedation discontinued 06/03 at 1930. Remains off sedatives Neurochecks per ICU protocol CT brain admission 06/01 revealed no acute intracranial findings 06/04 EEG -. Severe encephalopathy with nearly flat line appearance. 06/06 EEG - severe encephalopathy with no epileptic activity 06/09 EEG - severely abnormal, severe background slowing consistent with anoxia. 06/04 ammonia level- 10 MRI brain 06/07 - increased T2 flair signal in the distribution of the striatum bilaterally. Punctate areas of diffusion restriction in the globus pallidus. Findings may be indicative of some degree of anoxic brain injury. Extensive chronic sinusitis bilaterally. Continue thiamine 100 mg daily, folate 1 mg daily and multivitamin 1 tablet daily with EtOH use by history Currently on levetiracetam 1000 mg po twice a day per neurology's recommendations. Fosphenytoin discontinued Neurology consult/Dr. White Oxycodone 5 mg liquid every 4 hours when necessary pain 1-10/agitation Respiratory: Acute hypoxic and hypercarbic respiratory failure ACV 15/500//30. Vent bundle Current Mental status barrier to extubation. However, perform daily SBT to mitigate respiratory muscle weakness. Head of bed 30 Albuterol/ipratropium aerosols every 6 hours with albuterol aerosols every 2 hours as needed Hypertonic saline 3% aerosols 2 mL every 6 hours for mucus thinning Guaifenesin 400 mg by tube every 8 hours Wean FiO2 for goal SPO2 greater than 92% CT pulmonary angiogram 06/01: Negative for acute PE and possible left lower lobe infiltrate Chest x-ray 06/09 revealed no acute cardio pulmonary findings Status post bronchoscopy 06/09. Please defer to procedure note Cardiovascular: Status post out of hospital cardiac arrest Cardiogenic shock (resolved) NSTEMI- resolved. Lactic acidosis-resolved Elevated HDL Goal mean arterial pressure greater than 65 Cardiology/Dr. Perez has evaluated and no plans for further workup at this time due to extremely poor neurologic prognosis 06/03 2D echo - The left ventricular systolic function is mildly reduced with an estimated ejection fraction of 45%. Normal left ventricular size. Wall thickness is normal. No regional wall motion abnormalities are present. Mild mitral valve regurgitation. Mild aortic sclerosis. Trace aortic valve regurgitation. Amiodarone infusion discontinued 06/02 secondary to the patient having elevated LFTs. The patient remains in normal sinus rhythm, hemodynamically stable on no vasopressors 06/03- arterial Doppler studies. Slight depression MILES 0.8 bilaterally. Biphasic Doppler signals right DP, PT Currently off all vasopressors. Scheduled labetalol 200 mg twice a day As needed labetalol/hydralazine Nitropaste for blood pressure greater than 160 Renal/FEN/: Acute kidney injury - resolved Hypernatremia Creatinine currently within normal limits Currently on Jevity 1.5 goal 40 cc an hours per nutrition's recommendations Sodium is downtrending, Free water 200 cc every 6 hours Off IV fluids. 06/[address] Bladder scan q6 hours and I/O cath if >300 GI: Elevated AST/alkaline phosphatase Diarrhea NOS Hypoalbuminemia Elevated amylase/lipase - 1317 06/02 Fecal containment device placed CT abdomen/pelvis revealed a nonspecific bowel gas pattern with dilated bowel loops and abnormal gallbladder appearance. 06/02 gallbladder ultrasound- distended gallbladder pancreatic ultrasound - borderline gallbladder wall thickening. Pericholecystic fluid. Visualized pancreas was normal. HIDA scan oy 06/09 - negative for cystic duct obstruction. LFTs downtrending. Tolerating Jevity 1.5 @40 mL per hour. Lansoprazole 30 mm by tube daily for GI prophylaxis No bowel regimen secondary to ongoing diarrhea. C. difficile negative -06/03 [employer]: Patient was actively menstruating. Change sanitary pads as needed Beta hCG 1 Heme/ID: Microcytic anemia Community-acquired pneumonia Blood culture- NGTD 06/04Sputum culture MSSA, betastrep. 06/09bronchoscopy - negative C. difficile negative Empiric antibiotics initiated secondary to left lung base developing opacity- possibly secondary to aspiration. Has been on cefepime, azithromycin and vancomycin 06/03- Compled cefazolin 1 g IV every 8 hours, antibiotic day #8 Stopped 06/10 .monitor off abx Endocrine: Hyperglycemia of critical illness, resolved Not requiring sliding scale coverage for many days. Will discontinue. TSH normal 1.74 Prophylaxis: GI Prophylaxis Lansoprazole 30 mg daily DVT Prophylaxis -- SCDs Subcutaneous heparin 5000 units twice a day Lines: 06/01 right femoral triple-lumen catheter placed in the emergency department by the emergency room [id number] 06/02 right radial arterial line - d/c 06/07 06/02 left femoral code cool catheter - d/c 06/06. PIV Being followed by palliative care team. Family planning on possible de- escalation of therapy on 06/18 with transition to comfort measures. Tommy Dee MD Jun 17, 2017 16:19
[2017-06-17] MEDS: SODIUM CHLORIDE 0.9% FLUSH 10 ML FLUSH IV FLUSH PRN (20:53)
[2017-06-18] VITALS (13 sets, daily range): BP systolic 98–137; BP diastolic 68–98; PULSE 91–112; RESP 13–20; TEMP 97.9–100; O2SAT 94–99
[2017-06-18] MEDS: FREE WATER G-TUBE SCH ×4 (02:00→20:00)
[2017-06-18] MEDS: guaiFENesin SOLUTION 200 MG/10 ML CUP OG-TUBE SCH ×3 (06:06→21:35)
[2017-06-18] MEDS: HEPARIN SODIUM - SQ 10,000 UNITS/ML VIAL SQ SCH ×2 (06:07→18:34)
[2017-06-18] MEDS: CHLORHEXIDINE 0.12% (ORAL KIT) 15 ML CUP OROPHARYNG SCH ×2 (08:05→21:36)
[2017-06-18] MEDS: DOCUSATE SODIUM 100 MG/10 ML UDC PO SCH ×2 (09:42→21:34)
[2017-06-18] MEDS: ARTIFICIAL TEARS OPTH SOLN 15 ML BTL EACH EYE SCH ×3 (09:42→18:35)
[2017-06-18] MEDS: THIAMINE HCL 100 MG TAB PO SCH (09:42)
[2017-06-18] MEDS: FAMOTIDINE 20 MG TAB NG SCH ×2 (09:42→21:34)
[2017-06-18] MEDS: LABETALOL HCL 200 MG TAB PO SCH ×2 (09:42→21:34)
[2017-06-18] MEDS: FOLIC ACID 1 MG TAB PO SCH (09:42)
[2017-06-18] MEDS: levETIRAcetam 500 MG/5 ML UDC NG SCH ×2 (09:42→21:35)
[2017-06-18] MEDS: MULTIVITAMIN TAB PO SCH (09:42)
--- NOTE | 2017-06-18 21:24 | HHI.CCPN ---
Subjective Remarks/Hospital Course This is a 37-year-old female with an unknown past medical history who presents after out of hospital cardiac arrest. Per EMS report, a friend found the patient altered with agonal respirations. Per report, the friend did not have any way of contacting 911, so the friend place the patient in a car and drove her to the nearest gas station to call 911. Upon EMS arrival, the patient was unresponsive, not breathing, and pulseless. Presenting rhythm was asystole. ACLS was initiated, 3 A of epinephrine, 1 amp of bicarbonate, 2 mg of Narcan and the patient had ROSC. Patient was transported to [facility] emergency Department. In emergency department, she had a decreased level of consciousness but was moving all 4 extremities spontaneously. Her GCS was 6 (E1 ,V1,M4). Her urine drug screen is positive for cocaine. I discussion with Dr. Yañez the ER physician, and we agree that given her young age and that she was witnessed with a pulse, that the potential benefits of therapeutic hypothermia outweigh the risks in this scenario. No additional information is available from the patient and we do not know of any family at this time. Patient was transported the CVICU and therapeutic hypothermia was initiated. 06/02: Currently on hypothermia protocol. Temperature 33C. Dignishield will be placed. Remains on multiple vasopressors. Troponin climbing with repeat ordered. Echocardiogram and a.m. EKG pending. 06/03: Rewarming process initiated early this a.m.. Patient was weaned off of vasopressors greater than 24 hours. Hemodynamically stable. Early this a.m. the patient noted was noted to have decrease in dorsalis pedis and posterior tibial pulses, now nonpalpable but dopplerable biphasic signals. Arterial Doppler studies pending. Right femoral triple-lumen central line removed. Chest x-ray was noted to have an infiltrate, sputum cultures are pending empiric antibiotics initiated. 06/04: Normothermic at 1930 .Sedation discontinued 1929 on 06/03. The patient remains encephalopathic at this time. She remains hemodynamically stable on no pressors. EEG pending at this time. The patient was noted to be slightly hypernatremic, IV fluids changed. ABIs were performed for slightly decreased pulse yesterday and right lower extremities bilateral ABIs slightly depressed pulses on the right remain dopplerable, biphasic. 06/05: Afebrile. No acute events overnight. Patient continues to be hypertensive scheduled PO labetalol 100 mg BID. Neurologically, the patient remains encephalopathic, EEG performed yesterday showed nearly flat line. CT pending this a.m.. Neurology has been consulted, patient has been off sedation for approximately 36 hours. 06/06 MRI pending. Off sedation. Not brain --> has spontaneous respirations when disconnected vent. Absent pupillary, corneal, oculocephalic and gag reflexes. No motor response to deep noxious stimuli. Had tonic clonic movements of BUE this morning that ceased with Ativan 2 mg IV. 06/07: Afebrile. Tube feeds currently at 30 cc an hour with Jevity 1.5. 200 cc stools per fecal containment device. Received lorazepam 2 mg IV for "tremors " overnight. He reveals diffuse encephalopathy with no epileptiform activity on 06/04 and 06/06. 06/08: Currently afebrile. Tube feeding currently goal at 40 cc now with Jevity 1.5. 600 cc stools per fecal containment device. MRI brain 06/07 showed diffuse signs of anoxic brain injury. 06/09: CURRENT TEMPERATURE 98.7. RN is complaining of "transmitted upper airway sounds". Chest x-ray revealed no acute cardio pulmonary findings. Do not appreciate on my examination. . The patient is tachycardia and tachypnea, with copious thick whitish secretions from ET tube. Tolerate tube feedings with positive bowel movement from fecal team device.. 06/10 Overbreathing vent otherwise brainstem reflexes absent. Palliative care assisting with determination of healthcare proxy. Have reached out to ex- , Fredrick to see if he is willing to participate in decision-making. If he is not willing, plan to discuss with Max who is her current significant other. Afebrile. 06/11 No neuro change. WBC up a little. Afebrile. Tolerating tube feeds. Purewick catheter in place. No invasive lines. Significant other at bedside, hopeful for a miracle recovery. Informed she has permanent brain damage, would require trach/PEG and would expected to be bedridden in residential with limited to no reaction to surroundings if she survives. He is aware that there has been discussion about transition to comfort "by people at [facility]". Not yet clear who will be legally making medical decisions, simply addressed Max's questions about her prognosis while he was at bedside with her. 06/12: no changes or improvements. palliative with ongoing discussions. 06/13: patient made DNR yesterday by healthcare proxy. no changes or improvements to mental status. poor prognosis. unlikely to regain any neurologic function. wbc remains elevated, and significant secretions from ETT, however, patient remains afebrile without significant o2 requirement on ventilator. 06/14: no changes. no improvements. 06/15: family decided today no trach/peg. however, they asked for 1 more week before withdraw of care. discussed with family this was not appropriate that we make patient suffer additional week when decision for comfort measures already made. family needs 1-2 more days to gather together before withdraw. 06/16: Remains encephalopathic, orally intubated on mechanical ventilation. 06/17: Remains encephalopathic, orally intubated on mechanical ventilation. Patient's planning to come in tomorrow for possible terminal wean SUBJECTIVE: 06/18: no improvements. family at bedside. request withdraw of care for 3pm tomorrow after remainder of family has ability to show up. Objective Vital Signs Date Time Temp Pulse Resp B/P (MAP) Pulse Ox O2 Delivery O2 Flow Rate FiO2 06/18/17 19:33 94 40 06/18/17 19:00 107 06/18/17 19:00 98.9 16 137/98 (111) Intake and Output 06/18/17 06/18/17 06/19/17 08:00 16:00 00:00 Intake Total 758 ml 888 ml Output Total 800 ml 500 ml Balance -42 ml 388 ml Imaging Last Impressions Chest X-Ray 06/09/17 0600 Signed Impressions: Service Date/Time: Friday, June 09, 2017 05:02 - CONCLUSION: No acute cardiopulmonary disease identified. Noman Mercer MD Pancreas Ultrasound 06/08/17 0000 Signed Impressions: Service Date/Time: May 16:18 - CONCLUSION: 1. No cholelithiasis. However, there is borderline gallbladder wall thickening and subtle potential pericholecystic fluid. This finding may be seen in the setting of chronic illness and chronic liver disease. The differential considerations include cholecystitis, likely chronic. If there is significant concern regarding acute cholecystitis, HIDA scan may be performed to evaluate for cystic duct patency. 2. Mild hepatomegaly. 1. Ziggy Abdi MD Brain MRI 06/07/17 0000 Signed Impressions: Service Date/Time: Wednesday, June 07, 2017 15:41 - CONCLUSION: 1. There is some increased T2 flair signal in the distribution of the striatum bilaterally. Punctate areas of diffusion restriction in the globus pallidus. Findings may be indicative of some degree of anoxic brain injury. 2. Extensive chronic sinusitis bilaterally. Pelon Mazariegos MD Gall Bladder Ultrasound 06/02/17 0000 Signed Impressions: Service Date/Time: Friday, June 02, 2017 07:17 - CONCLUSION: 1. Although the gallbladder is well-distended I see no stones or sludge. There is a trace amount of ascitic fluid including pericholecystic fluid. 2. Questionable small right effusion. No effusion is seen on the recent CT scan. Howard Ricardo Jr., MD CT Angiography 06/02/17 0000 Signed Impressions: Service Date/Time: Friday, June 02, 2017 00:38 - CONCLUSION: No evidence of pulmonary embolism. Left lung perihilar infiltrate. Darrius Blandon MD Abdomen/Pelvis CT 06/02/17 0000 Signed Impressions: Service Date/Time: Friday, June 02, 2017 00:43 - CONCLUSION: Nonspecific distention of bowel. Nonspecific abnormal appearance of the gallbladder. Darrius Blandon MD Head CT 06/01/17 2347 Signed Impressions: Service Date/Time: Friday, June 02, 2017 00:29 - CONCLUSION: No acute intracranial process Darrius Blandon MD Objective Remarks GENERAL: 37-year-old AA female orotracheally intubated HEENT: Normocephalic. Atraumatic. Pupils 1-2 mm bilaterally and nonreactive. Scleral edema noted with some erythema NECK: Trachea is midline. There is no JVD. CHEST: Symmetrical chest rise. PRVC, 35% fio2. CARDIOVASCULAR: Tachycardic, RR. Without murmur ABDOMEN: Soft, nontender, nondistended. Fecal containment device with brown/ yellow liquid stool. Tolerating tube feeds MUSCULOSKELETAL: Pulses 2+ bilateral radial and posterior tibialis. Dependent edema of hands bilaterally. NEUROLOGICAL: No eye opening. Pupils 1-2 mm but nonreactive. No corneal reflex. No gag. No cough. +Spontaneous respirations over the current ventilator settings, also noted spontaneous resp effort when disconnected vent. No motor response to deep noxious stimuli. Negative Babinski. No clonus. A/P Assessment and Plan Assessment: 37yF with severe anoxic brain injury without neurologic improvement. poor prognosis. Will avoid exposure to broad spectrum abx unless clinically appears infected. continue to monitor. Neuro/Psych: Acute hypoxic ischemic encephalopathy Toxic encephalopathy - multifactorial Cocaine overdose EtOH abuse Seizure Status post induced therapeutic hypothermia. Sedation discontinued 06/03 at 1930. Remains off sedatives Neurochecks per ICU protocol CT brain admission 06/01 revealed no acute intracranial findings 06/04 EEG -. Severe encephalopathy with nearly flat line appearance. 06/06 EEG - severe encephalopathy with no epileptic activity 06/09 EEG - severely abnormal, severe background slowing consistent with anoxia. 06/04 ammonia level- 10 MRI brain 06/07 - increased T2 flair signal in the distribution of the striatum bilaterally. Punctate areas of diffusion restriction in the globus pallidus. Findings may be indicative of some degree of anoxic brain injury. Extensive chronic sinusitis bilaterally. Continue thiamine 100 mg daily, folate 1 mg daily and multivitamin 1 tablet daily with EtOH use by history Currently on levetiracetam 1000 mg po twice a day per neurology's recommendations. Fosphenytoin discontinued Neurology consult/Dr. White Oxycodone 5 mg liquid every 4 hours when necessary pain 1-10/agitation Respiratory: Acute hypoxic and hypercarbic respiratory failure ACV 15/500/5/30. Vent bundle Current Mental status barrier to extubation. However, perform daily SBT to mitigate respiratory muscle weakness. Head of bed 30 Albuterol/ipratropium aerosols every 6 hours with albuterol aerosols every 2 hours as needed Hypertonic saline 3% aerosols 2 mL every 6 hours for mucus thinning Guaifenesin 400 mg by tube every 8 hours Wean FiO2 for goal SPO2 greater than 92% CT pulmonary angiogram 06/01: Negative for acute PE and possible left lower lobe infiltrate Chest x-ray 06/09 revealed no acute cardio pulmonary findings Status post bronchoscopy 06/09. Please defer to procedure note Cardiovascular: Status post out of hospital cardiac arrest Cardiogenic shock (resolved) NSTEMI- resolved. Lactic acidosis-resolved Elevated HDL Goal mean arterial pressure greater than 65 Cardiology/Dr. Perez has evaluated and no plans for further workup at this time due to extremely poor neurologic prognosis 06/03 2D echo - The left ventricular systolic function is mildly reduced with an estimated ejection fraction of 45%. Normal left ventricular size. Wall thickness is normal. No regional wall motion abnormalities are present. Mild mitral valve regurgitation. Mild aortic sclerosis. Trace aortic valve regurgitation. Amiodarone infusion discontinued 06/02 secondary to the patient having elevated LFTs. The patient remains in normal sinus rhythm, hemodynamically stable on no vasopressors 06/03- arterial Doppler studies. Slight depression MILES 0.8 bilaterally. Biphasic Doppler signals right DP, PT Currently off all vasopressors. Scheduled labetalol 200 mg twice a day As needed labetalol/hydralazine Nitropaste for blood pressure greater than 160 Renal/FEN/: Acute kidney injury - resolved Hypernatremia Creatinine currently within normal limits Currently on Jevity 1.5 goal 40 cc an hours per nutrition's recommendations Sodium is downtrending, Free water 200 cc every 6 hours Off IV fluids. 06/[address] Bladder scan q6 hours and I/O cath if >300 GI: Elevated AST/alkaline phosphatase Diarrhea NOS Hypoalbuminemia Elevated amylase/lipase - 1317 06/02 Fecal containment device placed CT abdomen/pelvis revealed a nonspecific bowel gas pattern with dilated bowel loops and abnormal gallbladder appearance. 06/02 gallbladder ultrasound- distended gallbladder pancreatic ultrasound - borderline gallbladder wall thickening. Pericholecystic fluid. Visualized pancreas was normal. HIDA scan oy 06/09 - negative for cystic duct obstruction. LFTs downtrending. Tolerating Jevity 1.5 @40 mL per hour. Lansoprazole 30 mm by tube daily for GI prophylaxis No bowel regimen secondary to ongoing diarrhea. C. difficile negative -06/03 [employer]: Patient was actively menstruating. Change sanitary pads as needed Beta hCG 1 Heme/ID: Microcytic anemia Community-acquired pneumonia Blood culture- NGTD 06/04Sputum culture MSSA, betastrep. 06/09bronchoscopy - negative C. difficile negative Empiric antibiotics initiated secondary to left lung base developing opacity- possibly secondary to aspiration. Has been on cefepime, azithromycin and vancomycin 06/03- Compled cefazolin 1 g IV every 8 hours, antibiotic day #8 Stopped 06/10 .monitor off abx Endocrine: Hyperglycemia of critical illness, resolved Not requiring sliding scale coverage for many days. Will discontinue. TSH normal 1.74 Prophylaxis: GI Prophylaxis Lansoprazole 30 mg daily DVT Prophylaxis -- SCDs Subcutaneous heparin 5000 units twice a day Lines: 06/01 right femoral triple-lumen catheter placed in the emergency department by the emergency room [id number] 06/02 right radial arterial line - d/c 06/07 06/02 left femoral code cool catheter - d/c 06/06. PIV plan for withdraw of care 06/19 in the afternoon. this is appropriate. Americo Ruiz MD Jun 18, 2017 21:24
[2017-06-18 22:20] LABS: AUTOMATED NEUTROPHIL # 8.8 TH/MM3 (1.8-7.7); BASOPHIL # 0.1 TH/MM3 (0-0.2); BASOPHIL % 0.8 % (0.0-2.0); EOSINOPHIL # 0.2 TH/MM3 (0-0.4); EOSINOPHIL % 1.3 % (0.0-4.0); HEMATOCRIT 29.2 % (35.0-46.0); HEMOGLOBIN 9.2 GM/DL (11.6-15.3); LYMPH % 14.4 % (9.0-44.0); LYMPHOCYTE # 1.9 TH/MM3 (1.0-4.8); MEAN CELL VOLUME 74.4 FL (80.0-100.0); MEAN CORPUSCULAR HEMOGLOBIN 23.4 PG (27.0-34.0); MEAN CORPUSCULAR HGB CONC 31.5 % (32.0-36.0); MEAN PLATELET VOLUME 7.7 FL (7.0-11.0); MONO % 16.3 % (0.0-8.0); MONOCYTE # 2.1 TH/MM3 (0-0.9); NEUT % 67.2 % (16.0-70.0); PLATELET COUNT 463 TH/MM3 (150-450); RED BLOOD COUNT 3.92 MIL/MM3 (4.00-5.30); RED CELL DISTRIBUTION WIDTH 18.2 % (11.6-17.2); WHITE BLOOD COUNT 13.1 TH/MM3 (4.0-11.0)
[2017-06-18 22:40] LABS: ALKALINE PHOSPHATASE 187 U/L (45-117); ALT (GPT) 43 U/L (10-53); TOTAL BILIRUBIN ADULT 0.2 MG/DL (0.2-1.0); TOTAL PROTEIN 9.3 GM/DL (6.4-8.2)
[2017-06-18 22:42] LABS: ALBUMIN 2.4 GM/DL (3.4-5.0); AMYLASE 74 U/L (25-115); AST (GOT) 62 U/L (15-37); BICARBONATE 25.6 MEQ/L (21.0-32.0); BLOOD UREA NITROGEN 28 MG/DL (7-18); CALCIUM 9.6 MG/DL (8.5-10.1); CHLORIDE 101 MEQ/L (98-107); CREATININE 0.76 MG/DL (0.50-1.00); GAMMA GT 266 U/L (5-55); GLOMERULAR FILTRATION RATE 105 ML/MIN (>89); GLUCOSE,RANDOM 110 MG/DL (74-106); LIPASE 511 U/L (73-393); SODIUM (NA) 136 MEQ/L (136-145)
[2017-06-18 22:56] LABS: INTERNATIONAL NORMALIZED RATIO 1.1 RATIO
[2017-06-18 23:13] LABS: BANDS 5 % (0-6); LYMPHOCYTES 13 % (9-44); METAMYELOCYTES 2 % (0-1); MONOCYTES 14 % (0-8); MYELOCYTES 1 % (0-0); NEUTROPHIL # MANUAL DIFF 9.3 TH/MM3 (1.8-7.7); POLYS (SEG NEUTROPHILS) 63 % (16-70)
[2017-06-18 23:14] LABS: ACANTHOCYTES OCC (NORMAL)
[2017-06-19] VITALS (17 sets, daily range): BP systolic 100–141; BP diastolic 71–98; PULSE 81–108; RESP 14–15; TEMP 98.7–99.4; O2SAT 95–98
[2017-06-19] MEDS: FREE WATER G-TUBE SCH ×4 (02:00→20:00)
[2017-06-19] MEDS: HEPARIN SODIUM - SQ 10,000 UNITS/ML VIAL SQ SCH ×2 (06:00→18:00)
[2017-06-19] MEDS: guaiFENesin SOLUTION 200 MG/10 ML CUP OG-TUBE SCH ×3 (06:00→20:07)
[2017-06-19] MEDS: CHLORHEXIDINE 0.12% (ORAL KIT) 15 ML CUP OROPHARYNG SCH ×2 (08:10→20:06)
[2017-06-19] MEDS: DOCUSATE SODIUM 100 MG/10 ML UDC PO SCH ×2 (09:00→21:00)
[2017-06-19] MEDS: THIAMINE HCL 100 MG TAB PO SCH (09:00)
[2017-06-19] MEDS: MULTIVITAMIN TAB PO SCH (09:00)
[2017-06-19] MEDS: LABETALOL HCL 200 MG TAB PO SCH ×2 (09:03→20:07)
[2017-06-19] MEDS: ARTIFICIAL TEARS OPTH SOLN 15 ML BTL EACH EYE SCH ×3 (09:03→18:00)
[2017-06-19] MEDS: FOLIC ACID 1 MG TAB PO SCH (09:03)
[2017-06-19] MEDS: FAMOTIDINE 20 MG TAB NG SCH ×2 (09:03→20:07)
[2017-06-19] MEDS: levETIRAcetam 500 MG/5 ML UDC NG SCH ×2 (09:04→20:07)
--- NOTE | 2017-06-19 16:18 | HHI.HCPN ---
Reason for visit a. To assist with evaluation and management of symptoms including: Dyspnea, encephalopathy b. To assist medical decision maker(s) with: better understanding of current medical conditions; weighing benefits/burdens of medical treatment options; making medical treatment decisions. Subjective/Interval History Pt seen today to follow up on comfort, goals w decision maker, HCP and two friends were present at bedside. Patient remains intubated on mechanical ventilation in ICU. No improvement in neurological status. Nonresponsive on exam; no corneal reflex; no gag; does not withdraw to noxious stimuli. Tolerating TF with no residuals; having BMs. Will require trach/PEG for continued aggressive treatment. Recurrent apnea occurring on CPAP trials. Spoke with HCP/ex - , Fredrick Hawkins, and two friends from the community who were at bedside. Mr Hawkins states he has made the decision to transition to comfort focus care stating the patient would NOT want to continue on artificial measures without meaningful recovery. Subsequent discussion with two friends confirmed his conviction; all are on board with compassionate withdrawal. Friends had additional questions regarding decision maker/proxy process, review with them [place] statutes, attempts to locate NOK, and arrival at close friend to serve as proxy. Friend tells pt son was "adopted out", though not clear if he is living/. All are in agreement w Mr Hawkins continuing to serve as proxy, and they agree that Parris would not want trach/PEG or to have artificial measures in the event of a vegetative/nonresponsive state. Yusuf is talking with Mr Hawkins about possibility of organ donation. Possible plan for withdrawal tomorrow morning. Discussed with critical care nurse, Gabriel, [employer] coordinators, lockstitch front edge tape sewer. . Advance Directives Living Will: Never completed Health Care Surrogate: Never completed Durable Power of Timber Estimator: Never completed Objective Vital Signs Date Time Temp Pulse Resp B/P (MAP) Pulse Ox O2 Delivery O2 Flow Rate FiO2 06/19/17 15:04 101 06/19/17 15:02 50 06/19/17 15:02 98 50 06/19/17 15:01 99.3 101 14 101/71 (81) 97 06/19/17 12:30 98 50 06/19/17 11:31 98 50 06/19/17 11:07 99.3 96 14 107/73 (84) 97 06/19/17 11:06 50 06/19/17 11:06 96 06/19/17 07:53 99.3 102 14 122/76 (91) 97 06/19/17 07:48 102 06/19/17 07:47 50 06/19/17 07:35 98 50 06/19/17 04:19 98 40 06/19/17 03:00 99.3 108 15 122/76 (91) 97 06/19/17 03:00 108 06/19/17 03:00 40 06/19/17 02:02 98 40 06/18/17 23:00 40 06/18/17 23:00 98.6 98 15 98/70 (79) 96 06/18/17 23:00 91 06/18/17 21:34 95 50 06/18/17 19:33 94 40 06/18/17 19:00 40 06/18/17 19:00 107 06/18/17 19:00 98.9 98 16 137/98 (111) 96 Intake & Output 06/19/17 06/19/17 07:00 19:00 Intake Total 820 ml Output Total 300 ml Balance 520 ml Intake Oral 0 ml Tube Feeding 420 ml Other 400 ml Output Urine Total 300 ml # Bowel Movements 1 Physical Exam CONSTITUTIONAL/GENERAL: This is an adequately nourished patient, nonresponsive on mechanical vent TUBES/LINES/DRAINS: PIV BUE, ET tube, NG tube, rectal drain SKIN: No jaundice, rashes, or lesions. No wounds seen anteriorly. Skin temperature warm, dry. Nails long, broken and uneven. EYES: Pupils 3mm questionable reaction to light. No corneal reflex. No injection or drainage. No lash reflex. CARDIOVASCULAR: Regular rate and rhythm without murmur. Peripheral pulses faint. Mild edema all extremities RESPIRATORY/CHEST: Symmetric, unlabored respirations; decreased breath sounds throughout. Recurrent apnea noted on CPAP trial. GASTROINTESTINAL: Abdomen soft, mildly distended; bowel sounds hypoactive GENITOURINARY: Without palpable bladder distension. MUSCULOSKELETAL: Extremities without clubbing, cyanosis. Edema to extremities. No mottling or clubbing.Peripheral pulses palpable but faint. NEUROLOGICAL: Not currently on sedation, nonresponsive to exam--no withdrawal to pain stimuli to extremities, no corneal reflex, no eye opening. PSYCHIATRIC: Limited assessment due to clinical condition . Diagnostic Tests Laboratory Laboratory Tests Test 06/18/17 21:06/18/17 21:32 Prothrombin Time 11.0 SEC (9.8-11.6) Prothromb Time International Ratio 1.1 RATIO Activated Partial Thromboplast Time 25.0 SEC (24.3-30.1) White Blood Count 13.1 TH/MM3 (4.0-11.0) Red Blood Count 3.92 MIL/MM3 (4.00-5.30) Hemoglobin 9.2 GM/DL (11.6-15.3) Hematocrit 29.2 % (35.0-46.0) Mean Corpuscular Volume 74.4 FL (80.0-100.0) Mean Corpuscular Hemoglobin 23.4 PG (27.0-34.0) Mean Corpuscular Hemoglobin Concent 31.5 % (32.0-36.0) Red Cell Distribution Width 18.2 % (11.6-17.2) Platelet Count 463 TH/MM3 (150-450) Mean Platelet Volume 7.7 FL (7.0-11.0) Neutrophils (%) (Auto) 67.2 % (16.0-70.0) Lymphocytes (%) (Auto) 14.4 % (9.0-44.0) Monocytes (%) (Auto) 16.3 % (0.0-8.0) Eosinophils (%) (Auto) 1.3 % (0.0-4.0) Basophils (%) (Auto) 0.8 % (0.0-2.0) Neutrophils # (Auto) 8.8 TH/MM3 (1.8-7.7) Lymphocytes # (Auto) 1.9 TH/MM3 (1.0-4.8) Monocytes # (Auto) 2.1 TH/MM3 (0-0.9) Eosinophils # (Auto) 0.2 TH/MM3 (0-0.4) Basophils # (Auto) 0.1 TH/MM3 (0-0.2) CBC Comment AUTO DIFF Differential Total Cells Counted 100 Neutrophils % (Manual) 63 % (16-70) Band Neutrophils % 5 % (0-6) Lymphocytes % 13 % (9-44) Monocytes % 14 % (0-8) Eosinophils % 2 % (0-4) Neutrophils # (Manual) 9.3 TH/MM3 (1.8-7.7) Metamyelocytes 2 % (0-1) Myelocytes 1 % (0-0) Differential Comment FINAL DIFF MANUAL Platelet Estimate HIGH (NORMAL) Platelet Morphology Comment NORMAL (NORMAL) Acanthocytes OCC (NORMAL) Blood Urea Nitrogen 28 MG/DL (7-18) Creatinine 0.76 MG/DL (0.50-1.00) Random Glucose 110 MG/DL (74-106) Total Protein 9.3 GM/DL (6.4-8.2) Albumin 2.4 GM/DL (3.4-5.0) Calcium Level 9.6 MG/DL (8.5-10.1) Alkaline Phosphatase 187 U/L (45-117) Aspartate Amino Transf (AST/SGOT) 62 U/L (15-37) Alanine Aminotransferase (ALT/SGPT) 43 U/L (10-53) Gamma Glutamyl Transpeptidase 266 U/L (5-55) Total Bilirubin 0.2 MG/DL (0.2-1.0) Sodium Level 136 MEQ/L (136-145) Potassium Level 4.3 MEQ/L (3.5-5.1) Chloride Level 101 MEQ/L (98-107) Carbon Dioxide Level 25.6 MEQ/L (21.0-32.0) Anion Gap 9 MEQ/L (5-15) Estimat Glomerular Filtration Rate 105 ML/MIN (>89) Amylase Level 74 U/L (25-115) Lipase 511 U/L (73-393) Result Diagram: 06/18/17213106/18/172131 Imaging Last Impressions Chest X-Ray 06/10/17 0600 Signed Impressions: Service Date/Time: Saturday, June 10, 2017 04:16 - CONCLUSION: No change. Lungs remain clear. Darrius Piedra MD Hepatobiliary Scan Nuclear Medicine 06/09/17 0000 Signed Impressions: Service Date/Time: Friday, June 09, 2017 11:55 - CONCLUSION: Prompt visualization of the gallbladder excludes cystic duct obstruction. Howard Dillon MD Pancreas Ultrasound 06/08/17 0000 Signed Impressions: Service Date/Time: May 16:18 - CONCLUSION: 1. No cholelithiasis. However, there is borderline gallbladder wall thickening and subtle potential pericholecystic fluid. This finding may be seen in the setting of chronic illness and chronic liver disease. The differential considerations include cholecystitis, likely chronic. If there is significant concern regarding acute cholecystitis, HIDA scan may be performed to evaluate for cystic duct patency. 2. Mild hepatomegaly. 1. Ziggy Abdi MD Brain MRI 06/07/17 0000 Signed Impressions: Service Date/Time: Wednesday, June 07, 2017 15:41 - CONCLUSION: 1. There is some increased T2 flair signal in the distribution of the striatum bilaterally. Punctate areas of diffusion restriction in the globus pallidus. Findings may be indicative of some degree of anoxic brain injury. 2. Extensive chronic sinusitis bilaterally. Pelon Mazariegos MD Gall Bladder Ultrasound 06/02/17 0000 Signed Impressions: Service Date/Time: Friday, June 02, 2017 07:17 - CONCLUSION: 1. Although the gallbladder is well-distended I see no stones or sludge. There is a trace amount of ascitic fluid including pericholecystic fluid. 2. Questionable small right effusion. No effusion is seen on the recent CT scan. Howard Ricardo Jr., MD CT Angiography 06/02/17 0000 Signed Impressions: Service Date/Time: Friday, June 02, 2017 00:38 - CONCLUSION: No evidence of pulmonary embolism. Left lung perihilar infiltrate. Darrius Blandon MD Abdomen/Pelvis CT 06/02/17 0000 Signed Impressions: Service Date/Time: Friday, June 02, 2017 00:43 - CONCLUSION: Nonspecific distention of bowel. Nonspecific abnormal appearance of the gallbladder. Darrius Blandon MD Head CT 06/01/17 2347 Signed Impressions: Service Date/Time: Friday, June 02, 2017 00:29 - CONCLUSION: No acute intracranial process Darrius Blandon MD Procedures 06/01-femoral central line, arterial line to patient Assessment and Plan Disease Oriented Problem List: (1) Cocaine abuse (2) Cardiopulmonary arrest with successful resuscitation (3) Respiratory failure (4) Asystole (5) Anoxic encephalopathy Symptom Scale: (1) Dyspnea 0-10 Scale: Unable to quantify (2) Anoxic encephalopathy 0-10 Scale: Unable to quantify Pertinent Non-Medical Issues Psychosocial:no longer - from Fredrick Hawkins. Father Gasper Archuleta, mother Kinga Botello-- last known in [place] though pt ex has not been able to reach them at last known numbers. No siblings. Reported to have 1 child who was adopted. Reported to have local significant other Max Mercer. later d/w [facility] (Deisi Anthony) who has known Parris for 3-4 yrs. Pt did have a biological son who a few mos ago. Pt does not have any other children. No siblings that she is aware of. She moved to [place] around age 17 w her father, whom she then lost contact with,father moved back to [place]. She has not had contact w her mother for many years. She is very jehovah's witness and has reported God is her father, Ms Anthony feels she would want lockstitch front edge tape sewer support. Substance hx: per prior EMR visits under different med record #- reports alcohol, "K2", marijuana, cocaine Spiritual: not known Legal:Due to clinical condition patient not able to participate in decision- making. She appears to have severe anoxic encephalopathy does not appear she will regain ability to participate. No longer per her ex-. No siblings per her ex- father and mother last known to be in [place] though do not have current contact information for them. If able to locate maybe appropriate legal decision makers for this patient. Patient also reported to have local significant other Max Mercer. If family unable to be identified he may be appropriate decision-making proxy. Palliative requested case management assist with ACCURINT report to locate possible NOK. Ethical issues impacting care:no ethical issues identified Important Contacts Ex Fredrick Hawkins. [address] [facility] [phone] Boyfriend - local- Max Mercer Deisi Raj- counselor w [facility] [phone] Gasper Almendarez- Father, [facility] . Prognosis This patient was admitted 06/01/17 secondary to out of hospital cardiopulmonary arrest. It is not known total amount of time that she was minimally responsive and then pulseless before EMS arrival. She underwent at least 26 minutes of resuscitation by medical record assistant. She appears to have significant severe anoxic brain injury at this time, she is minimally responsive demonstrating severe cortical injury with EEG near flat line in appearance per neurology. Overall prognosis for meaningful recovery of neurologic function appears poor. High risk for ongoing complications and sequelae secondary to hospitalization, nonresponsive state. . Code Status: No Code Plan * Legal decision maker:Due to clinical condition patient not able to participate in decision-making. She appears to have severe anoxic encephalopathy does not appear she will regain ability to participate. No longer per her ex-. No siblings per her ex- father and mother last known to be in [place] though do not have current contact information for them. If able to locate maybe appropriate legal decision makers for this patient. Patient also reported to have local significant other Max Mercer. If family unable to be identified he may be appropriate decision -making proxy. Palliative requested case management assist with ACCURINT report 06/06/17 to locate possible NOK. If unable to identify NOK, or appropriate person to serve as HC proxy, may need to utilize [employer] for decision making for pt. 06/08: accurint findings,w possible name / number Tawanda Adrian [phone]. I called this # VM left requesting call back to determine if related to pt. 06/09- this Lillie Almendarez is NOT related/connected to this pt. VM left for ex spouse Fredrick to determine if he wishes to serve as HC proxy. Awaiting call back. If he does NOT wish to serve, then should explore if Max (sig other) wishes to serve as proxy before pursuing [employer]. 06/12/17 Spoke w Mr. Hawkins regarding proxy decision making, and possibility may entail [facility] decision making as pt not expected to regain capacity. He is agreement to serve as HC PROXY. * Goals: ongoing conversations with HCP/ex - , Fredrick Hawkins. He has decided NOT to proceed with PEG/trach placement. He has made the decision to transition to comfort focus care stating the patient would NOT want to continue on artificial measures without meaningful recovery. Plan for compassionate withdrawal of artificial life support, pending ongoing discussions with [facility], possible withdrawal tomorrow 06/20/17. * CODE STATUS: ALTERNATIVE CODE/Intubation only * SYMPTOMS: --Encephalopathy-status post out of hospital cardiopulmonary arrest-unknown total amount of time down; EEG "near flat line ", minimal neurological function at this time;repeat EEG continue to be very abnormal. MRI brain = Findings may be indicative of some degree of anoxic brain injury. No neurological improvement. No corneal reflex, no gag reflex, no cough. Patient does not withdraw to deep noxious stimuli. --Dyspnea-emergently intubated secondary to out of hospital arrest; breathing comfortable on mechanical vent. No gag reflex. +overbreathes vent. Undergoing CPAP trials, not planned for medical extubation 2/2 unable to protect airway. * Palliative care will continue to follow during hospital course as condition evolves, to assist patient/decision-maker with understanding of medical conditions, weighing benefits/burdens of treatment options, for clarification of goals of treatment. Additionally will assist with any symptoms of palliative concern Attestation To help prompt me to consider important information that might be impacting today's encounter and assessment, information from prior notes written by myself or my colleagues may have been "brought forward" into today's note. My signature on this note, however, is an attestation that I personally performed the exam, history, and/or decision-making noted today, and, unless otherwise indicated, the interactions with patient, family, and staff as well as the review of records all occurred today. I also attest that the listed assessment and stated plan reflect my best clinical judgment today based on the combination of historical information, prior notes, and today's exam/ interactions. When time spent is documented, it refers only to time spent today by the signer, or if indicated, combined time spent today by collaborating physician/nurse practitioner. Thalia Morton Jun 19, 2017 16:18
--- NOTE | 2017-06-19 17:23 | HHI.CCPN ---
Subjective Remarks/Hospital Course This is a 37-year-old female with an unknown past medical history who presents after out of hospital cardiac arrest. Per EMS report, a friend found the patient altered with agonal respirations. Per report, the friend did not have any way of contacting 911, so the friend place the patient in a car and drove her to the nearest gas station to call 911. Upon EMS arrival, the patient was unresponsive, not breathing, and pulseless. Presenting rhythm was asystole. ACLS was initiated, 3 A of epinephrine, 1 amp of bicarbonate, 2 mg of Narcan and the patient had ROSC. Patient was transported to [facility] emergency Department. In emergency department, she had a decreased level of consciousness but was moving all 4 extremities spontaneously. Her GCS was 6 (E1 ,V1,M4). Her urine drug screen is positive for cocaine. I discussion with Dr. Yañez the ER physician, and we agree that given her young age and that she was witnessed with a pulse, that the potential benefits of therapeutic hypothermia outweigh the risks in this scenario. No additional information is available from the patient and we do not know of any family at this time. Patient was transported the CVICU and therapeutic hypothermia was initiated. 06/02: Currently on hypothermia protocol. Temperature 33C. Dignishield will be placed. Remains on multiple vasopressors. Troponin climbing with repeat ordered. Echocardiogram and a.m. EKG pending. 06/03: Rewarming process initiated early this a.m.. Patient was weaned off of vasopressors greater than 24 hours. Hemodynamically stable. Early this a.m. the patient noted was noted to have decrease in dorsalis pedis and posterior tibial pulses, now nonpalpable but dopplerable biphasic signals. Arterial Doppler studies pending. Right femoral triple-lumen central line removed. Chest x-ray was noted to have an infiltrate, sputum cultures are pending empiric antibiotics initiated. 06/04: Normothermic at 1930 .Sedation discontinued 1929 on 06/03. The patient remains encephalopathic at this time. She remains hemodynamically stable on no pressors. EEG pending at this time. The patient was noted to be slightly hypernatremic, IV fluids changed. ABIs were performed for slightly decreased pulse yesterday and right lower extremities bilateral ABIs slightly depressed pulses on the right remain dopplerable, biphasic. 06/05: Afebrile. No acute events overnight. Patient continues to be hypertensive scheduled PO labetalol 100 mg BID. Neurologically, the patient remains encephalopathic, EEG performed yesterday showed nearly flat line. CT pending this a.m.. Neurology has been consulted, patient has been off sedation for approximately 36 hours. 06/06 MRI pending. Off sedation. Not brain --> has spontaneous respirations when disconnected vent. Absent pupillary, corneal, oculocephalic and gag reflexes. No motor response to deep noxious stimuli. Had tonic clonic movements of BUE this morning that ceased with Ativan 2 mg IV. 06/07: Afebrile. Tube feeds currently at 30 cc an hour with Jevity 1.5. 200 cc stools per fecal containment device. Received lorazepam 2 mg IV for "tremors " overnight. He reveals diffuse encephalopathy with no epileptiform activity on 06/04 and 06/06. 06/08: Currently afebrile. Tube feeding currently goal at 40 cc now with Jevity 1.5. 600 cc stools per fecal containment device. MRI brain 06/07 showed diffuse signs of anoxic brain injury. 06/09: CURRENT TEMPERATURE 98.7. RN is complaining of "transmitted upper airway sounds". Chest x-ray revealed no acute cardio pulmonary findings. Do not appreciate on my examination. . The patient is tachycardia and tachypnea, with copious thick whitish secretions from ET tube. Tolerate tube feedings with positive bowel movement from fecal team device.. 06/10 Overbreathing vent otherwise brainstem reflexes absent. Palliative care assisting with determination of healthcare proxy. Have reached out to ex- , Fredrick to see if he is willing to participate in decision-making. If he is not willing, plan to discuss with Max who is her current significant other. Afebrile. 06/11 No neuro change. WBC up a little. Afebrile. Tolerating tube feeds. Purewick catheter in place. No invasive lines. Significant other at bedside, hopeful for a miracle recovery. Informed she has permanent brain damage, would require trach/PEG and would expected to be bedridden in longterm with limited to no reaction to surroundings if she survives. He is aware that there has been discussion about transition to comfort "by people at [facility]". Not yet clear who will be legally making medical decisions, simply addressed Max's questions about her prognosis while he was at bedside with her. 06/12: no changes or improvements. palliative with ongoing discussions. 06/13: patient made DNR yesterday by healthcare proxy. no changes or improvements to mental status. poor prognosis. unlikely to regain any neurologic function. wbc remains elevated, and significant secretions from ETT, however, patient remains afebrile without significant o2 requirement on ventilator. 06/14: no changes. no improvements. 06/15: family decided today no trach/peg. however, they asked for 1 more week before withdraw of care. discussed with family this was not appropriate that we make patient suffer additional week when decision for comfort measures already made. family needs 1-2 more days to gather together before withdraw. 06/16: Remains encephalopathic, orally intubated on mechanical ventilation. 06/17: Remains encephalopathic, orally intubated on mechanical ventilation. Patient's planning to come in tomorrow for possible terminal wean SUBJECTIVE: 06/18: no improvements. family at bedside. request withdraw of care for 3pm tomorrow after remainder of family has ability to show up. 06/19 Patient is intubated unresponsive on no drips. Objective Vital Signs Date Time Temp Pulse Resp B/P (MAP) Pulse Ox O2 Delivery O2 Flow Rate FiO2 06/19/17 16:42 98 50 06/19/17 15:04 101 06/19/17 15:01 99.3 14 101/71 (81) Intake and Output 06/19/17 06/19/17 06/20/17 08:00 16:00 00:00 Intake Total 820 ml Output Total 300 ml Balance 520 ml Result Diagram: 06/18/17213106/[id number]/172131 Other Results Laboratory Tests Test 06/18/17 21:29 06/18/17 21:32 Prothrombin Time 11.0 SEC Prothromb Time International Ratio 1.1 RATIO Activated Partial Thromboplast Time 25.0 SEC White Blood Count 13.1 TH/MM3 Red Blood Count 3.92 MIL/MM3 Hemoglobin 9.2 GM/DL Hematocrit 29.2 % Mean Corpuscular Volume 74.4 FL Mean Corpuscular Hemoglobin 23.4 PG Mean Corpuscular Hemoglobin Concent 31.5 % Red Cell Distribution Width 18.2 % Platelet Count 463 TH/MM3 Mean Platelet Volume 7.7 FL Neutrophils (%) (Auto) 67.2 % Lymphocytes (%) (Auto) 14.4 % Monocytes (%) (Auto) 16.3 % Eosinophils (%) (Auto) 1.3 % Basophils (%) (Auto) 0.8 % Neutrophils # (Auto) 8.8 TH/MM3 Lymphocytes # (Auto) 1.9 TH/MM3 Monocytes # (Auto) 2.1 TH/MM3 Eosinophils # (Auto) 0.2 TH/MM3 Basophils # (Auto) 0.1 TH/MM3 CBC Comment AUTO DIFF Differential Total Cells Counted 100 Neutrophils % (Manual) 63 % Band Neutrophils % 5 % Lymphocytes % 13 % Monocytes % 14 % Eosinophils % 2 % Neutrophils # (Manual) 9.3 TH/MM3 Metamyelocytes 2 % Myelocytes 1 % Differential Comment FINAL DIFF MANUAL Platelet Estimate HIGH Platelet Morphology Comment NORMAL Acanthocytes OCC Blood Urea Nitrogen 28 MG/DL Creatinine 0.76 MG/DL Random Glucose 110 MG/DL Total Protein 9.3 GM/DL Albumin 2.4 GM/DL Calcium Level 9.6 MG/DL Alkaline Phosphatase 187 U/L Aspartate Amino Transf (AST/SGOT) 62 U/L Alanine Aminotransferase (ALT/SGPT) 43 U/L Gamma Glutamyl Transpeptidase 266 U/L Total Bilirubin 0.2 MG/DL Sodium Level 136 MEQ/L Potassium Level 4.3 MEQ/L Chloride Level 101 MEQ/L Carbon Dioxide Level 25.6 MEQ/L Anion Gap 9 MEQ/L Estimat Glomerular Filtration Rate 105 ML/MIN Amylase Level 74 U/L Lipase 511 U/L Imaging Last Impressions Chest X-Ray 06/10/17 0600 Signed Impressions: Service Date/Time: Saturday, June 10, 2017 04:16 - CONCLUSION: No change. Lungs remain clear. Darrius Piedra MD Hepatobiliary Scan Nuclear Medicine 06/09/17 0000 Signed Impressions: Service Date/Time: Friday, June 09, 2017 11:55 - CONCLUSION: Prompt visualization of the gallbladder excludes cystic duct obstruction. Howard Dillon MD Pancreas Ultrasound 06/08/17 0000 Signed Impressions: Service Date/Time: May 16:18 - CONCLUSION: 1. No cholelithiasis. However, there is borderline gallbladder wall thickening and subtle potential pericholecystic fluid. This finding may be seen in the setting of chronic illness and chronic liver disease. The differential considerations include cholecystitis, likely chronic. If there is significant concern regarding acute cholecystitis, HIDA scan may be performed to evaluate for cystic duct patency. 2. Mild hepatomegaly. 1. Ziggy Abdi MD Brain MRI 06/07/17 0000 Signed Impressions: Service Date/Time: Wednesday, June 07, 2017 15:41 - CONCLUSION: 1. There is some increased T2 flair signal in the distribution of the striatum bilaterally. Punctate areas of diffusion restriction in the globus pallidus. Findings may be indicative of some degree of anoxic brain injury. 2. Extensive chronic sinusitis bilaterally. Pelon Mazariegos MD Gall Bladder Ultrasound 06/02/17 0000 Signed Impressions: Service Date/Time: Friday, June 02, 2017 07:17 - CONCLUSION: 1. Although the gallbladder is well-distended I see no stones or sludge. There is a trace amount of ascitic fluid including pericholecystic fluid. 2. Questionable small right effusion. No effusion is seen on the recent CT scan. Howard Ricardo Jr., MD CT Angiography 06/02/17 0000 Signed Impressions: Service Date/Time: Friday, June 02, 2017 00:38 - CONCLUSION: No evidence of pulmonary embolism. Left lung perihilar infiltrate. Darrius Blandon MD Abdomen/Pelvis CT 06/02/17 0000 Signed Impressions: Service Date/Time: Friday, June 02, 2017 00:43 - CONCLUSION: Nonspecific distention of bowel. Nonspecific abnormal appearance of the gallbladder. Darrius Blandon MD Head CT 06/01/17 2347 Signed Impressions: Service Date/Time: Friday, June 02, 2017 00:29 - CONCLUSION: No acute intracranial process Darrius Blandon MD Objective Remarks GENERAL: 37-year-old AA female orotracheally intubated HEENT: Normocephalic. Atraumatic. Pupils 1-2 mm bilaterally and nonreactive. Scleral edema noted with some erythema NECK: Trachea is midline. There is no JVD. CHEST: Symmetrical chest rise. PRVC, 35% fio2. CARDIOVASCULAR: Tachycardic, RR. Without murmur ABDOMEN: Soft, nontender, nondistended. Fecal containment device with brown/ yellow liquid stool. Tolerating tube feeds MUSCULOSKELETAL: Pulses 2+ bilateral radial and posterior tibialis. Dependent edema of hands bilaterally. NEUROLOGICAL: No eye opening. Pupils 1-2 mm but nonreactive. No corneal reflex. No gag. No cough. +Spontaneous respirations over the current ventilator settings, also noted spontaneous resp effort when disconnected vent. No motor response to deep noxious stimuli. Negative Babinski. No clonus. A/P Assessment and Plan Assessment: 37yF with severe anoxic brain injury without neurologic improvement. poor prognosis. Will avoid exposure to broad spectrum abx unless clinically appears infected. continue to monitor. Neuro/Psych: Acute hypoxic ischemic encephalopathy Toxic encephalopathy - multifactorial Cocaine overdose EtOH abuse Seizure Status post induced therapeutic hypothermia. Sedation discontinued 06/03 at 1930. Remains off sedatives Neurochecks per ICU protocol CT brain admission 06/01 revealed no acute intracranial findings 06/04 EEG -. Severe encephalopathy with nearly flat line appearance. 06/06 EEG - severe encephalopathy with no epileptic activity 06/09 EEG - severely abnormal, severe background slowing consistent with anoxia. 06/04 ammonia level- 10 MRI brain 06/07 - increased T2 flair signal in the distribution of the striatum bilaterally. Punctate areas of diffusion restriction in the globus pallidus. Findings may be indicative of some degree of anoxic brain injury. Extensive chronic sinusitis bilaterally. Continue thiamine 100 mg daily, folate 1 mg daily and multivitamin 1 tablet daily with EtOH use by history Currently on levetiracetam 1000 mg po twice a day per neurology's recommendations. Fosphenytoin discontinued Neurology consult/Dr. White Oxycodone 5 mg liquid every 4 hours when necessary pain 1-10/agitation Respiratory: Acute hypoxic and hypercarbic respiratory failure ACV 15/500/5/30. Vent bundle Current Mental status barrier to extubation. Head of bed 30 Albuterol/ipratropium aerosols every 6 hours with albuterol aerosols every 2 hours as needed Hypertonic saline 3% aerosols 2 mL every 6 hours for mucus thinning Guaifenesin 400 mg by tube every 8 hours Wean FiO2 for goal SPO2 greater than 92% CT pulmonary angiogram 06/01: Negative for acute PE and possible left lower lobe infiltrate Chest x-ray 06/09 revealed no acute cardio pulmonary findings Status post bronchoscopy 06/09. Please defer to procedure note Cardiovascular: Status post out of hospital cardiac arrest Cardiogenic shock (resolved) NSTEMI- resolved. Lactic acidosis-resolved Elevated HDL Monitor HR and BP keep MAP> 65 Cardiology/Dr. Perez has evaluated and no plans for further workup at this time due to extremely poor neurologic prognosis 06/03 2D echo - The left ventricular systolic function is mildly reduced with an estimated ejection fraction of 45%. Normal left ventricular size. Wall thickness is normal. No regional wall motion abnormalities are present. Mild mitral valve regurgitation. Mild aortic sclerosis. Trace aortic valve regurgitation. Amiodarone infusion discontinued 06/02 secondary to the patient having elevated LFTs. The patient remains in normal sinus rhythm, hemodynamically stable on no vasopressors 06/03- arterial Doppler studies. Slight depression MILES 0.8 bilaterally. Biphasic Doppler signals right DP, PT Currently off all vasopressors. Scheduled labetalol 200 mg twice a day As needed labetalol/hydralazine Nitropaste for blood pressure greater than 160 Renal/FEN/: Acute kidney injury - resolved Hypernatremia Monitor renal function, electrolytes replacement as needed. Currently on Jevity 1.5 goal 40 cc an hours per nutrition's recommendations Sodium is downtrending, Free water 200 cc every 6 hours Off IV fluids. 06/09 GI: Elevated AST/alkaline phosphatase Diarrhea NOS Hypoalbuminemia Elevated amylase/lipase - 1317 06/02 Fecal containment device placed CT abdomen/pelvis revealed a nonspecific bowel gas pattern with dilated bowel loops and abnormal gallbladder appearance. 06/02 gallbladder ultrasound- distended gallbladder pancreatic ultrasound - borderline gallbladder wall thickening. Pericholecystic fluid. Visualized pancreas was normal. HIDA scan oy 06/09 - negative for cystic duct obstruction. LFTs downtrending. Tolerating Jevity 1.5 @40 mL per hour. Lansoprazole 30 mm by tube daily for GI prophylaxis No bowel regimen secondary to ongoing diarrhea. C. difficile negative -06/03 Heme/ID: Microcytic anemia Community-acquired pneumonia Blood culture- NGTD 06/04Sputum culture MSSA, betastrep. 06/09bronchoscopy - negative C. difficile negative Empiric antibiotics initiated secondary to left lung base developing opacity- possibly secondary to aspiration. Has been on cefepime, azithromycin and vancomycin 06/03- Compled cefazolin 1 g IV every 8 hours, antibiotic day #8 Stopped 06/10 .monitor off abx Endocrine: Hyperglycemia of critical illness, resolved Not requiring sliding scale coverage for many days. Will discontinue. TSH normal 1.74 Prophylaxis: GI Prophylaxis Lansoprazole 30 mg daily DVT Prophylaxis -- SCDs Subcutaneous heparin 5000 units twice a day Lines: 06/01 right femoral triple-lumen catheter placed in the emergency department by the emergency room [id number] 06/02 right radial arterial line - d/c 06/07 06/02 left femoral code cool catheter - d/c 06/06. PIV Awaiting withdraw of care and transition to comfort care. Palliative care is following Level 1 Arnaldo Cruz MD Jun 19, 2017 17:23
[2017-06-19 18:57] LABS: AUTOMATED NEUTROPHIL # 7.9 TH/MM3 (1.8-7.7); BASOPHIL # 0.1 TH/MM3 (0-0.2); EOSINOPHIL # 0.1 TH/MM3 (0-0.4); HEMOGLOBIN 8.7 GM/DL (11.6-15.3); LYMPH % 15.3 % (9.0-44.0); LYMPHOCYTE # 1.8 TH/MM3 (1.0-4.8); MEAN CELL VOLUME 74.2 FL (80.0-100.0); MEAN CORPUSCULAR HGB CONC 32.3 % (32.0-36.0); MEAN PLATELET VOLUME 7.4 FL (7.0-11.0); MONO % 15.6 % (0.0-8.0); MONOCYTE # 1.8 TH/MM3 (0-0.9); NEUT % 67.1 % (16.0-70.0); PLATELET COUNT 469 TH/MM3 (150-450); RED BLOOD COUNT 3.64 MIL/MM3 (4.00-5.30); RED CELL DISTRIBUTION WIDTH 18.3 % (11.6-17.2); WHITE BLOOD COUNT 11.8 TH/MM3 (4.0-11.0)
[2017-06-19 19:10] LABS: INTERNATIONAL NORMALIZED RATIO 1.1 RATIO; PROTHROMBIN TIME - PATIENT 10.7 SEC (9.8-11.6)
[2017-06-19 19:22] LABS: AMYLASE 70 U/L (25-115); BICARBONATE 27.8 MEQ/L (21.0-32.0); CALCIUM 9.7 MG/DL (8.5-10.1); CHLORIDE 103 MEQ/L (98-107); CREATININE 0.75 MG/DL (0.50-1.00); DIRECT BILIRUBIN ADULT 0.1 MG/DL (0.0-0.2); GAMMA GT 261 U/L (5-55); GLOMERULAR FILTRATION RATE 106 ML/MIN (>89); GLUCOSE,RANDOM 119 MG/DL (74-106); LIPASE 423 U/L (73-393); SODIUM (NA) 139 MEQ/L (136-145)
[2017-06-19 19:27] LABS: BLOOD UREA NITROGEN 30 MG/DL (7-18)
[2017-06-19] MEDS: RESP: ALBUTEROL 2.5 MG/3 ML NEB (PRN) NEB (19:49)
[2017-06-19] MEDS: ceFAZolin 1,000 MG/NS 100 ML IV SCH ×2 (20:07)
[2017-06-19 20:31] LABS: BILIRUBIN, URINE NEG (NEG); BLOOD, URINE NEG (NEG); GLUCOSE,URINE NEG (NEG); KETONE, URINE NEG (NEG); MUCUS URINE FEW /lpf (OCC); NITRITE,URINE NEG (NEG); PH, URINE 5.5 (5.0-8.5); SQUAMOUS EPITHELIAL CELL URINE 3 /hpf (0-5); URINE COLOR YELLOW (YELLW/STRAW); URINE LEUKOCYTE ESTERASE SMALL (NEG)
[2017-06-19] MEDS: 1/2 NS + KCL 20 MEQ INJ 1,000 ML IV SCH (21:15)
[2017-06-19 22:33] LABS: HEMOGLOBIN A1C 5.9 % (4.3-6.0)
[2017-06-20] VITALS (17 sets, daily range): BP systolic 114–153; BP diastolic 67–111; PULSE 90–104; RESP 12–30; TEMP 97.8–98.6; O2SAT 83–100
[2017-06-20 00:35] LABS: BACTERIA, URINE MOD /hpf; BILIRUBIN, URINE NEG (NEG); BLOOD, URINE NEG (NEG); GLUCOSE,URINE NEG (NEG); HYALINE CAST, URINE 1 /lpf (RARE); KETONE, URINE NEG (NEG); MUCUS URINE FEW /lpf (OCC); NITRITE,URINE POS (NEG); PH, URINE 5.5 (5.0-8.5); URINE COLOR YELLOW (YELLW/STRAW); URINE LEUKOCYTE ESTERASE MOD (NEG); WHITE BLOOD CELL CLUMPS FEW
[2017-06-20] MEDS: FREE WATER G-TUBE SCH ×4 (02:00→20:00)
[2017-06-20] MEDS: ceFAZolin 1,000 MG/NS 100 ML IV SCH ×8 (02:22→20:00)
[2017-06-20 02:41] LABS: BASOPHIL # 0.1 TH/MM3 (0-0.2); BASOPHIL % 0.8 % (0.0-2.0); EOSINOPHIL # 0.1 TH/MM3 (0-0.4); EOSINOPHIL % 0.7 % (0.0-4.0); HEMATOCRIT 25.2 % (35.0-46.0); HEMOGLOBIN 8.1 GM/DL (11.6-15.3); LYMPHOCYTE # 1.8 TH/MM3 (1.0-4.8); MEAN CELL VOLUME 73.6 FL (80.0-100.0); MEAN CORPUSCULAR HEMOGLOBIN 23.7 PG (27.0-34.0); MEAN CORPUSCULAR HGB CONC 32.2 % (32.0-36.0); MEAN PLATELET VOLUME 7.3 FL (7.0-11.0); MONO % 13.3 % (0.0-8.0); NEUT % 73.2 % (16.0-70.0); PLATELET COUNT 445 TH/MM3 (150-450); RED BLOOD COUNT 3.43 MIL/MM3 (4.00-5.30); RED CELL DISTRIBUTION WIDTH 18.1 % (11.6-17.2)
[2017-06-20 03:12] LABS: ALBUMIN 2.5 GM/DL (3.4-5.0); ALT (GPT) 38 U/L (10-53); AMYLASE 76 U/L (25-115); AST (GOT) 51 U/L (15-37); BICARBONATE 27.5 MEQ/L (21.0-32.0); BLOOD UREA NITROGEN 28 MG/DL (7-18); CALCIUM 9.5 MG/DL (8.5-10.1); CHLORIDE 106 MEQ/L (98-107); CREATININE 0.63 MG/DL (0.50-1.00); GLOMERULAR FILTRATION RATE 130 ML/MIN (>89); GLUCOSE,RANDOM 109 MG/DL (74-106); LIPASE 361 U/L (73-393); SODIUM (NA) 142 MEQ/L (136-145)
[2017-06-20 03:14] LABS: ALKALINE PHOSPHATASE 184 U/L (45-117); TOTAL BILIRUBIN ADULT 0.2 MG/DL (0.2-1.0); TOTAL PROTEIN 8.5 GM/DL (6.4-8.2)
[2017-06-20] MEDS: RESP: ALBUTEROL 2.5 MG/3 ML NEB (PRN) NEB (04:12)
[2017-06-20] MEDS: 1/2 NS + KCL 20 MEQ INJ 1,000 ML IV SCH ×2 (05:53→07:53)
[2017-06-20] MEDS: guaiFENesin SOLUTION 200 MG/10 ML CUP OG-TUBE SCH ×3 (05:54→21:01)
[2017-06-20] MEDS: LABETALOL HCL 100 MG/20 ML VIAL IV PUSH PRN (06:34)
[2017-06-20] MEDS: CHLORHEXIDINE 0.12% (ORAL KIT) 15 ML CUP OROPHARYNG SCH ×2 (07:53→20:00)
[2017-06-20] MEDS: MULTIVITAMIN TAB PO SCH (09:00)
[2017-06-20] MEDS: DOCUSATE SODIUM 100 MG/10 ML UDC PO SCH ×2 (09:00→21:00)
[2017-06-20] MEDS: FAMOTIDINE 20 MG TAB NG SCH ×2 (09:08→21:00)
[2017-06-20] MEDS: levETIRAcetam 500 MG/5 ML UDC NG SCH ×2 (09:08→21:00)
[2017-06-20] MEDS: FOLIC ACID 1 MG TAB PO SCH (09:08)
[2017-06-20] MEDS: LABETALOL HCL 200 MG TAB PO SCH ×2 (09:08→21:00)
[2017-06-20] MEDS: THIAMINE HCL 100 MG TAB PO SCH (09:08)
[2017-06-20] MEDS: ARTIFICIAL TEARS OPTH SOLN 15 ML BTL EACH EYE SCH ×3 (09:09→18:00)
--- NOTE | 2017-06-20 10:35 | HHI.HCPN ---
Reason for visit a. To assist with evaluation and management of symptoms including: Dyspnea, encephalopathy b. To assist medical decision maker(s) with: better understanding of current medical conditions; weighing benefits/burdens of medical treatment options; making medical treatment decisions. Subjective/Interval History Pt seen today to follow up on comfort, possible withdrawal today. Remains intubated, on mech vent. No sedation. Non responsive. No gag, no withdrawal to pain stimuli. Palliative met w Ex Fredrick Hawkins yesterday, he elected to transition to comfort focus/compassionate withdrawal of life support. He met w [facility] representatives regarding possible organ donation, so withdrawal will be pending placement with [facility] as well. PT seen in ICU room, nurse at bedside, [facility] coordinator at bedside. Dual visit w Sandra Ruiz MSW palliative SW, Alejandro Voss [employer] med student. Nonresponsive to my exam. VS stable on BS monitor. Not currently overbreathing vent rate. Mr Hawkins not yet here, requested unit call me when he arrives. . Family/friend interactions 1530- proxy Mr Alcala arrived- wishes to proceed w withdrawal today as to not prolong pt suffering. Anticipatory guidance again provided. He is appropriately tearful. Tentative time for 430/500 pm pending [facility] arrangements for OR. . Advance Directives Living Will: Never completed Health Care Surrogate: Never completed Durable Power of Leather Case Finisher: Never completed Advance Directive Specifics Significant change in goals: Proxy Mr Hawkins elected to withdrawal life support today, does not wish to prolong pt suffering. . Objective Vital Signs Date Time Temp Pulse Resp B/P (MAP) Pulse Ox O2 Delivery O2 Flow Rate FiO2 06/20/17 08:11 99 50 06/20/17 07:27 96 06/20/17 07:27 50 06/20/17 07:25 97.8 98 12 120/97 (105) 99 143/103 (116) 06/20/17 04:12 95 50 06/20/17 03:00 50 06/20/17 03:00 90 06/20/17 03:00 98.2 104 14 153/111 (125) 98 128/92 (104) 06/20/17 01:15 97 50 06/19/17 23:00 98.7 81 14 100/72 (81) 97 107/92 (97) 06/19/17 23:00 81 06/19/17 23:00 50 06/19/17 19:51 96 50 06/19/17 19:00 50 06/19/17 19:00 99.4 104 15 141/98 (112) 95 141/97 (112) 06/19/17 19:00 104 06/19/17 16:42 98 50 06/19/17 15:04 101 06/19/17 15:02 50 06/19/17 15:02 98 50 06/19/17 15:01 99.3 101 14 101/71 (81) 97 06/19/17 12:30 50 06/19/17 12:30 98 50 06/19/17 11:31 98 50 06/19/17 11:07 99.3 96 14 107/73 (84) 97 06/19/17 11:06 50 06/19/17 11:06 96 Intake & Output 06/20/17 06/20/17 07:00 19:00 Intake Total 1292 ml 1100 ml Output Total 600 ml Balance 692 ml 1100 ml IV Total 1092 ml 1100 ml Other 200 ml Output Urine Total 600 ml # Bowel Movements 0 Physical Exam CONSTITUTIONAL/GENERAL: This is an adequately nourished patient, nonresponsive on mechanical vent TUBES/LINES/DRAINS: PIV BUE, ET tube, NG tube, rectal drain SKIN: No jaundice, rashes, or lesions. No wounds seen anteriorly. Skin temperature warm, dry. Nails long, broken and uneven. EYES: Pupils 3mm questionable reaction to light. No corneal reflex. No injection or drainage. No lash reflex. CARDIOVASCULAR: Regular rate and rhythm without murmur. Peripheral pulses faint. Mild edema all extremities RESPIRATORY/CHEST: Symmetric, unlabored respirations; decreased breath sounds throughout. Recurrent apnea noted on CPAP trial. GASTROINTESTINAL: Abdomen soft, mildly distended; bowel sounds hypoactive GENITOURINARY: Without palpable bladder distension. MUSCULOSKELETAL: Extremities without clubbing, cyanosis. Edema to extremities. No mottling or clubbing.Peripheral pulses palpable but faint. NEUROLOGICAL: Not currently on sedation, nonresponsive to exam--no withdrawal to pain stimuli to extremities, no corneal reflex, no eye opening. PSYCHIATRIC: Limited assessment due to clinical condition . Diagnostic Tests Laboratory Laboratory Tests Test 06/18/17 21:29 06/18/17 21:32 1/8/18 17:30 06/19/17 18:00 Prothrombin Time 11.0 SEC (9.8-11.6) 10.7 SEC (9.8-11.6) Prothromb Time International Ratio 1.1 RATIO 1.1 RATIO Activated Partial Thromboplast Time 25.0 SEC (24.3-30.1) 22.0 SEC (24.3-30.1) White Blood Count 13.1 TH/MM3 (4.0-11.0) 11.8 TH/MM3 (4.0-11.0) Red Blood Count 3.92 MIL/MM3 (4.00-5.30) 3.64 MIL/MM3 (4.00-5.30) Hemoglobin 9.2 GM/DL (11.6-15.3) 8.7 GM/DL (11.6-15.3) Hematocrit 29.2 % (35.0-46.0) 27.0 % (35.0-46.0) Mean Corpuscular Volume 74.4 FL (80.0-100.0) 74.2 FL (80.0-100.0) Mean Corpuscular Hemoglobin 23.4 PG (27.0-34.0) 24.0 PG (27.0-34.0) Mean Corpuscular Hemoglobin Concent 31.5 % (32.0-36.0) 32.3 % (32.0-36.0) Red Cell Distribution Width 18.2 % (11.6-17.2) 18.3 % (11.6-17.2) Platelet Count 463 TH/MM3 (150-450) 469 TH/MM3 (150-450) Mean Platelet Volume 7.7 FL (7.0-11.0) 7.4 FL (7.0-11.0) Neutrophils (%) (Auto) 67.2 % (16.0-70.0) 67.1 % (16.0-70.0) Lymphocytes (%) (Auto) 14.4 % (9.0-44.0) 15.3 % (9.0-44.0) Monocytes (%) (Auto) 16.3 % (0.0-8.0) 15.6 % (0.0-8.0) Eosinophils (%) (Auto) 1.3 % (0.0-4.0) 1.0 % (0.0-4.0) Basophils (%) (Auto) 0.8 % (0.0-2.0) 1.0 % (0.0-2.0) Neutrophils # (Auto) 8.8 TH/MM3 (1.8-7.7) 7.9 TH/MM3 (1.8-7.7) Lymphocytes # (Auto) 1.9 TH/MM3 (1.0-4.8) 1.8 TH/MM3 (1.0-4.8) Monocytes # (Auto) 2.1 TH/MM3 (0-0.9) 1.8 TH/MM3 (0-0.9) Eosinophils # (Auto) 0.2 TH/MM3 (0-0.4) 0.1 TH/MM3 (0-0.4) Basophils # (Auto) 0.1 TH/MM3 (0-0.2) 0.1 TH/MM3 (0-0.2) CBC Comment AUTO DIFF DIFF FINAL Differential Total Cells Counted 100 Neutrophils % (Manual) 63 % (16-70) Band Neutrophils % 5 % (0-6) Lymphocytes % 13 % (9-44) Monocytes % 14 % (0-8) Eosinophils % 2 % (0-4) Neutrophils # (Manual) 9.3 TH/MM3 (1.8-7.7) Metamyelocytes 2 % (0-1) Myelocytes 1 % (0-0) Differential Comment FINAL DIFF MANUAL Platelet Estimate HIGH (NORMAL) Platelet Morphology Comment NORMAL (NORMAL) Acanthocytes OCC (NORMAL) Blood Urea Nitrogen 28 MG/DL (7-18) 30 MG/DL (7-18) Creatinine 0.76 MG/DL (0.50-1.00) 0.75 MG/DL (0.50-1.00) Random Glucose 110 MG/DL (74-106) 119 MG/DL (74-106) Total Protein 9.3 GM/DL (6.4-8.2) Albumin 2.4 GM/DL (3.4-5.0) Calcium Level 9.6 MG/DL (8.5-10.1) 9.7 MG/DL (8.5-10.1) Alkaline Phosphatase 187 U/L (45-117) Aspartate Amino Transf (AST/SGOT) 62 U/L (15-37) Alanine Aminotransferase (ALT/SGPT) 43 U/L (10-53) Gamma Glutamyl Transpeptidase 266 U/L (5-55) 261 U/L (5-55) Total Bilirubin 0.2 MG/DL (0.2-1.0) Sodium Level 136 MEQ/L (136-145) 139 MEQ/L (136-145) Potassium Level 4.3 MEQ/L (3.5-5.1) 3.5 MEQ/L (3.5-5.1) Chloride Level 101 MEQ/L (98-107) 103 MEQ/L (98-107) Carbon Dioxide Level 25.6 MEQ/L (21.0-32.0) 27.8 MEQ/L (21.0-32.0) Anion Gap 9 MEQ/L (5-15) 8 MEQ/L (5-15) Estimat Glomerular Filtration Rate 105 ML/MIN (>89) 106 ML/MIN (>89) Amylase Level 74 U/L (25-115) 70 U/L (25-115) Lipase 511 U/L (73-393) 423 U/L (73-393) Direct Bilirubin 0.1 MG/DL (0.0-0.2) Hemoglobin A1c 5.9 % (4.3-6.0) Human Chorionic Gonadotropin, Quant LESS THAN 1 MIU/ML (0-5) Urine Color YELLOW (YELLW/STRAW) Urine Turbidity HAZY (CLEAR) Urine pH 5.5 (5.0-8.5) Urine Specific [place] 1.026 (1.002-1.035) Urine Protein 30 mg/dL (NEG-TRACE) Urine Glucose (UA) NEG mg/dL (NEG) Urine Ketones NEG mg/dL (NEG) Urine Occult Blood NEG (NEG) Urine Nitrite NEG (NEG) Urine Bilirubin NEG (NEG) Urine Urobilinogen LESS THAN 2.0 MG/DL (LESS Urine Leukocyte Esterase SMALL (NEG) Urine RBC 5 /hpf (0-3) Urine WBC 12 /hpf (0-5) Urine Squamous Epithelial Cells 3 /hpf (0-5) Urine Mucus FEW /lpf (OCC) Microscopic Urinalysis Comment CULTURE INDICATED Test 06/19/17 23:40 06/20/17 02:30 Urine Color YELLOW (YELLW/STRAW) Urine Turbidity CLEAR (CLEAR) Urine pH 5.5 (5.0-8.5) Urine Specific [place] 1.024 (1.002-1.035) Urine Protein TRACE mg/dL (NEG-TRACE) Urine Glucose (UA) NEG mg/dL (NEG) Urine Ketones NEG mg/dL (NEG) Urine Occult Blood NEG (NEG) Urine Nitrite POS (NEG) Urine Bilirubin NEG (NEG) Urine Urobilinogen LESS THAN 2.0 MG/DL (LESS Urine Leukocyte Esterase MOD (NEG) Urine RBC 3 /hpf (0-3) Urine WBC 18 /hpf (0-5) Urine WBC Clumps FEW (NONE) Urine Bacteria MOD /hpf (NONE) Urine Hyaline Casts 1 /lpf (RARE) Urine Mucus FEW /lpf (OCC) Microscopic Urinalysis Comment CATH-CULTURE IND White Blood Count 15.0 TH/MM3 (4.0-11.0) Red Blood Count 3.43 MIL/MM3 (4.00-5.30) Hemoglobin 8.1 GM/DL (11.6-15.3) Hematocrit 25.2 % (35.0-46.0) Mean Corpuscular Volume 73.6 FL (80.0-100.0) Mean Corpuscular Hemoglobin 23.7 PG (27.0-34.0) Mean Corpuscular Hemoglobin Concent 32.2 % (32.0-36.0) Red Cell Distribution Width 18.1 % (11.6-17.2) Platelet Count 445 TH/MM3 (150-450) Mean Platelet Volume 7.3 FL (7.0-11.0) Neutrophils (%) (Auto) 73.2 % (16.0-70.0) Lymphocytes (%) (Auto) 12.0 % (9.0-44.0) Monocytes (%) (Auto) 13.3 % (0.0-8.0) Eosinophils (%) (Auto) 0.7 % (0.0-4.0) Basophils (%) (Auto) 0.8 % (0.0-2.0) Neutrophils # (Auto) 11.0 TH/MM3 (1.8-7.7) Lymphocytes # (Auto) 1.8 TH/MM3 (1.0-4.8) Monocytes # (Auto) 2.0 TH/MM3 (0-0.9) Eosinophils # (Auto) 0.1 TH/MM3 (0-0.4) Basophils # (Auto) 0.1 TH/MM3 (0-0.2) CBC Comment DIFF FINAL Differential Comment Blood Urea Nitrogen 28 MG/DL (7-18) Creatinine 0.63 MG/DL (0.50-1.00) Random Glucose 109 MG/DL (74-106) Total Protein 8.5 GM/DL (6.4-8.2) Albumin 2.5 GM/DL (3.4-5.0) Calcium Level 9.5 MG/DL (8.5-10.1) Alkaline Phosphatase 184 U/L (45-117) Aspartate Amino Transf (AST/SGOT) 51 U/L (15-37) Alanine Aminotransferase (ALT/SGPT) 38 U/L (10-53) Total Bilirubin 0.2 MG/DL (0.2-1.0) Sodium Level 142 MEQ/L (136-145) Potassium Level 3.6 MEQ/L (3.5-5.1) Chloride Level 106 MEQ/L (98-107) Carbon Dioxide Level 27.5 MEQ/L (21.0-32.0) Anion Gap 9 MEQ/L (5-15) Estimat Glomerular Filtration Rate 130 ML/MIN (>89) Amylase Level 76 U/L (25-115) Lipase 361 U/L (73-393) Result Diagram: 06/20/1722906/20/17229 Microbiology Microbiology Date/Time Source Procedure Growth Status 06/19/17 23:40 Urine Catheterized Urine Urine Culture Pending Received 06/19/17 18:00 Urine Catheterized Urine Urine Culture Pending Received Procedures 06/01-femoral central line, arterial line to patient Assessment and Plan Disease Oriented Problem List: (1) Cocaine abuse (2) Cardiopulmonary arrest with successful resuscitation (3) Respiratory failure (4) Asystole (5) Anoxic encephalopathy Symptom Scale: (1) Dyspnea 0-10 Scale: Unable to quantify (2) Anoxic encephalopathy 0-10 Scale: Unable to quantify Pertinent Non-Medical Issues Psychosocial:no longer - from Fredrick Hawkins. Father Gasper Archuleta, mother Kinga Botello-- last known in [place] though pt ex has not been able to reach them at last known numbers. No siblings. Reported to have 1 child who was adopted. Reported to have local significant other Max Mercer. later d/w homeless coalition counselor (Deisi Anthony) who has known Parris for 3-4 yrs. Pt did have a biological son who a few mos ago. Pt does not have any other children. No siblings that she is aware of. She moved to [place] around age 17 w her father, whom she then lost contact with,father moved back to [place]. She has not had contact w her mother for many years. She is very mosque and has reported God is her father, Ms Anthony feels she would want tar heel support. Substance hx: per prior EMR visits under different med record #- reports alcohol, "K2", marijuana, cocaine Spiritual: not known Legal:Due to clinical condition patient not able to participate in decision- making. She appears to have severe anoxic encephalopathy does not appear she will regain ability to participate. No longer per her ex-. No siblings per her ex- father and mother last known to be in [place] though do not have current contact information for them. If able to locate maybe appropriate legal decision makers for this patient. Patient also reported to have local significant other Max Mercer. If family unable to be identified he may be appropriate decision-making proxy. Palliative requested case management assist with ACCURINT report to locate possible NOK. Ethical issues impacting care:no ethical issues identified Important Contacts Ex Fredrick Hawkins. [address] [facility] [phone] Boyfriend - local- Max Anthony- counselor w [facility] [phone] Gasper Almendarez- Father, [facility] . Prognosis This patient was admitted 06/01/17 secondary to out of hospital cardiopulmonary arrest. It is not known total amount of time that she was minimally responsive and then pulseless before EMS arrival. She underwent at least 26 minutes of resuscitation by medical grade shoemaker. She appears to have significant severe anoxic brain injury at this time, she is minimally responsive demonstrating severe cortical injury with EEG near flat line in appearance per neurology. Overall prognosis for meaningful recovery of neurologic function appears poor. High risk for ongoing complications and sequelae secondary to hospitalization, nonresponsive state. . Code Status: No Code Plan * Legal decision maker:Due to clinical condition patient not able to participate in decision-making. She appears to have severe anoxic encephalopathy does not appear she will regain ability to participate. No longer per her ex-. No siblings per her ex- father and mother last known to be in [place] though do not have current contact information for them. If able to locate maybe appropriate legal decision makers for this patient. Patient also reported to have local significant other Max Mercer. If family unable to be identified he may be appropriate decision -making proxy. Palliative requested case management assist with ACCURINT report 06/06/17 to locate possible NOK. If unable to identify NOK, or appropriate person to serve as HC proxy, may need to utilize [employer] for decision making for pt. 06/08: accurint findings,w possible name / number Tawanda Adrian [phone]. I called this # VM left requesting call back to determine if related to pt. 06/09- this Lillie Almendarez is NOT related/connected to this pt. VM left for ex spouse Fredrick to determine if he wishes to serve as HC proxy. Awaiting call back. If he does NOT wish to serve, then should explore if Max (sig other) wishes to serve as proxy before pursuing [employer]. 06/12/17 Spoke w Mr. Hawkins regarding proxy decision making, and possibility may entail care home decision making as pt not expected to regain capacity. He is agreement to serve as HC PROXY. * Goals: ongoing conversations with HCP/ex - , Fredrick Hawkins. He has decided NOT to proceed with PEG/trach placement. He has made the decision to transition to comfort focus care stating the patient would NOT want to continue on artificial measures without meaningful recovery 06/20/17 : proxy Mr Fredrick Hawkins wishes to proceed w withdrawal today as to not prolong pt suffering. Anticipatory guidance again provided. He is appropriately tearful. Tentative time for 430/500 pm pending [facility] arrangements for OR. Comfort orders for pre withdrawal, time of withdrawal and post withdrawal to be entered by palliative at time of withdrawal * CODE STATUS: ALTERNATIVE CODE/Intubation only * SYMPTOMS: * Comfort orders for pre withdrawal, time of withdrawal and post withdrawal to be entered by palliative at time of withdrawal --Encephalopathy-status post out of hospital cardiopulmonary arrest-unknown total amount of time down; EEG "near flat line ", minimal neurological function at this time;repeat EEG continue to be very abnormal. MRI brain = Findings may be indicative of some degree of anoxic brain injury. No neurological improvement. No corneal reflex, no gag reflex, no cough. Patient does not withdraw to deep noxious stimuli. --Dyspnea-emergently intubated secondary to out of hospital arrest; breathing comfortable on mechanical vent. No gag reflex. +overbreathes vent. Undergoing CPAP trials, not planned for medical extubation 2/2 unable to protect airway. * Palliative care will continue to follow during hospital course as condition evolves, to assist patient/decision-maker with understanding of medical conditions, weighing benefits/burdens of treatment options, for clarification of goals of treatment. Additionally will assist with any symptoms of palliative concern Time Spent Total Floor Time (mins): 60 (chart review, PE, conversations w proxy, d/w RN, d /w critical care, d/w translife) Attestation To help prompt me to consider important information that might be impacting today's encounter and assessment, information from prior notes written by myself or my colleagues may have been "brought forward" into today's note. My signature on this note, however, is an attestation that I personally performed the exam, history, and/or decision-making noted today, and, unless otherwise indicated, the interactions with patient, family, and staff as well as the review of records all occurred today. I also attest that the listed assessment and stated plan reflect my best clinical judgment today based on the combination of historical information, prior notes, and today's exam/ interactions. When time spent is documented, it refers only to time spent today by the signer, or if indicated, combined time spent today by collaborating physician/nurse practitioner. Thalia Morton Jun 20, 2017 10:35
--- NOTE | 2017-06-20 15:08 | HHI.CCPN ---
Subjective Remarks/Hospital Course This is a 37-year-old female with an unknown past medical history who presents after out of hospital cardiac arrest. Per EMS report, a friend found the patient altered with agonal respirations. Per report, the friend did not have any way of contacting 911, so the friend place the patient in a car and drove her to the nearest gas station to call 911. Upon EMS arrival, the patient was unresponsive, not breathing, and pulseless. Presenting rhythm was asystole. ACLS was initiated, 3 A of epinephrine, 1 amp of bicarbonate, 2 mg of Narcan and the patient had ROSC. Patient was transported to [facility] emergency Department. In emergency department, she had a decreased level of consciousness but was moving all 4 extremities spontaneously. Her GCS was 6 (E1 ,V1,M4). Her urine drug screen is positive for cocaine. I discussion with Dr. Yañez the ER physician, and we agree that given her young age and that she was witnessed with a pulse, that the potential benefits of therapeutic hypothermia outweigh the risks in this scenario. No additional information is available from the patient and we do not know of any family at this time. Patient was transported the CVICU and therapeutic hypothermia was initiated. 06/02: Currently on hypothermia protocol. Temperature 33C. Dignishield will be placed. Remains on multiple vasopressors. Troponin climbing with repeat ordered. Echocardiogram and a.m. EKG pending. 06/03: Rewarming process initiated early this a.m.. Patient was weaned off of vasopressors greater than 24 hours. Hemodynamically stable. Early this a.m. the patient noted was noted to have decrease in dorsalis pedis and posterior tibial pulses, now nonpalpable but dopplerable biphasic signals. Arterial Doppler studies pending. Right femoral triple-lumen central line removed. Chest x-ray was noted to have an infiltrate, sputum cultures are pending empiric antibiotics initiated. 06/04: Normothermic at 1930 .Sedation discontinued 1929 on 06/03. The patient remains encephalopathic at this time. She remains hemodynamically stable on no pressors. EEG pending at this time. The patient was noted to be slightly hypernatremic, IV fluids changed. ABIs were performed for slightly decreased pulse yesterday and right lower extremities bilateral ABIs slightly depressed pulses on the right remain dopplerable, biphasic. 06/05: Afebrile. No acute events overnight. Patient continues to be hypertensive scheduled PO labetalol 100 mg BID. Neurologically, the patient remains encephalopathic, EEG performed yesterday showed nearly flat line. CT pending this a.m.. Neurology has been consulted, patient has been off sedation for approximately 36 hours. 06/06 MRI pending. Off sedation. Not brain --> has spontaneous respirations when disconnected vent. Absent pupillary, corneal, oculocephalic and gag reflexes. No motor response to deep noxious stimuli. Had tonic clonic movements of BUE this morning that ceased with Ativan 2 mg IV. 06/07: Afebrile. Tube feeds currently at 30 cc an hour with Jevity 1.5. 200 cc stools per fecal containment device. Received lorazepam 2 mg IV for "tremors " overnight. He reveals diffuse encephalopathy with no epileptiform activity on 06/04 and 06/06. 06/08: Currently afebrile. Tube feeding currently goal at 40 cc now with Jevity 1.5. 600 cc stools per fecal containment device. MRI brain 06/07 showed diffuse signs of anoxic brain injury. 06/09: CURRENT TEMPERATURE 98.7. RN is complaining of "transmitted upper airway sounds". Chest x-ray revealed no acute cardio pulmonary findings. Do not appreciate on my examination. . The patient is tachycardia and tachypnea, with copious thick whitish secretions from ET tube. Tolerate tube feedings with positive bowel movement from fecal team device.. 06/10 Overbreathing vent otherwise brainstem reflexes absent. Palliative care assisting with determination of healthcare proxy. Have reached out to ex- , Fredrick to see if he is willing to participate in decision-making. If he is not willing, plan to discuss with Max who is her current significant other. Afebrile. 06/11 No neuro change. WBC up a little. Afebrile. Tolerating tube feeds. Purewick catheter in place. No invasive lines. Significant other at bedside, hopeful for a miracle recovery. Informed she has permanent brain damage, would require trach/PEG and would expected to be bedridden [facility] with limited to no reaction to surroundings if she survives. He is aware that there has been discussion about transition to comfort "by people at [facility]". Not yet clear who will be legally making medical decisions, simply addressed Max's questions about her prognosis while he was at bedside with her. 06/12: no changes or improvements. palliative with ongoing discussions. 06/13: patient made DNR yesterday by healthcare proxy. no changes or improvements to mental status. poor prognosis. unlikely to regain any neurologic function. wbc remains elevated, and significant secretions from ETT, however, patient remains afebrile without significant o2 requirement on ventilator. 06/14: no changes. no improvements. 06/15: family decided today no trach/peg. however, they asked for 1 more week before withdraw of care. discussed with family this was not appropriate that we make patient suffer additional week when decision for comfort measures already made. family needs 1-2 more days to gather together before withdraw. 06/16: Remains encephalopathic, orally intubated on mechanical ventilation. 06/17: Remains encephalopathic, orally intubated on mechanical ventilation. Patient's planning to come in tomorrow for possible terminal wean SUBJECTIVE: 06/18: no improvements. family at bedside. request withdraw of care for 3pm tomorrow after remainder of family has ability to show up. 06/19 Patient is intubated unresponsive on no drips. 06/20 Patient remains intubated unresponsive. For withdrawal care today. Objective Vital Signs Date Time Temp Pulse Resp B/P (MAP) Pulse Ox O2 Delivery O2 Flow Rate FiO2 06/20/17 11:58 99 50 06/20/17 11:04 98.1 98 14 114/78 (90) Intake and Output 06/20/17 06/20/17 06/21/17 08:00 16:00 00:00 Intake Total 2192 ml 100 ml Output Total 600 ml Balance 1592 ml 100 ml Result Diagram: 06/20/17 0230 06/20/17 0230 Other Results Laboratory Tests Test 06/19/17 17:30 06/19/17 18:00 06/19/17 23:40 06/20/17 02:30 White Blood Count 11.8 TH/MM3 15.0 TH/MM3 Red Blood Count 3.64 MIL/MM3 3.43 MIL/MM3 Hemoglobin 8.7 GM/DL 8.1 GM/DL Hematocrit 27.0 % 25.2 % Mean Corpuscular Volume 74.2 FL 73.6 FL Mean Corpuscular Hemoglobin 24.0 PG 23.7 PG Mean Corpuscular Hemoglobin Concent 32.3 % 32.2 % Red Cell Distribution Width 18.3 % 18.1 % Platelet Count 469 TH/MM3 445 TH/MM3 Mean Platelet Volume 7.4 FL 7.3 FL Neutrophils (%) (Auto) 67.1 % 73.2 % Lymphocytes (%) (Auto) 15.3 % 12.0 % Monocytes (%) (Auto) 15.6 % 13.3 % Eosinophils (%) (Auto) 1.0 % 0.7 % Basophils (%) (Auto) 1.0 % 0.8 % Neutrophils # (Auto) 7.9 TH/MM3 11.0 TH/MM3 Lymphocytes # (Auto) 1.8 TH/MM3 1.8 TH/MM3 Monocytes # (Auto) 1.8 TH/MM3 2.0 TH/MM3 Eosinophils # (Auto) 0.1 TH/MM3 0.1 TH/MM3 Basophils # (Auto) 0.1 TH/MM3 0.1 TH/MM3 CBC Comment DIFF FINAL DIFF FINAL Differential Comment Prothrombin Time 10.7 SEC Prothromb Time International Ratio 1.1 RATIO Activated Partial Thromboplast Time 22.0 SEC Blood Urea Nitrogen 30 MG/DL 28 MG/DL Creatinine 0.75 MG/DL 0.63 MG/DL Random Glucose 119 MG/DL 109 MG/DL Calcium Level 9.7 MG/DL 9.5 MG/DL Gamma Glutamyl Transpeptidase 261 U/L Direct Bilirubin 0.1 MG/DL Sodium Level 139 MEQ/L 142 MEQ/L Potassium Level 3.5 MEQ/L 3.6 MEQ/L Chloride Level 103 MEQ/L 106 MEQ/L Carbon Dioxide Level 27.8 MEQ/L 27.5 MEQ/L Anion Gap 8 MEQ/L 9 MEQ/L Estimat Glomerular Filtration Rate 106 ML/MIN 130 ML/MIN Hemoglobin A1c 5.9 % Amylase Level 70 U/L 76 U/L Lipase 423 U/L 361 U/L Human Chorionic Gonadotropin, Quant LESS THAN 1 MIU/ML Urine Color YELLOW YELLOW Urine Turbidity HAZY CLEAR Urine pH 5.5 5.5 Urine Specific [place] 1.026 1.024 Urine Protein 30 mg/dL TRACE mg/dL Urine Glucose (UA) NEG mg/dL NEG mg/dL Urine Ketones NEG mg/dL NEG mg/dL Urine Occult Blood NEG NEG Urine Nitrite NEG POS Urine Bilirubin NEG NEG Urine Urobilinogen LESS THAN 2.0 MG/DL LESS THAN 2.0 MG/DL Urine Leukocyte Esterase SMALL MOD Urine RBC 5 /hpf 3 /hpf Urine WBC 12 /hpf 18 /hpf Urine Squamous Epithelial Cells 3 /hpf Urine Mucus FEW /lpf FEW /lpf Microscopic Urinalysis Comment CULTURE INDICATED CATH-CULTURE IND Urine WBC Clumps FEW Urine Bacteria MOD /hpf Urine Hyaline Casts 1 /lpf Total Protein 8.5 GM/DL Albumin 2.5 GM/DL Alkaline Phosphatase 184 U/L Aspartate Amino Transf (AST/SGOT) 51 U/L Alanine Aminotransferase (ALT/SGPT) 38 U/L Total Bilirubin 0.2 MG/DL Imaging Last Impressions Chest X-Ray 06/10/17 0600 Signed Impressions: Service Date/Time: Saturday, June 10, 2017 04:16 - CONCLUSION: No change. Lungs remain clear. Darrius Piedra MD Hepatobiliary Scan Nuclear Medicine 06/09/17 0000 Signed Impressions: Service Date/Time: Friday, June 09, 2017 11:55 - CONCLUSION: Prompt visualization of the gallbladder excludes cystic duct obstruction. Howard Dillon MD Pancreas Ultrasound 06/08/17 0000 Signed Impressions: Service Date/Time: May 16:18 - CONCLUSION: 1. No cholelithiasis. However, there is borderline gallbladder wall thickening and subtle potential pericholecystic fluid. This finding may be seen in the setting of chronic illness and chronic liver disease. The differential considerations include cholecystitis, likely chronic. If there is significant concern regarding acute cholecystitis, HIDA scan may be performed to evaluate for cystic duct patency. 2. Mild hepatomegaly. 1. Ziggy Abdi MD Brain MRI 06/07/17 0000 Signed Impressions: Service Date/Time: Wednesday, June 07, 2017 15:41 - CONCLUSION: 1. There is some increased T2 flair signal in the distribution of the striatum bilaterally. Punctate areas of diffusion restriction in the globus pallidus. Findings may be indicative of some degree of anoxic brain injury. 2. Extensive chronic sinusitis bilaterally. Pelon Mazariegos MD Gall Bladder Ultrasound 06/02/17 0000 Signed Impressions: Service Date/Time: Friday, June 02, 2017 07:17 - CONCLUSION: 1. Although the gallbladder is well-distended I see no stones or sludge. There is a trace amount of ascitic fluid including pericholecystic fluid. 2. Questionable small right effusion. No effusion is seen on the recent CT scan. Howard Ricardo Jr., MD CT Angiography 06/02/17 0000 Signed Impressions: Service Date/Time: Friday, June 02, 2017 00:38 - CONCLUSION: No evidence of pulmonary embolism. Left lung perihilar infiltrate. Darrius Blandon MD Abdomen/Pelvis CT 06/02/17 0000 Signed Impressions: Service Date/Time: Friday, June 02, 2017 00:43 - CONCLUSION: Nonspecific distention of bowel. Nonspecific abnormal appearance of the gallbladder. Darrius Blandon MD Head CT 06/01/17 2347 Signed Impressions: Service Date/Time: Friday, June 02, 2017 00:29 - CONCLUSION: No acute intracranial process Darrius Blandon MD Objective Remarks GENERAL: 37-year-old AA female orotracheally intubated HEENT: Normocephalic. Atraumatic. Pupils 1-2 mm bilaterally and nonreactive. Scleral edema noted with some erythema NECK: Trachea is midline. There is no JVD. CHEST: Symmetrical chest rise. PRVC, 35% fio2. CARDIOVASCULAR: Tachycardic, RR. Without murmur ABDOMEN: Soft, nontender, nondistended. Fecal containment device with brown/ yellow liquid stool. Tolerating tube feeds MUSCULOSKELETAL: Pulses 2+ bilateral radial and posterior tibialis. Dependent edema of hands bilaterally. NEUROLOGICAL: No eye opening. Pupils 1-2 mm but nonreactive. No corneal reflex. No gag. No cough. +Spontaneous respirations over the current ventilator settings, also noted spontaneous resp effort when disconnected vent. No motor response to deep noxious stimuli. Negative Babinski. No clonus. A/P Assessment and Plan Assessment: 37yF with severe anoxic brain injury without neurologic improvement. poor prognosis. Will avoid exposure to broad spectrum abx unless clinically appears infected. continue to monitor. Neuro/Psych: Acute hypoxic ischemic encephalopathy Toxic encephalopathy - multifactorial Cocaine overdose EtOH abuse Seizure Status post induced therapeutic hypothermia. Sedation discontinued 06/03 at 1930. Remains off sedatives Neurochecks per ICU protocol CT brain admission 06/01 revealed no acute intracranial findings 06/04 EEG -. Severe encephalopathy with nearly flat line appearance. 06/06 EEG - severe encephalopathy with no epileptic activity 06/09 EEG - severely abnormal, severe background slowing consistent with anoxia. 06/04 ammonia level- 10 MRI brain 06/07 - increased T2 flair signal in the distribution of the striatum bilaterally. Punctate areas of diffusion restriction in the globus pallidus. Findings may be indicative of some degree of anoxic brain injury. Extensive chronic sinusitis bilaterally. Continue thiamine 100 mg daily, folate 1 mg daily and multivitamin 1 tablet daily with EtOH use by history Currently on levetiracetam 1000 mg po twice a day per neurology's recommendations. Fosphenytoin discontinued Neurology consult/Dr. White Oxycodone 5 mg liquid every 4 hours when necessary pain 1-10/agitation Respiratory: Acute hypoxic and hypercarbic respiratory failure ACV 15/500/11/08. Vent bundle Current Mental status barrier to extubation. Head of bed 30 Albuterol/ipratropium aerosols every 6 hours with albuterol aerosols every 2 hours as needed Hypertonic saline 3% aerosols 2 mL every 6 hours for mucus thinning Guaifenesin 400 mg by tube every 8 hours Wean FiO2 for goal SPO2 greater than 92% CT pulmonary angiogram 06/01: Negative for acute PE and possible left lower lobe infiltrate Chest x-ray 06/09 revealed no acute cardio pulmonary findings Status post bronchoscopy 06/09. Please defer to procedure note Cardiovascular: Status post out of hospital cardiac arrest Cardiogenic shock (resolved) NSTEMI- resolved. Lactic acidosis-resolved Elevated HDL Monitor HR and BP keep MAP> 65 Cardiology/Dr. Perez has evaluated and no plans for further workup at this time due to extremely poor neurologic prognosis 06/03 2D echo - The left ventricular systolic function is mildly reduced with an estimated ejection fraction of 45%. Normal left ventricular size. Wall thickness is normal. No regional wall motion abnormalities are present. Mild mitral valve regurgitation. Mild aortic sclerosis. Trace aortic valve regurgitation. Amiodarone infusion discontinued 06/02 secondary to the patient having elevated LFTs. The patient remains in normal sinus rhythm, hemodynamically stable on no vasopressors 06/03- arterial Doppler studies. Slight depression MILES 0.8 bilaterally. Biphasic Doppler signals right DP, PT Currently off all vasopressors. Scheduled labetalol 200 mg twice a day As needed labetalol/hydralazine Nitropaste for blood pressure greater than 160 Renal/FEN/: Acute kidney injury - resolved Hypernatremia Monitor renal function, electrolytes replacement as needed. Currently on Jevity 1.5 goal 40 cc an hours per nutrition's recommendations Sodium is downtrending, Free water 200 cc every 6 hours Off IV fluids. 06/09 GI: Elevated AST/alkaline phosphatase Diarrhea NOS Hypoalbuminemia Elevated amylase/lipase - 1317 06/02 Fecal containment device placed CT abdomen/pelvis revealed a nonspecific bowel gas pattern with dilated bowel loops and abnormal gallbladder appearance. 06/02 gallbladder ultrasound- distended gallbladder pancreatic ultrasound - borderline gallbladder wall thickening. Pericholecystic fluid. Visualized pancreas was normal. HIDA scan oy 06/09 - negative for cystic duct obstruction. LFTs downtrending. Tolerating Jevity 1.5 @40 mL per hour. Lansoprazole 30 mm by tube daily for GI prophylaxis No bowel regimen secondary to ongoing diarrhea. C. difficile negative -06/03 Heme/ID: Microcytic anemia Community-acquired pneumonia Blood culture- NGTD 06/04Sputum culture MSSA, betastrep. 06/09bronchoscopy - negative C. difficile negative Empiric antibiotics initiated secondary to left lung base developing opacity- possibly secondary to aspiration. Has been on cefepime, azithromycin and vancomycin 06/03- Compled cefazolin 1 g IV every 8 hours, antibiotic day #8 Stopped 06/10 .monitor off abx Endocrine: Hyperglycemia of critical illness, resolved Not requiring sliding scale coverage for many days. Will discontinue. TSH normal 1.74 Prophylaxis: GI Prophylaxis Lansoprazole 30 mg daily DVT Prophylaxis -- SCDs Subcutaneous heparin 5000 units twice a day Lines: 06/01 right femoral triple-lumen catheter placed in the emergency department by the emergency room [id number] 06/02 right radial arterial line - d/c 06/07 06/02 left femoral code cool catheter - d/c 06/06. PIV Palliative care is following Discussed with [facility] for withdrawal care today in PACU Level 1 Arnaldo Cruz MD Jun 20, 2017 15:08
[2017-06-20] MEDS ORDERED: MORPHINE SULFATE 2 MG/ML INJ IV PUSH PRN (16:15)
[2017-06-20] MEDS ORDERED: HYOSCYAMINE 0.5 MG/ML AMP IV PUSH ONE (16:15)
[2017-06-20] MEDS ORDERED: MORPHINE SULFATE 2 MG/ML INJ IV PUSH ONE (16:15)
[2017-06-20] MEDS ORDERED: LORazepam 2 MG/ML VIAL IV PUSH ONE ×2 (16:15→16:30)
[2017-06-20] MEDS ORDERED: MORPHINE SULFATE 4 MG/ML INJ IV PUSH ONE (16:30)
[2017-06-20] MEDS ORDERED: HEPARIN - 10,000 UNITS/ML IV ADDITIVE IV ONE (16:45)
[2017-06-20] MEDS ORDERED: LORazepam 2 MG/ML VIAL IV PUSH PRN ×2 (16:45)
[2017-06-20] MEDS ORDERED: FUROSEMIDE 20 MG/2 ML VIAL IV PUSH PRN (16:45)
[2017-06-20] MEDS: MORPHINE SULFATE 4 MG/ML INJ IV PUSH PRN ×2 (18:15→18:37)
[2017-06-20] MEDS: LORazepam 2 MG/ML VIAL IV PUSH PRN ×3 (18:15→21:48)
[2017-06-20] MEDS: MORPHINE SULFATE 2 MG/ML INJ IV PUSH PRN (21:48)
[2017-06-21] MEDS: LORazepam 2 MG/ML VIAL IV PUSH PRN ×4 (00:33→09:01)
[2017-06-21] MEDS: MORPHINE SULFATE 2 MG/ML INJ IV PUSH PRN ×4 (00:34→09:02)
[2017-06-21 03:48] VITALS: BP 123/61; PULSE 96; PULSE 97; RESP 30; TEMP 98; O2SAT 92
[2017-06-21 07:00] VITALS: BP 136/68; PULSE 100; PULSE 103; RESP 28; TEMP 98; O2SAT 88
[2017-06-21 08:36] VITALS: O2SAT 88
[2017-06-21] MEDS: ARTIFICIAL TEARS OPTH SOLN 15 ML BTL EACH EYE SCH (09:00)
[2017-06-21] MEDS: MORPHINE SULFATE 4 MG/ML INJ IV PUSH PRN (09:43)
== END 2017-06-21 10:20 | disposition expired | DRG 907 ==
LOC: NEPC 22:51 → EDBD 06-02 → NEDA 06-02 → HCVI 06-02 01:15
PROVIDERS: ADMIT Internal Medicine Critical Care Medicine; ATTEND Internal Medicine Critical Care Medicine
PROC: 5A12012 Performance of Cardiac Output, Single, Manual (ICD-10-PCS; 2017-06-01)
PROC: 5A2204Z Restoration of Cardiac Rhythm, Single (ICD-10-PCS; 2017-06-01)
PROC: 06HY33Z Insertion of Infusion Device into Lower Vein, Percutaneous Approach (ICD-10-PCS; 2017-06-01)
PROC: 5A1955Z Respiratory Ventilation, Greater than 96 Consecutive Hours (ICD-10-PCS; 2017-06-02)
PROC: 6A4Z0ZZ Hypothermia, Single (ICD-10-PCS; 2017-06-02)
PROC: 03HY32Z Insertion of Monitoring Device into Upper Artery, Percutaneous Approach (ICD-10-PCS; 2017-06-02)
PROC: 06HY33Z Insertion of Infusion Device into Lower Vein, Percutaneous Approach (ICD-10-PCS; 2017-06-02)
PROC: 0WCQ8ZZ Extirpation of Matter from Respiratory Tract, Via Natural or Artificial Opening Endoscopic (ICD-10-PCS; principal; 2017-06-09)
PROC: 0B9J8ZX Drainage of Left Lower Lung Lobe, Via Natural or Artificial Opening Endoscopic, Diagnostic (ICD-10-PCS; 2017-06-09)
PROC: 0B9C8ZX Drainage of Right Upper Lung Lobe, Via Natural or Artificial Opening Endoscopic, Diagnostic (ICD-10-PCS; 2017-06-09)
PROC: 0B9D8ZX Drainage of Right Middle Lung Lobe, Via Natural or Artificial Opening Endoscopic, Diagnostic (ICD-10-PCS; 2017-06-09)
PROC: 0B9F8ZX Drainage of Right Lower Lung Lobe, Via Natural or Artificial Opening Endoscopic, Diagnostic (ICD-10-PCS; 2017-06-09)
DX: T40.5X1A Poisoning by cocaine, accidental (unintentional), initial encounter (principal); G92 Toxic encephalopathy; I21.4 Non-ST elevation (NSTEMI) myocardial infarction; R57.0 Cardiogenic shock; J96.01 Acute respiratory failure with hypoxia; J96.02 Acute respiratory failure with hypercapnia; J18.9 Pneumonia, unspecified organism; G93.1 Anoxic brain damage, not elsewhere classified; N17.9 Acute kidney failure, unspecified; I47.2 Ventricular tachycardia; E87.4 Mixed disorder of acid-base balance; E87.0 Hyperosmolality and hypernatremia; G40.89 Other seizures; M62.82 Rhabdomyolysis; T17.898A Other foreign object in other parts of respiratory tract causing other injury, initial encounter; Z51.5 Encounter for palliative care; F14.10 Cocaine abuse, uncomplicated; D50.9 Iron deficiency anemia, unspecified; F10.120 Alcohol abuse with intoxication, uncomplicated; Y90.7 Blood alcohol level of 200-239 mg/100 ml; R73.9 Hyperglycemia, unspecified; F17.210 Nicotine dependence, cigarettes, uncomplicated; E83.39 Other disorders of phosphorus metabolism; E87.6 Hypokalemia; B95.61 Methicillin susceptible Staphylococcus aureus infection as the cause of diseases classified elsewhere; J32.9 Chronic sinusitis, unspecified; Z66 Do not resuscitate; R19.7 Diarrhea, unspecified; R40.2432 Glasgow coma scale score 3-8, at arrival to emergency department; R74.0 Nonspecific elevation of levels of transaminase and lactic acid dehydrogenase [LDH]; Z59.0 Homelessness
CPT/HCPCS: 31500; 36556; 36600; 36620; 43753; 51702; 70450; 70551; 71010; 71275; 74177; 76705; 78226; 80048; 80053; 80061; 80076; 80185; 80202; 80307; 81001; 82140; 82150; 82248; 82533; 82550; 82552; 82570; 82805; 82948; 82977; 83036; 83605; 83690; 83735; 84100; 84132; 84155; 84295; 84300; 84443; 84484; 84702; 85007; 85014; 85018; 85025; 85027; 85384; 85610; 85730; 86403; 86850; 86900; 86901; 87015; 87040; 87070; 87086; 87102; 87116; 87147; 87186; 87205; 87206; 87493; 87641; 88112; 89051; 93005; 93306; 93922; 94002; 94003; 94640; 94664; 95819; 96374; 96375; A9537; J0171; J0282; J0360; J0456; J0461; J0610; J0690; J0692; J1265; J1644; J1953; J2060; J2250; J2270; J2310; J2765; J3010; J3370; J3411; J3475; J3480; J7030; J7050; J7060; J7070; J7120; J7613; Q2009; Q9967